=== PATIENT | male | born 1980 | race Caucasian/White ===

== ENCOUNTER 2016-12-25 09:10 | Emergency (ER) | payer MEDICARE, MEDICAID ==
[~2016-12-25] VITALS: Ht 182.9 cm; Wt 110.7 kg
[~2016-12-25 09:10] MED LIST: AGM875T PO; HYDR1TAB PO
[2016-12-25 09:32] LABS: BILIRUBIN,URINE NEGATIVE (NEGATIVE); KETONES,URINE NEGATIVE (NEGATIVE); LEUKOCYTE ESTERASE ,URINE 1+ (NEGATIVE); NITRITE,URINE NEGATIVE (NEGATIVE); PH,URINE 7 (5-9); PROTEIN,URINE NEGATIVE (NEGATIVE); UROBILINOGEN,URINE NORMAL (NORMAL)
[2016-12-25 09:37] LABS: BASOPHILS # (AUTO) 0.1 10^3/uL (0.0-0.1); BASOPHILS % (AUTO) 1 % (0-10); EOSINOPHILS # (AUTO) 0.2 10^3/uL (0.0-0.3); EOSINOPHILS % (AUTO) 4 % (0-10); LYMPHOCYTES # (AUTO) 1.6 X 10^3 (1.0-4.0); LYMPHOCYTES % (AUTO) 26 % (12-44); MEAN CORPUSCULAR HEMOGLOBIN 31 PG (25-34); MEAN CORPUSCULAR HGB CONC 34 G/DL (32-36); MEAN CORPUSCULAR VOLUME 92 FL (80-99); MEAN PLATELET VOLUME 9.2 FL (7.4-10.4); MONOCYTES # (AUTO) 0.5 X 10^3 (0.0-1.0); MONOCYTES % (AUTO) 9 % (0-12); NEUTROPHILS # (AUTO) 3.7 X 10^3 (1.8-7.8); NEUTROPHILS % (AUTO) 61 % (42-75); PLATELET COUNT 277 10^3/uL (130-400); RED BLOOD COUNT 5.09 10^6/uL (4.35-5.85); RED CELL DISTRIBUTION WIDTH 12.2 % (10.0-14.5)
[2016-12-25 09:41] LABS: WBC,URINE RARE /HPF
[2016-12-25] MEDS ORDERED: ONDANSETRON 4 MG/2 ML (SDV) Z0FRAN IVP ONE (10:45)
[2016-12-25] MEDS ORDERED: KETOROLAC 30 MG/ML VIAL IVP ONE (10:45)
--- NOTE | 2016-12-25 10:56 | ED GU-Male ---
General Chief Complaint: -Male Stated Complaint: BLOOD IN URINE RIGHT SIDE PAIN FEVER Nursing Triage Note: Pt reports fever and chills since yesterday. Pt reports r sided abdominal pain and blood in his urine. Pt states he saw Dr. Moser yesterday and was told it was viral and prescribed zofran. Source: patient History of Present Illness Time seen by provider: 10:55 Initial Comments The patient is a 36-year-old white male who presents with a complaint of right sided abdominal and flank pain. He reports that he saw his provider Dr. Moser yesterday and was told that this was a viral illness. He reports that when he awakened this morning he felt much worse and when he urinated there was red blood. He has a past history of kidney stones. He also now has some nausea and has vomited. Timing/Duration: yesterday Severity/Quality: moderate Location: right flank, other (right hemiabdomen) Activities at Onset: none Associated Symptoms: fever/chills nausea/vomiting Allergies and Home Medications Allergies Coded Allergies: Aspirin (Unverified Allergy, Mild, 08/20/07) PT STATES TROUBLE BREATHING AND SWOLLEN GLANDS Constitutional: see HPI EENTM: no symptoms reported Respiratory: no symptoms reported Cardiovascular: no symptoms reported Gastrointestinal: see HPI Genitourinary: see HPI flank pain Musculoskeletal: no symptoms reported Skin: no symptoms reported Psychiatric/Neurological: No Symptoms Reported Endocrine: No Symptoms Reported Hematologic/Lymphatic: No Symptoms Reported Past Rbsmrnp-Vtauwc-Ienill Hx Patient Social History Alcohol Use: Occasionally Uses Recreational Drug Use: No Smoking Status: Never a Smoker Recent Foreign Travel: No Contact w/Someone Who Travel: No Recent Infectious Disease Expo: No Recent Hopitalizations: No Surgeries HX Surgeries: Yes Surgeries: Vasectomy Respiratory Hx Respiratory Disorders: No Cardiovascular Hx Cardiac Disorders: No Neurological Hx Neurological Disorders: No Reproductive System Hx Reproductive Disorders: No Genitourinary Hx Genitourinary Disorders: Yes Genitourinary Disorders: Kidney Stones Gastrointestinal Hx Gastrointestinal Disorders: No Musculoskeletal Hx Musculoskeletal Disorders: Yes Endocrine Hx Endocrine Disorders: Yes (hypoglycemia) HEENT HX ENT Disorders: No Cancer Hx Cancer: No Psychosocial Hx Psychiatric Problems: No Blood Transfusions Hx Blood Disorders: No Physical Exam Vital Signs Vital Sign - Last 12Hours 12/25/16 09:21 Temp 98.7 Pulse 68 Resp 18 B/P 138/97 Pulse Ox 98 Capillary Refill : Less Than 3 Seconds General Appearance: mild distress HEENT: normal ENT inspection Neck: full range of motion Cardiovascular: normal peripheral pulses regular rate, rhythm no edema no gallop no JVD no murmur Respiratory: chest non-tender lungs clear normal breath sounds no respiratory distress no accessory muscle use Gastrointestinal: normal bowel sounds non tender soft no organomegaly no pulsatile mass Back: CVA tenderness (R) Extremities: normal range of motion non-tender normal inspection no pedal edema no calf tenderness normal capillary refill pelvis stable Neurologic/Psychiatric: slide developer II-XII nml as tested no motor/sensory deficits alert normal mood/affect oriented x 3 Skin: normal color warm/dry Lymphatic: No no adenopathy, No axilla node tender (R), No axilla node tender ( L), No inguinal node tender (R), No inguinal node tender (L), No other Progress/Results/Core Measures Results/Orders Lab Results Laboratory Tests Test 12/25/16 09:23 12/25/16 09:31 Range/Units Urine Bacteria NEGATIVE /HPF Urine Bilirubin NEGATIVE NEGATIVE Urine Casts NONE /LPF Urine Clarity CLEAR Urine Color YELLOW Urine Crystals NONE /LPF Urine Culture Indicated NO Urine Glucose (UA) NEGATIVE NEGATIVE Urine Ketones NEGATIVE NEGATIVE Urine Leukocyte Esterase 1+ H NEGATIVE Urine Mucus SMALL H /LPF Urine Nitrite NEGATIVE NEGATIVE Urine Protein NEGATIVE NEGATIVE Urine RBC NONE /HPF Urine RBC (Auto) NEGATIVE NEGATIVE Urine Specific [place] 1.010 L 1.016-1.022 Urine Squamous Epithelial Cells /HPF Urine Urobilinogen NORMAL NORMAL MG/DL Urine WBC RARE /HPF Urine pH 7 5-9 Basophils # (Auto) 0.1 0.0-0.1 10^3/uL Basophils (%) (Auto) 1 0-10 % Eosinophils # (Auto) 0.2 0.0-0.3 10^3/uL Eosinophils (%) (Auto) 4 0-10 % Hematocrit 47 40-54 % Hemoglobin 15.8 13.3-17.7 G/DL Lymphocytes # (Auto) 1.6 1.0-4.0 X 10^3 Lymphocytes (%) (Auto) 26 12-44 % Mean Corpuscular Hemoglobin 31 25-34 PG Mean Corpuscular Hemoglobin Concent 34 32-36 G/DL Mean Corpuscular Volume 92 80-99 FL Mean Platelet Volume 9.2 7.4-10.4 FL Monocytes # (Auto) 0.5 0.0-1.0 X 10^3 Monocytes (%) (Auto) 9 0-12 % Neutrophils # (Auto) 3.7 1.8-7.8 X 10^3 Neutrophils (%) (Auto) 61 42-75 % Platelet Count 277 130-400 10^3/uL Red Blood Count 5.09 4.35-5.85 10^6/uL Red Cell Distribution Width 12.2 10.0-14.5 % White Blood Count 6.0 4.3-11.0 10^3/uL My Orders Orders-KIM BEASLEY MD Cbc With Automated Diff (12/25/16 09:17) Ua Culture If Indicated (12/25/16 09:17) Ketorolac Injection (Toradol Injection) (12/25/16 10:45) Ondansetron Injection (Zofran Injectio (12/25/16 10:45) Ct Abd/Pelvis Wo(Kidney Stone) (12/25/16 10:41) Medications Given in ED Current Medications Medications Dose Ordered Sig/Alba Route Start Time Stop Time Status Last Admin Dose Admin Ketorolac Tromethamine 30 mg ONCE ONCE IVP 12/25/16 10:45 12/25/16 10:46 DC 12/25/16 10:49 30 MG Ondansetron HCl 8 mg ONCE ONCE IVP 12/25/16 10:45 12/25/16 10:46 DC 12/25/16 10:49 8 MG Vital Signs/I&O Vital Sign - Last 12Hours 12/25/16 09:21 Temp 98.7 Pulse 68 Resp 18 B/P 138/97 Pulse Ox 98 Blood Pressure Mean: 111 Departure Impression Impression: Primary Impression: Right sided abdominal pain Disposition: HOME, SELF-CARE Condition: Stable/Unchanged Decision to Admit Reason: Admit from ER (General) Decision to Admit/Date: Dec 25, 2016 Time/Decision to Admit Time: 12:20 Departure-Patient Inst. Referrals: NO,LOCAL PHYSICIAN (PCP/Family) Primary Care Physician Add. Discharge Instructions: All discharge instructions reviewed with patient and/or family. Voiced understanding. Clear liquid diet. Lortab as prescribed See your provider if problems Return to ER if change in condition Scripts Hydrocodone/Acetaminophen (Lortab 10-325 mg Tablet)1 Each Tablet1 Each PO 4 TIMES A DAY #20 TAB Prov:KIM BEASLEY MD 12/25/16 KIM BEASLEY MD Dec 25, 2016 10:56
--- NOTE | 2016-12-25 11:58 | Diagnostic Imaging Report ---
PROCEDURE: CT urinary tract, rule out kidney stone. TECHNIQUE: Multiple contiguous axial images were obtained through the abdomen and pelvis without the use of intravenous contrast. INDICATION: Right flank pain x2 days. COMPARISON: 08/07/2011 FINDINGS: Included views the lung bases show mild dependent atelectasis, but are otherwise unremarkable. CT ABDOMEN: No renal or ureteral calculi are seen on either side. Additionally, there is no hydroureteronephrosis or other evidence of obstruction. No focal renal mass-type lesions are identified on this noncontrast exam. The liver is diffusely hypodense. Otherwise, the liver, spleen, pancreas and adrenal glands have an unremarkable noncontrast CT appearance, as well. Small bowel loops are nondistended. Normal appendix is identified. There is no loculated fluid collection, free fluid or free air within the abdomen. No abnormal mesenteric or retroperitoneal adenopathy is seen. There is mild scattered calcified aortic atherosclerosis. Bony structures show no acute abnormalities. CT PELVIS: There is a hazy nodular density within the anterior pelvis just to the left lateral of midline that measures approximately 1.5 x 1.3 x 1 cm (image 125, series 2 and image 39, series 4). Prominent right inguinal lymph node measures 2.6 x 1.6 cm. This is stable compared to 2.7 x 1.8 cm on prior exam. Previously described second large inguinal lymph node is now much smaller and measures approximately 5 mm in diameter, in comparison to 2.5 cm previously. No other abnormal adenopathy is seen. Urinary bladder is unopacified. No calculi are seen within the urinary bladder. There is no loculated fluid collection, free fluid or free air. Bony structures show no acute abnormalities. IMPRESSION: 1. No acute abnormalities in the abdomen or pelvis. 2. Hepatic steatosis. 3. Nodular subtle density in the lower pelvis to the left lateral of midline adjacent to the sigmoid colon. This is nonspecific, but may be on the basis of prior omental infarct. 4. Right inguinal adenopathy, as described above. Dictated by: Dictated on workstation # [id number]
[2016-12-25] MEDS ORDERED: HYDR-3731 PO (12:24)
[2016-12-25 12:30] VITALS: BP 112/69
== END 2016-12-25 12:38 | disposition home or self-care (01) ==
LOC: EDUNIT# 09:10 → ER 09:14
DX: R10.31 Right lower quadrant pain (principal); K76.0 Fatty (change of) liver, not elsewhere classified; R59.0 Localized enlarged lymph nodes; Z87.442 Personal history of urinary calculi
CPT/HCPCS: 36415; 74176; 81000; 85025; 96374; 96375

== ENCOUNTER 2017-02-13 12:26 | Emergency (ER) | payer MEDICARE, MEDICAID ==
[~2017-02-13] VITALS: Ht 182.9 cm; Wt 109.8 kg
[~2017-02-13 12:26] MED LIST changes: +HYDR-3731 PO
[2017-02-13] MEDS ORDERED: TRAM50TA2 (12:42)
[2017-02-13] MEDS ORDERED: LEVO750T39 (12:42)
[2017-02-13] MEDS ORDERED: METR500T21 (12:42)
[2017-02-13] MEDS ORDERED: MUPI22OI2 TP (12:58)
--- NOTE | 2017-02-13 12:59 | ED Lower Extremity ---
General Chief Complaint: Lower Extremity Stated Complaint: WEAKNESS, DIZZY, SUDDEN BODYACHES. SPIDER BITE Nursing Triage Note: ARRIVED VIA AMB WITH KNOWN SPIDER BITE ON LEFT LOWER LEG. WAS SEEN AT [facility] AND REALEASED TO GO BACK TO WORK. AT WORK BECAME DIZZY, PAIN IN LEG, AND NOT FEELING WELL. Nursing Sepsis Screen: No Definite Risk Source: patient Exam Limitations: no limitations History of Present Illness Time seen by provider: 12:55 Initial Comments To ER with a suspected insect bite to the left lateral leg. This began a few days ago he was seen at [facility] and given an antibiotic which included Flagyl and Levaquin. Patient states he was released to go back to work today and while at work became dizzy and lightheaded and believes this to be secondary to the insect bite on his leg. Onset: last week Severity: moderate Pain/Injury Location: left leg Method of Injury: unknown Allergies and Home Medications Allergies Coded Allergies: No Known Drug Allergies (Unverified , 02/13/17) Home Medications Levofloxacin 750 Mg Tablet, #10 (Reported) Metronidazole 500 Mg Tablet, #21 (Reported) Mupirocin 22 Gm Oint...g., 22 GM TP BID, #1 Prescribed by: YULIET ORELLANA on 02/13/17 1258 Tramadol HCl 50 Mg Tablet, #40 (Reported) Constitutional: see HPI EENTM: see HPI Respiratory: no symptoms reported Cardiovascular: no symptoms reported Genitourinary: no symptoms reported Musculoskeletal: no symptoms reported Skin: no symptoms reported Psychiatric/Neurological: No Symptoms Reported Past Iohtazz-Uejyfz-Bbhesk Hx Patient Social History Alcohol Use: Denies Use Recreational Drug Use: No Smoking Status: Never a Smoker Recent Foreign Travel: No Contact w/Someone Who Travel: No Recent Infectious Disease Expo: No Recent Hopitalizations: No Surgeries HX Surgeries: Yes (KIDNEY STONES, ) Surgeries: Tonsillectomy, Vasectomy Respiratory Hx Respiratory Disorders: No Cardiovascular Hx Cardiac Disorders: No Neurological Hx Neurological Disorders: No Reproductive System Hx Reproductive Disorders: No Genitourinary Hx Genitourinary Disorders: Yes Genitourinary Disorders: Kidney Stones Gastrointestinal Hx Gastrointestinal Disorders: No Musculoskeletal Hx Musculoskeletal Disorders: Yes Endocrine Hx Endocrine Disorders: Yes (hypoglycemia) HEENT HX ENT Disorders: No Cancer Hx Cancer: No Psychosocial Hx Psychiatric Problems: No Blood Transfusions Hx Blood Disorders: No Physical Exam Vital Signs Vital Sign - Last 12Hours 02/13/17 12:30 Temp 97.5 Pulse 65 Resp 16 B/P (MAP) 143/94 Pulse Ox 93 Capillary Refill : Less Than 3 Seconds General Appearance: WD/WN, no apparent distress HEENT: PERRL/EOMI, normal ENT inspection Neck: non-tender, full range of motion Respiratory: no respiratory distress, no accessory muscle use Gastrointestinal: normal bowel sounds, non tender, soft Hips: bilateral hip non-tender, bilateral hip normal inspection, bilateral hip normal range of motion Legs: bilateral leg non-tender, bilateral leg normal inspection, bilateral leg normal range of motion, left leg other (there is a small area of erythema to the lateral left leg without surrounding cellulitis, lymphangitis. There is no fluctuance to this, there is however some induration.) Knees: bilateral knee non-tender, bilateral knee normal inspection, bilateral knee normal range of motion Ankles: bilateral ankle non-tender, bilateral ankle normal inspection Feet: bilateral foot non-tender, bilateral foot normal inspection, bilateral foot normal range of motion Progress/Results/Core Measures Results/Orders Lab Results Laboratory Tests Test 02/13/17 12:52 02/13/17 13:04 Range/Units White Blood Count 5.0 4.3-11.0 10^3/uL Red Blood Count 4.64 4.35-5.85 10^6/uL Hemoglobin 14.3 13.3-17.7 G/DL Hematocrit 43 40-54 % Mean Corpuscular Volume 92 80-99 FL Mean Corpuscular Hemoglobin 31 25-34 PG Mean Corpuscular Hemoglobin Concent 34 32-36 G/DL Red Cell Distribution Width 11.9 10.0-14.5 % Platelet Count 256 130-400 10^3/uL Mean Platelet Volume 8.8 7.4-10.4 FL Neutrophils (%) (Auto) 60 42-75 % Lymphocytes (%) (Auto) 27 12-44 % Monocytes (%) (Auto) 10 0-12 % Eosinophils (%) (Auto) 3 0-10 % Basophils (%) (Auto) 1 0-10 % Neutrophils # (Auto) 3.0 1.8-7.8 X 10^3 Lymphocytes # (Auto) 1.4 1.0-4.0 X 10^3 Monocytes # (Auto) 0.5 0.0-1.0 X 10^3 Eosinophils # (Auto) 0.1 0.0-0.3 10^3/uL Basophils # (Auto) 0.0 0.0-0.1 10^3/uL Sodium Level 141 135-145 MMOL/L Potassium Level 3.8 3.6-5.0 MMOL/L Chloride Level 105 98-107 MMOL/L Carbon Dioxide Level 27 21-32 MMOL/L Anion Gap 9 5-14 MMOL/L Blood Urea Nitrogen 7 7-18 MG/DL Creatinine 1.29 0.60-1.30 MG/DL Estimat Glomerular Filtration Rate > 60 BUN/Creatinine Ratio 5 Glucose Level 82 70-105 MG/DL Calcium Level 9.1 8.5-10.1 MG/DL Total Bilirubin 0.4 0.1-1.0 MG/DL Aspartate Amino Transf (AST/SGOT) 18 5-34 U/L Alanine Aminotransferase (ALT/SGPT) 27 0-55 U/L Alkaline Phosphatase 73 40-136 U/L Total Creatine Kinase 309 H 30-200 U/L Total Protein 6.7 6.4-8.2 G/DL Albumin 4.3 3.2-4.5 G/DL My Orders Orders - YULIET ORELLANA APRN Cbc With Automated Diff (02/13/17 12:44) Comprehensive Metabolic Panel (02/13/17 12:44) Ua Culture If Indicated (02/13/17 12:44) Creatine Kinase (02/13/17 12:44) Vital Signs/I&O Vital Sign - Last 12Hours 02/13/17 12:30 Temp 97.5 Pulse 65 Resp 16 B/P (MAP) 143/94 Pulse Ox 93 Blood Pressure Mean: 110 Departure Impression Impression: Primary Impression: Soft tissue infection Disposition: HOME, SELF-CARE Condition: Stable Departure-Patient Inst. Decision time for Depature: 12:57 Referrals: NO,LOCAL PHYSICIAN (PCP/Family) Primary Care Physician Patient Instructions: NO INSTRUCTIONS GIVEN Add. Discharge Instructions: 1. Stop the antibiotic pills and start the antibiotic ointment 2. Follow-up with your doctor next week 3. Drink plenty of fluids All discharge instructions reviewed with patient and/or family. Voiced understanding. Scripts Mupirocin (Mupirocin) 22 Gm Oint...g. 22 GM TP BID, #1 TUBE Prov: YULIET ORELLANA APRN 02/13/17 Work/School Note: Work Release Form Date Seen in the Emergency Department: February 13, 2017 Return to Work: February 14, 2017 YULIET ORELLANA APRN February 13, 2017 12:59
[2017-02-13 13:01] LABS: BASOPHILS % (AUTO) 1 % (0-10); EOSINOPHILS # (AUTO) 0.1 10^3/uL (0.0-0.3); EOSINOPHILS % (AUTO) 3 % (0-10); LYMPHOCYTES # (AUTO) 1.4 X 10^3 (1.0-4.0); LYMPHOCYTES % (AUTO) 27 % (12-44); MEAN CORPUSCULAR HEMOGLOBIN 31 PG (25-34); MEAN CORPUSCULAR HGB CONC 34 G/DL (32-36); MEAN CORPUSCULAR VOLUME 92 FL (80-99); MEAN PLATELET VOLUME 8.8 FL (7.4-10.4); MONOCYTES # (AUTO) 0.5 X 10^3 (0.0-1.0); MONOCYTES % (AUTO) 10 % (0-12); NEUTROPHILS % (AUTO) 60 % (42-75); PLATELET COUNT 256 10^3/uL (130-400); RED BLOOD COUNT 4.64 10^6/uL (4.35-5.85); RED CELL DISTRIBUTION WIDTH 11.9 % (10.0-14.5)
[2017-02-13 13:13] LABS: BILIRUBIN,URINE NEGATIVE (NEGATIVE); KETONES,URINE NEGATIVE (NEGATIVE); LEUKOCYTE ESTERASE ,URINE 1+ (NEGATIVE); NITRITE,URINE NEGATIVE (NEGATIVE); PH,URINE 6 (5-9); PROTEIN,URINE NEGATIVE (NEGATIVE); UROBILINOGEN,URINE NORMAL (NORMAL)
[2017-02-13 13:18] LABS: ALANINE AMINOTRANSFERASE 27 U/L (0-55); ALBUMIN 4.3 G/DL (3.2-4.5); ANION GAP 9 MMOL/L (5-14); ASPARTATE AMINO TRANSFERASE 18 U/L (5-34); BILIRUBIN,TOTAL 0.4 MG/DL (0.1-1.0); BLOOD UREA NITROGEN 7 MG/DL (7-18); BUN/CREATININE RATIO 5; CALCIUM 9.1 MG/DL (8.5-10.1); CARBON DIOXIDE 27 MMOL/L (21-32); CHLORIDE 105 MMOL/L (98-107); CREATINE KINASE 309 U/L (30-200); CREATININE SERUM 1.29 MG/DL (0.60-1.30); GFR ESTIMATED > 60; GLUCOSE 82 MG/DL (70-105); POTASSIUM 3.8 MMOL/L (3.6-5.0); SODIUM 141 MMOL/L (135-145); TOTAL PROTEIN 6.7 G/DL (6.4-8.2)
[2017-02-13 13:22] LABS: WBC,URINE RARE /HPF
[2017-02-13 13:23] LABS: SQUAMOUS EPITHELIAL CELL,UR RARE /HPF
[2017-02-13 13:33] VITALS: BP 142/81
== END 2017-02-13 13:33 | disposition home or self-care (01) ==
LOC: EDUNIT# 12:26 → ER 12:28
DX: L03.116 Cellulitis of left lower limb (principal)
CPT/HCPCS: 36415; 80053; 81000; 82550; 85025

== ENCOUNTER 2020-06-03 17:07 | Emergency (ER) | payer MEDICARE, MEDICAID ==
[~2020-06-03] VITALS: Ht 182 cm; Wt 109.0 kg
[~2020-06-03 17:07] MED LIST changes: +LEVO750T39; +METR-145; +MUPI22OI2 TP; +TRM50T
--- NOTE | 2020-06-03 17:55 | ED Lower Extremity ---
General Chief Complaint: Lower Extremity Stated Complaint: time, unlikely. All Nursing Triage Note: Pt here with bruising to his posterior left thigh. Pt states he woke up with the bruising and denies any trauma or new activity. Pt reports pain /10. Nursing Sepsis Screen: No Definite Risk Source: patient Exam Limitations: no limitations History of Present Illness Date Seen by Provider: Jun 03, 2020 Time Seen by Provider: 17:53 Initial Comments To ER with bruising to the posterior left upper leg. He awakened with this this morning. He does report chills but no fever. Concerned he might have had a blood clot. Onset: this morning Severity: moderate Pain/Injury Location: left leg Method of Injury: unknown Modifying Factors: Worse With Movement Allergies and Home Medications Allergies Coded Allergies: No Known Drug Allergies (Unverified , 02/13/17) Home Medications Mupirocin 22 Gm Oint...g., 22 GM TP BID Prescribed by: YULIET ORELLANA on 02/13/17 1258 Patient Home Medication List Home Medication List Reviewed: Yes Review of Systems Constitutional: see HPI EENTM: see HPI Respiratory: no symptoms reported Cardiovascular: no symptoms reported Genitourinary: no symptoms reported Musculoskeletal: see HPI Skin: see HPI Past Llikdwv-Mrsdlu-Dbjgdt Hx Patient Social History Recent Foreign Travel: No Contact w/Someone Who Travel: No Recent Infectious Disease Expo: No Recent Hopitalizations: No Past Medical History Tonsillectomy, Vasectomy Reproductive Disorders: No Kidney Stones Physical Exam Vital Signs Vital Signs - First Documented 06/03/20 17:30 Temp 36.7 Pulse 68 Resp 18 B/P (MAP) 149/102 (118) Pulse Ox 98 O2 Delivery Room Air Capillary Refill : Less Than 3 Seconds Height, Weight, BMI Height: 6'" Weight: 242lbs. oz. 109.788895bw; 32.00 BMI Method:Stated General Appearance: WD/WN, no apparent distress HEENT: PERRL/EOMI, normal ENT inspection Respiratory: no respiratory distress, no accessory muscle use Hips: bilateral hip non-tender, bilateral hip normal inspection, bilateral hip normal range of motion Legs: bilateral leg non-tender, bilateral leg normal inspection, bilateral leg normal range of motion; left leg other (there is some palm size dark purplish bruising just above the knee posteriorly on the left. There is no erythema or swelling of either extremity. He does report some tenderness to the left inguinal region. No wounds or sores on his leg.) Knees: bilateral knee non-tender, bilateral knee normal inspection Ankles: bilateral ankle non-tender, bilateral ankle normal inspection Feet: bilateral foot non-tender, bilateral foot normal inspection, bilateral foot normal range of motion; left foot other (equal posterior tibial and dorsalis pulses strength 2+ bilaterally) Neurologic/Psychiatric: alert, normal mood/affect, oriented x 3 Skin: normal color, warm/dry Progress/Results/Core Measures Results/Orders Lab Results Laboratory Tests Test 06/03/20 18:13 Range/Units White Blood Count 7.1 4.3-11.0 10^3/uL Red Blood Count 4.87 4.35-5.85 10^6/uL Hemoglobin 14.9 13.3-17.7 G/DL Hematocrit 45 40-54 % Mean Corpuscular Volume 92 80-99 FL Mean Corpuscular Hemoglobin 31 25-34 PG Mean Corpuscular Hemoglobin Concent 33 32-36 G/DL Red Cell Distribution Width 13.3 10.0-14.5 % Platelet Count 317 130-400 10^3/uL Mean Platelet Volume 8.7 7.4-10.4 FL Neutrophils (%) (Auto) 69 42-75 % Lymphocytes (%) (Auto) 19 12-44 % Monocytes (%) (Auto) 6 0-12 % Eosinophils (%) (Auto) 5 0-10 % Basophils (%) (Auto) 1 0-10 % Neutrophils # (Auto) 5.0 1.8-7.8 X 10^3 Lymphocytes # (Auto) 1.4 1.0-4.0 X 10^3 Monocytes # (Auto) 0.4 0.0-1.0 X 10^3 Eosinophils # (Auto) 0.4 H 0.0-0.3 10^3/uL Basophils # (Auto) 0.1 0.0-0.1 10^3/uL Prothrombin Time 13.1 12.2-14.7 SEC INR Comment 1.0 0.8-1.4 Activated Partial Thromboplast Time 29 24-35 SEC D-Dimer 0.66 H 0.00-0.49 UG/ML Sodium Level 141 135-145 MMOL/L Potassium Level 2.9 L 3.6-5.0 MMOL/L Chloride Level 104 98-107 MMOL/L Carbon Dioxide Level 27 21-32 MMOL/L Anion Gap 10 5-14 MMOL/L Blood Urea Nitrogen 7 7-18 MG/DL Creatinine 1.00 0.60-1.30 MG/DL Estimat Glomerular Filtration Rate > 60 BUN/Creatinine Ratio 7 Glucose Level 129 H 70-105 MG/DL Calcium Level 8.8 8.5-10.1 MG/DL Corrected Calcium 8.8 8.5-10.1 MG/DL Total Bilirubin 0.3 0.1-1.0 MG/DL Aspartate Amino Transf (AST/SGOT) 23 5-34 U/L Alanine Aminotransferase (ALT/SGPT) 45 0-55 U/L Alkaline Phosphatase 93 40-136 U/L Total Protein 7.0 6.4-8.2 GM/DL Albumin 4.0 3.2-4.5 GM/DL My Orders Orders - YULIET ORELLANA SANITARY AIDE Cbc With Automated Diff (06/03/20 17:51) Protime With Inr (06/03/20 17:51) Partial Thromboplastin Time (06/03/20 17:51) Fibrin Degradation Products (06/03/20 17:51) Comprehensive Metabolic Panel (06/03/20 17:51) Ed Iv/Invasive Line Start (06/03/20 17:51) Hydrocodone/Apap 5/325 Tablet (Lortab 5 (06/03/20 18:00) Potassium Chloride (Tablet) (Klor Con Ta (06/03/20 19:00) Enoxaparin Injection (Lovenox Injection) (06/03/20 19:00) Medications Given in ED Current Medications Medications Dose Ordered Sig/Alba Route Start Time Stop Time Status Last Admin Dose Admin Acetaminophen/ Hydrocodone Bitart 1 tab ONCE ONCE PO 06/03/20 18:00 06/03/20 18:01 DC 06/03/20 18:07 1 TAB Vital Signs/I&O 06/03/20 17:30 Temp 36.7 Pulse 68 Resp 18 B/P (MAP) 149/102 (118) Pulse Ox 98 O2 Delivery Room Air Blood Pressure Mean: 118 Departure Communication (Admissions) His d-dimer is only 0.66, his bruising appears more of just a simple bruise and knot a DVT. If this is truly just and ecchymosis I don't want to put him on Lovenox and I'm not convinced enough that this is a DVT to order a prophylactic dose of Lovenox while awaiting ultrasound results tomorrow. Impression Primary Impression: Hypokalemia Additional Impression: ecchymosis of leg Disposition: HOME, SELF-CARE Condition: Stable Departure-Patient Inst. Decision time for Depature: 18:53 Referrals: PAUL LAURENT MD NO,LOCAL PHYSICIAN (PCP) Primary Care Physician Patient Instructions: Hypokalemia (DC) Add. Discharge Instructions: 1. Call Dr. Laurent tomorrow to make an appointment to be seen for follow-up. Call the phone number for scheduling department to find out what time to show up for the ultrasound of your left leg. Pain medication as directed. Return to ER for any concerns. Scripts Potassium Chloride (Potassium Chloride) 20 Meq Tablet.er 40 MEQ PO BID, #6 TAB Prov: YULIET ORELLANA APRN 06/03/20 YULIET ORELLANA APRN Jun 03, 2020 17:55
[2020-06-03] MEDS ORDERED: HYDROcodone/APAP 5 MG/325 MG (LORTAB) TAB PO ONE (18:00)
[2020-06-03 18:23] LABS: BASOPHILS # (AUTO) 0.1 10^3/uL (0.0-0.1); BASOPHILS % (AUTO) 1 % (0-10); EOSINOPHILS # (AUTO) 0.4 10^3/uL (0.0-0.3); EOSINOPHILS % (AUTO) 5 % (0-10); HEMATOCRIT 45 % (40-54); HEMOGLOBIN 14.9 G/DL (13.3-17.7); LYMPHOCYTES # (AUTO) 1.4 X 10^3 (1.0-4.0); LYMPHOCYTES % (AUTO) 19 % (12-44); MEAN CORPUSCULAR HEMOGLOBIN 31 PG (25-34); MEAN CORPUSCULAR HGB CONC 33 G/DL (32-36); MEAN CORPUSCULAR VOLUME 92 FL (80-99); MEAN PLATELET VOLUME 8.7 FL (7.4-10.4); MONOCYTES # (AUTO) 0.4 X 10^3 (0.0-1.0); MONOCYTES % (AUTO) 6 % (0-12); NEUTROPHILS % (AUTO) 69 % (42-75); PLATELET COUNT 317 10^3/uL (130-400); RED CELL DISTRIBUTION WIDTH 13.3 % (10.0-14.5); WHITE BLOOD COUNT 7.1 10^3/uL (4.3-11.0)
[2020-06-03 18:41] LABS: ALANINE AMINOTRANSFERASE 45 U/L (0-55); ALKALINE PHOSPHATASE 93 U/L (40-136); BILIRUBIN,TOTAL 0.3 MG/DL (0.1-1.0); BUN/CREATININE RATIO 7; CALCIUM 8.8 MG/DL (8.5-10.1); CARBON DIOXIDE 27 MMOL/L (21-32); CHLORIDE 104 MMOL/L (98-107); FIBRIN DEGRADATION PRODUCTS 0.66 UG/ML (0.00-0.49); GFR ESTIMATED > 60; GLUCOSE 129 MG/DL (70-105); POTASSIUM 2.9 MMOL/L (3.6-5.0); PROTHROMBIN TIME PATIENT 13.1 SEC (12.2-14.7); SODIUM 141 MMOL/L (135-145)
[2020-06-03] MEDS ORDERED: HYDR-3870 PO (18:57)
[2020-06-03] MEDS ORDERED: POTA-51 PO (18:57)
[2020-06-03] MEDS ORDERED: KCL 10 MEQ TAB (MICRO K) PO ONE (19:00)
[2020-06-03] MEDS ORDERED: ENOXAPARIN 100 MG/1 ML (LOVENOX) SYR SC ONE (19:00)
[2020-06-03 19:22] VITALS: BP 126/83
== END 2020-06-03 19:24 | disposition home or self-care (01) ==
LOC: EDUNIT# 17:07 → ER 17:10
DX: S90.32XA Contusion of left foot, initial encounter (principal); E87.6 Hypokalemia; W19.XXXA Unspecified fall, initial encounter
CPT/HCPCS: 36415; 80053; 85025; 85379; 85610; 85730; 99283

== ENCOUNTER → 2020-06-04 | Outpatient (CLI) | payer MEDICARE, MEDICAID ==
[~2020-06-04] MED LIST changes: +HYDR-3870 PO; +POTA-51 PO
--- NOTE | 2020-06-04 13:02 | Diagnostic Imaging Report ---
PROCEDURE: US left lower extremity venous. TECHNIQUE: Multiple real-time grayscale images were obtained over the left lower extremity in various projections. Additional duplex Doppler and color Doppler images were also obtained. INDICATION: Left leg bruising. FINDINGS: There is no evidence of left lower extremity DVT. Left lower extremity deep venous system shows normal compressibility with normal response to augmentation and Valsalva. No fluid collection or mass is detected. IMPRESSION: No evidence of left lower extremity DVT. Dictated by: Dictated on workstation # [id number]
== END ==
LOC: RAD 09:48
PROVIDERS: ATTEND Nurse Practitioner Family
DX: S80.12XA Contusion of left lower leg, initial encounter (principal)

== ENCOUNTER 2020-06-10 14:55 | Emergency (ER) | payer MEDICARE, MEDICAID ==
[~2020-06-10] VITALS: Ht 182.9 cm; Wt 112.0 kg
--- NOTE | 2020-06-10 15:13 | ED Lower Extremity ---
General Chief Complaint: Lower Extremity Stated Complaint: L LEG/GROIN PAIN Nursing Triage Note: PT AMBULATE TO ROOM 03 WITH C/O LEFT LEG, GROIN PAIN. Nursing Sepsis Screen: No Definite Risk Source: patient Exam Limitations: no limitations History of Present Illness Date Seen by Provider: Jun 10, 2020 Time Seen by Provider: 14:00 Initial Comments Patient complaints of continues LLE pain. States pain is unchanged since last ED visit. Pain has traveled up LLE and now includes scrotal pain. Patient reports no pain relief from hydrocodone, ice, or heat Onset: last week Severity: moderate Pain/Injury Location: left leg Method of Injury: unknown Modifying Factors: Worse With Cold Therapy, Worse With Pain Medication Allergies and Home Medications Allergies Coded Allergies: No Known Drug Allergies (Unverified , 02/13/17) Home Medications Doxycycline Hyclate 100 Mg Tablet, 100 MG PO BID Prescribed by: YULIET ORELLANA on 06/10/20 1625 Hydrocodone/Acetaminophen 1 Each Tablet, 1 EACH PO Q4-6HR PRN for PAIN-MODERATE Prescribed by: YULIET ORELLANA on 06/03/20 1858 Mupirocin 22 Gm Oint...g., 22 GM TP BID Prescribed by: YULIET ORELLANA on 02/13/17 1258 Potassium Chloride 20 Meq Tablet.er, 40 MEQ PO BID Prescribed by: YULIET ORELLANA on 06/03/20 1857 Tramadol HCl 50 Mg Tablet, 50 MG PO Q6H Prescribed by: YULIET ORELLANA on 06/10/20 1626 Patient Home Medication List Home Medication List Reviewed: Yes Review of Systems Constitutional: see HPI, chills, diaphoresis EENTM: no symptoms reported; No ear discharge, No hearing loss Respiratory: see HPI Cardiovascular: no symptoms reported, see HPI Gastrointestinal: no symptoms reported, see HPI Genitourinary: see HPI, pain Psychiatric/Neurological: See HPI, Anxiety Past Gqfcnen-Gjdqpc-Azdgae Hx Patient Social History Alcohol Use: Occasionally Uses Recreational Drug Use: No Smoking Status: Current Everyday Smoker Type Used: Cigarettes 2nd Hand Smoke Exposure: Yes Recent Foreign Travel: No Contact w/Someone Who Travel: No Recent Infectious Disease Expo: No Recent Hopitalizations: No Past Medical History Surgeries: Yes (KIDNEY STONES, ) Tonsillectomy, Vasectomy Respiratory: No Cardiac: No Neurological: No Reproductive Disorders: No Kidney Stones Gastrointestinal: No Musculoskeletal: Yes Endocrine: Yes (hypoglycemia) Cancer: No Psychosocial: No Blood Disorders: No Physical Exam Vital Signs Vital Signs - First Documented 06/10/20 06/10/20 14:59 17:06 Temp 36.8 Pulse 86 Resp 21 B/P (MAP) 135/94 (108) Pulse Ox 99 O2 Delivery Room Air Capillary Refill : Less Than 3 Seconds Height, Weight, BMI Height: 6'" Weight: 242lbs. oz. 109.937678vi; 33.00 BMI Method:Stated General Appearance: WD/WN, mild distress, obese Neck: full range of motion, normal inspection Cardiovascular: normal peripheral pulses, no edema Respiratory: no accessory muscle use Gastrointestinal: non tender, soft Back: normal inspection Legs: right leg non-tender; bilateral leg normal inspection; left leg ecchymosis, left leg pain, left leg soft tissue tenderness Neurologic/Tendon: normal sensation, responds to pain Neurologic/Psychiatric: alert, oriented x 3 Skin: warm/dry; No cyanosis, No cool; ecchymosis; No pallor, No rash Progress/Results/Core Measures Results/Orders Lab Results Laboratory Tests Test 06/10/20 15:00 06/10/20 15:22 Range/Units White Blood Count 8.9 4.3-11.0 10^3/uL Red Blood Count 5.10 4.35-5.85 10^6/uL Hemoglobin 15.7 13.3-17.7 G/DL Hematocrit 47 40-54 % Mean Corpuscular Volume 91 80-99 FL Mean Corpuscular Hemoglobin 31 25-34 PG Mean Corpuscular Hemoglobin Concent 34 32-36 G/DL Red Cell Distribution Width 13.5 10.0-14.5 % Platelet Count 311 130-400 10^3/uL Mean Platelet Volume 9.2 7.4-10.4 FL Neutrophils (%) (Auto) 69 42-75 % Lymphocytes (%) (Auto) 21 12-44 % Monocytes (%) (Auto) 7 0-12 % Eosinophils (%) (Auto) 4 0-10 % Basophils (%) (Auto) 1 0-10 % Neutrophils # (Auto) 6.1 1.8-7.8 X 10^3 Lymphocytes # (Auto) 1.8 1.0-4.0 X 10^3 Monocytes # (Auto) 0.6 0.0-1.0 X 10^3 Eosinophils # (Auto) 0.3 0.0-0.3 10^3/uL Basophils # (Auto) 0.1 0.0-0.1 10^3/uL Prothrombin Time 13.4 12.2-14.7 SEC INR Comment 1.0 0.8-1.4 Activated Partial Thromboplast Time 29 24-35 SEC Sodium Level 140 135-145 MMOL/L Potassium Level 3.4 L 3.6-5.0 MMOL/L Chloride Level 106 98-107 MMOL/L Carbon Dioxide Level 24 21-32 MMOL/L Anion Gap 10 5-14 MMOL/L Blood Urea Nitrogen 6 L 7-18 MG/DL Creatinine 1.09 0.60-1.30 MG/DL Estimat Glomerular Filtration Rate > 60 BUN/Creatinine Ratio 6 Glucose Level 110 H 70-105 MG/DL Calcium Level 8.9 8.5-10.1 MG/DL Corrected Calcium 8.7 8.5-10.1 MG/DL Total Bilirubin 0.3 0.1-1.0 MG/DL Aspartate Amino Transf (AST/SGOT) 30 5-34 U/L Alanine Aminotransferase (ALT/SGPT) 46 0-55 U/L Alkaline Phosphatase 98 40-136 U/L Total Protein 7.2 6.4-8.2 GM/DL Albumin 4.2 3.2-4.5 GM/DL Urine Color YELLOW Urine Clarity CLEAR Urine pH 6.0 5-9 Urine Specific [place] >=1.030 1.016-1.022 Urine Protein TRACE H NEGATIVE Urine Glucose (UA) NEGATIVE NEGATIVE Urine Ketones NEGATIVE NEGATIVE Urine Nitrite NEGATIVE NEGATIVE Urine Bilirubin NEGATIVE NEGATIVE Urine Urobilinogen 0.2 < = 1.0 MG/DL Urine Leukocyte Esterase NEGATIVE NEGATIVE Urine RBC (Auto) NEGATIVE NEGATIVE Urine RBC 0-2 /HPF Urine WBC 0-2 /HPF Urine Crystals NONE /LPF Urine Bacteria NEGATIVE /HPF Urine Casts NONE /LPF Urine Mucus SMALL H /LPF Urine Culture Indicated NO My Orders Orders - YULIET ORELLANA APRN Ua Culture If Indicated (06/10/20 15:05) Cbc With Automated Diff (06/10/20 15:05) Comprehensive Metabolic Panel (06/10/20 15:05) Us Scrotum (Testicle) [id number] (06/10/20 15:05) Ct Abdomen/Pelvis W (06/10/20 15:05) Protime With Inr (06/10/20 15:05) Partial Thromboplastin Time (06/10/20 15:05) Ketorolac Injection (Toradol Injection) (06/10/20 15:15) Iohexol Injection (Omnipaque 350 Mg/Ml 1 (06/10/20 15:15) Di Iv Start (Assessment) .IV start (06/10/20 15:09) Received Contrast (Hold Metformin- Contr (06/10/20 15:15) Sodium Chloride Flush (Catheter Flush Sy (06/10/20 15:15) Ns (Ivpb) (Sodium Chloride 0.9% Ivpb Bag (06/10/20 15:15) Lactated Ringers (Lr 1000 Ml Iv Solution (06/10/20 15:45) Ceftriaxone For Iv Use (Rocephin For I (06/10/20 16:30) Azithromycin Tablet (Zithromax Tablet) (06/10/20 16:30) Medications Given in ED Current Medications Medications Dose Ordered Sig/Alba Route Start Time Stop Time Status Last Admin Dose Admin Azithromycin 1,000 mg ONCE ONCE PO 06/10/20 16:30 06/10/20 16:31 DC 06/10/20 16:35 1,000 MG Ceftriaxone Sodium 1000 mg/ Sterile Water 10 ml @ 200 mls/hr ONCE ONCE IV 06/10/20 16:30 06/10/20 16:32 DC 06/10/20 16:35 200 MLS/HR Iohexol 100 ml ONCE ONCE IV 06/10/20 15:15 06/10/20 15:16 DC 06/10/20 16:05 100 ML Ketorolac Tromethamine 15 mg ONCE ONCE IVP 06/10/20 15:15 06/10/20 15:16 DC 06/10/20 15:18 15 MG Sodium Chloride 100 ml ONCE ONCE IV 06/10/20 15:15 06/10/20 15:16 DC 06/10/20 16:05 80 ML Vital Signs/I&O 06/10/20 06/10/20 14:59 17:06 Temp 36.8 Pulse 86 78 Resp 21 18 B/P (MAP) 135/94 (108) 141/82 Pulse Ox 99 O2 Delivery Room Air Room Air Blood Pressure Mean: 108 Departure Impression Primary Impression: Acute epididymitis Additional Impression: Left groin pain Disposition: HOME, SELF-CARE Condition: Stable Departure-Patient Inst. Decision time for Depature: 16:22 Referrals: NO,LOCAL PHYSICIAN (PCP) Primary Care Physician Patient Instructions: Epididymitis (DC) Add. Discharge Instructions: Ice pack to scrotum with scrotal elevation as necessary. Wear tight underwear. Follow up with primary care provider as soon as possible All discharge instructions reviewed with patient and/or family. Voiced understanding. Scripts Tramadol HCl (Ultram) 50 Mg Tablet 50 MG PO Q6H, #14 TAB Prov: YULIET ORELLANA APRN 06/10/20 Doxycycline Hyclate (Doxycycline Hyclate) 100 Mg Tablet 100 MG PO BID, #20 TAB 0 Refills Prov: YULIET ORELLANA APRN 06/10/20 YULIET ORELLANA APRN Jun 10, 2020 15:13
[2020-06-10] MEDS ORDERED: HOLD METFORMIN - RECEIVED CONTRAST 20 ML VIAL IV SCH (15:15)
[2020-06-10] MEDS ORDERED: IOHEXOL 350 MG/ML 100 ML (OMNIPAQUE 350) VIAL IV ONE (15:15)
[2020-06-10] MEDS ORDERED: CATHETER FLUSH 10 ML SYR IV PRN (15:15)
[2020-06-10] MEDS ORDERED: NS 100 ML (IVPB) BAG IV ONE (15:15)
[2020-06-10] MEDS ORDERED: KETOROLAC 30 MG/ML VIAL IVP ONE (15:15)
[2020-06-10 15:16] LABS: BASOPHILS # (AUTO) 0.1 10^3/uL (0.0-0.1); BASOPHILS % (AUTO) 1 % (0-10); EOSINOPHILS # (AUTO) 0.3 10^3/uL (0.0-0.3); EOSINOPHILS % (AUTO) 4 % (0-10); HEMATOCRIT 47 % (40-54); HEMOGLOBIN 15.7 G/DL (13.3-17.7); LYMPHOCYTES # (AUTO) 1.8 X 10^3 (1.0-4.0); LYMPHOCYTES % (AUTO) 21 % (12-44); MEAN CORPUSCULAR HEMOGLOBIN 31 PG (25-34); MEAN CORPUSCULAR HGB CONC 34 G/DL (32-36); MEAN CORPUSCULAR VOLUME 91 FL (80-99); MEAN PLATELET VOLUME 9.2 FL (7.4-10.4); MONOCYTES # (AUTO) 0.6 X 10^3 (0.0-1.0); MONOCYTES % (AUTO) 7 % (0-12); NEUTROPHILS # (AUTO) 6.1 X 10^3 (1.8-7.8); NEUTROPHILS % (AUTO) 69 % (42-75); PLATELET COUNT 311 10^3/uL (130-400); RED CELL DISTRIBUTION WIDTH 13.5 % (10.0-14.5); WHITE BLOOD COUNT 8.9 10^3/uL (4.3-11.0)
[2020-06-10 15:20] LABS: ALBUMIN 4.2 GM/DL (3.2-4.5); CHLORIDE 106 MMOL/L (98-107); POTASSIUM 3.4 MMOL/L (3.6-5.0); PROTHROMBIN TIME PATIENT 13.4 SEC (12.2-14.7)
[2020-06-10 15:21] LABS: SODIUM 140 MMOL/L (135-145)
[2020-06-10 15:22] LABS: CALCIUM 8.9 MG/DL (8.5-10.1)
[2020-06-10 15:23] LABS: GLUCOSE 110 MG/DL (70-105); TOTAL PROTEIN 7.2 GM/DL (6.4-8.2)
[2020-06-10 15:24] LABS: CARBON DIOXIDE 24 MMOL/L (21-32)
[2020-06-10 15:25] LABS: BILIRUBIN,TOTAL 0.3 MG/DL (0.1-1.0)
[2020-06-10 15:26] LABS: ALKALINE PHOSPHATASE 98 U/L (40-136); CREATININE SERUM 1.09 MG/DL (0.60-1.30); GFR ESTIMATED > 60
[2020-06-10 15:27] LABS: BILIRUBIN,URINE NEGATIVE (NEGATIVE); CLARITY,URINE CLEAR; COLOR,URINE YELLOW; GLUCOSE, URINE (UA) NEGATIVE (NEGATIVE); KETONES,URINE NEGATIVE (NEGATIVE); LEUKOCYTE ESTERASE ,URINE NEGATIVE (NEGATIVE); NITRITE,URINE NEGATIVE (NEGATIVE); PROTEIN,URINE TRACE (NEGATIVE)
[2020-06-10 15:27] LABS: BUN/CREATININE RATIO 6
[2020-06-10 15:29] LABS: ALANINE AMINOTRANSFERASE 46 U/L (0-55)
[2020-06-10 15:34] LABS: BACTERIA,URINE NEGATIVE /HPF; RBC,URINE 0-2 /HPF; WBC,URINE 0-2 /HPF
[2020-06-10] MEDS ORDERED: LACTATED RINGERS 1,000 ML IV SCH (15:45)
--- NOTE | 2020-06-10 15:50 | Diagnostic Imaging Report ---
PROCEDURE: US Scrotum. TECHNIQUE: Multiple Real-time grayscale images were obtained over the scrotum in various projections bilaterally. INDICATION: Testicular pain. FINDINGS: The right testicle measures 4.7 x 1.9 x 2.5 cm and the left testicle measures 4.7 x 1.9 x 3 cm. Both testicles demonstrate homogeneous echogenicity and normal blood flow. The right epididymis is normal. The left epididymis is mildly enlarged and heterogeneous. It also appears mildly hyperemic. There are no hydroceles. There are no varicoceles. IMPRESSION: No evidence of discrete testicular mass or torsion. Findings suspect for mild epididymitis on the left. Dictated by: Dictated on workstation # [id number]
[2020-06-10] MEDS ORDERED: TRAM-42 PO (16:25)
[2020-06-10] MEDS ORDERED: DOXY100T2 PO (16:25)
[2020-06-10] MEDS ORDERED: cefTRIAXone FOR IV USE 1,000 MG in WATER (STERILE) FOR INJECTION 10 ML IV ONE (16:30)
[2020-06-10] MEDS ORDERED: AZITHROMYCIN 250 MG TAB (ZITHROMAX) PO ONE (16:30)
--- NOTE | 2020-06-10 16:34 | Diagnostic Imaging Report ---
PROCEDURE: CT abdomen and pelvis with contrast. TECHNIQUE: Multiple contiguous axial images were obtained through the abdomen and pelvis after administration of intravenous contrast. Auto Exposure Controls were utilized during the CT exam to meet ALARA standards for radiation dose reduction. INDICATION: Left testicular and groin pain. COMPARISON: Comparison is made to prior examination of 12/07/2019. FINDINGS: The heart size is normal. The lung bases are clear. Liver is normal in size without focal lesions. There is no biliary ductal dilatation. Spleen is normal. Pancreas and adrenal glands are unremarkable. There is no evidence of nephrolithiasis or obstructive uropathy. The aorta is nonaneurysmal. Bowel gas pattern is nonspecific. The appendix is normal. There is no free air. There is no ascites. There are no focal inflammatory changes. There is no pelvic mass, adenopathy, or free fluid. There are mild degenerative changes in spine. IMPRESSION: No acute abnormality in the abdomen or pelvis. Mild degenerative changes in the spine. Dictated by: Dictated on workstation # [id number]
[2020-06-10 17:06] VITALS: BP 141/82
== END 2020-06-10 17:06 | disposition home or self-care (01) ==
LOC: EDUNIT# 14:55 → ER 14:56
DX: N45.1 Epididymitis (principal); R10.32 Left lower quadrant pain; E66.9 Obesity, unspecified; F17.210 Nicotine dependence, cigarettes, uncomplicated; Z68.33 Body mass index [BMI] 33.0-33.9, adult
CPT/HCPCS: 36415; 74177; 76870; 80053; 81000; 85025; 85610; 85730

== ENCOUNTER 2020-06-12 11:51 | Emergency (ER) | payer MEDICARE, MEDICAID ==
[~2020-06-12] VITALS: Ht 182 cm; Wt 90.7 kg
[~2020-06-12 11:51] MED LIST changes: +DOXY100T2 PO; +TRAM-42 PO
[2020-06-12 11:55] VITALS: BP 123/69
[2020-06-12] MEDS ORDERED: ONDANSETRON 4 MG (ZOFRAN) ORAL DISSOLVE TAB PO STA (12:16)
--- NOTE | 2020-06-12 12:22 | ED GU-Male ---
General Chief Complaint: General Problems/Pain Stated Complaint: L TESTICLE INFECTION Nursing Triage Note: ARRIVED VIA AMB TO TRIAGE WITH MULTIPLE CONCERNS. STATES HE WAS SEEN YESTERDAY FOR LEFT TESTICLE PAIN THAT IS STILL HURTING. THINKS HE IS HAVING A REACTION TO THE DOXYCYCLINE BECAUSE IT MAKES HIM SWEAT AND SICK TO HIS STOMACH. BOSS THINKS HE NEEDS OFF MORE DAYS DUE TO THE REACTION TO THE ANTIBIOTIC. History of Present Illness Date Seen by Provider: Jun 12, 2020 Time Seen by Provider: 11:55 Initial Comments 80-year-old male seen here 2 days ago for epididymitis and started on doxycycline returns for continued symptoms and possible reaction to his antibiotic. Reports nausea and diaphoresis after taking the doxycycline, no swelling of his tongue/lips or rash and no SOA. He is also concerned about trying to return to work. He has had no fevers. He is able to urinate without complaints. Timing/Duration: changing over time Severity/Quality: mild Allergies and Home Medications Allergies Coded Allergies: levofloxacin (Verified Allergy, Unknown, 06/12/20) doxycycline (Verified Adverse Reaction, Mild, Vomiting, 06/12/20) Home Medications Amoxicillin/Potassium Clav 1 Each Tablet, 1 EACH PO BID Prescribed by: CRISTHIAN FERNÁNDEZ on 06/12/20 1244 Doxycycline Hyclate 100 Mg Tablet, 100 MG PO BID Prescribed by: YULIET ORELLANA on 06/10/20 1625 Hydrocodone/Acetaminophen 1 Each Tablet, 1 EACH PO Q4-6HR PRN for PAIN-MODERATE Prescribed by: YULIET ORELLANA on 06/03/20 1858 Levofloxacin 500 Mg Tablet, 500 MG PO DAILY Prescribed by: CRISTHIAN FERNÁNDEZ on 06/12/20 1226 Mupirocin 22 Gm Oint...g., 22 GM TP BID Prescribed by: YULIET ORELLANA on 02/13/17 1258 Potassium Chloride 20 Meq Tablet.er, 40 MEQ PO BID Prescribed by: YULIET ORELLANA on 06/03/20 1857 Tramadol HCl 50 Mg Tablet, 50 MG PO Q6H Prescribed by: YULIET ORELLANA on 06/10/20 1626 Patient Home Medication List Home Medication List Reviewed: Yes Review of Systems Review of Systems Constitutional: no symptoms reported, see HPI Genitourinary: see HPI; denies flank pain; pain (left testicle, slight improvement); denies urgency All Other Systemes Reviewed Negative Unless Noted: Yes Past Xnqxkbi-Htgemj-Eymrdc Hx Past Med/Social Hx: Reviewed Nursing Past Med/Soc Hx Patient Social History Type Used: Cigarettes 2nd Hand Smoke Exposure: Yes Recent Foreign Travel: No Contact w/Someone Who Travel: No Recent Infectious Disease Expo: No Recent Hopitalizations: No Past Medical History Surgeries: Yes (KIDNEY STONES, ) Tonsillectomy, Vasectomy Respiratory: No Cardiac: No Neurological: No Reproductive Disorders: No Kidney Stones Gastrointestinal: No Musculoskeletal: Yes Endocrine: Yes (hypoglycemia) Cancer: No Psychosocial: No Blood Disorders: No Physical Exam Vital Signs Vital Signs - First Documented 06/12/20 11:55 Temp 37.0 Pulse 120 Resp 16 B/P (MAP) 123/69 (87) Pulse Ox 96 O2 Delivery Room Air Capillary Refill : Less Than 3 Seconds Height, Weight, BMI Height: 6'" Weight: 242lbs. oz. 109.294639bv; 27.00 BMI Method:Stated General Appearance: WD/WN, no apparent distress Cardiovascular: normal peripheral pulses, regular rate, rhythm Respiratory: chest non-tender, lungs clear, normal breath sounds Gastrointestinal: normal bowel sounds, non tender, soft Genital/Rectal: normal genital exam, tenderness (sligth tenderness left testicle, no mass or nodules palpated, no swelling. ) Extremities: normal range of motion, non-tender, normal inspection Neurologic/Psychiatric: no motor/sensory deficits, alert, normal mood/affect, oriented x 3 Skin: normal color, warm/dry; No diaphoresis, No rash Progress/Results/Core Measures Suspected Sepsis Recent Fever Within 48 Hours: No Infection Criteria Present: None New/Unexplained Altered Menta: No Sepsis Screen: No Definite Risk SIRS Temperature: Pulse: 120 Respiratory Rate: 16 Blood Pressure 123 /69 Mean: 87 Results/Orders My Orders Orders - CRISTHIAN FERNÁNDEZ Hydrocodone/Apap 5/325 Tablet (Lortab 5 (06/12/20 12:30) Ondansetron Oral Dissolve Tab (Zofran (06/12/20 12:16) Medications Given in ED Current Medications Medications Dose Ordered Sig/Alba Route Start Time Stop Time Status Last Admin Dose Admin Acetaminophen/ Hydrocodone Bitart 1 tab ONCE ONCE PO 06/12/20 12:30 06/12/20 12:31 DC 06/12/20 12:25 1 TAB Vital Signs/I&O 06/12/20 11:55 Temp 37.0 Pulse 120 Resp 16 B/P (MAP) 123/69 (87) Pulse Ox 96 O2 Delivery Room Air Capillary Refill : Less Than 3 Seconds Blood Pressure Mean: 87 Departure Impression Primary Impression: Epididymitis, left Disposition: 01 HOME, SELF-CARE Condition: Improved Departure-Patient Inst. Decision time for Depature: 12:25 Referrals: [facility] [place] NO,LOCAL PHYSICIAN (PCP) Primary Care Physician Patient Instructions: Epididymitis (DC) Add. Discharge Instructions: Stop taking the doxycycline and take the new antibiotic as directed. Continue to alternate between heat and ice on your left testicle. Continue to take tramadol 1 tablet every 8 hours. Alternate between Tylenol 650 mg and ibuprofen 600 mg every 4 hours for additional pain. Take food with your medication to prevent nausea. Follow-up with your TOBY Baltazar at [facility] if symptoms are not improving or worsen. Return to the emergency department for new, urgent health care needs. All discharge instructions reviewed with patient and/or family. Voiced understanding. Scripts Amoxicillin/Potassium Clav (Augmentin 875-125 Tablet) 1 Each Tablet 1 EACH PO BID, #20 TAB 0 Refills Prov: CRISTHIAN FERNÁNDEZ 06/12/20 Levofloxacin (Levaquin) 500 Mg Tablet 500 MG PO DAILY, #10 TAB 0 Refills Prov: CRISTHIAN FERNÁNDEZ 06/12/20 Work/School Note: Work Release Form Date Seen in the Emergency Department: Jun 12, 2020 Return to Work: Jun 14, 2020 Restrictions: No Restrictions Other Restrictions Listed Below: break to ice for 15 min every 4-6 hours CRISTIHAN FERNÁNDEZ Jun 12, 2020 12:22
[2020-06-12] MEDS ORDERED: LEVO500T2 PO (12:26)
[2020-06-12] MEDS ORDERED: HYDROcodone/APAP 5 MG/325 MG (LORTAB) TAB PO ONE (12:30)
[2020-06-12] MEDS ORDERED: AMOX-358 PO (12:44)
== END 2020-06-12 12:39 | disposition home or self-care (01) ==
LOC: EDUNIT# 11:51 → ER 11:52
DX: N45.1 Epididymitis (principal); Z88.1 Allergy status to other antibiotic agents; Z77.22 Contact with and (suspected) exposure to environmental tobacco smoke (acute) (chronic)
CPT/HCPCS: 99283

== ENCOUNTER 2020-08-14 11:26 | Emergency (ER) | payer MEDICARE, MEDICAID ==
[~2020-08-14] VITALS: Ht 170 cm; Wt 102.0 kg
[~2020-08-14 11:26] MED LIST changes: +AMOX-358 PO; +LEVO500T2 PO
[2020-08-14 11:45] VITALS: BP 145/92
--- NOTE | 2020-08-14 12:07 | ED Cough/URI ---
General Chief Complaint: Cough/Cold/Flu Symptoms Stated Complaint: COUGH,CHILLS, LOSS OF TASTE Nursing Triage Note: ARRIVED VIA AMB TO ROOM 08 A PUI. COMPLAINS OF COUGH, CONGESTION, AND SORE THROAT X2 DAYS. Sepsis Screen: No Definite Risk Source: patient Exam Limitations: no limitations History of Present Illness Date Seen by Provider: Aug 14, 2020 Time Seen by Provider: 12:02 Initial Comments To ER with c/o cough loss of taste congestion and sore throat for two days. Smokes. Works at [employer]. Questionable fevers. Has been out of his zyprexa x4 months since moving here. States he formerly took it for PTSD. Since being off of it he has had worsening of mood and "anger outbreaks". Timing/Duration: getting worse Severity/Quality: productive cough Associated Symptoms: cough Allergies and Home Medications Allergies Coded Allergies: Sulfa (Sulfonamide Antibiotics) (Verified Allergy, Severe, HIVES, 08/14/20) levofloxacin (Verified Allergy, Unknown, 06/12/20) doxycycline (Verified Adverse Reaction, Mild, Vomiting, 06/12/20) Patient Home Medication List Home Medication List Reviewed: Yes Review of Systems Review of Systems Constitutional: see HPI EENTM: see HPI Respiratory: see HPI, cough Cardiovascular: no symptoms reported Genitourinary: no symptoms reported Musculoskeletal: no symptoms reported Skin: no symptoms reported Psychiatric/Neurological: No Symptoms Reported Hematologic/Lymphatic: No Symptoms Reported Immunological/Allergic: no symptoms reported Past Yktpntc-Krtzbu-Asuurs Hx Patient Social History Alcohol Use: Occasionally Uses Recreational Drug Use: No Smoking Status: Current Everyday Smoker Type Used: Cigarettes 2nd Hand Smoke Exposure: Yes Recent Foreign Travel: No Contact w/Someone Who Travel: No Recent Infectious Disease Expo: No Recent Hopitalizations: No Past Medical History Surgeries: Yes (KIDNEY STONES, ) Tonsillectomy, Vasectomy Respiratory: No Cardiac: No Neurological: No Reproductive Disorders: No Kidney Stones Gastrointestinal: No Musculoskeletal: Yes Endocrine: Yes (hypoglycemia) Cancer: No Psychosocial: No Blood Disorders: No Physical Exam Vital Signs - First Documented 08/14/20 11:45 Temp 36.2 Pulse 69 Resp 16 B/P (MAP) 145/92 (109) Pulse Ox 97 O2 Delivery Room Air Capillary Refill : Less Than 3 Seconds Height: 6'" Weight: 242lbs. oz. 109.304695dj; 35.00 BMI Method:Stated General Appearance: WD/WN, no apparent distress, other (no distress, resps nonlabored and no tachypnea. lungs without wheezing or crackles. sats 97% room air, HR 78. ) Eyes: Bilateral Eye Normal Inspection, Bilateral Eye PERRL, Bilateral Eye EOMI HEENT: PERRL/EOMI, normal ENT inspection Respiratory: normal breath sounds, no respiratory distress, no accessory muscle use Gastrointestinal: normal bowel sounds, non tender, soft Extremities: normal range of motion, non-tender Neurologic/Psychiatric: alert, normal mood/affect, oriented x 3 Skin: normal color, warm/dry Progress/Results/Core Measures Suspected Sepsis Recent Fever Within 48 Hours: No Infection Criteria Present: None New/Unexplained Altered Menta: No Sepsis Screen: No Definite Risk SIRS Temperature: Pulse: 69 Respiratory Rate: 16 Blood Pressure 145 /92 Mean: 109 Results/Orders My Orders Orders - YULIET ORELLANA APRN Coronavirus Sars-Cov-2 So 2019 (08/14/20 12:00) Influenza A And B Antigens (08/14/20 12:00) Chest 1 View, Ap/Pa Only (08/14/20 12:00) Vital Signs/I&O 08/14/20 11:45 Temp 36.2 Pulse 69 Resp 16 B/P (MAP) 145/92 (109) Pulse Ox 97 O2 Delivery Room Air Capillary Refill : Less Than 3 Seconds Blood Pressure Mean: 109 Departure Communication (Admissions) will do rx for abx and steroids given his smoking hx and poor mucociliary funciton. Will do short rx for zyprexa. Impression Primary Impression: Bronchitis Disposition: 01 HOME, SELF-CARE Condition: Stable Departure-Patient Inst. Decision time for Depature: 12:07 Referrals: NO,LOCAL PHYSICIAN (PCP/Family) Primary Care Physician Patient Instructions: Acute Bronchitis Add. Discharge Instructions: 1. Tylenol and motrin for fevers. 2. Antibiotics and steroids as directed 3. follow up with your doctor next week. All discharge instructions reviewed with patient and/or family. Voiced understanding. Scripts Prednisone (Prednisone) 20 Mg Tab 40 MG PO DAILY, #4 TAB 0 Refills Prov: YULIET ORELLANA APRN 08/14/20 Cefuroxime Axetil (Cefuroxime) 250 Mg Tablet 250 MG PO BID, #10 TAB Prov: YULIET ORELLANA APRN 08/14/20 Olanzapine (Zyprexa) 5 Mg Tablet 5 MG PO DAILY, #10 TAB Prov: YULIET ORELLANA APRN 08/14/20 Work/School Note: Work Release Form Date Seen in the Emergency Department: Aug 14, 2020 Return to Work: Aug 14, 2020 Restrictions: Need Release from Doctor YULIET ORELLANA APRN Aug 14, 2020 12:07
[2020-08-14] MEDS ORDERED: PRD20T PO (12:10)
[2020-08-14] MEDS ORDERED: OLAN5TAB3 PO (12:10)
[2020-08-14] MEDS ORDERED: CEFU250T80 PO (12:10)
--- NOTE | 2020-08-14 12:49 | Diagnostic Imaging Report ---
INDICATION: Cough, congestion and sore throat COMPARISON: 08/07/2011 FINDINGS: There is some perihilar interstitial opacity greater right with thickening of the central airways. This may reflect reactive airway disease or a viral pattern. No airspace or alveolar consolidation. No effusion or pneumothorax. IMPRESSION: Some perihilar airway thickening and bronchial cuffing may reflect viral pattern or reactive airway disease. No consolidating pneumonia, pleural pathology or failure pattern. Dictated by: Dictated on workstation # [id number]
== END 2020-08-14 12:58 | disposition home or self-care (01) ==
LOC: EDUNIT# 11:26 → ER 11:27
DX: J40 Bronchitis, not specified as acute or chronic (principal); F17.210 Nicotine dependence, cigarettes, uncomplicated; Z20.828 Contact with and (suspected) exposure to other viral communicable diseases; Z88.2 Allergy status to sulfonamides; Z88.1 Allergy status to other antibiotic agents
CPT/HCPCS: 71045; 87804; 99282; U0002; 87635

== ENCOUNTER 2020-08-19 12:43 | Emergency (ER) | payer MEDICARE, MEDICAID ==
[~2020-08-19] VITALS: Ht 182 cm; Wt 104.0 kg
[~2020-08-19 12:43] MED LIST changes: +CEFU250T80 PO; +OLAN5TAB3 PO; +PRD20T PO
--- NOTE | 2020-08-19 13:19 | ED Respiratory ---
General Stated Complaint: RESP ISSUES Source: patient, old records History of Present Illness Date Seen by Provider: Aug 19, 2020 Time Seen by Provider: 10:55 Initial Comments PT ARRIVES VIA POV FROM HOME STATES HE HAS BEEN SICK FOR ABOUT A WEEK WITH COUGH/CONGESTION, SORE THROAT, LOSS OF TASTE AND SMELL, HEADACHE, BODY ACHES, FEVER UP TO 101, CHILLS, NAUSEA/VOMITING/DIARRHEA, FATIGUE, GENERALIZED WEAKNESS BEGAN HAVING SHORTNESS OF BREATH LAST NIGHT HURTS TO COUGH OR BREATHE TOOK SOME ASPIRIN TODAY FOR HIS FEVER SEEN HERE 08/14/20 FOR SAME, BUT ALSO WAS HERE FOR REFILLS ON HIS ZYPREXA. COVID TEST NEGATIVE AT THAT TIME, GIVEN RX'S FOR CEFUROXIME AND PREDNISONE. STATES HE IS NOT BETTER AND FEELING WORSE HAS NOT ATTEMPTED TO FOLLOW UP WITH [facility] AT ANY TIME CLAIMS NO SICK CONTACTS OR KNOWN EXPOSURE TO COVID-19, BUT PT WORKS AT [email or web address] PCP: EDVIN. 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 Susy DUVALL Allergies and Home Medications Allergies Coded Allergies: Sulfa (Sulfonamide Antibiotics) (Verified Allergy, Severe, HIVES, 08/14/20) levofloxacin (Verified Allergy, Unknown, 06/12/20) doxycycline (Verified Adverse Reaction, Mild, Vomiting, 06/12/20) Home Medications Azithromycin 500 Mg Tablet, 500 MG PO DAILY Prescribed by: BENIGNO MYRICK on 08/19/20 1354 Cefuroxime Axetil 250 Mg Tablet, 250 MG PO BID Prescribed by: YULIET ORELLANA on 08/14/20 1210 Guaifenesin/Dextromethorphan 1 Each Tbmp.12hr, 1 EACH PO BID Prescribed by: BENIGNO MYRICK on 08/19/20 1354 Olanzapine 5 Mg Tablet, 5 MG PO DAILY Prescribed by: YULIET ORELLANA on 08/14/20 1210 Prednisone 20 Mg Tab, 40 MG PO DAILY Prescribed by: YULIET ORELLANA on 08/14/20 1210 Patient Home Medication List Home Medication List Reviewed: Yes Review of Systems Review of Systems Constitutional: see HPI, chills, diaphoresis, fever, malaise, weakness EENTM: see HPI, nose congestion, throat pain Respiratory: see HPI, cough; No phlegm; short of breath Cardiovascular: chest pain (HURTS TO COUGH OR BREATH) Genitourinary: no symptoms reported Musculoskeletal: see HPI Skin: no symptoms reported Psychiatric/Neurological: See HPI, Headache Hematologic/Lymphatic: No Symptoms Reported Immunological/Allergic: no symptoms reported Past Hiejnra-Kqerlu-Jfuxsf Hx Past Med/Social Hx: Reviewed and Corrections made Patient Social History Alcohol Use: Occasionally Uses Recreational Drug Use: No (DENIES) Smoking Status: Current Everyday Smoker (1 PPD) Type Used: Cigarettes 2nd Hand Smoke Exposure: Yes Recent Hopitalizations: No Past Medical History Surgeries: Yes (KIDNEY STONES--BASKET REMOVAL, ) Tonsillectomy, Vasectomy Respiratory: No Cardiac: No Neurological: No Reproductive Disorders: No Genitourinary: Yes (EPIDIDYMITIS) Kidney Stones Gastrointestinal: No Musculoskeletal: Yes Chronic Back Pain Endocrine: Yes (hypoglycemia) HEENT: Yes (TONSILLECTOMY) Tonsilitis Cancer: No Psychosocial: Yes Anxiety, PTSD Integumentary: No Blood Disorders: No Physical Exam Vital Signs - First Documented 08/19/20 13:00 Temp 37.1 Pulse 79 Resp 16 B/P (MAP) 153/100 (117) Pulse Ox 94 O2 Delivery Room Air Capillary Refill : Height: 6'" Weight: 242lbs. oz. 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 nml as tested, no motor/sensory deficits, alert, normal mood/affect, oriented x 3 Skin: normal color (FACE FLUSHED), warm/dry Focused Exam Lactate Level 08/19/20 13:10: Lactic Acid Level 1.75 Lactic Acid Level Laboratory Tests Test 08/19/20 13:10 Lactic Acid Level 1.75 MMOL/L (0.50-2.00) Progress/Results/Core Measures Suspected Sepsis SIRS Temperature: Pulse: Respiratory Rate: Laboratory Tests 08/19/20 13:10: White Blood Count 7.7 Blood Pressure / Mean: 08/19/20 13:10: Lactic Acid Level 1.75 Laboratory Tests 08/19/20 13:10: Creatinine 1.01, Platelet Count 308, Total Bilirubin 0.3 Results/Orders Lab Results Laboratory Tests Test 08/19/20 13:10 08/19/20 13:15 08/19/20 14:30 Range/Units White Blood Count 7.7 4.3-11.0 10^3/uL Red Blood Count 4.64 4.30-5.52 10^6/uL Hemoglobin 14.7 13.3-17.7 g/dL Hematocrit 44 40-54 % Mean Corpuscular Volume 95 80-99 fL Mean Corpuscular Hemoglobin 32 25-34 pg Mean Corpuscular Hemoglobin Concent 33 32-36 g/dL Red Cell Distribution Width 13.8 10.0-14.5 % Platelet Count 308 130-400 10^3/uL Mean Platelet Volume 8.7 L 9.0-12.2 fL Immature Granulocyte % (Auto) 0 % Neutrophils (%) (Auto) 61 42-75 % Lymphocytes (%) (Auto) 27 12-44 % Monocytes (%) (Auto) 7 0-12 % Eosinophils (%) (Auto) 4 0-10 % Basophils (%) (Auto) 1 0-10 % Neutrophils # (Auto) 4.7 1.8-7.8 10^3/uL Lymphocytes # (Auto) 2.1 1.0-4.0 10^3/uL Monocytes # (Auto) 0.6 0.0-1.0 10^3/uL Eosinophils # (Auto) 0.3 0.0-0.3 10^3/uL Basophils # (Auto) 0.1 0.0-0.1 10^3/uL Immature Granulocyte # (Auto) 0.0 0.0-0.1 10^3/uL Erythrocyte Sedimentation Rate 9 0-15 MM/HR D-Dimer 0.32 0.00-0.49 UG/ML Sodium Level 139 135-145 MMOL/L Potassium Level 3.1 L 3.6-5.0 MMOL/L Chloride Level 102 98-107 MMOL/L Carbon Dioxide Level 24 21-32 MMOL/L Anion Gap 13 5-14 MMOL/L Blood Urea Nitrogen 5 L 7-18 MG/DL Creatinine 1.01 0.60-1.30 MG/DL Estimat Glomerular Filtration Rate > 60 BUN/Creatinine Ratio 5 Glucose Level 98 70-105 MG/DL Lactic Acid Level 1.75 0.50-2.00 MMOL/L Calcium Level 8.6 8.5-10.1 MG/DL Corrected Calcium 8.5 8.5-10.1 MG/DL Total Bilirubin 0.3 0.1-1.0 MG/DL Aspartate Amino Transf (AST/SGOT) 28 5-34 U/L Alanine Aminotransferase (ALT/SGPT) 35 0-55 U/L Alkaline Phosphatase 88 40-136 U/L Lactate Dehydrogenase 218 125-220 U/L C-Reactive Protein High Sensitivity 0.41 0.00-0.50 MG/DL Total Protein 6.8 6.4-8.2 GM/DL Albumin 4.1 3.2-4.5 GM/DL Procalcitonin 0.04 <0.10 NG/ML Coronavirus 2019 (JIM) Negative Negative Micro Results Microbiology 08/19/20 Influenza Types A,B Antigen ([place]) - Final, Complete My Orders Orders - BENIGNO MYRICK DO Ed Iv/Invasive Line Start (08/19/20 12:50) Ekg Tracing (08/19/20 12:50) O2 (08/19/20 12:50) Monitor-Rhythm Ecg Trace Only (08/19/20 12:50) Cbc With Automated Diff (08/19/20 12:50) Comprehensive Metabolic Panel (08/19/20 12:50) Fibrin Degradation Products (08/19/20 12:50) Procalcitonin (Pct) (08/19/20 12:50) Hs C Reactive Protein (08/19/20 12:50) Erythrocyte Sedimentation Rate (08/19/20 12:50) LDH (08/19/20 12:50) Blood Culture (08/19/20 12:50) Influenza A And B Antigens (08/19/20 12:50) Chest 1 View, Ap/Pa Only (08/19/20 12:50) Covid 19 Inhouse Test (08/19/20 12:50) Lactic Acid Analyzer (08/19/20 13:38) Coronavirus Sars-Cov-2 So 2018 (08/19/20 13:51) Vital Signs/I&O 08/19/20 08/19/20 13:00 14:38 Temp 37.1 Pulse 79 74 Resp 16 16 B/P (MAP) 153/100 (117) 121/90 Pulse Ox 94 93 O2 Delivery Room Air Room Air Capillary Refill : Progress Note : Progress Note PLACED IN ISOLATION ROOM PPE WORN AT ALL TIMES COVIDJ-19 TESTING PERFORMED PT ADVISED OF NEED FOR QUARANTINE NO DYSPNEA, NO HYPOXIA OR COUGH NOTED DURING ER STAY VITALS STABLE ECG Initial ECG Impression Date: Aug 19, 2020 Initial ECG Impression Time: 13:06 Initial ECG Rate: 89 Initial ECG Rhythm: Normal Sinus Diagnostic Imaging Comments CXR--PER RADIOLOGIST REPORT AT 1350 FINDINGS: The heart and mediastinal silhouette are normal in appearance. There is no acute infiltrate, pneumothorax, or pleural fluid. IMPRESSION: No acute process the chest with no change from 08/14/2020. Reviewed: Reviewed by Me Departure Impression Primary Impression: Bronchitis Additional Impression: Person under investigation for COVID-19 Disposition: HOME, SELF-CARE Condition: Stable Departure-Patient Inst. Referrals: NO,LOCAL PHYSICIAN (PCP) Primary Care Physician [facility] Patient Instructions: Preventing the Spread of an Infectious Disease, Coronavirus Disease 2019 (COVID-19) Overview, Acute Bronchitis, Adult (DC) Add. Discharge Instructions: FINISH CEFUROXIME ANTIBIOTIC AND PREDNISONE PRESCRIBED TYLENOL 1 GRAM/ MOTRIN 800 MG 4 TIMES A DAY FOR PAIN AND FEVER OVER 101 LOTS OF CLEAR LIQUIDS QUARANTINE FOR YOURSELF AND ALL HOUSEHOLD MEMBERS AND CLOSE CONTACTS UNTIL CLEARED BY OR HEALTH DEPT. [facility]5 DAYS IF NO BETTER Scripts Guaifenesin/Dextromethorphan (Mucinex Dm ER 1,200-60 mg Tab) 1 Each Tbmp.12hr 1 EACH PO BID, #20 EA Prov: BENIGNO MYRICK DO 08/19/20 Azithromycin (Zithromax) 500 Mg Tablet 500 MG PO DAILY for 5 Days, #5 TAB Prov: BENIGNO MYRICK DO 08/19/20 Work/School Note: Work Release Form Date Seen in the Emergency Department: Aug 19, 2020 Return to Work: Sep 02, 2020 BENIGNO MYRICK DO Aug 19, 2020 13:19
[2020-08-19 13:27] LABS: BASOPHILS # (AUTO) 0.1 10^3/uL (0.0-0.1); BASOPHILS % (AUTO) 1 % (0-10); EOSINOPHILS # (AUTO) 0.3 10^3/uL (0.0-0.3); EOSINOPHILS % (AUTO) 4 % (0-10); HEMATOCRIT 44 % (40-54); HEMOGLOBIN 14.7 g/dL (13.3-17.7); LYMPHOCYTES # (AUTO) 2.1 10^3/uL (1.0-4.0); LYMPHOCYTES % (AUTO) 27 % (12-44); MEAN CORPUSCULAR HEMOGLOBIN 32 pg (25-34); MEAN CORPUSCULAR HGB CONC 33 g/dL (32-36); MEAN CORPUSCULAR VOLUME 95 fL (80-99); MEAN PLATELET VOLUME 8.7 fL (9.0-12.2); MONOCYTES # (AUTO) 0.6 10^3/uL (0.0-1.0); MONOCYTES % (AUTO) 7 % (0-12); NEUTROPHILS # (AUTO) 4.7 10^3/uL (1.8-7.8); NEUTROPHILS % (AUTO) 61 % (42-75); PLATELET COUNT 308 10^3/uL (130-400); WHITE BLOOD COUNT 7.7 10^3/uL (4.3-11.0)
[2020-08-19 13:33] LABS: ALBUMIN 4.1 GM/DL (3.2-4.5)
[2020-08-19 13:34] LABS: CHLORIDE 102 MMOL/L (98-107); POTASSIUM 3.1 MMOL/L (3.6-5.0); SODIUM 139 MMOL/L (135-145)
[2020-08-19 13:35] LABS: CALCIUM 8.6 MG/DL (8.5-10.1)
[2020-08-19 13:36] LABS: GLUCOSE 98 MG/DL (70-105); TOTAL PROTEIN 6.8 GM/DL (6.4-8.2)
[2020-08-19 13:37] LABS: CARBON DIOXIDE 24 MMOL/L (21-32)
[2020-08-19 13:38] LABS: BILIRUBIN,TOTAL 0.3 MG/DL (0.1-1.0)
[2020-08-19 13:39] LABS: ALKALINE PHOSPHATASE 88 U/L (40-136)
[2020-08-19 13:40] LABS: CREATININE SERUM 1.01 MG/DL (0.60-1.30); GFR ESTIMATED > 60
[2020-08-19 13:41] LABS: BUN/CREATININE RATIO 5
[2020-08-19 13:43] LABS: ALANINE AMINOTRANSFERASE 35 U/L (0-55)
--- NOTE | 2020-08-19 13:46 | Diagnostic Imaging Report ---
INDICATION: Shortness of breath, cough, and headache. TECHNIQUE/COMPARISON: A frontal chest was obtained at 1:44 PM and compared to 08/14/2020. FINDINGS: The heart and mediastinal silhouette are normal in appearance. There is no acute infiltrate, pneumothorax, or pleural fluid. IMPRESSION: No acute process the chest with no change from 08/14/2020. Dictated by: Dictated on workstation # [id number]
[2020-08-19 13:47] LABS: ERYTHROCYTE SEDIMENTATION RATE 9 MM/HR (0-15)
[2020-08-19] MEDS ORDERED: AZIT500T PO (13:54)
[2020-08-19] MEDS ORDERED: GUAI1TBM19 PO (13:54)
[2020-08-19 14:38] VITALS: BP 121/90
== END 2020-08-19 14:38 | disposition home or self-care (01) ==
LOC: EDUNIT# 12:43 → ER 12:45
DX: J40 Bronchitis, not specified as acute or chronic (principal); F41.9 Anxiety disorder, unspecified; F43.10 Post-traumatic stress disorder, unspecified; F17.210 Nicotine dependence, cigarettes, uncomplicated; Z20.828 Contact with and (suspected) exposure to other viral communicable diseases; Z79.52 Long term (current) use of systemic steroids; Z88.1 Allergy status to other antibiotic agents; Z88.2 Allergy status to sulfonamides
CPT/HCPCS: 71045; 80053; 83605; 83615; 84145; 85025; 85379; 85652; 86141; 87040; 87804; 93005; 93041; 99284; U0002; 36415; 87635

== ENCOUNTER 2020-09-06 05:38 | Emergency (ER) | payer MEDICARE, MEDICAID ==
[~2020-09-06] VITALS: Ht 176.8 cm; Wt 101.1 kg
[~2020-09-06 05:38] MED LIST changes: +AZIT500T PO; +GUAI1TBM19 PO
[2020-09-06] MEDS ORDERED: NITROGLYCERIN 0.4 MG SL TABS BTL 25'S SL PRN (06:00)
[2020-09-06 06:02] LABS: BASOPHILS # (AUTO) 0.1 10^3/uL (0.0-0.1); BASOPHILS % (AUTO) 1 % (0-10); EOSINOPHILS # (AUTO) 0.3 10^3/uL (0.0-0.3); EOSINOPHILS % (AUTO) 5 % (0-10); HEMATOCRIT 43 % (40-54); HEMOGLOBIN 14.1 g/dL (13.3-17.7); LYMPHOCYTES # (AUTO) 1.5 10^3/uL (1.0-4.0); LYMPHOCYTES % (AUTO) 24 % (12-44); MEAN CORPUSCULAR HEMOGLOBIN 32 pg (25-34); MEAN CORPUSCULAR HGB CONC 33 g/dL (32-36); MEAN CORPUSCULAR VOLUME 98 fL (80-99); MONOCYTES # (AUTO) 0.5 10^3/uL (0.0-1.0); MONOCYTES % (AUTO) 8 % (0-12); NEUTROPHILS # (AUTO) 3.7 10^3/uL (1.8-7.8); NEUTROPHILS % (AUTO) 61 % (42-75); PLATELET COUNT 277 10^3/uL (130-400); WHITE BLOOD COUNT 6.1 10^3/uL (4.3-11.0)
[2020-09-06 06:07] LABS: ALBUMIN 3.9 GM/DL (3.2-4.5)
[2020-09-06 06:08] LABS: CHLORIDE 106 MMOL/L (98-107); POTASSIUM 3.6 MMOL/L (3.6-5.0); SODIUM 139 MMOL/L (135-145)
[2020-09-06 06:09] LABS: AMYLASE 39 U/L (25-125); CALCIUM 8.2 MG/DL (8.5-10.1)
[2020-09-06 06:10] LABS: GLUCOSE 96 MG/DL (70-105); TOTAL PROTEIN 6.5 GM/DL (6.4-8.2)
[2020-09-06 06:11] LABS: CARBON DIOXIDE 23 MMOL/L (21-32)
[2020-09-06 06:12] LABS: BILIRUBIN,TOTAL 0.8 MG/DL (0.1-1.0)
[2020-09-06 06:13] LABS: ALKALINE PHOSPHATASE 77 U/L (40-136)
[2020-09-06 06:14] LABS: CREATININE SERUM 1.07 MG/DL (0.60-1.30); GFR ESTIMATED > 60
[2020-09-06 06:15] LABS: BUN/CREATININE RATIO 8
[2020-09-06 06:16] LABS: ALANINE AMINOTRANSFERASE 25 U/L (0-55); MAGNESIUM 2.2 MG/DL (1.6-2.4)
[2020-09-06 06:18] LABS: CREATINE KINASE 280 U/L (30-200); LIPASE 13 U/L (8-78)
[2020-09-06 06:19] LABS: PROTHROMBIN TIME PATIENT 13.1 SEC (12.2-14.7)
--- NOTE | 2020-09-06 06:21 | ED Chest Pain ---
General Chief Complaint: Cardiac/General Problems Stated Complaint: CP Nursing Triage Note: COMPLAINT OF PAIN STARTED AT MIDNIGHT STATES LEFT ARM PAIN. Nursing Sepsis Screen: No Definite Risk Source: patient Exam Limitations: no limitations History of Present Illness Date Seen by Provider: Sep 06, 2020 Time Seen by Provider: 06:00 Initial Comments Patient arrives ER by EMS from home with chief complaint that he started having some chest pain at 11:30 last night. He went to bed and tried to sleep but he said the pain was too great. He did not take anything for it. He states the year ago he was in [place] at [place], via [place] and had a small stroke. He has no lingering deficits. Did not follow up with any neurologist afterwards. 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 No history of heart disease coronary angiograms. He does not have diabetes but claims he has hypoglycemia sometimes. He denies hypertension, hyperlipidemia or primary family history of early-onset coronary disease. He does smoke 5 cigarettes a day and occasionally drinks beer. He clay es any recreational drug use. He does take Zyprexa for his PTSD. He also claims that he started having numbness all over the left side of his body left face left arm and left leg at the same time. He does not take any other medications besides the Zyprexa. He did not try anything for the chest pain. EMS gave him aspirin en route and a dose of nitroglycerin which did nothing for his symptoms. Patient is under the care of Blaise Obando at [facility]. Allergies and Home Medications Allergies Coded Allergies: Sulfa (Sulfonamide Antibiotics) (Verified Allergy, Severe, HIVES, 08/14/20) levofloxacin (Verified Allergy, Unknown, 06/12/20) doxycycline (Verified Adverse Reaction, Mild, Vomiting, 06/12/20) Home Medications Azithromycin 500 Mg Tablet, 500 MG PO DAILY Prescribed by: BENIGNO MYRICK on 08/19/20 1354 Cefuroxime Axetil 250 Mg Tablet, 250 MG PO BID Prescribed by: YULIET ORELLANA on 08/14/20 1210 Guaifenesin/Dextromethorphan 1 Each Tbmp.12hr, 1 EACH PO BID Prescribed by: BENIGNO MYRICK on 08/19/20 1354 Olanzapine 5 Mg Tablet, 5 MG PO DAILY Prescribed by: YULIET ORELLANA on 08/14/20 1210 Prednisone 20 Mg Tab, 40 MG PO DAILY Prescribed by: YULIET ORELLANA on 08/14/20 1210 Patient Home Medication List Home Medication List Reviewed: Yes Review of Systems Review of Systems Constitutional: No chills, No fever EENTM: No Blurred Vision, No Double Vision Respiratory: Cough (baseline); Denies Shortness of Air Cardiovascular: See HPI, Chest Pain; Denies Palpitations, Denies Syncope Gastrointestinal: Denies Abdominal Pain, Denies Constipated, Denies Diarrhea, Denies Nausea Genitourinary: Denies Burning, Denies Discharge Musculoskeletal: No back pain, No joint pain All Other Systems Reviewed Negative Unless Noted: Yes Past Tsgiocm-Jeizrm-Hrbxfu Hx Patient Social History Alcohol Use: Occasionally Uses Alcohol Beverage of Choice: Beer Recreational Drug Use: No Smoking Status: Current Everyday Smoker Type Used: Cigarettes 2nd Hand Smoke Exposure: Yes Recent Foreign Travel: No Contact w/Someone Who Travel: No Recent Infectious Disease Expo: No Recent Hopitalizations: No Physical Abuse: No Sexual Abuse: No Mistreated: No Fear: No Immunizations Up To Date Date of Influenza Vaccine: Jul 11, 2020 Past Medical History Surgeries: Yes (KIDNEY STONES--BASKET REMOVAL, ) Tonsillectomy, Vasectomy Respiratory: No Cardiac: No Neurological: No Reproductive Disorders: No Genitourinary: Yes (EPIDIDYMITIS) Kidney Stones Gastrointestinal: No Musculoskeletal: Yes Chronic Back Pain Endocrine: Yes (hypoglycemia) HEENT: Yes (TONSILLECTOMY) Tonsilitis Cancer: No Psychosocial: Yes Anxiety, PTSD Integumentary: No Blood Disorders: No Physical Exam Vital Signs Vital Signs - First Documented 09/06/20 05:42 Pulse 54 Resp 18 B/P (MAP) 127/93 (104) Pulse Ox 98 O2 Delivery Room Air Capillary Refill : Less Than 3 Seconds Height, Weight, BMI Height: 6'" Weight: 242lbs. oz. 109.683711ey; 32.00 BMI Method:Stated General Appearance: Anxious, Mild Distress HEENT: PERRL/EOMI, Pharynx Normal, Moist Mucous Membranes Neck: Full Range of Motion, Normal Inspection Respiratory: Chest Non Tender, Lungs Clear, Normal Breath Sounds, No Accessory Muscle Use, No Respiratory Distress Cardiovascular: Regular Rate, Rhythm, Normal Peripheral Pulses Gastrointestinal: Normal Bowel Sounds, Non Tender, Soft Extremity: Normal Capillary Refill, Normal Inspection, Non Tender, No Pedal Edema Neurologic/Psychiatric: Alert, Oriented x3, Sensory Deficit (decreased sensation left side of his face left arm. States he cannot feel anything in his left leg but when distracted he does follow commands to move his left leg with his eyes closed by tapping his left leg only) Skin: Normal Color, Warm/Dry Progress/Results/Core Measures Results/Orders Lab Results Laboratory Tests Test 09/06/20 05:45 09/06/20 07:40 09/06/20 08:18 Range/Units White Blood Count 6.1 4.3-11.0 10^3/uL Red Blood Count 4.40 4.30-5.52 10^6/uL Hemoglobin 14.1 13.3-17.7 g/dL Hematocrit 43 40-54 % Mean Corpuscular Volume 98 80-99 fL Mean Corpuscular Hemoglobin 32 25-34 pg Mean Corpuscular Hemoglobin Concent 33 32-36 g/dL Red Cell Distribution Width 13.2 10.0-14.5 % Platelet Count 277 130-400 10^3/uL Mean Platelet Volume 9.0 9.0-12.2 fL Immature Granulocyte % (Auto) 0 % Neutrophils (%) (Auto) 61 42-75 % Lymphocytes (%) (Auto) 24 12-44 % Monocytes (%) (Auto) 8 0-12 % Eosinophils (%) (Auto) 5 0-10 % Basophils (%) (Auto) 1 0-10 % Neutrophils # (Auto) 3.7 1.8-7.8 10^3/uL Lymphocytes # (Auto) 1.5 1.0-4.0 10^3/uL Monocytes # (Auto) 0.5 0.0-1.0 10^3/uL Eosinophils # (Auto) 0.3 0.0-0.3 10^3/uL Basophils # (Auto) 0.1 0.0-0.1 10^3/uL Immature Granulocyte # (Auto) 0.0 0.0-0.1 10^3/uL Prothrombin Time 13.1 12.2-14.7 SEC INR Comment 1.0 0.8-1.4 Activated Partial Thromboplast Time 31 24-35 SEC Sodium Level 139 135-145 MMOL/L Potassium Level 3.6 3.6-5.0 MMOL/L Chloride Level 106 98-107 MMOL/L Carbon Dioxide Level 23 21-32 MMOL/L Anion Gap 10 5-14 MMOL/L Blood Urea Nitrogen 9 7-18 MG/DL Creatinine 1.07 0.60-1.30 MG/DL Estimat Glomerular Filtration Rate > 60 BUN/Creatinine Ratio 8 Glucose Level 96 70-105 MG/DL Calcium Level 8.2 L 8.5-10.1 MG/DL Corrected Calcium 8.3 L 8.5-10.1 MG/DL Magnesium Level 2.2 1.6-2.4 MG/DL Total Bilirubin 0.8 0.1-1.0 MG/DL Aspartate Amino Transf (AST/SGOT) 18 5-34 U/L Alanine Aminotransferase (ALT/SGPT) 25 0-55 U/L Alkaline Phosphatase 77 40-136 U/L Total Creatine Kinase 280 H 30-200 U/L Creatine Kinase MB 1.2 <6.6 NG/ML Myoglobin 52.4 10.0-92.0 NG/ML Troponin I < 0.028 < 0.028 <0.028 NG/ML B-Type Natriuretic Peptide 45.0 <100.0 PG/ML Total Protein 6.5 6.4-8.2 GM/DL Albumin 3.9 3.2-4.5 GM/DL Amylase Level 39 25-125 U/L Lipase 13 8-78 U/L Urine Color YELLOW Urine Clarity CLEAR Urine pH 7.0 5-9 Urine Specific Harper 1.010 L 1.016-1.022 Urine Protein NEGATIVE NEGATIVE Urine Glucose (UA) NEGATIVE NEGATIVE Urine Ketones NEGATIVE NEGATIVE Urine Nitrite NEGATIVE NEGATIVE Urine Bilirubin NEGATIVE NEGATIVE Urine Urobilinogen 1.0 < = 1.0 MG/DL Urine Leukocyte Esterase NEGATIVE NEGATIVE Urine RBC (Auto) NEGATIVE NEGATIVE Urine RBC NONE /HPF Urine WBC RARE /HPF Urine Squamous Epithelial Cells NONE /HPF Urine Crystals NONE /LPF Urine Bacteria NEGATIVE /HPF Urine Casts NONE /LPF Urine Mucus NEGATIVE /LPF Urine Culture Indicated NO My Orders Orders - JIGAR RAZO Ct Head Wo (09/06/20 06:14) Morphine Injection (Morphine Injection (09/06/20 07:34) Lorazepam Injection (Ativan Injection) (09/06/20 08:15) Troponin I (09/06/20 08:12) Medications Given in ED Current Medications Medications Dose Ordered Sig/Alba Route Start Time Stop Time Status Last Admin Dose Admin Lorazepam 0.5 mg ONCE ONCE IVP 09/06/20 08:15 09/06/20 08:16 DC 09/06/20 08:16 0.5 MG Vital Signs/I&O 09/06/20 05:42 Pulse 54 Resp 18 B/P (MAP) 127/93 (104) Pulse Ox 98 O2 Delivery Room Air Blood Pressure Mean: 104 Progress Progress Note #1: Time: 06:27 Progress Note Patient has response to light tapping of his left leg when he is distracted with his eyes closed casting some doubt on the totality of the numbness. His paresthesias could be related to intracranial pathology versus anxiety/conversion. Plan to scan his head but he is well outside the window if he was having a stroke. Chest pain did not respond to nitroglycerin. Normal EKG. Progress Note #2: Time: 08:08 Progress Note Suspect the patient's symptoms may be more related to anxiety certainly give him half a milligram IV Ativan and reassess him. We will repeat a troponin now which would be 2.5 hours after his first one. He says his numbness and neurologic symptoms have resolved. Still having the chest pain and the morphine while he felt it did not help his chest pain. Progress Note #3: Time: 09:25 Progress Note The patient's second troponin is still negative. He has total resolution of symptoms with Ativan. We are going to allow him to transport home with instructions to follow-up with [facility] and discuss psychiatric referral. We have also given referral to cardiology for outpatient workup. He is in agreement with this plan. Initial ECG Impression Date: Sep 06, 2020 Initial ECG Impression Time: 05:45 Initial ECG Rate: 49 Initial ECG Rhythm: Normal Sinus Initial ECG Intervals: Normal Initial ECG Impression: Normal Comment Physiologic sinus bradycardia without clinically relevant ST changes. Diagnostic Imaging Diagonstic Imaging: Xray Plain Films/CT/US/NM/MRI: chest Comments [facility] [place] NAME: TOMMYALBERTO W MED REC#: [id number] PT STATUS: REG ER : 1980 PHYSICIAN: BENIGNO MYRICK DO ADMIT DATE: 09/06/20/ER Draft Date of Exam:09/06/20 CHEST 1 VIEW, AP/PA ONLY EXAM: CHEST 1 VIEW, AP/PA ONLY INDICATION: Chest pain. COMPARISON: Chest radiograph 08/19/2020. FINDINGS: Normal heart size and pulmonary vascularity. No dense consolidation, pleural effusion or pneumothorax. No acute osseous findings. No significant change. IMPRESSION: No acute cardiopulmonary findings. Dictated on workstation # [id number] Dict: 09/06/20 0734 Trans: 09/06/2038 [facility] [id number] Interpreted by: ERIC OCONNELL MD Electronically signed by: Reviewed: Reviewed by Me Diagonstic Imaging: CT Plain Films/CT/US/NM/MRI: c-spine, head Comments [facility] [place] NAME: ALBERTO SANDERS MED REC#: [id number] PT STATUS: REG ER : 1980 PHYSICIAN: JIGAR RAZO MD ADMIT DATE: 09/06/20/ER Draft Date of Exam:09/06/20 CT HEAD WO PROCEDURE: CT head without contrast. TECHNIQUE: Multiple contiguous axial images were obtained through the brain without the use of intravenous contrast. Auto Exposure Controls were utilized during the CT exam to meet ALARA standards for radiation dose reduction. INDICATION: Left-sided numbness. COMPARISON: None. FINDINGS: No intracranial hemorrhage, mass effect, hydrocephalus or extra-axial fluid collections. No CT evidence of a territorial infarction. Small air-fluid level in the left maxillary sinus is partially visualized. The mastoids are clear. Osseous structures are intact. IMPRESSION: 1. No acute intracranial CT findings. 2. Small air-fluid level in the left maxillary sinus is partially visualized. Dictated on workstation # [id number] Dict: 09/06/20 0729 Trans: 09/06/2037 [facility] [id number] Interpreted by: ERIC OCONNELL MD Electronically signed by: Reviewed: Reviewed by Me Consults : Consulting Physician: MARGARET RASCON MD Consults Notes Heart score 2 points. Low risk; 0.9-1.7% 30-day MACE. We discussed the persistent chest pain and bradycardia is probably physiologic. He says he agrees there could be something going on but it does not sound like it is cardiac related today. He would recommend seeing the patient in the clinic next week early. Departure Impression Primary Impression: Chest pain Qualified Codes: R07.9 - Chest pain, unspecified Additional Impressions: Complaint of paresthesia History of anxiety disorder Disposition: 01 HOME, SELF-CARE Condition: Stable Departure-Patient Inst. Decision time for Depature: 09:26 Referrals: [facility]1[place] [place] MARGARET RASCON MD Patient Instructions: Chest Pain (DC), Paresthesia (DC) Add. Discharge Instructions: We could not find anything dangerous about your chest pain today however there may be something going on with your heart that can be discovered by the harness fitter. I would like to call Dr. Rascon's clinic Wednesday morning and request early follow- up. Return to the ER if you have recurring, persistent chest pain, shortness of air or other worrisome symptoms. Talk to your primary care doctor about a referral to psychiatry to discuss medication management. All discharge instructions reviewed with patient and/or family. Voiced understanding. Work/School Note: Work Release Form Date Seen in the Emergency Department: Sep 06, 2020 Return to Work: Sep 07, 2020 Restrictions: No Restrictions Copy Copies To 1: AISSATOU FALLON DO; MARGARET RASCON MD, TITUS J Sep 06, 2020 06:21
[2020-09-06 06:27] LABS: CREATINE KINASE MB 1.2 NG/ML (<6.6)
--- NOTE | 2020-09-06 07:03 | NUR ---
REPORT FROM MERE MANN
[2020-09-06] MEDS ORDERED: morphine INJ 10 MG/ML 1ML (SYR OR VIAL) IVP STA (07:34)
--- NOTE | 2020-09-06 07:37 | Diagnostic Imaging Report ---
PROCEDURE: CT head without contrast. TECHNIQUE: Multiple contiguous axial images were obtained through the brain without the use of intravenous contrast. Auto Exposure Controls were utilized during the CT exam to meet ALARA standards for radiation dose reduction. INDICATION: Left-sided numbness. COMPARISON: None. FINDINGS: No intracranial hemorrhage, mass effect, hydrocephalus or extra-axial fluid collections. No CT evidence of a territorial infarction. Small air-fluid level in the left maxillary sinus is partially visualized. The mastoids are clear. Osseous structures are intact. IMPRESSION: 1. No acute intracranial CT findings. 2. Small air-fluid level in the left maxillary sinus is partially visualized. Dictated by: Dictated on workstation # [id number]
--- NOTE | 2020-09-06 07:39 | Diagnostic Imaging Report ---
EXAM: CHEST 1 VIEW, AP/PA ONLY INDICATION: Chest pain. COMPARISON: Chest radiograph 08/19/2020. FINDINGS: Normal heart size and pulmonary vascularity. No dense consolidation, pleural effusion or pneumothorax. No acute osseous findings. No significant change. IMPRESSION: No acute cardiopulmonary findings. Dictated by: Dictated on workstation # [id number]
[2020-09-06 07:48] LABS: BILIRUBIN,URINE NEGATIVE (NEGATIVE); CLARITY,URINE CLEAR; COLOR,URINE YELLOW; GLUCOSE, URINE (UA) NEGATIVE (NEGATIVE); KETONES,URINE NEGATIVE (NEGATIVE); LEUKOCYTE ESTERASE ,URINE NEGATIVE (NEGATIVE); NITRITE,URINE NEGATIVE (NEGATIVE); PROTEIN,URINE NEGATIVE (NEGATIVE)
[2020-09-06 07:56] LABS: BACTERIA,URINE NEGATIVE /HPF; WBC,URINE RARE /HPF
[2020-09-06] MEDS ORDERED: LORazepam INJ 2 MG/ML (ATIVAN) VIAL IVP ONE (08:15)
[2020-09-06 09:58] VITALS: BP 125/87
[2020-09-07] MEDS ORDERED: CEPH500T PO (20:36)
== END 2020-09-06 09:58 | disposition home or self-care (01) ==
LOC: EDUNIT# 05:38 → ER 05:39
DX: R07.9 Chest pain, unspecified (principal); R20.2 Paresthesia of skin; F41.9 Anxiety disorder, unspecified; F17.210 Nicotine dependence, cigarettes, uncomplicated; Z88.2 Allergy status to sulfonamides; Z88.1 Allergy status to other antibiotic agents; Z79.52 Long term (current) use of systemic steroids
CPT/HCPCS: 36415; 70450; 71045; 80053; 81000; 82150; 82550; 82553; 83690; 83735; 83874; 83880; 84484; 85025; 85610; 85730; 93041

== ENCOUNTER 2020-09-07 19:59 | Emergency (ER) | payer MEDICARE, MEDICAID ==
[~2020-09-07] VITALS: Ht 182.9 cm; Wt 101.2 kg
[2020-09-07 20:09] VITALS: BP 139/92
[2020-09-07] MEDS ORDERED: CEPHALEXIN 250 MG (KEFLEX) CAP PO ONE ×2 (20:30→20:45)
[2020-09-07] MEDS ORDERED: KETOROLAC 30 MG/ML VIAL IM ONE (20:30)
--- NOTE | 2020-09-07 20:33 | ED General ---
General Chief Complaint: Bite-Animal/Human/Insect Stated Complaint: BUG BITE - NECK Nursing Triage Note: PT AMBULATE TO TRIAGE WITH C/O POSSIBLE BUG BITE TO RIGHT SIDE NECK. PT REPORTS PAIN TO RIGHT SIDE HEAD AND NECK. Nursing Sepsis Screen: No Definite Risk History of Present Illness Date Seen by Provider: Sep 07, 2020 Time Seen by Provider: 20:20 Initial Comments This is a healthy-appearing 40-year-old male who presents to the ER with complaints of right-sided neck pain from what he believes to be an insect bite. States he has been having increasing pain and tenderness on the right side of his neck for 2 days, however, it is worse today. Rates 10/10, sharp, constant and localized to the raised area on his neck. Intermittent episodes of nausea without emesis. States he has been taking Tylenol and ibuprofen without relief. Denies fevers, chills, cough, shortness of breath, vomiting, abdominal pain. Allergies and Home Medications Allergies Coded Allergies: Sulfa (Sulfonamide Antibiotics) (Verified Allergy, Severe, HIVES, 08/14/20) levofloxacin (Verified Allergy, Unknown, 06/12/20) doxycycline (Verified Adverse Reaction, Mild, Vomiting, 06/12/20) Home Medications Azithromycin 500 Mg Tablet, 500 MG PO DAILY Prescribed by: BENIGNO MYRICK on 08/19/20 1354 Cefuroxime Axetil 250 Mg Tablet, 250 MG PO BID Prescribed by: YULIET ORELLANA on 08/14/201209 Cephalexin 500 Mg Tablet, 500 MG PO TID Prescribed by: DIONI YING on 09/07/202035 Guaifenesin/Dextromethorphan 1 Each Tbmp.12hr, 1 EACH PO BID Prescribed by: BENIGNO MYRICK on 08/19/20 1354 Olanzapine 5 Mg Tablet, 5 MG PO DAILY Prescribed by: YULIET ORELLANA on 08/14/20 121 Prednisone 20 Mg Tab, 40 MG PO DAILY Prescribed by: YULIET ORELLANA on 08/14/20 121 Patient Home Medication List Home Medication List Reviewed: Yes Review of Systems Review of Systems Constitutional: no symptoms reported EENTM: see HPI Respiratory: no symptoms reported Cardiovascular: no symptoms reported Gastrointestinal: no symptoms reported Genitourinary: no symptoms reported Musculoskeletal: no symptoms reported Skin: see HPI Psychiatric/Neurological: No Symptoms Reported Hematologic/Lymphatic: No Symptoms Reported Immunological/Allergic: no symptoms reported Past Uvabnlp-Jqaglb-Xranuv Hx Patient Social History Alcohol Use: Occasionally Uses Number of Drinks Today: AA Alcohol Beverage of Choice: Beer Recreational Drug Use: No Smoking Status: Current Everyday Smoker Type Used: Cigarettes 2nd Hand Smoke Exposure: Yes Recent Foreign Travel: No Contact w/Someone Who Travel: No Recent Infectious Disease Expo: No Recent Hopitalizations: No Physical Abuse: No Sexual Abuse: No Mistreated: No Fear: No Immunizations Up To Date Date of Influenza Vaccine: Jul 11, 2020 Past Medical History Surgeries: Yes (KIDNEY STONES--BASKET REMOVAL, ) Tonsillectomy, Vasectomy Respiratory: No Cardiac: No Neurological: No Reproductive Disorders: No Genitourinary: Yes (EPIDIDYMITIS) Kidney Stones Gastrointestinal: No Musculoskeletal: Yes Chronic Back Pain Endocrine: Yes (hypoglycemia) HEENT: Yes (TONSILLECTOMY) Tonsilitis Cancer: No Psychosocial: Yes Anxiety, PTSD Integumentary: No Blood Disorders: No Physical Exam Vital Signs Vital Signs - First Documented 09/07/20 20:09 Temp 36.7 Pulse 67 Resp 17 B/P (MAP) 139/92 (108) O2 Delivery Room Air Capillary Refill : Less Than 3 Seconds Height, Weight, BMI Height: 6'" Weight: 242lbs. oz. 109.886405cw; 30.00 BMI Method:Stated General Appearance: No Apparent Distress, WD/WN Eyes: Bilateral Eye Normal Inspection, Bilateral Eye PERRL, Bilateral Eye EOMI HEENT: PERRL/EOMI, TMs Normal, Pharynx Normal Neck: Full Range of Motion, Supple, Other (small 1.5 x 1 cm abscess on right side of neck, fluctuant) Respiratory: Lungs Clear, Normal Breath Sounds Cardiovascular: Regular Rate, Rhythm, No Murmur Gastrointestinal: Normal Bowel Sounds, Non Tender, Soft Neurologic/Psychiatric: Alert, Oriented x3, No Motor/Sensory Deficits, Normal Mood/Affect Skin: Normal Color, Warm/Dry Lymphatic: No Adenopathy Progress/Results/Core Measures Suspected Sepsis Recent Fever Within 48 Hours: No Infection Criteria Present: None New/Unexplained Altered Menta: No Sepsis Screen: No Definite Risk SIRS Temperature: Pulse: 67 Respiratory Rate: 17 Blood Pressure 139 /92 Mean: 108 Results/Orders My Orders Orders - DIONI YING APRN Wound Culture (09/07/20 20:28) Cephalexin Capsule (Keflex Capsule) (09/07/20 20:30) Ketorolac Injection (Toradol Injection) (09/07/20 20:30) Cephalexin Capsule (Keflex Capsule) (09/07/20 20:45) Rx-Ondansetron Po (Rx-Zofran Po) (09/07/20 20:34) Medications Given in ED Current Medications Medications Dose Ordered Sig/Alba Route Start Time Stop Time Status Last Admin Dose Admin Cephalexin HCl 500 mg ONCE ONCE PO 09/07/20 20:45 09/07/20 20:46 DC 09/07/20 20:40 500 MG Ketorolac Tromethamine 30 mg ONCE ONCE IM 09/07/20 20:30 09/07/20 20:31 DC 09/07/20 20:39 30 MG Ondansetron HCl 4 mg STK-MED ONCE .ROUTE 09/07/20 20:34 09/07/20 20:37 DC 09/07/20 20:42 4 MG Vital Signs/I&O 09/07/20 20:09 Temp 36.7 Pulse 67 Resp 17 B/P (MAP) 139/92 (108) O2 Delivery Room Air Capillary Refill : Less Than 3 Seconds Blood Pressure Mean: 108 Progress Note : Progress Note Small 1.5 cm x 1 cm abscess noted on the right side of his neck. Upon arrival was rating pain 10/10. However, he was relaxed, resting in bed during examination. Area was fluctuant, with white head. Was able to open with pressure and express moderate amount of white/de la garza purulent discharge, culture obtained. Site cleansed with alcohol, covered with ADDI. Tolerated procedure well. Reviewed discharge plan of care with him and he is agreeable with plan. First dose of Keflex in ED, Rx provided for Keflex instead of Bactrim due to sulfa allergy. Departure Impression Primary Impression: Abscess Disposition: 01 HOME, SELF-CARE Condition: Improved Departure-Patient Inst. Decision time for Depature: 20:31 Referrals: NO,LOCAL PHYSICIAN (PCP/Family) Primary Care Physician Patient Instructions: Abscess Drainage, Percutaneous (DC) Add. Discharge Instructions: Plan: 1. May use ice 20 minutes at a time as needed for discomfort. 2. Tylenol or Ibuprofen as needed per package for pain. 3. Keflex 500mg by mouth three times a day as directed. Complete full course. 4. May take Zofran 4mg by mouth every 4 hours as needed for nausea. 5. Return for any new, concerning, or worsening symptoms. All discharge instructions reviewed with patient and/or family. Voiced understanding. Scripts Cephalexin (Cephalexin) 500 Mg Tablet 500 MG PO TID for 7 Days, #20 TAB 0 Refills Prov: DIONI YING APRN 09/07/20 DIONI YING APRN Sep 07, 2020 20:33
[2020-09-07] MEDS ORDERED: RX-ONDANSETRON 4 MG ODT (ZOFRAN) PPK #4 ONE (20:34)
[2020-09-07] MEDS ORDERED: CEPH500T PO (20:36)
== END 2020-09-07 20:48 | disposition home or self-care (01) ==
LOC: EDUNIT# 19:59 → ER 20:01
DX: L02.11 Cutaneous abscess of neck (principal); F41.9 Anxiety disorder, unspecified; F17.210 Nicotine dependence, cigarettes, uncomplicated; Z88.2 Allergy status to sulfonamides; Z88.1 Allergy status to other antibiotic agents; Z79.52 Long term (current) use of systemic steroids
CPT/HCPCS: 87070; 87205; 99284

== ENCOUNTER 2020-09-16 08:22 | Emergency (ER) | payer MEDICARE, MEDICAID ==
[~2020-09-16] VITALS: Ht 182 cm; Wt 101.0 kg
[~2020-09-16 08:22] MED LIST changes: +CEPH500T PO
[2020-09-16] MEDS ORDERED: KETOROLAC 30 MG/ML VIAL IVP STA (08:28)
--- NOTE | 2020-09-16 08:37 | ED Chest Pain ---
General Stated Complaint: CP Source: patient, EMS Exam Limitations: no limitations History of Present Illness Date Seen by Provider: Sep 16, 2020 Time Seen by Provider: 08:28 Initial Comments 40-year-old male presents with chest pain. Patient reports it started around 7. Patient works at the [employer], he was moving boxes when the pain started. Reports that he's got pain in his left chest wall that has been constant for about the last hour or hour and a half. He has some numbness to his left side of his face numbness to left arm. Reports maybe some mild shortness of breath, cough, feels chilled. He reports that those symptoms just started in route. Patient was seen with similar symptoms about a week ago and it was recommended a follow-up with Dr. Birch for an outpatient stress test. Patient reports he's called but has not heard back to schedule the stress test.. Patient reports he had a stroke around a year ago and was in the hospital for 14 days. Allergies and Home Medications Allergies Coded Allergies: Sulfa (Sulfonamide Antibiotics) (Verified Allergy, Severe, HIVES, 08/14/20) levofloxacin (Verified Allergy, Unknown, 06/12/20) doxycycline (Verified Adverse Reaction, Mild, Vomiting, 06/12/20) Patient Home Medication List Home Medication List Reviewed: Yes Review of Systems Review of Systems Constitutional: chills; No dizziness, No fever; malaise Respiratory: Cough; Denies Shortness of Air Cardiovascular: Chest Pain; Denies Irregular Heart Rate Gastrointestinal: Denies Abdominal Pain, Denies Diarrhea, Denies Nausea, Denies Vomiting Genitourinary: No Symptoms Reported Musculoskeletal: see HPI Skin: no symptoms reported Psychiatric/Neurological: No Symptoms Reported Endocrine: No Symptoms Reported Past Fbtyljp-Tlhjzt-Ntpnfv Hx Past Med/Social Hx: Reviewed Nursing Past Med/Soc Hx Patient Social History Alcohol Beverage of Choice: Beer Type Used: Cigarettes 2nd Hand Smoke Exposure: Yes Recent Hopitalizations: No Immunizations Up To Date Date of Influenza Vaccine: Jul 11, 2020 Past Medical History Surgeries: Yes (KIDNEY STONES--BASKET REMOVAL, ) Tonsillectomy, Vasectomy Respiratory: No Cardiac: No Neurological: No Reproductive Disorders: No Genitourinary: Yes (EPIDIDYMITIS) Kidney Stones Gastrointestinal: No Musculoskeletal: Yes Chronic Back Pain Endocrine: Yes (hypoglycemia) HEENT: Yes (TONSILLECTOMY) Tonsilitis Cancer: No Psychosocial: Yes Anxiety, PTSD Integumentary: No Blood Disorders: No Physical Exam Vital Signs Vital Signs - First Documented 09/16/20 08:26 Temp 36.0 Pulse 56 Resp 14 B/P (MAP) 138/88 (105) Pulse Ox 98 O2 Delivery Room Air Capillary Refill : Height, Weight, BMI Height: 6'" Weight: 242lbs. oz. 109.179472we; 30.00 BMI Method:Stated General Appearance: No Apparent Distress, WD/WN Neck: Supple, Tender Lateral (left lateral neck, posterior trapezious, TTP ) Respiratory: Lungs Clear, Normal Breath Sounds, No Accessory Muscle Use, No Respiratory Distress, Other (anterior left chest wall, TTP ) Cardiovascular: Regular Rate, Rhythm, No Edema Gastrointestinal: Non Tender, Soft Extremity: Normal Capillary Refill, Normal Range of Motion Neurologic/Psychiatric: Alert, Oriented x3, Normal Mood/Affect, sheet catcher II-XII Norm as Tested Skin: Normal Color, Warm/Dry; No Diaphoresis Progress/Results/Core Measures Results/Orders Lab Results Laboratory Tests Test 09/16/20 08:36 09/16/20 08:40 09/16/20 10:18 Range/Units White Blood Count 6.1 4.3-11.0 10^3/uL Red Blood Count 4.28 L 4.30-5.52 10^6/uL Hemoglobin 13.9 13.3-17.7 g/dL Hematocrit 42 40-54 % Mean Corpuscular Volume 98 80-99 fL Mean Corpuscular Hemoglobin 33 25-34 pg Mean Corpuscular Hemoglobin Concent 33 32-36 g/dL Red Cell Distribution Width 12.9 10.0-14.5 % Platelet Count 288 130-400 10^3/uL Mean Platelet Volume 9.3 9.0-12.2 fL Immature Granulocyte % (Auto) 0 % Neutrophils (%) (Auto) 71 42-75 % Lymphocytes (%) (Auto) 18 12-44 % Monocytes (%) (Auto) 7 0-12 % Eosinophils (%) (Auto) 3 0-10 % Basophils (%) (Auto) 1 0-10 % Neutrophils # (Auto) 4.3 1.8-7.8 10^3/uL Lymphocytes # (Auto) 1.1 1.0-4.0 10^3/uL Monocytes # (Auto) 0.4 0.0-1.0 10^3/uL Eosinophils # (Auto) 0.2 0.0-0.3 10^3/uL Basophils # (Auto) 0.1 0.0-0.1 10^3/uL Immature Granulocyte # (Auto) 0.0 0.0-0.1 10^3/uL Prothrombin Time 14.0 12.2-14.7 SEC INR Comment 1.0 0.8-1.4 Activated Partial Thromboplast Time 30 24-35 SEC Sodium Level 140 135-145 MMOL/L Potassium Level 3.7 3.6-5.0 MMOL/L Chloride Level 106 98-107 MMOL/L Carbon Dioxide Level 23 21-32 MMOL/L Anion Gap 11 5-14 MMOL/L Blood Urea Nitrogen 5 L 7-18 MG/DL Creatinine 1.02 0.60-1.30 MG/DL Estimat Glomerular Filtration Rate > 60 BUN/Creatinine Ratio 5 Glucose Level 100 70-105 MG/DL Calcium Level 8.3 L 8.5-10.1 MG/DL Corrected Calcium 8.4 L 8.5-10.1 MG/DL Magnesium Level 2.1 1.6-2.4 MG/DL Total Bilirubin 0.5 0.1-1.0 MG/DL Aspartate Amino Transf (AST/SGOT) 20 5-34 U/L Alanine Aminotransferase (ALT/SGPT) 22 0-55 U/L Alkaline Phosphatase 75 40-136 U/L Myoglobin 79.0 10.0-92.0 NG/ML Troponin I < 0.028 < 0.028 <0.028 NG/ML C-Reactive Protein High Sensitivity 0.27 0.00-0.50 MG/DL Total Protein 6.5 6.4-8.2 GM/DL Albumin 3.9 3.2-4.5 GM/DL Coronavirus 2019 (JIM) Negative Negative Micro Results Microbiology 09/16/20 Influenza Types A,B Antigen ([place]) - Final, Complete My Orders Orders - MAGDALENO ANN DO Cbc With Automated Diff (09/16/20 08:28) Magnesium (09/16/20 08:28) Chest 1 View, Ap/Pa Only (09/16/20 08:28) Ekg Tracing (09/16/20 08:28) Comprehensive Metabolic Panel (09/16/20 08:28) Myoglobin Serum (09/16/20 08:28) Protime With Inr (09/16/20 08:28) Partial Thromboplastin Time (09/16/20 08:28) Ed Iv/Invasive Line Start (09/16/20 08:28) Troponin I (09/16/20 08:28) Hs C Reactive Protein (09/16/20 08:28) Influenza A And B Antigens (09/16/20 08:28) Covid 19 Inhouse Test (09/16/20 08:28) Ketorolac Injection (Toradol Injection) (09/16/20 08:28) Coronavirus Sars-Cov-2 So 2018 (09/16/20 08:40) Orphenadrine Inj (Ed Only) (Norflex Inje (09/16/20 09:33) Troponin I (09/16/20 10:15) Medications Given in ED Current Medications Medications Dose Ordered Sig/Alba Route Start Time Stop Time Status Last Admin Dose Admin Orphenadrine Citrate 60 mg STK-MED ONCE .ROUTE 09/16/20 09:33 09/16/20 09:36 DC 09/16/20 09:41 60 MG Vital Signs/I&O 09/16/20 09/16/20 08:26 08:26 Temp 36.0 Pulse 56 Resp 14 B/P (MAP) 138/88 (105) Pulse Ox 98 O2 Delivery Room Air Room Air Progress Progress Note : Time: 10:57 Progress Note Patient with negative EKG, negative troponin 2. Patient symptoms are much more consistent with a overuse/strain versus cardiac pain. Pain is reproducible and the chest wall. I recommend however he continues to follow-up with sales merchandiser and obtain an outpatient stress test. I will prescribe him meloxicam and Flexeril. Patient stable only discharged home Initial ECG Impression Date: Sep 16, 2020 Initial ECG Impression Time: 08:32 Initial ECG Rate: 56 Initial ECG Rhythm: Normal Sinus Initial ECG Intervals: Normal Initial ECG Impression: Normal Initial ECG Comparisson: Unchanged Comment HR 56, NSR, no acute findings Departure Impression Primary Impression: Chest wall pain Additional Impression: Chest pain Qualified Codes: R07.9 - Chest pain, unspecified Disposition: HOME, SELF-CARE Condition: Stable Departure-Patient Inst. Referrals: NO,LOCAL PHYSICIAN (PCP/Family) Primary Care Physician Patient Instructions: Chest Pain That Is Not Caused by the Heart (DC), Chest Pain Add. Discharge Instructions: Please follow up with sales merchandiser and schedule a stress test as recommended and her previous visit Scripts Meloxicam (Meloxicam) 7.5 Mg Tablet 7.5 MG PO DAILY, #10 TAB Prov: MAGDALENO ANN DO 09/16/20 Cyclobenzaprine HCl (Cyclobenzaprine HCl) 10 Mg Tablet 10 MG PO Q8H PRN for SPASMS, #15 TAB 0 Refills Prov: MAGDALENO ANN DO 09/16/20 MAGDALENO ANN DO Sep 16, 2020 08:37
[2020-09-16 09:00] LABS: BASOPHILS # (AUTO) 0.1 10^3/uL (0.0-0.1); BASOPHILS % (AUTO) 1 % (0-10); EOSINOPHILS # (AUTO) 0.2 10^3/uL (0.0-0.3); EOSINOPHILS % (AUTO) 3 % (0-10); HEMATOCRIT 42 % (40-54); HEMOGLOBIN 13.9 g/dL (13.3-17.7); LYMPHOCYTES # (AUTO) 1.1 10^3/uL (1.0-4.0); LYMPHOCYTES % (AUTO) 18 % (12-44); MEAN CORPUSCULAR HEMOGLOBIN 33 pg (25-34); MEAN CORPUSCULAR HGB CONC 33 g/dL (32-36); MEAN CORPUSCULAR VOLUME 98 fL (80-99); MEAN PLATELET VOLUME 9.3 fL (9.0-12.2); MONOCYTES # (AUTO) 0.4 10^3/uL (0.0-1.0); MONOCYTES % (AUTO) 7 % (0-12); NEUTROPHILS # (AUTO) 4.3 10^3/uL (1.8-7.8); NEUTROPHILS % (AUTO) 71 % (42-75); PLATELET COUNT 288 10^3/uL (130-400); WHITE BLOOD COUNT 6.1 10^3/uL (4.3-11.0)
[2020-09-16 09:07] LABS: ALBUMIN 3.9 GM/DL (3.2-4.5); CHLORIDE 106 MMOL/L (98-107); POTASSIUM 3.7 MMOL/L (3.6-5.0); SODIUM 140 MMOL/L (135-145)
[2020-09-16 09:09] LABS: CALCIUM 8.3 MG/DL (8.5-10.1)
[2020-09-16 09:10] LABS: GLUCOSE 100 MG/DL (70-105); TOTAL PROTEIN 6.5 GM/DL (6.4-8.2)
[2020-09-16 09:11] LABS: BILIRUBIN,TOTAL 0.5 MG/DL (0.1-1.0); CARBON DIOXIDE 23 MMOL/L (21-32)
[2020-09-16 09:13] LABS: ALKALINE PHOSPHATASE 75 U/L (40-136); CREATININE SERUM 1.02 MG/DL (0.60-1.30); GFR ESTIMATED > 60
[2020-09-16 09:14] LABS: BUN/CREATININE RATIO 5
[2020-09-16 09:16] LABS: ALANINE AMINOTRANSFERASE 22 U/L (0-55); MAGNESIUM 2.1 MG/DL (1.6-2.4)
[2020-09-16] MEDS ORDERED: ORPHENADRINE 60 MG/2 ML (NORFLEX) AMP (ED ONLY) ONE (09:33)
--- NOTE | 2020-09-16 10:20 | NUR ---
REPEAT TROPONIN DRAWN AND SENT TO LAB
[2020-09-16] MEDS ORDERED: MELO7.5T46 PO (11:01)
[2020-09-16] MEDS ORDERED: CYCL10TA9 PO (11:01)
[2020-09-16 11:04] VITALS: BP 117/72
== END 2020-09-16 11:08 | disposition home or self-care (01) ==
LOC: EDUNIT# 08:22 → ER 08:23
DX: R07.89 Other chest pain (principal); R07.9 Chest pain, unspecified; Z20.828 Contact with and (suspected) exposure to other viral communicable diseases; Z77.22 Contact with and (suspected) exposure to environmental tobacco smoke (acute) (chronic); Z88.2 Allergy status to sulfonamides; Z88.1 Allergy status to other antibiotic agents
CPT/HCPCS: 71045; 80053; 83735; 83874; 84484; 85025; 85610; 85730; 86141; 87804; 93005; U0002; 36415; 87635

== ENCOUNTER 2020-09-17 16:25 | Emergency (ER) | payer MEDICARE, MEDICAID ==
[~2020-09-17] VITALS: Ht 182.8 cm; Wt 101.3 kg
[~2020-09-17 16:25] MED LIST changes: +CYCL10TA9 PO; +MELO7.5T46 PO
--- NOTE | 2020-09-17 16:31 | NUR ---
REPORTED PT SYMPTOM OF CHEST PAIN AND SOA TO [facility]
--- NOTE | 2020-09-17 16:43 | ED Chest Pain ---
General Stated Complaint: SOA/CHEST PAIN/DIZZINESS/NECK & L SIDE PAIN Source: patient Exam Limitations: no limitations History of Present Illness Date Seen by Provider: Sep 17, 2020 Time Seen by Provider: 16:40 Initial Comments To ER with persistent left-sided neck pain and left-sided chest pain. This is been intermittent since yesterday. Worsened by deep breathing and movement. Timing/Duration: intermittent Severity/Quality: moderate Activities at Onset: none ASA po REGISTERED NURSES: No NTG SL REGISTERED NURSES: No Allergies and Home Medications Allergies Coded Allergies: Sulfa (Sulfonamide Antibiotics) (Verified Allergy, Severe, HIVES, 08/14/20) levofloxacin (Verified Allergy, Unknown, 06/12/20) doxycycline (Verified Adverse Reaction, Mild, Vomiting, 06/12/20) Home Medications Cyclobenzaprine HCl 10 Mg Tablet, 10 MG PO Q8H PRN for SPASMS Prescribed by: MAGDALENO ANN on 09/16/20 1101 Meloxicam 7.5 Mg Tablet, 7.5 MG PO DAILY Prescribed by: MAGDALENO ANN on 09/16/20 1101 Patient Home Medication List Home Medication List Reviewed: Yes Review of Systems Review of Systems Constitutional: see HPI EENTM: No Symptoms Reported Respiratory: No Symptoms Reported Cardiovascular: See HPI, Chest Pain Gastrointestinal: No Symptoms Reported Genitourinary: No Symptoms Reported Musculoskeletal: no symptoms reported Skin: no symptoms reported Psychiatric/Neurological: No Symptoms Reported Endocrine: No Symptoms Reported Hematologic/Lymphatic: No Symptoms Reported Past Agkwfba-Bhlovb-Zaejja Hx Patient Social History Alcohol Beverage of Choice: Beer Type Used: Cigarettes 2nd Hand Smoke Exposure: Yes Recent Foreign Travel: No Contact w/Someone Who Travel: No Recent Hopitalizations: No Immunizations Up To Date Date of Influenza Vaccine: Jul 11, 2020 Past Medical History Surgeries: Yes (KIDNEY STONES--BASKET REMOVAL, ) Tonsillectomy, Vasectomy Respiratory: No Cardiac: No Neurological: No Reproductive Disorders: No Genitourinary: Yes (EPIDIDYMITIS) Kidney Stones Gastrointestinal: No Musculoskeletal: Yes Chronic Back Pain Endocrine: Yes (hypoglycemia) HEENT: Yes (TONSILLECTOMY) Tonsilitis Cancer: No Psychosocial: Yes Anxiety, PTSD Integumentary: No Blood Disorders: No Physical Exam Vital Signs Vital Signs - First Documented 09/17/20 16:34 Temp 36.5 Pulse 76 Resp 18 B/P (MAP) 146/99 (115) Pulse Ox 95 O2 Delivery Room Air Capillary Refill : Height, Weight, BMI Height: 6'" Weight: 242lbs. oz. 109.327133zg; 30.00 BMI Method:Stated General Appearance: No Apparent Distress, WD/WN HEENT: PERRL/EOMI, TMs Normal Neck: Full Range of Motion, Normal Inspection Respiratory: Normal Breath Sounds, No Accessory Muscle Use, No Respiratory Distress Cardiovascular: Regular Rate, Rhythm, Normal Peripheral Pulses Gastrointestinal: Non Tender, Soft Extremity: Normal Capillary Refill, Normal Inspection Neurologic/Psychiatric: Alert, Oriented x3, No Motor/Sensory Deficits Skin: Normal Color, Warm/Dry Progress/Results/Core Measures Results/Orders Lab Results Laboratory Tests Test 09/17/20 16:47 09/17/20 17:10 Range/Units Glucometer 118 H 70-110 MG/DL White Blood Count 6.2 4.3-11.0 10^3/uL Red Blood Count 4.39 4.30-5.52 10^6/uL Hemoglobin 14.2 13.3-17.7 g/dL Hematocrit 43 40-54 % Mean Corpuscular Volume 98 80-99 fL Mean Corpuscular Hemoglobin 32 25-34 pg Mean Corpuscular Hemoglobin Concent 33 32-36 g/dL Red Cell Distribution Width 12.6 10.0-14.5 % Platelet Count 281 130-400 10^3/uL Mean Platelet Volume 8.7 L 9.0-12.2 fL Immature Granulocyte % (Auto) 0 % Neutrophils (%) (Auto) 63 42-75 % Lymphocytes (%) (Auto) 23 12-44 % Monocytes (%) (Auto) 7 0-12 % Eosinophils (%) (Auto) 6 0-10 % Basophils (%) (Auto) 1 0-10 % Neutrophils # (Auto) 3.9 1.8-7.8 10^3/uL Lymphocytes # (Auto) 1.5 1.0-4.0 10^3/uL Monocytes # (Auto) 0.4 0.0-1.0 10^3/uL Eosinophils # (Auto) 0.3 0.0-0.3 10^3/uL Basophils # (Auto) 0.1 0.0-0.1 10^3/uL Immature Granulocyte # (Auto) 0.0 0.0-0.1 10^3/uL Prothrombin Time 13.3 12.2-14.7 SEC INR Comment 1.0 0.8-1.4 Activated Partial Thromboplast Time 29 24-35 SEC Sodium Level 140 135-145 MMOL/L Potassium Level 3.5 L 3.6-5.0 MMOL/L Chloride Level 106 98-107 MMOL/L Carbon Dioxide Level 22 21-32 MMOL/L Anion Gap 12 5-14 MMOL/L Blood Urea Nitrogen 6 L 7-18 MG/DL Creatinine 0.95 0.60-1.30 MG/DL Estimat Glomerular Filtration Rate > 60 BUN/Creatinine Ratio 6 Glucose Level 97 70-105 MG/DL Calcium Level 8.3 L 8.5-10.1 MG/DL Corrected Calcium 8.3 L 8.5-10.1 MG/DL Magnesium Level 2.2 1.6-2.4 MG/DL Total Bilirubin 0.2 0.1-1.0 MG/DL Aspartate Amino Transf (AST/SGOT) 19 5-34 U/L Alanine Aminotransferase (ALT/SGPT) 25 0-55 U/L Alkaline Phosphatase 85 40-136 U/L Myoglobin 49.7 10.0-92.0 NG/ML Troponin I < 0.028 <0.028 NG/ML B-Type Natriuretic Peptide 36.5 <100.0 PG/ML Total Protein 6.7 6.4-8.2 GM/DL Albumin 4.0 3.2-4.5 GM/DL My Orders Orders - YULIET ORELLANA DIRECTOR OF LEARNING Cbc With Automated Diff (09/17/20 16:34) Magnesium (09/17/20 16:34) Chest 1 View, Ap/Pa Only (09/17/20 16:34) Ekg Tracing (09/17/20 16:34) Comprehensive Metabolic Panel (09/17/20 16:34) Myoglobin Serum (09/17/20 16:34) Protime With Inr (09/17/20 16:34) Partial Thromboplastin Time (09/17/20 16:34) O2 (09/17/20 16:34) Monitor-Rhythm Ecg Trace Only (09/17/20 16:34) Lipid Panel (09/18/20 06:00) Ed Iv/Invasive Line Start (09/17/20 16:34) BNP (09/17/20 16:34) Troponin I (09/17/20 16:34) Aspirin Chewable Tablet (Baby Aspirin Ch (09/17/20 16:45) Ketorolac Injection (Toradol Injection) (09/17/20 16:45) Hydrocodone/Apap 5/325 Tablet (Lortab 5 (09/17/20 18:00) Medications Given in ED Current Medications Medications Dose Ordered Sig/Alba Route Start Time Stop Time Status Last Admin Dose Admin Aspirin 324 mg ONCE ONCE PO 09/17/20 16:45 09/17/20 16:46 DC 09/17/20 17:04 324 MG Ketorolac Tromethamine 15 mg ONCE ONCE IVP 09/17/20 16:45 09/17/20 16:46 DC 09/17/20 17:04 15 MG Vital Signs/I&O 09/17/20 16:34 Temp 36.5 Pulse 76 Resp 18 B/P (MAP) 146/99 (115) Pulse Ox 95 O2 Delivery Room Air Departure Impression Primary Impression: Chest pain Disposition: 01 HOME, SELF-CARE Condition: Stable Departure-Patient Inst. Decision time for Depature: 17:43 Referrals: [facility] [place] [place] (PCP) Primary Care Physician LILLIAN DUVALL (Family) Primary Care Physician JOEY MCKEON MD FACP FACC CCDS MARGARET LEWIS MD Patient Instructions: Chest Pain Add. Discharge Instructions: 1. Call one of the tongue presser to make an appointment to be seen. If that appointment is [address] or [address] is fine, go ahead and make it. Work/School Note: Work Release Form Date Seen in the Emergency Department: Sep 17, 2020 Return to Work: Sep 18, 2020 Other Restrictions Listed Below: no lifting over 5 lbs x7 days. YULIET ORELLANA DIRECTOR OF LEARNING Sep 17, 2020 16:42
[2020-09-17] MEDS ORDERED: ASPIRIN 81 MG CHEW (CHILDREN'S ASA) PO ONE (16:45)
[2020-09-17] MEDS ORDERED: KETOROLAC 30 MG/ML VIAL IVP ONE (16:45)
[2020-09-17 17:12] LABS: BASOPHILS # (AUTO) 0.1 10^3/uL (0.0-0.1); BASOPHILS % (AUTO) 1 % (0-10); EOSINOPHILS # (AUTO) 0.3 10^3/uL (0.0-0.3); EOSINOPHILS % (AUTO) 6 % (0-10); HEMATOCRIT 43 % (40-54); HEMOGLOBIN 14.2 g/dL (13.3-17.7); LYMPHOCYTES # (AUTO) 1.5 10^3/uL (1.0-4.0); LYMPHOCYTES % (AUTO) 23 % (12-44); MEAN CORPUSCULAR HEMOGLOBIN 32 pg (25-34); MEAN CORPUSCULAR HGB CONC 33 g/dL (32-36); MEAN CORPUSCULAR VOLUME 98 fL (80-99); MEAN PLATELET VOLUME 8.7 fL (9.0-12.2); MONOCYTES # (AUTO) 0.4 10^3/uL (0.0-1.0); MONOCYTES % (AUTO) 7 % (0-12); NEUTROPHILS # (AUTO) 3.9 10^3/uL (1.8-7.8); NEUTROPHILS % (AUTO) 63 % (42-75); PLATELET COUNT 281 10^3/uL (130-400); WHITE BLOOD COUNT 6.2 10^3/uL (4.3-11.0)
[2020-09-17 17:23] LABS: CHLORIDE 106 MMOL/L (98-107); POTASSIUM 3.5 MMOL/L (3.6-5.0); SODIUM 140 MMOL/L (135-145)
[2020-09-17 17:24] LABS: CALCIUM 8.3 MG/DL (8.5-10.1)
[2020-09-17 17:25] LABS: GLUCOSE 97 MG/DL (70-105); PROTHROMBIN TIME PATIENT 13.3 SEC (12.2-14.7); TOTAL PROTEIN 6.7 GM/DL (6.4-8.2)
[2020-09-17 17:26] LABS: CARBON DIOXIDE 22 MMOL/L (21-32)
[2020-09-17 17:27] LABS: BILIRUBIN,TOTAL 0.2 MG/DL (0.1-1.0)
[2020-09-17 17:28] LABS: ALKALINE PHOSPHATASE 85 U/L (40-136)
[2020-09-17 17:29] LABS: CREATININE SERUM 0.95 MG/DL (0.60-1.30); GFR ESTIMATED > 60
[2020-09-17 17:30] LABS: BUN/CREATININE RATIO 6
--- NOTE | 2020-09-17 17:30 | NUR ---
REPORTS PAIN BETTER
--- NOTE | 2020-09-17 17:30 | Diagnostic Imaging Report ---
INDICATION: Chest wall pain. TIME OF EXAM: 05:22 p.m. COMPARISON: Correlation is made with prior chest from one day earlier. The heart size is normal. The pulmonary vascularity is unremarkable. The lungs are clear. No infiltrate, effusion or pneumothorax is detected. IMPRESSION: No acute cardiopulmonary process is detected. Dictated by: Dictated on workstation # [id number]
[2020-09-17 17:31] LABS: ALANINE AMINOTRANSFERASE 25 U/L (0-55); MAGNESIUM 2.2 MG/DL (1.6-2.4)
[2020-09-17] MEDS ORDERED: HYDROcodone/APAP 5 MG/325 MG (LORTAB) TAB PO ONE (18:00)
--- NOTE | 2020-09-17 18:00 | NUR ---
REPORTS PAIN COMING BACK MONITOR SR.
[2020-09-17 18:23] VITALS: BP 125/75
== END 2020-09-17 18:21 | disposition home or self-care (01) ==
LOC: EDUNIT# 16:25 → ER 16:28
DX: R07.9 Chest pain, unspecified (principal); Z77.22 Contact with and (suspected) exposure to environmental tobacco smoke (acute) (chronic); Z88.1 Allergy status to other antibiotic agents; Z88.2 Allergy status to sulfonamides
CPT/HCPCS: 36415; 71045; 80053; 82962; 83735; 83874; 83880; 84484; 85025; 85610; 85730; 93005; 93041

== ENCOUNTER 2020-09-23 23:03 | Observation (INO) | payer MEDICARE, MEDICAID ==
[~2020-09-23] VITALS: Ht 182.9 cm; Wt 104.1 kg
[2020-09-23 23:21] LABS: BASOPHILS # (AUTO) 0.1 10^3/uL (0.0-0.1); BASOPHILS % (AUTO) 1 % (0-10); EOSINOPHILS # (AUTO) 0.4 10^3/uL (0.0-0.3); EOSINOPHILS % (AUTO) 5 % (0-10); HEMATOCRIT 46 % (40-54); HEMOGLOBIN 15.2 g/dL (13.3-17.7); LYMPHOCYTES # (AUTO) 2.1 10^3/uL (1.0-4.0); LYMPHOCYTES % (AUTO) 29 % (12-44); MEAN CORPUSCULAR HEMOGLOBIN 32 pg (25-34); MEAN CORPUSCULAR HGB CONC 33 g/dL (32-36); MEAN CORPUSCULAR VOLUME 98 fL (80-99); MEAN PLATELET VOLUME 9.3 fL (9.0-12.2); MONOCYTES # (AUTO) 0.6 10^3/uL (0.0-1.0); MONOCYTES % (AUTO) 8 % (0-12); NEUTROPHILS # (AUTO) 4.2 10^3/uL (1.8-7.8); NEUTROPHILS % (AUTO) 57 % (42-75); PLATELET COUNT 289 10^3/uL (130-400); WHITE BLOOD COUNT 7.3 10^3/uL (4.3-11.0)
[2020-09-23 23:40] LABS: ALBUMIN 4.2 GM/DL (3.2-4.5); CHLORIDE 103 MMOL/L (98-107); POTASSIUM 3.4 MMOL/L (3.6-5.0); SODIUM 138 MMOL/L (135-145)
[2020-09-23 23:41] LABS: AMYLASE 52 U/L (25-125); CALCIUM 8.7 MG/DL (8.5-10.1)
[2020-09-23 23:42] LABS: BILIRUBIN,URINE NEGATIVE (NEGATIVE); CLARITY,URINE CLOUDY; COLOR,URINE YELLOW; GLUCOSE, URINE (UA) NEGATIVE (NEGATIVE); KETONES,URINE NEGATIVE (NEGATIVE); LEUKOCYTE ESTERASE ,URINE NEGATIVE (NEGATIVE); NITRITE,URINE NEGATIVE (NEGATIVE); PROTEIN,URINE NEGATIVE (NEGATIVE)
[2020-09-23 23:42] LABS: GLUCOSE 106 MG/DL (70-105)
[2020-09-23 23:43] LABS: ERYTHROCYTE SEDIMENTATION RATE 8 MM/HR (0-15); TOTAL PROTEIN 7.4 GM/DL (6.4-8.2)
[2020-09-23 23:44] LABS: CARBON DIOXIDE 24 MMOL/L (21-32)
[2020-09-23 23:45] LABS: BILIRUBIN,TOTAL 0.3 MG/DL (0.1-1.0)
[2020-09-23 23:46] LABS: ALKALINE PHOSPHATASE 100 U/L (40-136); CREATININE SERUM 1.03 MG/DL (0.60-1.30); GFR ESTIMATED > 60
[2020-09-23 23:47] LABS: BUN/CREATININE RATIO 7
[2020-09-23 23:48] LABS: AMORPHOUS SEDIMENT,UR LARGE AMOR URATES /LPF; BACTERIA,URINE NEGATIVE /HPF
[2020-09-23 23:49] LABS: ALANINE AMINOTRANSFERASE 34 U/L (0-55); FIBRIN DEGRADATION PRODUCTS < 0.27 UG/ML (0.00-0.49); PARTIAL THROMBOPLASTIN TIME 30 SEC (24-35); PROTHROMBIN TIME PATIENT 13.3 SEC (12.2-14.7)
[2020-09-23 23:50] LABS: CREATINE KINASE 169 U/L (30-200); LIPASE 31 U/L (8-78)
[2020-09-23 23:56] LABS: AMPHETAMINE SCREEN, URINE NEGATIVE (NEGATIVE); BARBITURATE SCREEN URINE NEGATIVE (NEGATIVE); BENZODIAZEPINES SCREEN URINE NEGATIVE (NEGATIVE); CANNABINOID SCREEN, URINE POSITIVE (NEGATIVE); COCAINE SCREEN URINE NEGATIVE (NEGATIVE); METHADONE STAT NEGATIVE (NEGATIVE); METHAMPHETAMINE SCREEN URINE S NEGATIVE (NEGATIVE); OPIATE SCREEN URINE NEGATIVE (NEGATIVE); OXYCODONE STAT NEGATIVE (NEGATIVE); PROPOXYPHENE STAT NEGATIVE (NEGATIVE); TRICYCLIC ANTIDEPRESSANTS SCRE NEGATIVE (NEGATIVE)
[2020-09-23 23:58] LABS: CREATINE KINASE MB 1.1 NG/ML (<6.6)
[2020-09-24] VITALS (14 sets, daily range): BP systolic 91–127; BP diastolic 68–85
[2020-09-24] MEDS ORDERED: ASPIRIN 81 MG CHEW (CHILDREN'S ASA) PO ONE (00:15)
[2020-09-24] MEDS: NITROGLYCERIN 0.4 MG SL TABS BTL 25'S SL PRN ×3 (00:22→00:46)
[2020-09-24] MEDS ORDERED: ACETAMINOPHEN 500 MG TAB (TYLENOL) PO ONE (00:30)
--- NOTE | 2020-09-24 02:50 | NUR ---
REPEAT TROPONIN SENT TO LAB AT 0250
[2020-09-24] MEDS ORDERED: KETOROLAC 30 MG/ML VIAL IVP ONE (03:00)
--- NOTE | 2020-09-24 04:08 | ED General ---
General Chief Complaint: Chest Pain Stated Complaint: CP L SIDE WEAKNESS Nursing Triage Note: PT ARRIVED BY [facility] WITH CHIEF COMPLAINT OF CHEST PAIN AND LEFT SIDE WEAKNESS. PT WAS ALERT, ORIENTED X 4 AT ARRIVAL. PT MOVED FROM THE STRETCHER TO THE BED. PT'S VITAL SIGNS WERE TAKEN, EKG WAS DONE AND BLOOD WAS DRAWN FROM IV SITE STARTED BY EMS (20 GAUGE IV IN LEFT AC). PT STATED THAT CHEST PAIN STARTED 40 MINUTES PRIOR TO ARRIVAL WHEN HE WAS SITTING ON THE COUCH. PT STATED THAT IT WAS TRAVELING UP TO NECK INTO LEFT SIDE OF FACE CAUSING WEAKNESS. PT STATED WEAKNESS STARTED AROUND [id number] TOODAY WHEN PLAYING WITH HIS DOG. PT STATED HE WAS SUPPOSED TO HAVE HEART CATH DONE TOMORROW WITH [facility], BUT DUE TO INSURANCE THEY WANTED TO DO A STRESS TEST FIRST. HE STATED DR. MCKEON THINKS HIS HEART WONT BE ABLE TO HANDLE A STRESS TEST. PT STATED HE HAD COVID SWAB DONE FOR HEART CATH LAST WEEK HERE. PT STATED HE WAS HAVING SLURRED SPEECH, BUT THIS RN DOES NOT HEAR ANY SLURRED SPEECH AT ARRIVAL. PT HAD RASH ON CHEST AND THIS RN ASKED WHAT THE RASH WAS FROM AND HE STATED IT WAS A HEAT RASH. Nursing Sepsis Screen: No Definite Risk Source of Information: Patient, Old Records History of Present Illness Date Seen by Provider: Sep 23, 2020 Time Seen by Provider: 23:04 Initial Comments PT ARRIVES VIA EMS FROM HOME C/O CHEST PAIN THAT BEGAN 45 MINUTES AGO WHILE SITTING AND WATCHING TV PAIN IS IN LEFT UPPER CHEST TELLS ME THAT THERE IS NO RADIATION OF PAIN. REPORTS TO RN THAT PAIN GOES UP LEFT SIDE OF NECK TO LEFT SIDE OF FACE AND IT IS MAKING HIS FACE NUMB. NOTHING WORSENS OR IMPROVES PAIN HAS NOT TAKEN ANYTHING FOR PAIN + COUGH NO FEVER NO SHORTNESS OF BREATH + NAUSEA, NO VOMITING. STATES HE HAS NOT HAD ANYTHING TO DRINK TODAY--STATES "IT MAKES ME SICK". HOWEVER, PT HAS BEEN ABLE TO EAT, AND ATE "PIZZA OR CHIPS" 4 HOURS AGO WITHOUT ANY PROBLEMS. NO ABDOMINAL PAIN NO DIARRHEA NO LOSS OF TASTE OR SMELL NO SORE THROAT ADDITIONALLY, PT ALSO C/O NUMBNESS AND WEAKNESS TO ENTIRE LEFT SIDE OF BODY--LEFT SIDE OF FACE, LEFT ARM AND LEFT LEG STATES THIS STARTED AROUND 1300 TODAY WHILE PLAYING INSIDE WITH HIS DOG. NO DIFFICULTY SWALLOWING THINKS HIS SPEECH IS SLURRED, HOWEVER, SPEECH APPEARS CLEAR AND NOT SLURRED AT THIS TIME. STATES HE FEELS LIKE IT IS A LITTLE BIT DIFFICULTY TO WALK. THESE SYMPTOMS ARE NO DIFFERENT NOW PT HAD STROKE ABOUT A YEAR AGO, WITH THESE EXACT SAME SYMPTOMS STATES HE SPENT 13 DAYS IN THE HOSPITAL AT [facility] PT WITH A MULTITUDE OF VISITS HERE--10 VISITS HERE SINCE MAY--VARIOUS COMPLAINTS PT WAS SEEN HERE 09/16 AND 09/17 FOR CHEST PAIN PT STATES HE WAS SUPPOSED TO HAVE A CARDIAC CATH DONE IN THE MORNING BY DR. MCKEON, BUT INSURANCE WANTED HIM TO HAVE A STRESS TEST FIRST--THIS HAS NOT BEEN SCHEDULED AT THIS TIME, AND DOES NOT HAVE A FOLLOW UP APPOINTMENT WITH HIM AT THIS TIME. Allergies and Home Medications Allergies Coded Allergies: Sulfa (Sulfonamide Antibiotics) (Verified Allergy, Severe, HIVES, 08/14/20) levofloxacin (Verified Allergy, Unknown, 06/12/20) doxycycline (Verified Adverse Reaction, Mild, Vomiting, 06/12/20) Home Medications Cyclobenzaprine HCl 10 Mg Tablet, 10 MG PO Q8H PRN for SPASMS Prescribed by: MAGDALENO ANN on 09/16/20 1101 Meloxicam 7.5 Mg Tablet, 7.5 MG PO DAILY Prescribed by: MAGDALENO ANN on 09/16/20 1101 Past Wnhexpk-Aekueq-Tzkzss Hx Patient Social History Alcohol Use: Denies Use Number of Drinks Today: AA Alcohol Beverage of Choice: Beer Recreational Drug Use: No Type Used: Cigarettes 2nd Hand Smoke Exposure: Yes Recent Foreign Travel: No Contact w/Someone Who Travel: No Recent Infectious Disease Expo: No Recent Hopitalizations: No Physical Abuse: No Sexual Abuse: No Mistreated: No Fear: No Immunizations Up To Date Date of Influenza Vaccine: Jul 11, 2020 Past Medical History Surgeries: Yes (KIDNEY STONES--BASKET REMOVAL, ) Tonsillectomy, Vasectomy Respiratory: No Cardiac: No Neurological: No Reproductive Disorders: No Genitourinary: Yes (EPIDIDYMITIS) Kidney Stones Gastrointestinal: No Musculoskeletal: Yes Chronic Back Pain Endocrine: Yes (hypoglycemia) HEENT: Yes (TONSILLECTOMY) Tonsilitis Cancer: No Psychosocial: Yes Anxiety, PTSD Integumentary: No Blood Disorders: No Physical Exam Vital Signs Vital Signs - First Documented 09/23/20 09/24/20 23:05 05:45 Temp 35.7 Pulse 68 Resp 20 B/P (MAP) 145/98 (114) Pulse Ox 98 O2 Delivery Room Air Capillary Refill : Less Than 3 Seconds Height, Weight, BMI Height: 6'" Weight: 242lbs. oz. 109.941161tn; 30.00 BMI Method:Stated General Appearance: No Apparent Distress, WD/WN, Other (FLAT AFFECT. ) HEENT: PERRL/EOMI Neck: Full Range of Motion, Normal Inspection, Non Tender, Supple; No Carotid Bruit, No JVD Respiratory: Normal Breath Sounds, No Accessory Muscle Use, No Respiratory Distress, Other (TENDERNESS TO LEFT UPPER CHEST AND LOWER STERNUM--PALPATION REPRODUCES PAIN) Cardiovascular: Regular Rate, Rhythm, No Edema, No Gallop, No JVD, No Murmur, Normal Peripheral Pulses Gastrointestinal: Normal Bowel Sounds, No Organomegaly, No Pulsatile Mass, Non Tender, Soft Back: Normal Inspection Extremity: Normal Capillary Refill, Normal Inspection, Normal Range of Motion, Non Tender, No Calf Tenderness, No Pedal Edema Neurologic/Psychiatric: Alert, Oriented x3, Normal Mood/Affect, assistant attorney general II-XII Norm as Tested; No Abnormal Cerebellar Tests; Sensory Deficit (HAS SOME DECREASED SENSATION TO LEFT FACE, LEFT ARM AND LEFT LEG. ) Skin: Normal Color, Warm/Dry; No Rash Progress/Results/Core Measures Suspected Sepsis Recent Fever Within 48 Hours: No Infection Criteria Present: None New/Unexplained Altered Menta: No Sepsis Screen: No Definite Risk SIRS Temperature: Pulse: 68 Respiratory Rate: 20 Laboratory Tests 09/23/20 23:05: White Blood Count 7.3 Blood Pressure 145 /98 Mean: 114 Laboratory Tests 09/23/20 23:05: Creatinine 1.03, INR Comment 1.0, Platelet Count 289, Total Bilirubin 0.3 Results/Orders Lab Results Laboratory Tests Test 09/23/20 23:05 09/23/20 23:33 09/23/20 23:37 09/24/20 02:50 Range/Units White Blood Count 7.3 4.3-11.0 10^3/uL Red Blood Count 4.75 4.30-5.52 10^6/uL Hemoglobin 15.2 13.3-17.7 g/dL Hematocrit 46 40-54 % Mean Corpuscular Volume 98 80-99 fL Mean Corpuscular Hemoglobin 32 25-34 pg Mean Corpuscular Hemoglobin Concent 33 32-36 g/dL Red Cell Distribution Width 12.4 10.0-14.5 % Platelet Count 289 130-400 10^3/uL Mean Platelet Volume 9.3 9.0-12.2 fL Immature Granulocyte % (Auto) 0 % Neutrophils (%) (Auto) 57 42-75 % Lymphocytes (%) (Auto) 29 12-44 % Monocytes (%) (Auto) 8 0-12 % Eosinophils (%) (Auto) 5 0-10 % Basophils (%) (Auto) 1 0-10 % Neutrophils # (Auto) 4.2 1.8-7.8 10^3/uL Lymphocytes # (Auto) 2.1 1.0-4.0 10^3/uL Monocytes # (Auto) 0.6 0.0-1.0 10^3/uL Eosinophils # (Auto) 0.4 H 0.0-0.3 10^3/uL Basophils # (Auto) 0.1 0.0-0.1 10^3/uL Immature Granulocyte # (Auto) 0.0 0.0-0.1 10^3/uL Erythrocyte Sedimentation Rate 8 0-15 MM/HR Prothrombin Time 13.3 12.2-14.7 SEC INR Comment 1.0 0.8-1.4 Activated Partial Thromboplast Time 30 24-35 SEC D-Dimer < 0.27 0.00-0.49 UG/ML Sodium Level 138 135-145 MMOL/L Potassium Level 3.4 L 3.6-5.0 MMOL/L Chloride Level 103 98-107 MMOL/L Carbon Dioxide Level 24 21-32 MMOL/L Anion Gap 11 5-14 MMOL/L Blood Urea Nitrogen 7 7-18 MG/DL Creatinine 1.03 0.60-1.30 MG/DL Estimat Glomerular Filtration Rate > 60 BUN/Creatinine Ratio 7 Glucose Level 106 H 70-105 MG/DL Calcium Level 8.7 8.5-10.1 MG/DL Corrected Calcium 8.5 8.5-10.1 MG/DL Magnesium Level 2.0 1.6-2.4 MG/DL Total Bilirubin 0.3 0.1-1.0 MG/DL Aspartate Amino Transf (AST/SGOT) 20 5-34 U/L Alanine Aminotransferase (ALT/SGPT) 34 0-55 U/L Alkaline Phosphatase 100 40-136 U/L Lactate Dehydrogenase 224 H 125-220 U/L Total Creatine Kinase 169 30-200 U/L Creatine Kinase MB 1.1 <6.6 NG/ML Myoglobin 40.2 10.0-92.0 NG/ML Troponin I < 0.028 < 0.028 <0.028 NG/ML C-Reactive Protein High Sensitivity 0.26 0.00-0.50 MG/DL B-Type Natriuretic Peptide 15.0 <100.0 PG/ML Total Protein 7.4 6.4-8.2 GM/DL Albumin 4.2 3.2-4.5 GM/DL Amylase Level 52 25-125 U/L Lipase 31 8-78 U/L Procalcitonin 0.03 <0.10 NG/ML Serum Alcohol < 10 <10 MG/DL Coronavirus 2019 (JIM) Negative Negative Urine Color YELLOW Urine Clarity CLOUDY Urine pH 7.0 5-9 Urine Specific [place] 1.020 1.016-1.022 Urine Protein NEGATIVE NEGATIVE Urine Glucose (UA) NEGATIVE NEGATIVE Urine Ketones NEGATIVE NEGATIVE Urine Nitrite NEGATIVE NEGATIVE Urine Bilirubin NEGATIVE NEGATIVE Urine Urobilinogen 0.2 < = 1.0 MG/DL Urine Leukocyte Esterase NEGATIVE NEGATIVE Urine RBC (Auto) NEGATIVE NEGATIVE Urine RBC NONE /HPF Urine WBC NONE /HPF Urine Squamous Epithelial Cells 2-5 /HPF Urine Crystals PRESENT H /LPF Urine Amorphous Sediment LARGE GAMAL URATES H /LPF Urine Bacteria NEGATIVE /HPF Urine Casts NONE /LPF Urine Mucus NEGATIVE /LPF Urine Culture Indicated NO Urine Opiates Screen NEGATIVE NEGATIVE Urine Oxycodone Screen NEGATIVE NEGATIVE Urine Methadone Screen NEGATIVE NEGATIVE Urine Propoxyphene Screen NEGATIVE NEGATIVE Urine Barbiturates Screen NEGATIVE NEGATIVE Ur Tricyclic Antidepressants Screen NEGATIVE NEGATIVE Urine Phencyclidine Screen NEGATIVE NEGATIVE Urine Amphetamines Screen NEGATIVE NEGATIVE Urine Methamphetamines Screen NEGATIVE NEGATIVE Urine Benzodiazepines Screen NEGATIVE NEGATIVE Urine Cocaine Screen NEGATIVE NEGATIVE Urine Cannabinoids Screen POSITIVE H NEGATIVE Test 09/24/20 06:40 Range/Units Troponin I < 0.028 <0.028 NG/ML Micro Results Microbiology 09/24/20 Influenza Types A,B Antigen ([place]) - Final, Complete My Orders Orders - BENIGNO MYRICK DO Cbc With Automated Diff (09/23/20 23:06) Magnesium (09/23/20 23:06) Chest 1 View, Ap/Pa Only (09/23/20 23:06) Ekg Tracing (09/23/20 23:06) Comprehensive Metabolic Panel (09/23/20 23:06) Myoglobin Serum (09/23/20 23:06) Protime With Inr (09/23/20 23:06) Partial Thromboplastin Time (09/23/20 23:06) O2 (09/23/20 23:06) Monitor-Rhythm Ecg Trace Only (09/23/20 23:06) Ed Iv/Invasive Line Start (09/23/20 23:06) Creatine Kinase (09/23/20 23:06) Creatine Kinase Mb (09/23/20 23:06) Lipase (09/23/20 23:06) Amylase (09/23/20 23:06) BNP (09/23/20 23:06) Troponin I (09/23/20 23:06) Alcohol (09/23/20 23:06) Drug Screen Stat (Urine) (09/23/20 23:06) Ua Culture If Indicated (09/23/20 23:06) Ct Head Wo-R/O Stroke (09/23/20 23:06) Procalcitonin (Pct) (09/23/20 23:16) Hs C Reactive Protein (09/23/20 23:16) LDH (09/23/20 23:16) Coronavirus Sars-Cov-2 So 2018 (09/23/20 23:16) Covid 19 Inhouse Test (09/23/20 23:16) Erythrocyte Sedimentation Rate (09/23/20 23:05) Fibrin Degradation Products (09/23/20 23:05) Influenza A And B Antigens (09/23/20 23:39) Aspirin Chewable Tablet (Baby Aspirin Ch (09/24/20 00:15) Nitroglycerin 0.4 Mg Btl 25's (Nitrostat (09/24/20 00:15) Acetaminophen Tablet (Tylenol Tablet) (09/24/20 00:30) Ct Angio Head/Neck (09/24/20 00:42) Ekg Tracing (09/24/20 02:14) Troponin I (09/24/20 02:14) Ketorolac Injection (Toradol Injection) (09/24/20 03:00) Morphine Injection (Morphine Injection (09/24/20 05:03) Medications Given in ED Current Medications Medications Dose Ordered Sig/Alba Route Start Time Stop Time Status Last Admin Dose Admin Acetaminophen 1,000 mg ONCE ONCE PO 09/24/20 00:30 09/24/20 00:31 DC 09/24/20 00:26 1,000 MG Aspirin 324 mg ONCE ONCE PO 09/24/20 00:15 09/24/20 00:16 DC 09/24/20 00:22 324 MG Ketorolac Tromethamine 30 mg ONCE ONCE IVP 09/24/20 03:00 09/24/20 03:01 DC 09/24/20 03:06 30 MG Nitroglycerin 1 TAB Q 5 MIN X 3 NEEDED PRN SL 09/24/20 00:15 09/24/20 06:29 DC 09/24/20 00:46 0.4 MG Vital Signs/I&O 09/23/20 09/24/20 09/24/20 09/24/20 23:05 05:45 05:53 06:00 Temp 35.7 36.0 36.4 36.4 Pulse 68 49 55 55 Resp 20 18 18 18 B/P (MAP) 145/98 (114) 113/76 (114) 127/75 127/75 (92) Pulse Ox 98 95 95 O2 Delivery Room Air Room Air Room Air Room Air 09/24/20 09/24/20 09/24/20 09/24/20 06:00 06:15 06:30 06:45 Pulse 55 47 64 B/P (MAP) 119/71 (87) 117/75 (89) 122/79 (93) Pulse Ox 94 93 94 O2 Delivery Room Air Room Air Room Air Room Air Capillary Refill : Less Than 3 Seconds Blood Pressure Mean: 114 Progress Note : Progress Note PLACED IN ISOLATION ROOM PPE WORN AT ALL TIMES COVID-19 TESTING PERFORMED PT GIVEN ASPIRIN AND NTG--NO RELIEF GIVEN TORADOL--NO RELIEF OBSERVED IN ER FOR SEVERAL HOURS, REPEAT EKG AND TROPONIN DONE AND ARE NEGATIVE. PT SLEPT THROUGH MOST OF ER STAY HAD TO WAKE PT UP TO ASK ABOUT PAIN, CONTINUED TO C/O HEADCHE AND CHEST PAIN--"9/10"--THEN WOULD GO BACK TO SLEEP Departure Communication (Admissions) 6568--SPOKE WITH DR. CARR, HOSPITALIST FOR [facility]. ACCEPTS PT FOR ADMIT. WILL CONSULT CARDIOLOGY THIS AM Impression Primary Impression: Chest pain Additional Impression: LEFT SIDED PARESTHESIAS Disposition: ADMITTED INPATIENT Condition: Stable Admissions Decision to Admit Reason: Admit from ER (General) Decision to Admit/Date: Sep 24, 2020 Time/Decision to Admit Time: 04:45 Departure-Patient Inst. Referrals: [facility] (PCP) Primary Care Physician LILLIAN DUVALL (Family) Primary Care Physician Images Torso/Trunk 1 - Tenderness 2 - Tenderness BENIGNO MYRICK DO Sep 24, 2020 04:08
[2020-09-24] MEDS ORDERED: morphine INJ 10 MG/ML 1ML (SYR OR VIAL) IVP STA (05:03)
--- NOTE | 2020-09-24 05:50 | NUR ---
ALBERTO SANDERS SR admitted to room 420-1, with an admitting diagnosis of CHEST PAIN, on 09/24/20 from ER via ED, accompanied by STAFF. ALBERTO SANDERS SR introduced to surroundings, call light, bed controls, phone, TV, temperature control, lights, meal times, smoking policy, visitor policy, side rail policy, bathrooms and showers. Patient Rights given to patient in the handbook. ALBERTO SANDERS SR verbalizes understanding that [facility] is not responsible for the loss or damage to any personal effects or valuables that are kept in the patients posession during their hospitalization. ALBERTO SANDERS SR verbalizes understanding of Interdisciplinary Patient Education. Patient and/or family were informed about the Rapid Response Team and its purpose.
--- NOTE | 2020-09-24 06:13 | History & Physical-Hospitalist ---
History of Present Illness HPI/Chief Complaint CC: Chest pain with left-sided weakness HPI: This is a 40yoWM who presents to the ER and had an extensive work up in the ER including a stroke protocol and acute coronary syndrome protocol, both of which were negative who continues to have chest pain. Cardiology will talk to him about undergoing cardiac catheterization and I will initiate some PT to see if the weakness is something that needs to be pursued but he does not appear to be having any significant distress and his left-sided weakness is not noted to be profound. Source: patient Exam Limitations: no limitations Date Seen 09/24/20 Time Seen by a Provider: 09:30 Attending Physician Mita Almaraz DO [facility] Referring Physician Date of Admission Sep 24, 2020 at 04:44 Home Medications & Allergies Home Medications Reviewed patient Home Medication Reconciliation performed by pharmacy medication reconciliations medical service technician and/or nursing. Patients Allergies have been reviewed. Allergies Allergies Coded Allergies Sulfa (Sulfonamide Antibiotics) (Verified Allergy, Severe, HIVES, 08/14/20) levofloxacin (Verified Allergy, Unknown, 06/12/20) doxycycline (Verified Adverse Reaction, Mild, Vomiting, 06/12/20) Past Vlecogq-Hykacx-Yomhqx Hx Past Med/Social Hx: Reviewed Nursing Past Med/Soc Hx, Reviewed and Corrections made Patient Social History Marrital Status: Employed/Student: unemployed Alcohol Use: Regular Use Alcohol Beverage of Choice: Beer Recreational Drug Use: No Smoking Status: Current Everyday Smoker Type Used: Cigarettes 2nd Hand Smoke Exposure: Yes Recent Foreign Travel: No Contact w/other who traveled: No Recent Hopitalizations: No Recent Infectious Disease Expo: No Immunizations Up To Date Date of Influenza Vaccine: Jul 11, 2020 Past Medical History Surgeries: Tonsillectomy, Vasectomy Reproductive: No Genitourinary: Kidney Stones Musculoskeletal: Chronic Back Pain HEENT: Tonsilitis Psychosocial: Anxiety, PTSD History of Blood Disorders: No Review of Systems Constitutional: see HPI Cardiovascular: chest pain Physical Exam Physical Exam Vital Signs Vital Signs - First Documented 09/23/20 09/24/20 23:05 05:45 Temp 35.7 Pulse 68 Resp 20 B/P (MAP) 145/98 (114) Pulse Ox 98 O2 Delivery Room Air Capillary Refill : Less Than 3 Seconds Height, Weight, BMI Height: 6'" Weight: 242lbs. oz. 109.360722yy; 31.11 BMI Method:Stated General Appearance: No Apparent Distress, Chronically ill Eyes: Right Eye Normal Inspection, Right Eye PERRL HEENT: PERRL/EOMI, Normal ENT Inspection, Pharynx Normal, Moist Mucous Membranes Neck: Full Range of Motion, Normal Inspection, Non Tender Respiratory: Chest Non Tender, Lungs Clear, Normal Breath Sounds, No Accessory Muscle Use, No Respiratory Distress Cardiovascular: Regular Rate, Rhythm, No Edema, No Gallop, No JVD, No Murmur, Normal Peripheral Pulses Gastrointestinal: Normal Bowel Sounds, No Organomegaly, No Pulsatile Mass, Non Tender, Soft Back: Normal Inspection, No CVA Tenderness, No Vertebral Tenderness Extremity: Normal Capillary Refill, Normal Inspection, Normal Range of Motion, Non Tender, No Calf Tenderness, No Pedal Edema Neurologic/Psychiatric: Alert, Oriented x3, No Motor/Sensory Deficits, Normal Mood/Affect Skin: Normal Color, Warm/Dry Lymphatic: No Adenopathy Results Results/Procedures Labs Laboratory Tests 09/23/20 23:05 Patient resulted labs reviewed. Assessment/Plan Admission Diagnosis Assessment: CP Left sided weakness? Plan: Cardiology appreciated PT Admission Status: Observation Clinical Quality Measures DVT/VTE Risk/Contraindication: Risk Factor Score Per Nursin RFS Level Per Nursing on Admit: 2=Moderate DUNCAN CARR DO Sep 24, 2020 06:13
[2020-09-24] MEDS ORDERED: NITROGLYCERIN 0.4 MG SL TABS BTL 25'S SL PRN (06:30)
[2020-09-24] MEDS ORDERED: 1/2 NS IV SOLUTION 1,000 ML IV SCH (06:30)
[2020-09-24] MEDS ORDERED: ONDANSETRON 4 MG/2 ML (SDV) Z0FRAN IV PRN (06:30)
[2020-09-24] MEDS ORDERED: ACETAMINOPHEN 500 MG TAB (TYLENOL) PO PRN (06:30)
--- NOTE | 2020-09-24 06:58 | NUR ---
PT C/O CP STILL THE SAME. EKG DONE SINUS TRUMAN. DR LEWIS NOTIFIED AND ALSO INFORMED ABOUT PT'S HR DROPPING IN THE HIGH 40s. EKG DONE SINUS TRUMAN.
--- NOTE | 2020-09-24 07:48 | Diagnostic Imaging Report ---
PATIENT HISTORY: Chest pain. TECHNIQUE: Single frontal view of the chest. COMPARISON: 09/17/2020 FINDINGS: The lung volumes are normal. No focal consolidation is seen. No large pleural effusion or pneumothorax is seen. The cardiomediastinal silhouette is normal in size and contour. No acute osseous abnormality is seen. IMPRESSION: No acute pulmonary abnormality seen. Dictated by: Dictated on workstation # [id number]
--- NOTE | 2020-09-24 07:50 | Diagnostic Imaging Report ---
PROCEDURE: CT head wo r/o stroke. TECHNIQUE: Multiple contiguous axial images were obtained through the brain without the use of intravenous contrast. Auto Exposure Controls were utilized during the CT exam to meet ALARA standards for radiation dose reduction. INDICATION: Left-sided weakness and chest pain. COMPARISON: 09/06/2020 FINDINGS: The ventricles and cortical sulci are age-appropriate. There is no midline shift or mass effect. No acute intracranial hemorrhage is seen. There is no CT evidence of acute territorial ischemia. The calvarium appears intact. Visualized paranasal sinuses demonstrate a small mucous retention cyst of the left maxillary sinus. IMPRESSION: 1. No acute intracranial hemorrhage or CT evidence of acute territorial ischemia. Findings reported to Dr. Herrera by the preliminary radiology service at 2337 hours on 09/23/2020. Dictated by: Dictated on workstation # [id number]
[2020-09-24] MEDS: morphine INJ 4 MG/ML 1 ML (VIAL/SYRINGE) IV PRN ×2 (08:03→10:16)
[2020-09-24] MEDS: ASPIRIN E.C. 81 MG (ECOTRIN) TAB PO SCH ×2 (08:03→08:04)
[2020-09-24] MEDS ORDERED: LIDOCAINE 1% INJ 20 ML 20 ML VIAL ONE (08:06)
[2020-09-24] MEDS ORDERED: HEParin (CATH LAB) 2,000 ML IV ONE (08:06)
--- NOTE | 2020-09-24 08:21 | Diagnostic Imaging Report ---
PROCEDURE: CT angiography of the head and CT angiography of the neck with and without contrast. TECHNIQUE: Contiguous noncontrast images were obtained from the skull base through the vertex. After intravenous contrast administration, helical CT angiography of the neck was performed. Source data was reformatted into 3D MIP projections. Delayed post contrast acquisition was also obtained. Auto Exposure Controls were utilized during the CT exam to meet ALARA standards for radiation dose reduction. INDICATION: Left-sided weakness COMPARISON: Noncontrast CT head performed earlier same day FINDINGS: CTA NECK: Aorta: Aortic arch is normal, with 2 vessel branching pattern. Anterior Circulation: The origin of the bilateral common carotid arteries are patent. No stenosis of the common carotid arteries in the neck. No significant stenosis of the internal carotid arteries per NASCET criteria. The cervical segments of the bilateral ICAs are patent. The proximal external carotid arteries are patent and without significant stenosis. Posterior Circulation: Origins of the bilateral vertebral arteries are normal. Vertebral arteries are co-dominant. The proximal extraousseous, intrasosseous, and distal extraosseous segments of the vertebral arteries are patent without dissection or stenosis. Non-vascular: No cervical lymphadenopathy. The airway is patent. No evidence of mucosal-based mass lesion in the pharynx. Thyroid is normal. Salivary glands are normal. No concerning lesion in the cervical spine. CTA HEAD: Anterior Circulation: The distal internal carotid arteries are patent. The bilateral M1 and M2 segments of the middle cerebral arteries are patent and without stenosis. The bilateral M3 and M4 segments are symmetric in size and number. The anterior cerebral arteries are patent and without stenosis. Anterior communicating artery is patent. No saccular aneurysm in the anterior circulation. Posterior Circulation: The bilateral intracranial segments of the vertebral arteries are patent. The basilar artery is patent and without stenosis. The posterior cerebral arteries are patent. Bilateral posterior communicating arteries are patent and without aneurysm. No saccular aneurysm in the posterior circulation. Post Contrast Head: No pathologic enhancement on delayed post-contrast enhancement. IMPRESSION: 1. No intracranial large vessel occlusion or saccular aneurysm. 2. No arterial occlusion or stenosis in the major neck arteries. 3. Findings are in agreement with the preliminary report. Dictated by: Dictated on workstation # [id number]
--- NOTE | 2020-09-24 09:06 | Consultation-Cardiology ---
HPI-Cardiology Cardiology Consultation: Date of Consultation 09/24/20 Time Seen by a Provider: 08:45 Date of Admission 09-23-2020 Attending Physician Mita Almaraz DO Admitting Physician [place] Consulting Physician Faith Rock MD HPI: Chief Complaint: Chest pain Mr. Sanders is a 40 yr old male admitted to [facility] from the ED with c/o CP. He reports last night he was sitting on the couch at home when he developed left sided, stabbing chest pain which would come and go. He reports the left sided pain radiated up into his left jaw and ear. 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 He denies any SOB. He reports he was having some nausea, but has not had any further. He reports nothing has resolved his chest pain and he is still having it right now. He is also reporting a headache. He reports no change in the discomfort with movement or rest. He does report worsening LACW discomfort with palpation. He denies any palpitations. No c/o syncope or near syncope. No c/o LE swelling. Review of Systems-Cardiology Review of Systems Constitutional: No chills, No fever Eyes: No vision change Respiratory: As described under HPI Cardiovascular: As described under HPI Gastrointestinal: As described under HPI Genitourinary: No dysuria, No hematuria Musculoskeletal: muscle pain Skin: No rash on exposed areas, No ulcerations on exposed areas Psychiatric/Neurological: As described under HPI; No focal weakness, No syncope Hematologic: No bleeding abnormalities UPP-Vflsuo-Lykmaj Hx Patient Social History Alcohol Use: Denies Use Recreational Drug Use: No Type Used: Cigarettes 2nd Hand Smoke Exposure: Yes Recent Foreign Travel: No Recent Infectious Disease Expo: No Hospitalization with Isolation: Denies Immunizations Up To Date Date of Influenza Vaccine: Jul 11, 2020 Past Medical History PMH As described under Assessment. Family Medical History Family Medical History: He reports his father had CAD in his 50's Allergies and Home Medications Allergies Coded Allergies: Sulfa (Sulfonamide Antibiotics) (Verified Allergy, Severe, HIVES, 08/14/20) levofloxacin (Verified Allergy, Unknown, 06/12/20) doxycycline (Verified Adverse Reaction, Mild, Vomiting, 06/12/20) Home Medications Acetaminophen 500 Mg Tablet, 1,000 MG PO Q8H PRN for PAIN-MILD (1-4), (Reported) Patient Home Medication List Home Medication List Reviewed: Yes Physical Exam-Cardiology Physical Exam Vital Signs/I&O 09/23/20 09/24/20 09/24/20 09/24/20 23:05 05:45 05:53 06:00 Temp 35.7 36.0 36.4 36.4 Pulse 68 49 55 55 Resp 20 18 18 18 B/P (MAP) 145/98 (114) 113/76 (114) 127/75 127/75 (92) Pulse Ox 98 95 95 O2 Delivery Room Air Room Air Room Air Room Air 09/24/20 09/24/20 09/24/20 09/24/20 06:00 06:15 06:30 06:45 Pulse 55 47 64 B/P (MAP) 119/71 (87) 117/75 (89) 122/79 (93) Pulse Ox 94 93 94 O2 Delivery Room Air Room Air Room Air Room Air 09/24/20 08:00 Temp 36.4 Pulse 57 Resp 20 B/P (MAP) 116/80 (92) Pulse Ox 95 O2 Delivery Room Air Capillary Refill : Less Than 3 Seconds Constitutional: AAO x 3, well-developed, well-nourished HEENT: PERRL, hearing is well preserved Neck: No carotid bruit; carotid pulses are 2 + bilaterally Respiratory: No accessory muscle use, No respiratory distress; chest expansion is symmetric, chest is bilaterally symmetric, lungs clear to auscultation Cardiovascular: regular rate-rhythm; No JVD; S1 and S2 Gastrointestinal: No tender; soft, round, audible bowel sounds Extremities: no lower extremity edema bilateral Neurologic/Psychiatric: other (LUE and LLE 4/5; RUE and RLE 5/5) Skin: No rash on exposed areas, No ulcerations on exposed areas Data Review Labs Laboratory Tests 09/23/20 23:05: White Blood Count 7.3, Red Blood Count 4.75, Hemoglobin 15.2, Hematocrit 46, Mean Corpuscular Volume 98, Mean Corpuscular Hemoglobin 32, Mean Corpuscular Hemoglobin Concent 33, Red Cell Distribution Width 12.4, Platelet Count 289, Mean Platelet Volume 9.3, Immature Granulocyte % (Auto) 0, Neutrophils (%) (Auto) 57, Lymphocytes (%) (Auto) 29, Monocytes (%) (Auto) 8, Eosinophils (%) (Auto) 5, Basophils (%) (Auto) 1, Neutrophils # (Auto) 4.2, Lymphocytes # (Auto) 2.1, Monocytes # (Auto) 0.6, Eosinophils # (Auto) 0.4H, Basophils # (Auto) 0.1, Immature Granulocyte # (Auto) 0.0, Erythrocyte Sedimentation Rate 8, Prothrombin Time 13.3, INR Comment 1.0, Activated Partial Thromboplast Time 30, D-Dimer < 0.27, Sodium Level 138, Potassium Level 3.4L, Chloride Level 103, Carbon Dioxide Level 24, Anion Gap 11, Blood Urea Nitrogen 7, Creatinine 1.03, Estimat Glomerular Filtration Rate > 60, BUN/Creatinine Ratio 7, Glucose Level 106H, Calcium Level 8.7, Corrected Calcium 8.5, Magnesium Level 2.0, Total Bilirubin 0.3, Aspartate Amino Transf (AST/SGOT) 20, Alanine Aminotransferase (ALT/SGPT) 34, Alkaline Phosphatase 100, Lactate Dehydrogenase 224H, Total Creatine Kinase 169, Creatine Kinase MB 1.1, Myoglobin 40.2, Troponin I < 0.028, C-Reactive Protein High Sensitivity 0.26, B-Type Natriuretic Peptide 15.0, Total Protein 7.4, Albumin 4.2, Amylase Level 52, Lipase 31, Procalcitonin 0.03, Serum Alcohol < 10 09/23/20 23:33: Coronavirus 2019 (JIM) Negative 09/23/20 23:37: Urine Color YELLOW, Urine Clarity CLOUDY, Urine pH 7.0, Urine Specific [place] 1.020, Urine Protein NEGATIVE, Urine Glucose (UA) NEGATIVE, Urine Ketones NEGATIVE, Urine Nitrite NEGATIVE, Urine Bilirubin NEGATIVE, Urine Urobilinogen 0.2, Urine Leukocyte Esterase NEGATIVE, Urine RBC (Auto) NEGATIVE, Urine RBC NONE, Urine WBC NONE, Urine Squamous Epithelial Cells 2-5, Urine Crystals PRESENTH, Urine Amorphous Sediment LARGE GAMAL URATESH, Urine Bacteria NEGATIVE, Urine Casts NONE, Urine Mucus NEGATIVE, Urine Culture Indicated NO, Urine Opiates Screen NEGATIVE, Urine Oxycodone Screen NEGATIVE, Urine Methadone Screen NEGATIVE, Urine Propoxyphene Screen NEGATIVE, Urine Barbiturates Screen NEGATIVE, Ur Tricyclic Antidepressants Screen NEGATIVE, Urine Phencyclidine Screen NEGATIVE, Urine Amphetamines Screen NEGATIVE, Urine Methamphetamines Screen NEGATIVE, Urine Benzodiazepines Screen NEGATIVE, Urine Cocaine Screen NEGATIVE, Urine Cannabinoids Screen POSITIVEH 09/24/20 02:50: Troponin I < 0.028 09/24/20 06:40: Troponin I < 0.028 Microbiology 09/24/20 Influenza Types A,B Antigen ([place]) - Final, Complete Radiology NAME: ALBERTO SANDERS [facility] REC#: [id number] PT STATUS: ADM Gretchen : 1980 PHYSICIAN: BENIGNO HERRERA DO ADMIT DATE: 09/24/20 Draft Date of Exam:09/23/20 CHEST 1 VIEW, AP/PA ONLY PATIENT HISTORY: Chest pain. TECHNIQUE: Single frontal view of the chest. COMPARISON: 09/17/2020 FINDINGS: The lung volumes are normal. No focal consolidation is seen. No large pleural effusion or pneumothorax is seen. The cardiomediastinal silhouette is normal in size and contour. No acute osseous abnormality is seen. IMPRESSION: No acute pulmonary abnormality seen. Dictated on workstation # [id number] Dict: 09/24/20 0745 Trans: 09/24/20 0748 [id number] Interpreted by: LAILA MATTHEWS MD Electronically signed by: NAME: ALBERTO SANDERS [facility] REC#: [id number] PT STATUS: ADM Gretchen : 1980 PHYSICIAN: BENIGNO HERRERA DO ADMIT DATE: 09/24/20 Draft Date of Exam:09/23/20 CT HEAD WO-R/O STROKE PROCEDURE: CT head wo r/o stroke. TECHNIQUE: Multiple contiguous axial images were obtained through the brain without the use of intravenous contrast. Auto Exposure Controls were utilized during the CT exam to meet ALARA standards for radiation dose reduction. INDICATION: Left-sided weakness and chest pain. COMPARISON: 09/06/2020 FINDINGS: The ventricles and cortical sulci are age-appropriate. There is no midline shift or mass effect. No acute intracranial hemorrhage is seen. There is no CT evidence of acute territorial ischemia. The calvarium appears intact. Visualized paranasal sinuses demonstrate a small mucous retention cyst of the left maxillary sinus. IMPRESSION: 1. No acute intracranial hemorrhage or CT evidence of acute territorial ischemia. Findings reported to Dr. Herrera by the preliminary radiology service at 2337 hours on 09/23/2020. Dictated on workstation # [id number] Dict: 09/24/2046 Trans: 09/24/20 0749 [id number] Interpreted by: LAILA MATTHEWS MD Electronically signed by: NAME: ALBERTO SANDERS [facility] REC#: [id number] PT STATUS: ADM Gretchen : 1980 PHYSICIAN: BENIGNO HERRERA DO ADMIT DATE: 09/24/20 Signed Date of Exam:09/24/20 CT ANGIO HEAD/NECK PROCEDURE: CT angiography of the head and CT angiography of the neck with and without contrast. TECHNIQUE: Contiguous noncontrast images were obtained from the skull base through the vertex. After intravenous contrast administration, helical CT angiography of the neck was performed. Source data was reformatted into 3D MIP projections. Delayed post contrast acquisition was also obtained. Auto Exposure Controls were utilized during the CT exam to meet ALARA standards for radiation dose reduction. INDICATION: Left-sided weakness COMPARISON: Noncontrast CT head performed earlier same day FINDINGS: CTA NECK: Aorta: Aortic arch is normal, with 2 vessel branching pattern. Anterior Circulation: The origin of the bilateral common carotid arteries are patent. No stenosis of the common carotid arteries in the neck. No significant stenosis of the internal carotid arteries per NASCET criteria. The cervical segments of the bilateral ICAs are patent. The proximal external carotid arteries are patent and without significant stenosis. Posterior Circulation: Origins of the bilateral vertebral arteries are normal. Vertebral arteries are co-dominant. The proximal extraousseous, intrasosseous, and distal extraosseous segments of the vertebral arteries are patent without dissection or stenosis. Non-vascular: No cervical lymphadenopathy. The airway is patent. No evidence of mucosal-based mass lesion in the pharynx. Thyroid is normal. Salivary glands are normal. No concerning lesion in the cervical spine. CTA HEAD: Anterior Circulation: The distal internal carotid arteries are patent. The bilateral M1 and M2 segments of the middle cerebral arteries are patent and without stenosis. The bilateral M3 and M4 segments are symmetric in size and number. The anterior cerebral arteries are patent and without stenosis. Anterior communicating artery is patent. No saccular aneurysm in the anterior circulation. Posterior Circulation: The bilateral intracranial segments of the vertebral arteries are patent. The basilar artery is patent and without stenosis. The posterior cerebral arteries are patent. Bilateral posterior communicating arteries are patent and without aneurysm. No saccular aneurysm in the posterior circulation. Post Contrast Head: No pathologic enhancement on delayed post-contrast enhancement. IMPRESSION: 1. No intracranial large vessel occlusion or saccular aneurysm. 2. No arterial occlusion or stenosis in the major neck arteries. 3. Findings are in agreement with the preliminary report. Dictated by: Dictated on workstation # [id number] Dict: 09/24/20806 Trans: 09/24/20819 [facility] [id number] Interpreted by: LYNN GARCIA MD Electronically signed by: LYNN GARCIA MD 09/24/20819 ECG Impression ECG Initial ECG Rhythm: Normal Sinus A/P-Cardiology Assessment/Admission Diagnosis Chest pain of undetermined etiology Chronic tobacco use - smokes cigs Marijuana usage - tested positive in the ED on 09-24-2020 HTN Abnormal ECG. ECG of 09-17-20 done during presentation to ED with chest pain did not show acute changes but old IMI could not be excluded. No significant change on ECG of 09-20-2020 (occ PVC) Reports h/o CVA, states had some L sided weakness in 2019, doesn't provide details. Continues to report some L sided weakness. No acute intracranial hemorrhage or CT evidence of acute territorial ischemia seen on CT of the head of 09-24-2020. CTA of the head and neck of 09-24-2020 No intracranial large vessel occlusion or saccular aneurysm. No arterial occlusion or stenosis in the major neck arteries. Findings are in agreement with the preliminary report. Family h/o early CAD (father in his 50's) Anxiety PTSD Discussion and Recomendations Chest pain of undetermined etiology for which he himself is worried it is cardiac related We have discussed in great detail the procedure, risks, benefits and potential complications of cardiac cath with possible ad hoc coronary intervention He verbalizes understanding and provides informed consent We will proceed later today Further recs will be based on his hospital course We would like to thank medical services for this consult Clinical Quality Measures DVT/VTE Risk/Contraindication: Risk Factor Score Per Nursin RFS Level Per Nursing on Admit: 2=Moderate MIR HI Sep 24, 2020 09:06
--- NOTE | 2020-09-24 09:26 | NUR ---
SPOKE WITH PT TO COMPLETE THE MED REC PT DENIES TAKING ANY PRESCRIPTION MEDICATION BUT DID LET ME KNOW THAT EARLIER THIS WEEK DR. 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 ON 09-20-2020 [facility] FILLED METOPROLOL SUCC 25MG AND NITRO 0.4MG OTC MEDS: TYLENOL
[2020-09-24] MEDS ORDERED: ACET-2267 PO (09:28)
[2020-09-24] MEDS ORDERED: fentaNYL INJECTION 100 MCG/2 ML AMP ONE (10:09)
[2020-09-24] MEDS ORDERED: MIDAZOLAM 5 MG/5 ML (VERSED) VIAL ONE (10:09)
[2020-09-24] MEDS ORDERED: NS IV 1000 ML 1,000 ML ONE (10:23)
--- NOTE | 2020-09-24 11:03 | Consultation-Cardiology ---
HPI-Cardiology Cardiology Consultation: Date of Consultation 09/24/20 Time Seen by a Provider: 10:30 Date of Admission Attending Physician Mita Almaraz DO Admitting Physician [place] Consulting Physician JOEY MCKEON MD, MA, FACP, FACC, [facility], CCDS HPI: Chief Complaint: CC: Chest pain Mr. Lakhani is a 40 yr old male admitted to [facility] from the ED with c/o CP. He reports last night he was sitting on the couch at home when he developed left sided, stabbing chest pain which would come and go. He reports the left sided pain radiated up into his left jaw and ear. 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 He denies any SOB. He reports he was having some nausea, but has not had any further. He reports nothing has resolved his chest pain and he is still having it right now. He is also reporting a headache. He reports no change in the discomfort with movement or rest. He does report worsening LACW discomfort with palpation. He denies any palpitations. No c/o syncope or near syncope. No c/o LE swelling. Review of Systems-Cardiology Review of Systems Constitutional: No chills, No fever Eyes: No vision change Respiratory: As described under HPI Cardiovascular: As described under HPI Gastrointestinal: As described under HPI Genitourinary: No dysuria, No hematuria Musculoskeletal: muscle pain Skin: No rash on exposed areas, No ulcerations on exposed areas Psychiatric/Neurological: As described under HPI; No focal weakness, No syncope Hematologic: No bleeding abnormalities [id number]-Wntbjj Hx Patient Social History Alcohol Use: Denies Use Recreational Drug Use: No Type Used: Cigarettes 2nd Hand Smoke Exposure: Yes Recent Foreign Travel: No Recent Infectious Disease Expo: No Hospitalization with Isolation: Denies Immunizations Up To Date Date of Influenza Vaccine: Jul 11, 2020 Past Medical History PMH As described under Assessment. Family Medical History Family Medical History: He reports his father had CAD in his 50's Allergies and Home Medications Allergies Coded Allergies: Sulfa (Sulfonamide Antibiotics) (Verified Allergy, Severe, HIVES, 08/14/20) levofloxacin (Verified Allergy, Unknown, 06/12/20) doxycycline (Verified Adverse Reaction, Mild, Vomiting, 06/12/20) Home Medications Acetaminophen 500 Mg Tablet, 1,000 MG PO Q8H PRN for PAIN-MILD (1-4), (Reported) Patient Home Medication List Home Medication List Reviewed: Yes Physical Exam-Cardiology Physical Exam Vital Signs/I&O 09/23/20 09/24/20 09/24/20 09/24/20 23:05 05:45 05:53 06:00 Temp 35.7 36.0 36.4 36.4 Pulse 68 49 55 55 Resp 20 18 18 18 B/P (MAP) 145/98 (114) 113/76 (114) 127/75 127/75 (92) Pulse Ox 98 95 95 O2 Delivery Room Air Room Air Room Air Room Air 09/24/20 09/24/20 09/24/20 09/24/20 06:00 06:15 06:30 06:45 Pulse 55 47 64 B/P (MAP) 119/71 (87) 117/75 (89) 122/79 (93) Pulse Ox 94 93 94 O2 Delivery Room Air Room Air Room Air Room Air 09/24/20 08:00 Temp 36.4 Pulse 57 Resp 20 B/P (MAP) 116/80 (92) Pulse Ox 95 O2 Delivery Room Air Capillary Refill : Less Than 3 Seconds Constitutional: AAO x 3, well-developed, well-nourished HEENT: PERRL, hearing is well preserved Neck: No carotid bruit; carotid pulses are 2 + bilaterally Respiratory: No accessory muscle use, No respiratory distress; chest expansion is symmetric, chest is bilaterally symmetric, lungs clear to auscultation Cardiovascular: regular rate-rhythm; No JVD; S1 and S2 Gastrointestinal: No tender; soft, round, audible bowel sounds Extremities: no lower extremity edema bilateral Neurologic/Psychiatric: oriented x 3, other (LUE and LLE 4/5; RUE and RLE 5/5) Skin: No rash on exposed areas, No ulcerations on exposed areas Data Review Labs Laboratory Tests 09/23/20 23:05: White Blood Count 7.3, Red Blood Count 4.75, Hemoglobin 15.2, Hematocrit 46, Mean Corpuscular Volume 98, Mean Corpuscular Hemoglobin 32, Mean Corpuscular Hemoglobin Concent 33, Red Cell Distribution Width 12.4, Platelet Count 289, Mean Platelet Volume 9.3, Immature Granulocyte % (Auto) 0, Neutrophils (%) (Auto) 57, Lymphocytes (%) (Auto) 29, Monocytes (%) (Auto) 8, Eosinophils (%) (Auto) 5, Basophils (%) (Auto) 1, Neutrophils # (Auto) 4.2, Lymphocytes # (Auto) 2.1, Monocytes # (Auto) 0.6, Eosinophils # (Auto) 0.4H, Basophils # (Auto) 0.1, Immature Granulocyte # (Auto) 0.0, Erythrocyte Sedimentation Rate 8, Prothrombin Time 13.3, INR Comment 1.0, Activated Partial Thromboplast Time 30, D-Dimer < 0.27, Sodium Level 138, Potassium Level 3.4L, Chloride Level 103, Carbon Dioxide Level 24, Anion Gap 11, Blood Urea Nitrogen 7, Creatinine 1.03, Estimat Glomerular Filtration Rate > 60, BUN/Creatinine Ratio 7, Glucose Level 106H, Calcium Level 8.7, Corrected Calcium 8.5, Magnesium Level 2.0, Total Bilirubin 0.3, Aspartate Amino Transf (AST/SGOT) 20, Alanine Aminotransferase (ALT/SGPT) 34, Alkaline Phosphatase 100, Lactate Dehydrogenase 224H, Total Creatine Kinase 169, Creatine Kinase MB 1.1, Myoglobin 40.2, Troponin I < 0.028, C-Reactive Protein High Sensitivity 0.26, B-Type Natriuretic Peptide 15.0, Total Protein 7.4, Albumin 4.2, Amylase Level 52, Lipase 31, Procalcitonin 0.03, Serum Alcohol < 10 09/23/20 23:33: Coronavirus 2019 (JIM) Negative 09/23/20 23:37: Urine Color YELLOW, Urine Clarity CLOUDY, Urine pH 7.0, Urine Specific [place] 1.020, Urine Protein NEGATIVE, Urine Glucose (UA) NEGATIVE, Urine Ketones NEGATIVE, Urine Nitrite NEGATIVE, Urine Bilirubin NEGATIVE, Urine Urobilinogen 0.2, Urine Leukocyte Esterase NEGATIVE, Urine RBC (Auto) NEGATIVE, Urine RBC NONE, Urine WBC NONE, Urine Squamous Epithelial Cells 2-5, Urine Crystals PRESENTH, Urine Amorphous Sediment LARGE GAMAL URATESH, Urine Bacteria NEGATIVE, Urine Casts NONE, Urine Mucus NEGATIVE, Urine Culture Indicated NO, Urine Opiate s Screen NEGATIVE, Urine Oxycodone Screen NEGATIVE, Urine Methadone Screen NEGATIVE, Urine Propoxyphene Screen NEGATIVE, Urine Barbiturates Screen NEGATIVE, Ur Tricyclic Antidepressants Screen NEGATIVE, Urine Phencyclidine Screen NEGATIVE, Urine Amphetamines Screen NEGATIVE, Urine Methamphetamines Screen NEGATIVE, Urine Benzodiazepines Screen NEGATIVE, Urine Cocaine Screen NEGATIVE, Urine Cannabinoids Screen POSITIVEH 09/24/20 02:50: Troponin I < 0.028 09/24/20 06:40: Troponin I < 0.028 [facility] 09/24/20 Influenza Types A,B Antigen ([place]) - Final, Complete A/P-Cardiology Assessment/Admission Diagnosis Chest pain, noncardiac, etiology undetermined Card cath of 09/24/20 showed no significant CAD, LVEDP 10 mmHg, LVEF 55-60% Chronic tobacco use - smokes cigs Marijuana usage - tested positive in the ED on 09-24-2020 HTN Abnormal ECG. ECG of 09-17-20 done during presentation to ED with chest pain did not show acute changes but old IMI could not be excluded. No significant change on ECG of 09-20-2020 (occ PVC) Reports h/o CVA, states had some L sided weakness in 2019, doesn't provide details. Continues to report some L sided weakness. No acute intracranial hemorrhage or CT evidence of acute territorial ischemia seen on CT of the head of 09-24-2020. CTA of the head and neck of 09-24-2020 No intracranial large vessel occlusion or saccular aneurysm. No arterial occlusion or stenosis in the major neck arteries Family h/o early CAD (father in his 50's) Anxiety PTSD Discussion and Recomendations Chest pain of undetermined etiology for which he himself is worried it is cardiac related. Also has multiple cardiac risk factors. Card cath appeared appropriate. We discussed in great detail the procedure, risks, benefits and potential complications of cardiac cath with possible ad hoc coronary intervention. He provided informed consent. Cath did not any cause of cardiac pain. We recommend continuing risk factor mod and outpt f/u W/u for and treatment of noncardiac pain is with the Med Svce Ok to d/c from cardiac standpoint Clinical Quality Measures DVT/VTE Risk/Contraindication: Risk Factor Score Per Nursin RFS Level Per Nursing on Admit: 2=Moderate JOEY MCKEON MD FACP FAC CCDS Sep 24, 2020 11:03
[2020-09-24] MEDS ORDERED: PATIENT MAY USE OWN MEDS, ALL PO SCH (11:15)
[2020-09-24] MEDS ORDERED: NS IV 1000 ML 1,000 ML IV SCH (11:15)
--- NOTE | 2020-09-24 11:32 | NUR ---
PATIENT'S CALLED AND UPDATED ON PROCEDURE AND POST PROCEDURE PLANS. HAS NO QUESTIONS AT THIS TIME.
--- NOTE | 2020-09-24 11:49 | Physical Therapy Progress Note ---
Therapy Progress Note Patient having heart cath on this date. PT to begin in [facility] PT Sep 24, 2020 11:49
--- NOTE | 2020-09-24 14:10 | NUR ---
PATIENT RETURNED TO 420. REPORT GIVEN TO NURSE.
--- NOTE | 2020-09-24 14:16 | NUR ---
Notified by elastic yarn twister helper that the patient is ok to be discharged per Dr. Rock with Dr. patel approval. Notified Dr. Burgos at this time.
--- NOTE | 2020-09-24 14:26 | Discharge Summary ---
Discharge Summary Hospital Course Was the Problem List Reviewed?: Yes Problems/Dx: (1) Chest pain Status: Acute Hospital Course Date of Admission: Sep 24, 2020 at 04:44 Admission Diagnosis : Family Physician/Provider: Blaise Fragoso Date of Discharge: 09/24/20 Discharge Diagnosis: chest pain r/o ACS, etohism Hospital Course: see H&P Labs and Pending Lab Test: Laboratory Tests 09/23/20 23:05: White Blood Count 7.3, Red Blood Count 4.75, Hemoglobin 15.2, Hematocrit 46, Mean Corpuscular Volume 98, Mean Corpuscular Hemoglobin 32, Mean Corpuscular Hemoglobin Concent 33, Red Cell Distribution Width 12.4, Platelet Count 289, Mean Platelet Volume 9.3, Immature Granulocyte % (Auto) 0, Neutrophils (%) (Auto) 57, Lymphocytes (%) (Auto) 29, Monocytes (%) (Auto) 8, Eosinophils (%) (Auto) 5, Basophils (%) (Auto) 1, Neutrophils # (Auto) 4.2, Lymphocytes # (Auto) 2.1, Monocytes # (Auto) 0.6, Eosinophils # (Auto) 0.4H, Basophils # (Auto) 0.1, Immature Granulocyte # (Auto) 0.0, Erythrocyte Sedimentation Rate 8, Prothrombin Time 13.3, INR Comment 1.0, Activated Partial Thromboplast Time 30, D-Dimer < 0.27, Sodium Level 138, Potassium Level 3.4L, Chloride Level 103, Carbon Dioxide Level 24, Anion Gap 11, Blood Urea Nitrogen 7, Creatinine 1.03, Estimat Glomerular Filtration Rate > 60, BUN/Creatinine Ratio 7, Glucose Level 106H, Calcium Level 8.7, Corrected Calcium 8.5, Magnesium Level 2.0, Total Bilirubin 0.3, Aspartate Amino Transf (AST/SGOT) 20, Alanine Aminotransferase (ALT/SGPT) 34, Alkaline Phosphatase 100, Lactate Dehydrogenase 224H, Total Creatine Kinase 169, Creatine Kinase MB 1.1, Myoglobin 40.2, Troponin I < 0.028, C-Reactive Protein High Sensitivity 0.26, B-Type Natriuretic Peptide 15.0, Total Protein 7.4, Albumin 4.2, Amylase Level 52, Lipase 31, Procalcitonin 0.03, Serum Alcohol < 10 09/23/20 23:33: Coronavirus (COVID-19)(PCR) [Pending], Coronavirus 2019 (JIM) Negative 09/23/20 23:37: Urine Color YELLOW, Urine Clarity CLOUDY, Urine pH 7.0, Urine Specific [place] 1.020, Urine Protein NEGATIVE, Urine Glucose (UA) NEGATIVE, Urine Ketones NEGATIVE, Urine Nitrite NEGATIVE, Urine Bilirubin NEGATIVE, Urine Urobilinogen 0.2, Urine Leukocyte Esterase NEGATIVE, Urine RBC (Auto) NEGATIVE, Urine RBC NONE, Urine WBC NONE, Urine Squamous Epithelial Cells 2-5, Urine Crystals PRESENTH, Urine Amorphous Sediment LARGE GAMAL URATESH, Urine Bacteria NEGATIVE, Urine Casts NONE, Urine Mucus NEGATIVE, Urine Culture Indicated NO, Urine Opiates Screen NEGATIVE, Urine Oxycodone Screen NEGATIVE, Urine Methadone Screen NEGATIVE, Urine Propoxyphene Screen NEGATIVE, Urine Barbiturates Screen NEGATIVE, Ur Tricyclic Antidepressants Screen NEGATIVE, Urine Phencyclidine Screen NEGATIVE, Urine Amphetamines Screen NEGATIVE, Urine Methamphetamines Screen NEGATIVE, Urine Benzodiazepines Screen NEGATIVE, Urine Cocaine Screen NEGATIVE, Urine Cannabinoids Screen POSITIVEH 09/24/20 02:50: Troponin I < 0.028 09/24/20 06:40: Troponin I < 0.028 Microbiology 09/24/20 Influenza Types A,B Antigen ([place]) - Final, Complete Home Meds Active Reported Tylenol Extra Strength (Acetaminophen) 500 Mg Tablet 1,000 Mg PO Q8H PRN Assessment/Pt Instructions PCP 1 week Discharge Planning: <30 minutes discharge planning Discharge Instructions Discharge Diet: No Restrictions Discharge Physical Examination Vital Signs Vital Signs Date Time Temp Pulse Resp B/P (MAP) Pulse Ox O2 Delivery O2 Flow Rate FiO2 09/24/20 13:51 57 18 91/77 (82) 95 Room Air 09/24/20 08:00 36.4 General Appearance: No Apparent Distress, WD/WN, Chronically ill Allergies: Coded Allergies: Sulfa (Sulfonamide Antibiotics) (Verified Allergy, Severe, HIVES, 08/14/20) levofloxacin (Verified Allergy, Unknown, 06/12/20) doxycycline (Verified Adverse Reaction, Mild, Vomiting, 06/12/20) Discharge Summary Date of Admission Sep 24, 2020 at 04:44 Date of Discharge Discharge Date: Sep 24, 2020 Clinical Quality Measures DVT/VTE Risk/Contraindication: Risk Factor Score Per Nursin RFS Level Per Nursing on Admit: 2=Moderate DUNCAN CARR DO Sep 24, 2020 14:25
--- NOTE | 2020-09-24 14:28 | CARDIAC CATHETERIZATION ---
DATE OF SERVICE: 09/20/2020 CARDIAC CATHETERIZATION REPORT The patient is a 40-year-old man with coronary artery disease risk factors, who presented with chest pain. He has been very concerned that the chest pain is of cardiac origin. He has chronic left sided weakness, which has not change significantly in the recent past. Cardiac catheterization was carried out today after having obtained informed consent. DESCRIPTION OF PROCEDURE: He was brought to the cardiac catheterization laboratory after informed consent had been obtained. Right groin was prepared and draped in the usual sterile fashion. Lidocaine 1% was used for local anesthesia. Modified Seldinger technique was used to advance a 5-Colombian sheath in right femoral artery. A 5-Colombian JR4 catheter was used for left coronary angiography, 5-Colombian JR4 catheter for left coronary angiography, 5-Colombian pigtail catheter was used for left heart catheterization and left ventricular angiography. The pigtail catheter was removed. Angiography of the right femoral artery was carried out through the sheath. Mynx was used to achieve hemostasis. HEMODYNAMICS: Left ventricular end-diastolic pressure following coronary angiography was 10 mmHg. There is no significant pressure gradient on pullback across the aortic valve. Ascending aortic pressure was 120/75 with a mean of 92 mmHg. CORONARY ANGIOGRAPHY: Left main coronary artery, left anterior descending artery, the left circumflex artery, right coronary artery do not exhibit any angiographically significant disease. Right coronary artery is dominant. LEFT VENTRICULAR ANGIOGRAPHY: Left ventricular angiography was carried out in the LEWIS projection. Global left ventricular systolic function normal. No regional wall motion abnormalities seen in this view. Left ventricular ejection fraction of 55-60%. CONCLUSIONS: 1. No angiographically significant coronary artery disease. 2. Normal left ventricular end-diastolic pressure. 3. Normal left ventricular systolic function with ejection fraction of 55% to 60%. DISCUSSION AND RECOMMENDATIONS: Based on results of the study, chest discomfort does not appear to be of coronary origin. Risk factor modification is advised. Have advised to refrain from tobacco use. Other risk factor modification has also been discussed. Outpatient followup is advised. Job ID: [id number] DocumentID: [id number] Dictated Date: 09/24/2020 11:08:37 Insurance Account Representative Date: 09/24/2020 14:26:43 Dictated By: JOEY MCKEON MD, MA, FACP, FACC,
--- NOTE | 2020-09-24 14:44 | Physical Therapy Evaluation ---
PT Evaluation-General Medical Diagnosis Admission Date Sep 24, 2020 at 04:44 Medical Diagnosis: chest pain/left sided weakness Onset Date: Sep 24, 2020 Therapy Diagnosis Therapy Diagnosis: debility Height/Weight Height (Feet): 6 Weight (Pounds): 242 Precautions Precautions/Isolations: Standard Precautions Referral Physician: Loretta Reason for Referral: Evaluation/Treatment Medical History Pertinent Medical History: Alcoholism, CVA, Smoking Additional Medical History marijuana use Current History EMS secondary to CP and left sided weakness Reviewed History: Yes Social History Home: Single Level Current Living Status: Spouse Entry Into Home: Stairs With Railing PT Steps Into Home: 6 Prior Prior Level of Function SCALE: Activities may be completed with or without assistive devices. 9-Iyfzhpbgrf-kovseui completes the activity by him/herself with no assistance from a helper. 5-Set-up or Clean-up Assistance-helper sets up or cleans up; patient completes activity. [place] assists only prior to or following the activity. 4-Supervision or Touching Assistance-helper provides verbal cues and/or touching/steadying and/or contact guard assistance as patient completes activity. Assistance may be provided throughout the activity or intermittently. 3-Partial/Moderate Assistance-helper does LESS THAN HALF the effort. [place] lifts, holds or supports trunk or limbs, but provides less than half the effort. 2-Substantial/Maximal Assistance-helper does MORE THAN HALF the effort. [place] lifts or holds trunk or limbs and provides more than half the effort. 9-Hfziejqpo-pgtmbd does ALL the effort. Patient does none of the effort to complete the activity. Or, the assistance of 2 or more helpers is required for the patient to complete the activity. If activity was not attempted, code reason: 7-Patient Refused. 9-Not Applicable-not attempted and the patient did not perform the activity before the current illness, exacerbation or injury. 10-Not Attempted due to Environmental Limitations-(lack of equipment, weather restraints, etc.). 88-Not Attempted due to Medical Conditions or Safety Concerns. Bed Mobility: 6 Transfers (B,C,W/C): 6 Gait: 6 Stairs: 6 Indoor Mobility (Ambulation): Independent Stairs: Independent PT Evaluation-Current Subjective Patient agrees to PT. Objective Patient Orientation: Normal For Age Attachments: IV ROM/Strength ROM Lower Extremities bilateral LE WFL Strength Lower Extremities 4+/5 grossly bilateral LE Integumentary/Posture Integumentary refer to nursing notes Bowel Incontinence: No Bladder Incontinence: No Posture WFL Neuromuscular (Tone, Coordination, Reflexes) grossly intact Sensory Vision: Functional Hearing: Functional Transfers Roll Left to Right (QC): 6 Sit to Lying (QC): 6 Lying to Sitting/Side of Bed(Q: 6 Sit to Stand (QC): 6 Gait Does the Patient Walk?: Yes Mode of Locomotion: Walk Anticipated Mode of Locomotion: Walk Walk 10 feet (QC): 6 Walk 50 ft with 2 Turns(QC): 6 Walk 150 ft (QC): 6 Distance: 200' Gait Assistive Device: FWW Comments/Gait Description safe and functional with FWW at patient's request, however, is up independently in room without AD Balance Sitting Static: Normal Sitting Dynamic: Normal Standing Static: Normal Standing Dynamic: Normal Assessment/Needs 40 y.o. male, is currently at independent PLOF without difficulty. No PT indicated. Rehab Potential: Fair PT Plan Treatment/Plan Treatment Plan: Discontinue PT Treatment Duration: Sep 24, 2020 Frequency: 1 time per week Estimated Hrs Per Day: .25 hour per day Time/GCodes Time In: 1415 Time Out: 1425 Total Billed Treatment Time: 10 Total Billed Treatment 1 visit EVLowC 10 min DARLIN CRUZ PT Sep 24, 2020 14:44
--- NOTE | 2020-09-24 16:24 | NUR ---
ALBERTO SANDERS SR demonstrates understanding of discharge instructions and accurately returns instructions upon questioning. Copy of Post-Discharge Instructions and Medication Discharge Instructions given to . ALBERTO SANDERS SR is to manage continuing needs after discharge. Patients belongings returned to patient. Skin dry and intact; no breakdown noted. Patient discharged from [facility] [place] on 09/24/20 at 1620. ALBERTO SANDERS SR left floor via wheelchair, accompanied by staff.
== END 2020-09-24 16:25 | disposition home or self-care (01) ==
LOC: EDUNIT# 23:03 → ER 23:05 → 4TH 09-24 04:44
PROVIDERS: ADMIT Internal Medicine; ATTEND Family Medicine
DX: R07.9 Chest pain, unspecified (principal); F17.210 Nicotine dependence, cigarettes, uncomplicated; G89.29 Other chronic pain; M54.5 Low back pain; F41.9 Anxiety disorder, unspecified; F43.10 Post-traumatic stress disorder, unspecified; Z79.899 Other long term (current) drug therapy; Z88.2 Allergy status to sulfonamides; Z88.8 Allergy status to other drugs, medicaments and biological substances; Z88.1 Allergy status to other antibiotic agents; Z86.73 Personal history of transient ischemic attack (TIA), and cerebral infarction without residual deficits
CPT/HCPCS: 70450; 70496; 70498; 71045; 80053; 80306; 81000; 82150; 82550; 82553; 83615; 83690; 83735; 83874; 83880; 84145; 84484 ×2; 85025; 85379; 85610; 85652; 85730; 86141; 87081; 87804; 93005 ×2; 93041; 93458; 97161; 99284; C1760; C1894; G0480; U0002; 36415; 80320; 87635

== ENCOUNTER 2020-10-07 09:48 | Emergency (ER) | payer MEDICARE, MEDICAID ==
[~2020-10-07] VITALS: Ht 170 cm; Wt 99.7 kg
[~2020-10-07 09:48] MED LIST changes: +ACET-2267 PO
[2020-10-07 10:18] LABS: BASOPHILS % (AUTO) 1 % (0-10); EOSINOPHILS # (AUTO) 0.2 10^3/uL (0.0-0.3); EOSINOPHILS % (AUTO) 3 % (0-10); HEMATOCRIT 43 % (40-54); HEMOGLOBIN 14.4 g/dL (13.3-17.7); LYMPHOCYTES # (AUTO) 1.4 10^3/uL (1.0-4.0); LYMPHOCYTES % (AUTO) 17 % (12-44); MEAN CORPUSCULAR HEMOGLOBIN 32 pg (25-34); MEAN CORPUSCULAR HGB CONC 34 g/dL (32-36); MEAN CORPUSCULAR VOLUME 97 fL (80-99); MEAN PLATELET VOLUME 8.9 fL (9.0-12.2); MONOCYTES # (AUTO) 0.5 10^3/uL (0.0-1.0); MONOCYTES % (AUTO) 6 % (0-12); NEUTROPHILS % (AUTO) 73 % (42-75); PLATELET COUNT 268 10^3/uL (130-400); WHITE BLOOD COUNT 8.1 10^3/uL (4.3-11.0)
[2020-10-07 10:30] LABS: PROTHROMBIN TIME PATIENT 13.4 SEC (12.2-14.7)
[2020-10-07 10:35] LABS: BILIRUBIN,URINE NEGATIVE (NEGATIVE); CLARITY,URINE CLEAR; COLOR,URINE ORANGE; GLUCOSE, URINE (UA) NEGATIVE (NEGATIVE); KETONES,URINE NEGATIVE (NEGATIVE); LEUKOCYTE ESTERASE ,URINE NEGATIVE (NEGATIVE); NITRITE,URINE NEGATIVE (NEGATIVE); PROTEIN,URINE NEGATIVE (NEGATIVE)
[2020-10-07 10:36] LABS: ALANINE AMINOTRANSFERASE 31 U/L (0-55); ALBUMIN 4.1 GM/DL (3.2-4.5); ALKALINE PHOSPHATASE 85 U/L (40-136); BILIRUBIN,TOTAL 0.6 MG/DL (0.1-1.0); BUN/CREATININE RATIO 8; CALCIUM 8.6 MG/DL (8.5-10.1); CARBON DIOXIDE 25 MMOL/L (21-32); CHLORIDE 108 MMOL/L (98-107); CREATININE SERUM 0.98 MG/DL (0.60-1.30); GFR ESTIMATED > 60; GLUCOSE 94 MG/DL (70-105); MAGNESIUM 2.2 MG/DL (1.6-2.4); POTASSIUM 3.6 MMOL/L (3.6-5.0); SODIUM 140 MMOL/L (135-145); TOTAL PROTEIN 6.9 GM/DL (6.4-8.2)
[2020-10-07 10:37] LABS: LIPASE 12 U/L (8-78)
--- NOTE | 2020-10-07 10:46 | Diagnostic Imaging Report ---
INDICATION: Chest pain. TECHNIQUE: Frontal chest obtained at 10:10 a.m. and compared to 09/23/2020. FINDINGS: Heart and mediastinal silhouette are normal in appearance. The lungs are clear. There is no pneumothorax or pleural fluid. IMPRESSION: Negative chest. Dictated by: Dictated on workstation # [id number]
[2020-10-07 10:54] LABS: BACTERIA,URINE TRACE /HPF; WBC,URINE 0-2 /HPF
--- NOTE | 2020-10-07 10:59 | NUR ---
LAB CONTACTED FOR BLOOD DRAW.
[2020-10-07] MEDS ORDERED: NS 100 ML (IVPB) BAG IV ONE (11:00)
[2020-10-07] MEDS ORDERED: HOLD METFORMIN - RECEIVED CONTRAST 20 ML VIAL IV SCH (11:00)
[2020-10-07] MEDS ORDERED: IOHEXOL 350 MG/ML 100 ML (OMNIPAQUE 350) VIAL IV ONE (11:00)
--- NOTE | 2020-10-07 11:22 | Diagnostic Imaging Report ---
PROCEDURE: CT head and CT cervical spine without contrast. TECHNIQUE: Multiple contiguous axial images were obtained through the brain and cervical spine without the use of intravenous contrast. Sagittal and coronal reformations through the cervical spine were then performed. Auto Exposure Controls were utilized during the CT exam to meet ALARA standards for radiation dose reduction. INDICATION: Trauma, fall. Comparison is made to prior CT head from 09/13/2020. CT HEAD: The ventricles and sulci are within normal limits. No sulcal effacement or midline shift is identified. No acute intra-axial or extra-axial hemorrhage is detected. Cisterns are patent. Visualized paranasal sinuses demonstrate a mucous retention cyst or polyp in the left maxillary sinus. IMPRESSION: No acute intracranial process is detected CT CERVICAL SPINE: Alignment is normal. There is multilevel degenerative disc disease with variable disc space narrowing and marginal spurring. No fractures are identified. Prevertebral tissues are within normal limits. Odontoid is intact. IMPRESSION: Cervical spondylosis. No acute bony abnormality is detected. Dictated by: Dictated on workstation # [id number]
--- NOTE | 2020-10-07 11:31 | Diagnostic Imaging Report ---
EXAMINATION: CT Chest, Abdomen and Pelvis with intravenous contrast. TECHNIQUE: Multiple contiguous axial images were obtained through the chest, abdomen and pelvis after the uneventful administration of intravenous contrast. All CT scans use one or more of the following dose optimizing techniques: automated exposure control, MA and/or KvP adjustment based on a patient size and exam type, or iterative reconstruction. HISTORY: Fall, Abdominal pain COMPARISON: CT abdomen/pelvis of 06/10/2020. FINDINGS: Thyroid: The visualized thyroid gland is normal. Mediastinum: Heart size is normal without significant pericardial effusion. The aorta is normal in caliber. No suspicious lymphadenopathy. Lungs and airways: The lungs are clear without consolidation, pleural effusion, or pneumothorax. Bibasilar dependent atelectasis. The airways are normal. Solid organs: The liver is normal without focal lesion. The gallbladder is normal. There is no biliary ductal dilation. Pancreas is normal. Spleen is normal. Adrenal glands are normal. The kidneys are normal without hydronephrosis. Bowel: The stomach and small bowel are normal without obstruction. The colon and appendix are normal. Peritoneum: There is no intraperitoneal free fluid or free air. No suspicious lymphadenopathy. Vasculature: Calcification of the aorta without aneurysm. Musculoskeletal: No suspicious osseous lesion or compression fracture. Pelvis: The prostate gland is normal. Mild diffuse bladder wall thickening. IMPRESSION: 1. No acute abnormality in the chest, abdomen, or pelvis. Dictated by: Dictated on workstation # [id number]
--- NOTE | 2020-10-07 12:08 | NUR ---
pt complains of pain. dr notified.
[2020-10-07] MEDS ORDERED: ONDANSETRON 4 MG/2 ML (SDV) Z0FRAN IVP ONE (12:45)
[2020-10-07] MEDS ORDERED: KETOROLAC 30 MG/ML VIAL IVP ONE (12:45)
[2020-10-07] MEDS ORDERED: ANTACID SUSP 30 ML UDC (MYLANTA) PO ONE (12:45)
[2020-10-07] MEDS ORDERED: LIDOCAINE 2% VISCOUS 15 ML UDC PO ONE (12:45)
--- NOTE | 2020-10-07 14:19 | NUR ---
IN ROOM AT THIS TIME.
--- NOTE | 2020-10-07 14:25 | ED Chest Pain ---
General Chief Complaint: Chest Pain Stated Complaint: CHEST PAIN Nursing Triage Note: ARRIVED VIA EMS FROM HOME. STATES HE WALKED HOME APPX 2 MILES FROM [place] STARTED HAVING CHEST PAIN WHILE WALKING HOME. PT TOOK TWO NITRO PRIOR TO CALLING EMS. EMS GAVE X1 NITRO, 324 ASA, AND MORPHINE 5 MG. STATES HE ALSO FELL AND HIT HIS HEAD. Nursing Sepsis Screen: No Definite Risk Source: patient Exam Limitations: no limitations History of Present Illness Date Seen by Provider: Oct 07, 2020 Time Seen by Provider: 09:50 Initial Comments This 40-year-old man presents to the emergency room via EMS with complaints of chest pain this morning that started while he was walking home from work. He went to work but was turned away because he lacked appropriate paperwork after having a hospital stay. He did not have a ride home so started to walk home. On the way home he developed sharp chest pain. He took 2 nitroglycerin and then became lightheaded. He then fell and struck his head. He also complains of left-sided weakness. He has chronic left-sided weakness from a prior stroke but this became more pronounced when he became lightheaded. EMS administered a third nitroglycerin and noted a 30 mmHg drop in his blood pressure. Morphine was given to further treat his pain. Patient has received aspirin. Patient had a heart cath [address] Rock which revealed no significant pathology. Chest pain at that time was felt to likely be noncoronary in nature. Patient also complains of abdominal pain. He complains of head and neck pain. C-collar was applied. Allergies and Home Medications Allergies Coded Allergies: Sulfa (Sulfonamide Antibiotics) (Verified Allergy, Severe, HIVES, 08/14/20) levofloxacin (Verified Allergy, Unknown, 06/12/20) doxycycline (Verified Adverse Reaction, Mild, Vomiting, 06/12/20) Home Medications Acetaminophen 500 Mg Tablet, 1,000 MG PO Q8H PRN for PAIN-MILD (1-4), (Reported) Omeprazole 20 Mg Capsule., 20 MG PO BID Prescribed by: SYLWIA TORRES on 10/07/20 9351 Patient Home Medication List Home Medication List Reviewed: Yes Review of Systems Review of Systems Constitutional: no symptoms reported EENTM: No Symptoms Reported Respiratory: No Symptoms Reported Cardiovascular: See HPI Gastrointestinal: See HPI Genitourinary: No Symptoms Reported Musculoskeletal: see HPI Skin: no symptoms reported Psychiatric/Neurological: No Symptoms Reported Endocrine: No Symptoms Reported Hematologic/Lymphatic: No Symptoms Reported Past Gkksjne-Urejci-Wdfeir Hx Past Med/Social Hx: Reviewed Nursing Past Med/Soc Hx Patient Social History Alcohol Beverage of Choice: Beer Type Used: Cigarettes 2nd Hand Smoke Exposure: Yes Recent Foreign Travel: No Contact w/Someone Who Travel: No Recent Infectious Disease Expo: No Recent Hopitalizations: No Immunizations Up To Date Date of Influenza Vaccine: Jul 11, 2020 Past Medical History Surgeries: Yes (KIDNEY STONES--BASKET REMOVAL, ) Cardiac (Cardiac cath September 2020, no pathology), Renal, Tonsillectomy, Vasectomy Respiratory: No Cardiac: No Neurological: Yes (STROKE 2018-LEFT SIDE WEAKNESS, MOSTLY RESOLVED) Stroke Reproductive Disorders: No Genitourinary: Yes (EPIDIDYMITIS) Kidney Stones Gastrointestinal: No Musculoskeletal: Yes Chronic Back Pain Endocrine: Yes (hypoglycemia) HEENT: Yes (TONSILLECTOMY) Tonsilitis Cancer: No Psychosocial: Yes Anxiety, PTSD Integumentary: No Blood Disorders: No Family Medical History SOCIAL HISTORY: -ETOH--OCCASIONAL USE -DRUGS--DENIES USE -SMOKES 1 PPD Physical Exam Vital Signs Vital Signs - First Documented 10/07/20 09:50 Temp 37.0 Pulse 87 Resp 16 B/P (MAP) 144/96 (112) Pulse Ox 98 O2 Delivery Room Air Capillary Refill : Less Than 3 Seconds Height, Weight, BMI Height: 6'" Weight: 242lbs. oz. 109.022844ds; 34.00 BMI Method:Stated General Appearance: No Apparent Distress, WD/WN HEENT: PERRL/EOMI, Normal ENT Inspection Neck: Normal Inspection, Tender Midline Respiratory: Lungs Clear, Normal Breath Sounds, No Accessory Muscle Use, No Respiratory Distress Cardiovascular: Regular Rate, Rhythm, No Edema, No Murmur Gastrointestinal: Normal Bowel Sounds, Soft, Tenderness (Most sensitive in the epigastric region) Extremity: Normal Inspection, No Pedal Edema Neurologic/Psychiatric: Alert, Oriented x3, No Motor/Sensory Deficits, Normal Mood/Affect, sharepoint architect II-XII Norm as Tested, Motor Weakness (4/5 strength in the left extremities) Skin: Normal Color, Warm/Dry Progress/Results/Core Measures Results/Orders Lab Results Laboratory Tests Test 10/07/20 10:05 10/07/20 10:25 10/07/20 12:41 Range/Units White Blood Count 8.1 4.3-11.0 10^3/uL Red Blood Count 4.44 4.30-5.52 10^6/uL Hemoglobin 14.4 13.3-17.7 g/dL Hematocrit 43 40-54 % Mean Corpuscular Volume 97 80-99 fL Mean Corpuscular Hemoglobin 32 25-34 pg Mean Corpuscular Hemoglobin Concent 34 32-36 g/dL Red Cell Distribution Width 12.7 10.0-14.5 % Platelet Count 268 130-400 10^3/uL Mean Platelet Volume 8.9 L 9.0-12.2 fL Immature Granulocyte % (Auto) 0 % Neutrophils (%) (Auto) 73 42-75 % Lymphocytes (%) (Auto) 17 12-44 % Monocytes (%) (Auto) 6 0-12 % Eosinophils (%) (Auto) 3 0-10 % Basophils (%) (Auto) 1 0-10 % Neutrophils # (Auto) 6.0 1.8-7.8 10^3/uL Lymphocytes # (Auto) 1.4 1.0-4.0 10^3/uL Monocytes # (Auto) 0.5 0.0-1.0 10^3/uL Eosinophils # (Auto) 0.2 0.0-0.3 10^3/uL Basophils # (Auto) 0.0 0.0-0.1 10^3/uL Immature Granulocyte # (Auto) 0.0 0.0-0.1 10^3/uL Prothrombin Time 13.4 12.2-14.7 SEC INR Comment 1.0 0.8-1.4 Activated Partial Thromboplast Time 29 24-35 SEC Sodium Level 140 135-145 MMOL/L Potassium Level 3.6 3.6-5.0 MMOL/L Chloride Level 108 H 98-107 MMOL/L Carbon Dioxide Level 25 21-32 MMOL/L Anion Gap 7 5-14 MMOL/L Blood Urea Nitrogen 8 7-18 MG/DL Creatinine 0.98 0.60-1.30 MG/DL Estimat Glomerular Filtration Rate > 60 BUN/Creatinine Ratio 8 Glucose Level 94 70-105 MG/DL Calcium Level 8.6 8.5-10.1 MG/DL Corrected Calcium 8.5 8.5-10.1 MG/DL Magnesium Level 2.2 1.6-2.4 MG/DL Total Bilirubin 0.6 0.1-1.0 MG/DL Aspartate Amino Transf (AST/SGOT) 22 5-34 U/L Alanine Aminotransferase (ALT/SGPT) 31 0-55 U/L Alkaline Phosphatase 85 40-136 U/L Myoglobin 43.1 10.0-92.0 NG/ML Troponin I < 0.028 <0.028 NG/ML C-Reactive Protein High Sensitivity 0.24 0.00-0.50 MG/DL Total Protein 6.9 6.4-8.2 GM/DL Albumin 4.1 3.2-4.5 GM/DL Lipase 12 8-78 U/L Urine Color ORANGE Urine Clarity CLEAR Urine pH 7.0 5-9 Urine Specific [place] 1.020 1.016-1.022 Urine Protein NEGATIVE NEGATIVE Urine Glucose (UA) NEGATIVE NEGATIVE Urine Ketones NEGATIVE NEGATIVE Urine Nitrite NEGATIVE NEGATIVE Urine Bilirubin NEGATIVE NEGATIVE Urine Urobilinogen 1.0 < = 1.0 MG/DL Urine Leukocyte Esterase NEGATIVE NEGATIVE Urine RBC (Auto) NEGATIVE NEGATIVE Urine RBC NONE /HPF Urine WBC 0-2 /HPF Urine Crystals NONE /LPF Urine Bacteria TRACE /HPF Urine Casts NONE /LPF Urine Mucus MODERATE H /LPF Urine Culture Indicated NO Glucometer 84 70-110 MG/DL My Orders Orders - SYLWIA HODGE MD Cbc With Automated Diff (10/07/20 10:00) Magnesium (10/07/20 10:00) Chest 1 View, Ap/Pa Only (10/07/20 10:00) Ekg Tracing (10/07/20 10:00) Comprehensive Metabolic Panel (10/07/20 10:00) Myoglobin Serum (10/07/20 10:00) Protime With Inr (10/07/20 10:00) Partial Thromboplastin Time (10/07/20 10:00) O2 (10/07/20 10:00) Monitor-Rhythm Ecg Trace Only (10/07/20 10:00) Ed Iv/Invasive Line Start (10/07/20 10:00) Troponin I (10/07/20 10:00) Hs C Reactive Protein (10/07/20 10:00) Lipase (10/07/20 10:00) Ua Culture If Indicated (10/07/20 10:00) Ct Head/Cervical Spine Wo (10/07/20 10:00) Ct Chest/Abdomen/Pelvis W (10/07/20 10:03) Iohexol Injection (Omnipaque 350 Mg/Ml 1 (10/07/20 11:00) Received Contrast (Hold Metformin- Contr (10/07/20 11:00) Ns (Ivpb) (Sodium Chloride 0.9% Ivpb Bag (10/07/20 11:00) Ondansetron Injection (Zofran Injectio (10/07/20 12:45) Lidocaine 2% Viscous 15 Ml (Xylocaine Vi (10/07/20 12:45) Antacid Suspension (Mylanta Suspension (10/07/20 12:45) Ketorolac Injection (Toradol Injection) (10/07/20 12:45) Hydrocodone/Apap 5/325 Tablet (Lortab 5 (10/07/20 14:30) Medications Given in ED Vital Signs/I&O 10/07/20 10/07/20 09:50 14:31 Temp 37.0 Pulse 87 46 Resp 16 16 B/P (MAP) 144/96 (112) 116/86 Pulse Ox 98 97 O2 Delivery Room Air Room Air Blood Pressure Mean: 112 FSBG Bedside Testing Finger Stick Blood Glucose: 84 Progress Progress Note : Progress Note Work-up was unremarkable. CT of the head and cervical spine was reviewed and c- collar was removed after CT reports were reviewed. CT of the chest, abdomen and pelvis was also obtained due to patient's fall trauma and complaints of pain. No significant pathology was identified. Patient was treated with Toradol which did not improve his pain much. GI cocktail was given for the epigastric pain which did help briefly. A hydrocodone was given prior to discharge. No a dmissible diagnoses were identified. Initial ECG Impression Date: Oct 07, 2020 Initial ECG Impression Time: 09:48 Initial ECG Rate: 60 Initial ECG Rhythm: Normal Sinus Initial ECG Intervals: Normal Initial ECG Impression: Normal Comment Normal sinus rhythm with no ST elevation or depression. No abnormal intervals or axis deviation. Diagnostic Imaging Diagonstic Imaging: Xray Plain Films/CT/US/NM/MRI: chest Comments NAME: TOMMYALBERTO W MED REC#: [id number] PT STATUS: REG ER : 1980 PHYSICIAN: SYLWIA HODGE MD ADMIT DATE: 10/07/20/ER Signed Date of Exam:10/07/20 CHEST 1 VIEW, AP/PA ONLY INDICATION: Chest pain. TECHNIQUE: Frontal chest obtained at 10:10 a.m. and compared to 09/23/2020. FINDINGS: Heart and mediastinal silhouette are normal in appearance. The lungs are clear. There is no pneumothorax or pleural fluid. IMPRESSION: Negative chest. Dictated by: Dictated on workstation # [id number] Dict: 10/07/20 1042 Trans: 10/07/20 1232 AS6 [id number] Interpreted by: NEGIN SOUZA MD Electronically signed by: NEGIN SOUZA MD 10/07/20 1232 Reviewed: Reviewed by Me Diagonstic Imaging: CT Plain Films/CT/US/NM/MRI: c-spine, head Comments NAME: ALBERTO SANDERS MED REC#: [id number] PT STATUS: DEP ER : 1980 PHYSICIAN: SYLWIA HODGE MD ADMIT DATE: 10/07/20/ER Signed Date of Exam:10/07/20 CT HEAD/CERVICAL SPINE WO PROCEDURE: CT head and CT cervical spine without contrast. TECHNIQUE: Multiple contiguous axial images were obtained through the brain and cervical spine without the use of intravenous contrast. Sagittal and coronal reformations through the cervical spine were then performed. Auto Exposure Controls were utilized during the CT exam to meet ALARA standards for radiation dose reduction. INDICATION: Trauma, fall. Comparison is made to prior CT head from 09/13/2020. CT HEAD: The ventricles and sulci are within normal limits. No sulcal effacement or midline shift is identified. No acute intra-axial or extra-axial hemorrhage is detected. Cisterns are patent. Visualized paranasal sinuses demonstrate a mucous retention cyst or polyp in the left maxillary sinus. IMPRESSION: No acute intracranial process is detected CT CERVICAL SPINE: Alignment is normal. There is multilevel degenerative disc disease with variable disc space narrowing and marginal spurring. No fractures are identified. Prevertebral tissues are within normal limits. Odontoid is intact. IMPRESSION: Cervical spondylosis. No acute bony abnormality is detected. Dictated by: Dictated on workstation # [id number] Dict: 10/07/20 1117 Trans: 10/07/20 1531 CV [id number] Interpreted by: SATINDER LIVINGSTON MD Electronically signed by: SATINDER LIVINGSTON MD 10/07/201530 Reviewed: Reviewed by Me Diagonstic Imaging: CT Plain Films/CT/US/NM/MRI: chest, abdomen, pelvis Comments NAME: ALBERTO SANDERS MED REC#: [id number] PT STATUS: REG ER : 1980 PHYSICIAN: SYLWIA HODGE MD ADMIT DATE: 10/07/20/ER Signed Date of Exam:10/07/20 CT CHEST/ABDOMEN/PELVIS W EXAMINATION: CT Chest, Abdomen and Pelvis with intravenous contrast. TECHNIQUE: Multiple contiguous axial images were obtained through the chest, abdomen and pelvis after the uneventful administration of intravenous contrast. All CT scans use one or more of the following dose optimizing techniques: automated exposure control, MA and/or KvP adjustment based on a patient size and exam type, or iterative reconstruction. HISTORY: Fall, Abdominal pain COMPARISON: CT abdomen/pelvis of 06/10/2020. FINDINGS: Thyroid: The visualized thyroid gland is normal. Mediastinum: Heart size is normal without significant pericardial effusion. The aorta is normal in caliber. No suspicious lymphadenopathy. Lungs and airways: The lungs are clear without consolidation, pleural effusion, or pneumothorax. Bibasilar dependent atelectasis. The airways are normal. Solid organs: The liver is normal without focal lesion. The gallbladder is normal. There is no biliary ductal dilation. Pancreas is normal. Spleen is normal. Adrenal glands are normal. The kidneys are normal without hydronephrosis. Bowel: The stomach and small bowel are normal without obstruction. The colon and appendix are normal. Peritoneum: There is no intraperitoneal free fluid or free air. No suspicious lymphadenopathy. Vasculature: Calcification of the aorta without aneurysm. Musculoskeletal: No suspicious osseous lesion or compression fracture. Pelvis: The prostate gland is normal. Mild diffuse bladder wall thickening. IMPRESSION: 1. No acute abnormality in the chest, abdomen, or pelvis. Dictated by: Dictated on workstation # [id number] Dict: 10/07/20 1116 Trans: 10/07/20 1135 AS6 [id number] Interpreted by: CRESENCIO BROWN DO Electronically signed by: CRESENCIO BROWN DO 10/07/20 1135 Reviewed: Reviewed by Me Departure Impression Primary Impression: Atypical chest pain Additional Impressions: Epigastric pain Fall on same level Qualified Codes: W18.30XA - Fall on same level, unspecified, initial encounter Left-sided weakness Disposition: 01 HOME, SELF-CARE Condition: Improved Departure-Patient Inst. Decision time for Depature: 14:23 Referrals: [facility] (PCP) Primary Care Physician LILLIAN DUVALL (Family) Primary Care Physician Patient Instructions: Abdominal Pain, Adult ED, Chest Pain That Is Not Caused by the Heart (DC) Add. Discharge Instructions: Take omeprazole as prescribed for antacid therapy. You may take Tylenol (acetaminophen) up to 1000 mg every 6 hours as needed for pain. Avoid use of ibuprofen or naproxen as that may make your stomach pain worse. Icing affected areas in 20 min intervals may help reduce your pain as well. Follow-up with your primary care provider as soon as possible. Return to the emergency room with worsening symptoms. Call with questions or concerns. All discharge instructions reviewed with patient and/or family. Voiced understanding. Scripts Omeprazole (Omeprazole) 20 Mg Capsule. 20 MG PO BID, #60 CAP Prov: SYLWIA HODGE MD 10/07/20 Copy Copies To 1: AISSATOU FALLON DO Copies To 2: JOEY ROCK MD [facility] SYLWIA HODGE MD Oct 07, 2020 14:25
[2020-10-07] MEDS ORDERED: OMEP20CA18 PO (14:27)
[2020-10-07] MEDS ORDERED: HYDROcodone/APAP 5 MG/325 MG (LORTAB) TAB PO ONE (14:30)
[2020-10-07 14:31] VITALS: BP 116/86
== END 2020-10-07 14:31 | disposition home or self-care (01) ==
LOC: EDUNIT# 09:48 → ER 09:49
DX: R07.89 Other chest pain (principal); R10.13 Epigastric pain; R53.1 Weakness; Z95.9 Presence of cardiac and vascular implant and graft, unspecified; Z77.22 Contact with and (suspected) exposure to environmental tobacco smoke (acute) (chronic); Z88.1 Allergy status to other antibiotic agents; Z88.2 Allergy status to sulfonamides
CPT/HCPCS: 70450; 71045; 71260; 72125; 74177; 80053; 81000; 82962; 83690; 83735; 83874; 84484; 85025; 85610; 85730; 86141; 93041; L0150; 36415; 93005

== ENCOUNTER 2020-11-03 20:51 | Emergency (ER) | payer MEDICARE, MEDICAID ==
[~2020-11-03] VITALS: Ht 182.2 cm; Wt 91.6 kg
[~2020-11-03 20:51] MED LIST changes: +OMEP20CA18 PO
--- NOTE | 2020-11-03 21:12 | NUR ---
ATTEMPTED TO CALL PHONE NUMBER ON CHART AND EMERGENCY CONTACT. DID NOT LEAVE A NUMBER WITH THE REGISTRATION. REGISTRATION IS TO NOTIFY ME WHEN PATIENT OR EMERGENCY CONTACT RETURNS TO THE BUILDING.
[2020-11-03] MEDS ORDERED: ONDANSETRON 4 MG/2 ML (SDV) Z0FRAN ONE (21:20)
[2020-11-03] MEDS ORDERED: LACTATED RINGERS 1,000 ML IV ONE (21:30)
[2020-11-03] MEDS ORDERED: LOPERAMIDE 2 MG (IMODIUM) TABLET ONE (21:34)
[2020-11-03] MEDS ORDERED: fentaNYL INJECTION 100 MCG/2 ML AMP ONE (21:34)
[2020-11-03 21:37] LABS: BASOPHILS # (AUTO) 0.1 10^3/uL (0.0-0.1); BASOPHILS % (AUTO) 1 % (0-10); EOSINOPHILS # (AUTO) 0.4 10^3/uL (0.0-0.3); EOSINOPHILS % (AUTO) 5 % (0-10); HEMATOCRIT 44 % (40-54); HEMOGLOBIN 15.2 g/dL (13.3-17.7); LYMPHOCYTES # (AUTO) 2.2 10^3/uL (1.0-4.0); LYMPHOCYTES % (AUTO) 31 % (12-44); MEAN CORPUSCULAR HEMOGLOBIN 33 pg (25-34); MEAN CORPUSCULAR HGB CONC 34 g/dL (32-36); MEAN CORPUSCULAR VOLUME 96 fL (80-99); MEAN PLATELET VOLUME 8.8 fL (9.0-12.2); MONOCYTES # (AUTO) 0.6 10^3/uL (0.0-1.0); MONOCYTES % (AUTO) 9 % (0-12); NEUTROPHILS # (AUTO) 3.9 10^3/uL (1.8-7.8); NEUTROPHILS % (AUTO) 54 % (42-75); PLATELET COUNT 269 10^3/uL (130-400); WHITE BLOOD COUNT 7.2 10^3/uL (4.3-11.0)
[2020-11-03 21:38] VITALS: BP 125/83
[2020-11-03] MEDS ORDERED: LOPERAMIDE 2 MG (IMODIUM) TABLET PO STA (21:41)
[2020-11-03] MEDS ORDERED: ASPIRIN 81 MG CHEW (CHILDREN'S ASA) PO ONE (21:45)
[2020-11-03] MEDS ORDERED: fentaNYL INJECTION 100 MCG/2 ML AMP IVP ONE (21:45)
[2020-11-03 21:46] LABS: ALBUMIN 4.3 GM/DL (3.2-4.5); CHLORIDE 105 MMOL/L (98-107); POTASSIUM 3.3 MMOL/L (3.6-5.0); SODIUM 140 MMOL/L (135-145)
[2020-11-03 21:47] LABS: CALCIUM 8.8 MG/DL (8.5-10.1)
[2020-11-03 21:49] LABS: GLUCOSE 81 MG/DL (70-105); TOTAL PROTEIN 7.1 GM/DL (6.4-8.2)
[2020-11-03 21:50] LABS: BILIRUBIN,TOTAL 0.3 MG/DL (0.1-1.0); CARBON DIOXIDE 24 MMOL/L (21-32)
[2020-11-03 22:02] LABS: ERYTHROCYTE SEDIMENTATION RATE 7 MM/HR (0-15)
--- NOTE | 2020-11-03 22:02 | ED Abdominal Pain ---
General Chief Complaint: Abdominal/GI Problems Stated Complaint: N/D/V, CHILLS Nursing Triage Note: N/V X1 DAY. HASN'T ATE SINCE YESTERDAY. Sepsis Screen: No Definite Risk History of Present Illness Date Seen by Provider: Nov 03, 2020 Time Seen by Provider: 21:35 Initial Comments 40-year-old male evaluated for 24 hours of persistent nausea, vomiting, and diarrhea. He reports his last episode of vomiting and diarrhea was just prior to arrival. He has a history of diverticulitis but has not had an episode for several years. He denies any known exposure to Covid he has had negative test approximately 1 month ago. He has not taken any medication for the vomiting or diarrhea. He also reports mild left chest pain with some radiation into his left arm. He had a normal heart catheterization Sep 2020 but denies any other cardiac history he is not currently on any medication for cardiac disease, he takes 1 medication for PTSD. He does take aspirin 81 mg daily. He did not take any aspirin prior to arrival. No history of diabetes and he has no diarrhea diaphoresis. No previous abdominal surgery. Timing/Duration: 24 Hours Severity/Quality: Mild Location: Generalized Abdomen, Other (Left chest pain with radiation to left arm) Associated Symptoms: No Back Pain; Chest Pain; No Diaphoresis, No Fever/Chills, No Fatigue, No Headache, No Heartburn; Nausea/Vomiting; No Shortness of Air; Other (No cough) Allergies and Home Medications Allergies Coded Allergies: Sulfa (Sulfonamide Antibiotics) (Verified Allergy, Severe, HIVES, 08/14/20) levofloxacin (Verified Allergy, Unknown, 06/12/20) doxycycline (Verified Adverse Reaction, Mild, Vomiting, 06/12/20) Home Medications Acetaminophen 500 Mg Tablet, 1,000 MG PO Q8H PRN for PAIN-MILD (1-4), (Reported) Omeprazole 20 Mg Capsule., 20 MG PO BID Prescribed by: SYLWIA TORRES on 10/07/20 3829 Patient Home Medication List Home Medication List Reviewed: Yes Review of Systems Review of Systems Constitutional: no symptoms reported, see HPI EENTM: No Symptoms Reported, See HPI Respiratory: No Symptoms Reported, See HPI; Denies Cough, Denies Shortness of Air Cardiovascular: See HPI, Chest Pain Gastrointestinal: See HPI; Denies Constipated; Diarrhea, Nausea, Poor Appetite; Denies Rectal Bleeding; Vomiting Genitourinary: No Symptoms Reported, See HPI Musculoskeletal: no symptoms reported, see HPI Skin: no symptoms reported, see HPI Psychiatric/Neurological: See HPI, Other (PTSD) All Other Systems Reviewed Negative Unless Noted: Yes Past Gnyumah-Vaalzg-Wovnwn Hx Past Med/Social Hx: Reviewed Nursing Past Med/Soc Hx Patient Social History Alcohol Beverage of Choice: Beer Type Used: Cigarettes 2nd Hand Smoke Exposure: Yes Recent Infectious Disease Expo: No Recent Hopitalizations: No Immunizations Up To Date Date of Influenza Vaccine: Jul 11, 2020 Past Medical History Surgeries: Yes (KIDNEY STONES--BASKET REMOVAL, ) Cardiac, Renal, Tonsillectomy, Vasectomy Respiratory: No Cardiac: No Neurological: Yes (STROKE 2018-LEFT SIDE WEAKNESS, MOSTLY RESOLVED) Stroke Reproductive Disorders: No Genitourinary: Yes (EPIDIDYMITIS) Kidney Stones Gastrointestinal: No Musculoskeletal: Yes Chronic Back Pain Endocrine: Yes (hypoglycemia) HEENT: Yes (TONSILLECTOMY) Tonsilitis Cancer: No Psychosocial: Yes Anxiety, PTSD Integumentary: No Blood Disorders: No Family Medical History SOCIAL HISTORY: -ETOH--OCCASIONAL USE -DRUGS--DENIES USE -SMOKES 1 PPD Physical Exam Vital Signs Vital Signs - First Documented 11/03/20 21:38 Temp 36.0 Pulse 77 Resp 18 B/P (MAP) 125/83 (97) O2 Delivery Room Air Capillary Refill : Less Than 3 Seconds Height/Weight/BMI Height: 6'" Weight: 242lbs. oz. 109.981972wp; 27.00 BMI Method:Stated General Appearance: WD/WN, no apparent distress HEENT: PERRL/EOMI, normal ENT inspection, TMs normal, pharynx normal Neck: non-tender, full range of motion, supple, normal inspection Respiratory: chest non-tender, lungs clear, normal breath sounds, no respiratory distress Cardiovascular: normal peripheral pulses, regular rate, rhythm, no edema, no murmur Gastrointestinal: normal bowel sounds, soft; No distended, No guarding, No rebound; tenderness (Generalized, increased LLQ) Extremities: normal range of motion, non-tender, normal inspection, normal capillary refill Neurologic/Psychiatric: no motor/sensory deficits, alert, normal mood/affect, oriented x 3 Skin: normal color, warm/dry Progress/Results/Core Measures Results/Orders Lab Results Laboratory Tests Test 11/03/20 21:19 11/03/20 21:25 11/03/20 22:18 Range/Units Coronavirus 2019 (JIM) Negative Negative White Blood Count 7.2 4.3-11.0 10^3/uL Red Blood Count 4.61 4.30-5.52 10^6/uL Hemoglobin 15.2 13.3-17.7 g/dL Hematocrit 44 40-54 % Mean Corpuscular Volume 96 80-99 fL Mean Corpuscular Hemoglobin 33 25-34 pg Mean Corpuscular Hemoglobin Concent 34 32-36 g/dL Red Cell Distribution Width 12.5 10.0-14.5 % Platelet Count 269 130-400 10^3/uL Mean Platelet Volume 8.8 L 9.0-12.2 fL Immature Granulocyte % (Auto) 0 % Neutrophils (%) (Auto) 54 42-75 % Lymphocytes (%) (Auto) 31 12-44 % Monocytes (%) (Auto) 9 0-12 % Eosinophils (%) (Auto) 5 0-10 % Basophils (%) (Auto) 1 0-10 % Neutrophils # (Auto) 3.9 1.8-7.8 10^3/uL Lymphocytes # (Auto) 2.2 1.0-4.0 10^3/uL Monocytes # (Auto) 0.6 0.0-1.0 10^3/uL Eosinophils # (Auto) 0.4 H 0.0-0.3 10^3/uL Basophils # (Auto) 0.1 0.0-0.1 10^3/uL Immature Granulocyte # (Auto) 0.0 0.0-0.1 10^3/uL Erythrocyte Sedimentation Rate 7 0-15 MM/HR D-Dimer 0.33 0.00-0.49 UG/ML Sodium Level 140 135-145 MMOL/L Potassium Level 3.3 L 3.6-5.0 MMOL/L Chloride Level 105 98-107 MMOL/L Carbon Dioxide Level 24 21-32 MMOL/L Anion Gap 11 5-14 MMOL/L Blood Urea Nitrogen 7 7-18 MG/DL Creatinine 1.01 0.60-1.30 MG/DL Estimat Glomerular Filtration Rate > 60 BUN/Creatinine Ratio 7 Glucose Level 81 70-105 MG/DL Calcium Level 8.8 8.5-10.1 MG/DL Corrected Calcium 8.6 8.5-10.1 MG/DL Total Bilirubin 0.3 0.1-1.0 MG/DL Aspartate Amino Transf (AST/SGOT) 17 5-34 U/L Alanine Aminotransferase (ALT/SGPT) 23 0-55 U/L Alkaline Phosphatase 103 40-136 U/L Lactate Dehydrogenase 165 125-220 U/L Troponin I < 0.028 <0.028 NG/ML C-Reactive Protein High Sensitivity 0.28 0.00-0.50 MG/DL Total Protein 7.1 6.4-8.2 GM/DL Albumin 4.3 3.2-4.5 GM/DL Procalcitonin 0.02 <0.10 NG/ML Urine Color YELLOW Urine Clarity CLEAR Urine pH 7.0 5-9 Urine Specific [place] 1.015 L 1.016-1.022 Urine Protein NEGATIVE NEGATIVE Urine Glucose (UA) NEGATIVE NEGATIVE Urine Ketones NEGATIVE NEGATIVE Urine Nitrite NEGATIVE NEGATIVE Urine Bilirubin NEGATIVE NEGATIVE Urine Urobilinogen 1.0 < = 1.0 MG/DL Urine Leukocyte Esterase NEGATIVE NEGATIVE Urine RBC (Auto) NEGATIVE NEGATIVE Urine RBC NONE /HPF Urine WBC NONE /HPF Urine Crystals PRESENT H /LPF Urine Amorphous Sediment LARGE GAMAL URATES H /LPF Urine Bacteria NEGATIVE /HPF Urine Casts NONE /LPF Urine Mucus NEGATIVE /LPF Urine Culture Indicated NO Urine Opiates Screen NEGATIVE NEGATIVE Urine Oxycodone Screen NEGATIVE NEGATIVE Urine Methadone Screen NEGATIVE NEGATIVE Urine Propoxyphene Screen NEGATIVE NEGATIVE Urine Barbiturates Screen NEGATIVE NEGATIVE Ur Tricyclic Antidepressants Screen NEGATIVE NEGATIVE Urine Phencyclidine Screen NEGATIVE NEGATIVE Urine Amphetamines Screen NEGATIVE NEGATIVE Urine Methamphetamines Screen NEGATIVE NEGATIVE Urine Benzodiazepines Screen NEGATIVE NEGATIVE Urine Cocaine Screen NEGATIVE NEGATIVE Urine Cannabinoids Screen NEGATIVE NEGATIVE Micro Results Microbiology 11/03/20 Influenza Types A,B Antigen ([place]) - Final, Complete My Orders Orders - CRISTHIAN FERNÁNDEZ Ua Culture If Indicated (11/03/20 20:54) Coronavirus Sars-Cov-2 So 2018 (11/03/20 20:58) Covid 19 Inhouse Test (11/03/20 20:58) Ed Iv/Invasive Line Start (11/03/20 21:22) Lactated Ringers (Lr 1000 Ml Iv Solution (11/03/20 21:30) Cbc With Automated Diff (11/03/20 21:24) Comprehensive Metabolic Panel (11/03/20 21:24) Fibrin Degradation Products (11/03/20 21:24) Procalcitonin (Pct) (11/03/20 21:24) Hs C Reactive Protein (11/03/20 21:24) Erythrocyte Sedimentation Rate (11/03/20 21:24) LDH (11/03/20 21:24) Influenza A And B Antigens (11/03/20 21:24) Ondansetron Injection (Zofran Injectio (11/03/20 21:20) Chest 1 View, Ap/Pa Only (11/03/20 21:38) Troponin I (11/03/20 21:39) Aspirin Chewable Tablet (Baby Aspirin Ch (11/03/20 21:45) Fentanyl Injection (Sublimaze Injection (11/03/20 21:34) Loperamide Tablet (Imodium Tablet) (11/03/20 21:34) Fentanyl Injection (Sublimaze Injection (11/03/20 21:45) Loperamide Tablet (Imodium Tablet) (11/03/20 21:41) Ct Abdomen/Pelvis Wo (11/03/20 21:54) Lidocaine 2% Viscous 15 Ml (Xylocaine Vi (11/03/20 22:30) Antacid Suspension (Mylanta Suspension (11/03/20 22:30) Drug Screen Stat (Urine) (11/03/20 22:29) Lidocaine 2% Viscous 15 Ml (Xylocaine Vi (11/03/20 22:22) Antacid Suspension (Mylanta Suspension (11/03/20 22:22) Ekg Tracing (11/03/20 22:36) Pantoprazole Injection (Protonix Injecti (11/03/20 23:00) Medications Given in ED Current Medications Medications Dose Ordered Sig/Alba Route Start Time Stop Time Status Last Admin Dose Admin Al Hydrox/Mg Hydrox/Simethicone 30 ml ONCE ONCE PO 11/03/20 22:30 11/03/20 22:33 DC 11/03/20 22:28 30 ML Aspirin 324 mg ONCE ONCE PO 11/03/20 21:45 11/03/20 21:46 DC 11/03/20 21:45 324 MG Fentanyl Citrate 50 mcg ONCE ONCE IVP 11/03/20 21:45 11/03/20 21:46 DC 11/03/20 21:43 50 MCG Lactated Ringer's 1,000 ml @ 0 mls/hr Q0M ONCE IV 11/03/20 21:30 11/03/20 21:31 DC 11/03/20 21:31 1,000 MLS/HR Lidocaine HCl 15 ml ONCE ONCE PO 11/03/20 22:30 11/03/20 22:33 DC 11/03/20 22:28 15 ML Ondansetron HCl 4 mg STK-MED ONCE .ROUTE 11/03/20 21:20 11/03/20 21:25 DC 11/03/20 21:31 8 MG Pantoprazole 40 mg ONCE ONCE IV 11/03/20 23:00 11/03/20 23:01 DC 11/03/20 22:57 40 MG Vital Signs/I&O 11/03/20 21:38 Temp 36.0 Pulse 77 Resp 18 B/P (MAP) 125/83 (97) O2 Delivery Room Air Blood Pressure Mean: 97 Progress Progress Note : Time: 21:35 Progress Note Patient seen and evaluated, will give Imodium AD, LR 1 L, aspirin 324 mg orally, Zofran 8 mg IV, and fentanyl 50 mcg IV. Will obtain chest x-ray, labs, CT abdomen and pelvis. 2209 CT and chest x-ray completed, patient reports continued abdominal and chest pain, will give GI Cocktail. 2299 patient experienced no vomiting or diarrhea since admitted ED. Discharge instructions and return precautions reviewed with the patient. Initial ECG Impression Date: Nov 03, 2020 Initial ECG Impression Time: 21:30 Initial ECG Rate: 78 Initial ECG Rhythm: Normal Sinus Initial ECG Intervals: Normal Initial ECG Intervals NM 160, QRSD 98, QT 420, QTc 479. Vaughn P 52, QRS -23, T 35. Initial ECG Impression: Normal Initial ECG Comparisson: Unchanged Diagnostic Imaging Diagonstic Imaging: Xray Plain Films/CT/US/NM/MRI: chest Comments Clear Chest, no acute findings, will be over-read by radiology tomorrow. Reviewed: Reviewed by Me Diagonstic Imaging: CT Plain Films/CT/US/NM/MRI: abdomen, pelvis Comments Per [facility] CT abdomen and pelvis shows no free air or free fluid or bowel obstruction. Nonobstructing calculus within the left kidney, normal appendix. No other acute findings. Reviewed: Reviewed by Me Departure Impression Primary Impression: Diarrhea Qualified Codes: R19.7 - Diarrhea, unspecified Additional Impressions: Nausea and vomiting Qualified Codes: R11.2 - Nausea with vomiting, unspecified Abdominal pain Qualified Codes: R10.84 - Generalized abdominal pain Chest pain Qualified Codes: R07.9 - Chest pain, unspecified Disposition: 01 HOME, SELF-CARE Condition: Stable Departure-Patient Inst. Decision time for Depature: 23:00 Referrals: [facility] (PCP) Primary Care Physician LILLIAN DUVALL (Family) Primary Care Physician Patient Instructions: Severe Abdominal Pain, Adult (DC), Nausea and Vomiting, Adult (DC) Add. Discharge Instructions: Clear liquid diet for 6-8 hours, then bland diet, progress as tolerated. Alternate between Tylenol 650 mg and ibuprofen 600 mg every 4 hours as needed for pain. Follow-up with your primary care provider tomorrow if symptoms are not improving or worsen. Take the Protonix that was prescribed to you at your last ER visit. Continue to use your home medications as prescribed. Return to the emergency department for new, urgent healthcare needs. All discharge instructions reviewed with patient and/or family. Voiced understanding. Work/School Note: Work Release Form Date Seen in the Emergency Department: Nov 03, 2020 Return to Work: Nov 05, 2020 Restrictions: No Restrictions CRISTHIAN FERNÁNDEZ Nov 03, 2020 22:02
[2020-11-03] MEDS ORDERED: METO50TA7 PO (22:06)
[2020-11-03] MEDS ORDERED: NITR0.4T42 SL (22:06)
[2020-11-03] MEDS ORDERED: OLAN5TAB25 PO (22:06)
[2020-11-03 22:19] LABS: ALANINE AMINOTRANSFERASE 23 U/L (0-55); ALKALINE PHOSPHATASE 103 U/L (40-136); BUN/CREATININE RATIO 7; CREATININE SERUM 1.01 MG/DL (0.60-1.30); GFR ESTIMATED > 60
[2020-11-03] MEDS ORDERED: LIDOCAINE 2% VISCOUS 15 ML UDC ONE (22:22)
[2020-11-03] MEDS ORDERED: ANTACID SUSP 30 ML UDC (MYLANTA) ONE (22:22)
[2020-11-03 22:26] LABS: BILIRUBIN,URINE NEGATIVE (NEGATIVE); CLARITY,URINE CLEAR; COLOR,URINE YELLOW; GLUCOSE, URINE (UA) NEGATIVE (NEGATIVE); KETONES,URINE NEGATIVE (NEGATIVE); LEUKOCYTE ESTERASE ,URINE NEGATIVE (NEGATIVE); NITRITE,URINE NEGATIVE (NEGATIVE); PROTEIN,URINE NEGATIVE (NEGATIVE)
[2020-11-03] MEDS ORDERED: LIDOCAINE 2% VISCOUS 15 ML UDC PO ONE (22:30)
[2020-11-03] MEDS ORDERED: ANTACID SUSP 30 ML UDC (MYLANTA) PO ONE (22:30)
[2020-11-03 22:32] LABS: AMORPHOUS SEDIMENT,UR LARGE AMOR URATES /LPF; BACTERIA,URINE NEGATIVE /HPF
[2020-11-03 22:53] LABS: AMPHETAMINE SCREEN, URINE NEGATIVE (NEGATIVE); BARBITURATE SCREEN URINE NEGATIVE (NEGATIVE); BENZODIAZEPINES SCREEN URINE NEGATIVE (NEGATIVE); CANNABINOID SCREEN, URINE NEGATIVE (NEGATIVE); COCAINE SCREEN URINE NEGATIVE (NEGATIVE); METHADONE STAT NEGATIVE (NEGATIVE); METHAMPHETAMINE SCREEN URINE S NEGATIVE (NEGATIVE); OPIATE SCREEN URINE NEGATIVE (NEGATIVE); OXYCODONE STAT NEGATIVE (NEGATIVE); PROPOXYPHENE STAT NEGATIVE (NEGATIVE); TRICYCLIC ANTIDEPRESSANTS SCRE NEGATIVE (NEGATIVE)
[2020-11-03] MEDS ORDERED: PANTOPRAZOLE 40 MG (PROTONIX) VIAL IV ONE (23:00)
--- NOTE | 2020-11-04 06:20 | Diagnostic Imaging Report ---
EXAMINATION: CT Abdomen Pelvis without contrast. TECHNIQUE: Multiple contiguous axial images were obtained through the abdomen and pelvis without the use of intravenous contrast. All CT scans use one or more of the following dose optimizing techniques: automated exposure control, MA and/or KvP adjustment based on a patient size and exam type, or iterative reconstruction. HISTORY: abd pain, hx diverticulitis, N/V/D 24 hours COMPARISON: 10/07/2020 FINDINGS: Lung bases: Bibasilar dependent atelectasis. Solid organs: The liver is normal. The gallbladder is normal. There is no biliary ductal dilation. Pancreas is normal. Spleen is normal. Adrenal glands are normal. A 1 mm nonobstructing left renal calculus. No hydronephrosis. Bowel: The stomach and small bowel are normal without obstruction. The colon and appendix are normal. Peritoneum: There is no intraperitoneal free fluid or free air. No suspicious lymphadenopathy. Vasculature: Normal without aneurysm. Musculoskeletal: Degenerative changes of the spine without suspicious osseous lesion or compression fracture. Pelvis: The prostate gland is normal. The urinary bladder is normal. IMPRESSION: 1. No acute abnormality in the abdomen or pelvis. 2. A 1 mm nonobstructing left renal calculus without hydronephrosis. 3. Agree with preliminary interpretation. Dictated by: Dictated on workstation # [id number]
--- NOTE | 2020-11-04 06:20 | Diagnostic Imaging Report ---
INDICATION: Chest pain COMPARISON: 10/07/2020 FINDINGS: Single view of the chest demonstrates clear lungs bilaterally. The heart is normal. There is no pneumothorax. The osseous structures are normal. IMPRESSION: Negative chest Dictated by: Dictated on workstation # [id number]
== END 2020-11-03 23:05 | disposition home or self-care (01) ==
LOC: EDUNIT# 20:51 → ER 20:53
DX: R19.7 Diarrhea, unspecified (principal); R11.2 Nausea with vomiting, unspecified; R10.84 Generalized abdominal pain; R07.9 Chest pain, unspecified; Z86.73 Personal history of transient ischemic attack (TIA), and cerebral infarction without residual deficits; Z77.22 Contact with and (suspected) exposure to environmental tobacco smoke (acute) (chronic); Z88.1 Allergy status to other antibiotic agents; Z88.2 Allergy status to sulfonamides; Z20.822 Contact with and (suspected) exposure to COVID-19
CPT/HCPCS: 71045; 74176; 80053; 80306; 81000; 83615; 84145; 84484; 85025; 85379; 85652; 86141; 87804; 93005; 99284; U0002; 36415; 87635

== ENCOUNTER 2021-03-04 10:00 | Emergency (ER) | payer MEDICARE, MEDICAID ==
[~2021-03-04] VITALS: Ht 185.4 cm; Wt 100.9 kg
[~2021-03-04 10:00] MED LIST changes: +METO50TA7 PO; +NITR0.4T42 SL; +OLAN5TAB25 PO
--- NOTE | 2021-03-04 10:45 | ED Abdominal Pain ---
General Chief Complaint: Abdominal/GI Problems Stated Complaint: VOMITTING Nursing Triage Note: TO ED PER EMS FROM HOME HAS BEEN VOMITING FOR 5 DAYS WAS SEEN AT [facility] 03/02 DID NOT CALL ANY MEDS FOR NAUSEA IN. CON'T T VOMIT. Sepsis Screen: No Definite Risk Source of Information: Patient Exam Limitations: No Limitations History of Present Illness Date Seen by Provider: March 04, 2021 Time Seen by Provider: 10:45 Initial Comments Patient is a 41-year-old male who presents to the emergency department today with a chief complaint of left lower quadrant abdominal pain, shortness of breath and cough, nausea and vomiting. Patient states his symptoms have been ongoing for about a week. He was seen in the emergency room at [facility] on the with similar complaints. He was given a prescription but has not been able to pick it up until today. Patient states that he continues to feel weak and dizzy and have cough productive of clearish sputum. Patient states he had a little bit of blood in his sputum yesterday. He is a smoker but has not really smoked since he has been sick. He denies fevers and chills but states that he feels "hot today". He denies any problems with bowel or bladder although he states he has had a little bit of blood and some diarrhea in the last few days. He states that he is up-to-date on his vaccinations for Covid. He received his second Covid vaccination at the end of January. All other review of systems reviewed and negative except as stated. Timing/Duration: 1 Week Severity/Quality: Moderate, Cramping Location: Q Radiation: No Radiation Activities at Onset: None Associated Symptoms: Nausea/Vomiting, Weakness Allergies and Home Medications Allergies Coded Allergies: Sulfa (Sulfonamide Antibiotics) (Verified Allergy, Severe, HIVES, 08/14/20) levofloxacin (Verified Allergy, Unknown, 06/12/20) doxycycline (Verified Adverse Reaction, Mild, Vomiting, 06/12/20) Home Medications Acetaminophen 500 Mg Tablet, 1,000 MG PO Q8H PRN for PAIN-MILD (1-4), (Reported) Omeprazole 20 Mg Capsule.dr 20 MG PO BID Prescribed by: SYLWIA TORRES on 10/07/20 2531 Patient Home Medication List Home Medication List Reviewed: Yes Review of Systems Review of Systems Constitutional: see HPI EENTM: No Symptoms Reported Respiratory: Cough Cardiovascular: No Symptoms Reported Gastrointestinal: Abdominal Pain, Blood Streaked Stools, Nausea, Poor Appetite, Vomiting Genitourinary: No Symptoms Reported Musculoskeletal: no symptoms reported Skin: no symptoms reported All Other Systems Reviewed Negative Unless Noted: Yes Past Jwcceos-Ctkrlf-Gaawsa Hx Patient Social History Alcohol Use: Occasionally Uses Number of Drinks Today: AA Alcohol Beverage of Choice: Beer Smoking Status: Current Everyday Smoker Type Used: Cigarettes 2nd Hand Smoke Exposure: Yes Recent Infectious Disease Expo: No Recent Hopitalizations: No Immunizations Up To Date Date of Influenza Vaccine: Jul 11, 2020 Past Medical History Surgeries: Yes (KIDNEY STONES--BASKET REMOVAL, ) Cardiac, Renal, Tonsillectomy, Vasectomy Respiratory: No Cardiac: No Neurological: Yes (STROKE 2018-LEFT SIDE WEAKNESS, MOSTLY RESOLVED) Stroke Reproductive Disorders: No Genitourinary: Yes (EPIDIDYMITIS) Kidney Stones Gastrointestinal: No Musculoskeletal: Yes Chronic Back Pain Endocrine: Yes (hypoglycemia) HEENT: Yes (TONSILLECTOMY) Tonsilitis Cancer: No Psychosocial: Yes Anxiety, PTSD Integumentary: No Blood Disorders: No Family Medical History SOCIAL HISTORY: -ETOH--OCCASIONAL USE -DRUGS--DENIES USE -SMOKES 1 PPD Physical Exam Vital Signs Vital Signs - First Documented 03/04/21 10:21 Temp 35.9 Pulse 73 Resp 18 B/P (MAP) 140/93 (109) Pulse Ox 97 O2 Delivery Room Air Capillary Refill : Less Than 3 Seconds Height/Weight/BMI Height: 6'" Weight: 242lbs. oz. 109.425395yu; 29.00 BMI Method:Stated General Appearance: WD/WN, mild distress HEENT: normal ENT inspection Neck: normal inspection Respiratory: lungs clear, normal breath sounds, no respiratory distress, no accessory muscle use Cardiovascular: regular rate, rhythm Gastrointestinal: soft, tenderness (Left lower quadrant) Back: normal inspection Neurologic/Psychiatric: alert, normal mood/affect, oriented x 3 Skin: normal color, warm/dry Progress/Results/Core Measures Results/Orders Lab Results Laboratory Tests Test 03/04/21 10:15 Range/Units White Blood Count 6.3 4.3-11.0 10^3/uL Red Blood Count 5.33 4.30-5.52 10^6/uL Hemoglobin 16.9 13.3-17.7 g/dL Hematocrit 51 40-54 % Mean Corpuscular Volume 96 80-99 fL Mean Corpuscular Hemoglobin 32 25-34 pg Mean Corpuscular Hemoglobin Concent 33 32-36 g/dL Red Cell Distribution Width 13.1 10.0-14.5 % Platelet Count 281 130-400 10^3/uL Mean Platelet Volume 9.3 9.0-12.2 fL Immature Granulocyte % (Auto) 0 % Neutrophils (%) (Auto) 63 42-75 % Lymphocytes (%) (Auto) 20 12-44 % Monocytes (%) (Auto) 13 H 0-12 % Eosinophils (%) (Auto) 3 0-10 % Basophils (%) (Auto) 1 0-10 % Neutrophils # (Auto) 4.0 1.8-7.8 10^3/uL Lymphocytes # (Auto) 1.3 1.0-4.0 10^3/uL Monocytes # (Auto) 0.8 0.0-1.0 10^3/uL Eosinophils # (Auto) 0.2 0.0-0.3 10^3/uL Basophils # (Auto) 0.1 0.0-0.1 10^3/uL Immature Granulocyte # (Auto) 0.0 0.0-0.1 10^3/uL Sodium Level 143 135-145 MMOL/L Potassium Level 3.5 L 3.6-5.0 MMOL/L Chloride Level 110 H 98-107 MMOL/L Carbon Dioxide Level 23 21-32 MMOL/L Anion Gap 10 5-14 MMOL/L Blood Urea Nitrogen 6 L 7-18 MG/DL Creatinine 1.02 0.60-1.30 MG/DL Estimat Glomerular Filtration Rate > 60 BUN/Creatinine Ratio 6 Glucose Level 81 70-105 MG/DL Calcium Level 8.1 L 8.5-10.1 MG/DL Corrected Calcium 8.2 L 8.5-10.1 MG/DL Total Bilirubin 0.6 0.1-1.0 MG/DL Aspartate Amino Transf (AST/SGOT) 23 5-34 U/L Alanine Aminotransferase (ALT/SGPT) 32 0-55 U/L Alkaline Phosphatase 87 40-136 U/L Total Protein 6.6 6.4-8.2 GM/DL Albumin 3.9 3.2-4.5 GM/DL My Orders Orders - VICKY RENNER MD Ed Iv/Invasive Line Start (03/04/21 11:17) Cbc With Automated Diff (03/04/21 11:17) Comprehensive Metabolic Panel (03/04/21 11:17) Ct Abdomen/Pelvis Wo (03/04/21 11:17) Ns Iv 1000 Ml (Sodium Chloride 0.9%) (03/04/21 11:30) Prochlorperazine Injection (Compazine In (03/04/21 11:30) Diphenhydramine Injection (Benadryl Inje (03/04/21 11:30) Ketorolac Injection (Toradol Injection) (03/04/21 11:30) Medications Given in ED Current Medications Medications Dose Ordered Sig/Alba Route Start Time Stop Time Status Last Admin Dose Admin Diphenhydramine HCl 25 mg ONCE ONCE IV 03/04/21 11:30 03/04/21 11:31 DC 03/04/21 11:31 25 MG Ketorolac Tromethamine 30 mg ONCE ONCE IVP 03/04/21 11:30 03/04/21 11:31 DC 03/04/21 11:31 30 MG Prochlorperazine Edisylate 10 mg ONCE ONCE IV 03/04/21 11:30 03/04/21 11:31 DC 03/04/21 11:27 10 MG Vital Signs/I&O 03/04/21 10:21 Temp 35.9 Pulse 73 Resp 18 B/P (MAP) 140/93 (109) Pulse Ox 97 O2 Delivery Room Air Blood Pressure Mean: 109 Progress Progress Note : Time: 12:13 Progress Note Patient feels a little better. Is able to lay on his left side comfortably. He still has a slight bit of nausea. But overall improved. I recommended that the patient obtain some [id number] Robitussin for his cough. He verbalizes understanding. He can take muxq-vni-twbmjup ibuprofen and Tylenol as needed for headache, body aches and other pains. I am going to send him home with a prescription for Zofran for his nausea. He verbalizes understanding. All questions are sought and answered. Patient is stable for discharge. Departure Impression Primary Impression: Abdominal pain Qualified Codes: R10.32 - Left lower quadrant pain Additional Impression: Bronchitis Disposition: 01 HOME, SELF-CARE Condition: Stable Departure-Patient Inst. Decision time for Depature: 12:14 Referrals: [facility]/MIRIAM (PCP) Primary Care Physician LILLIAN DUVALL (Family) Primary Care Physician Patient Instructions: Acute Bronchitis, Nausea and Vomiting, Adult ED Add. Discharge Instructions: Take sqmp-edg-pofkimm Robitussin as needed/directed for coughing fits. Take the Zofran every 8 hours as needed for nausea. You can take Tylenol and/or ibuprofen for any further abdominal pain. Always take ibuprofen with food. Return to the emergency room for any new, concerning or emergent complaints, worsening abdominal pain fever or other concerns. Please call and follow-up with Dr. Duvall. Scripts Ondansetron (Ondansetron Odt) 4 Mg Tab.rapdis 4 MG PO Q8H PRN for nausea, #15 TAB Prov: VICKY RENNER MD 03/04/21 VICKY RENNER MD March 04, 2021 10:45
[2021-03-04 11:24] LABS: BASOPHILS # (AUTO) 0.1 10^3/uL (0.0-0.1); BASOPHILS % (AUTO) 1 % (0-10); EOSINOPHILS # (AUTO) 0.2 10^3/uL (0.0-0.3); EOSINOPHILS % (AUTO) 3 % (0-10); HEMATOCRIT 51 % (40-54); HEMOGLOBIN 16.9 g/dL (13.3-17.7); LYMPHOCYTES # (AUTO) 1.3 10^3/uL (1.0-4.0); LYMPHOCYTES % (AUTO) 20 % (12-44); MEAN CORPUSCULAR HEMOGLOBIN 32 pg (25-34); MEAN CORPUSCULAR HGB CONC 33 g/dL (32-36); MEAN CORPUSCULAR VOLUME 96 fL (80-99); MEAN PLATELET VOLUME 9.3 fL (9.0-12.2); MONOCYTES # (AUTO) 0.8 10^3/uL (0.0-1.0); MONOCYTES % (AUTO) 13 % (0-12); NEUTROPHILS % (AUTO) 63 % (42-75); PLATELET COUNT 281 10^3/uL (130-400); WHITE BLOOD COUNT 6.3 10^3/uL (4.3-11.0)
[2021-03-04 11:30] LABS: ALBUMIN 3.9 GM/DL (3.2-4.5)
[2021-03-04] MEDS ORDERED: KETOROLAC 30 MG/ML VIAL IVP ONE (11:30)
[2021-03-04] MEDS ORDERED: diphenhydrAMINE 50 MG/ML INJ (BENADRYL) IV ONE (11:30)
[2021-03-04] MEDS ORDERED: PROCHLORPERAZINE 10 MG/2ML INJ (COMPAZINE) IV ONE (11:30)
[2021-03-04] MEDS ORDERED: NS IV 1000 ML 1,000 ML IV SCH (11:30)
[2021-03-04 11:31] LABS: CHLORIDE 110 MMOL/L (98-107); POTASSIUM 3.5 MMOL/L (3.6-5.0); SODIUM 143 MMOL/L (135-145)
[2021-03-04 11:32] LABS: CALCIUM 8.1 MG/DL (8.5-10.1)
[2021-03-04 11:33] LABS: GLUCOSE 81 MG/DL (70-105); TOTAL PROTEIN 6.6 GM/DL (6.4-8.2)
[2021-03-04 11:34] LABS: CARBON DIOXIDE 23 MMOL/L (21-32)
[2021-03-04 11:35] LABS: BILIRUBIN,TOTAL 0.6 MG/DL (0.1-1.0)
[2021-03-04 11:36] LABS: ALKALINE PHOSPHATASE 87 U/L (40-136)
[2021-03-04 11:37] LABS: CREATININE SERUM 1.02 MG/DL (0.60-1.30); GFR ESTIMATED > 60
[2021-03-04 11:38] LABS: BUN/CREATININE RATIO 6
[2021-03-04 11:40] LABS: ALANINE AMINOTRANSFERASE 32 U/L (0-55)
--- NOTE | 2021-03-04 11:58 | Diagnostic Imaging Report ---
EXAMINATION: CT abdomen and pelvis without contrast. TECHNIQUE: Multiple contiguous axial images were obtained through the abdomen and pelvis without the use of intravenous contrast. All CT scans use one or more of the following dose optimizing techniques: automated exposure control, MA and/or KvP adjustment based on patient size and exam type or iterative reconstruction. HISTORY: Abdominal pain and bloody diarrhea. COMPARISON: 11/03/2020 FINDINGS: Limited views of the lower thorax are unremarkable. The liver is normal without focal lesion. There is no biliary ductal dilation. Gallbladder is normal. Pancreas is normal. Spleen is normal. Adrenal glands are normal. The kidneys are normal. There is no hydronephrosis. Urinary bladder is normal. Visualized bowel is normal in caliber without obstruction or inflammation. The appendix is normal. There is a small fat-containing umbilical hernia. No free fluid or air. No abdominal or pelvic lymphadenopathy. Aorta is normal in caliber without aneurysm. There are no suspicious osseous lesions. IMPRESSION: 1. No acute abnormality in the abdomen or pelvis. Dictated by: Dictated on workstation # [id number]
[2021-03-04] MEDS ORDERED: ONDA4TAB11 PO (12:15)
[2021-03-04 12:25] VITALS: BP 117/71
== END 2021-03-04 12:31 | disposition home or self-care (01) ==
LOC: EDUNIT# 10:00 → ER 10:05
DX: R10.32 Left lower quadrant pain (principal); J40 Bronchitis, not specified as acute or chronic; R11.0 Nausea; G89.29 Other chronic pain; M54.9 Dorsalgia, unspecified; F17.210 Nicotine dependence, cigarettes, uncomplicated; Z87.442 Personal history of urinary calculi
CPT/HCPCS: 36415; 74176; 80053; 85025

== ENCOUNTER 2021-03-07 21:54 | Emergency (ER) | payer OTHER, MEDICARE, MEDICAID ==
[~2021-03-07] VITALS: Ht 185.5 cm; Wt 105.2 kg
[~2021-03-07 21:54] MED LIST changes: +ONDA4TAB11 PO
[2021-03-07] MEDS ORDERED: LACTATED RINGERS 1,000 ML IV ONE (22:15)
[2021-03-07 22:25] LABS: BASOPHILS # (AUTO) 0.1 10^3/uL (0.0-0.1); BASOPHILS % (AUTO) 1 % (0-10); EOSINOPHILS # (AUTO) 0.3 10^3/uL (0.0-0.3); EOSINOPHILS % (AUTO) 5 % (0-10); HEMATOCRIT 50 % (40-54); LYMPHOCYTES % (AUTO) 28 % (12-44); MEAN CORPUSCULAR HEMOGLOBIN 32 pg (25-34); MEAN CORPUSCULAR HGB CONC 34 g/dL (32-36); MEAN CORPUSCULAR VOLUME 94 fL (80-99); MEAN PLATELET VOLUME 8.7 fL (9.0-12.2); MONOCYTES # (AUTO) 0.5 10^3/uL (0.0-1.0); MONOCYTES % (AUTO) 7 % (0-12); NEUTROPHILS # (AUTO) 4.4 10^3/uL (1.8-7.8); NEUTROPHILS % (AUTO) 60 % (42-75); PLATELET COUNT 283 10^3/uL (130-400); WHITE BLOOD COUNT 7.3 10^3/uL (4.3-11.0)
[2021-03-07 22:36] LABS: CHLORIDE 103 MMOL/L (98-107); POTASSIUM 3.4 MMOL/L (3.6-5.0); SODIUM 140 MMOL/L (135-145)
[2021-03-07 22:37] LABS: ALBUMIN 4.6 GM/DL (3.2-4.5)
[2021-03-07 22:38] LABS: AMYLASE 48 U/L (25-125); CALCIUM 9.2 MG/DL (8.5-10.1)
[2021-03-07 22:39] LABS: GLUCOSE 99 MG/DL (70-105); TOTAL PROTEIN 7.7 GM/DL (6.4-8.2)
[2021-03-07 22:40] LABS: CARBON DIOXIDE 19 MMOL/L (21-32)
[2021-03-07 22:41] LABS: BILIRUBIN,TOTAL 0.5 MG/DL (0.1-1.0)
[2021-03-07 22:43] LABS: ALKALINE PHOSPHATASE 98 U/L (40-136); CREATININE SERUM 1.05 MG/DL (0.60-1.30); GFR ESTIMATED > 60
[2021-03-07 22:44] LABS: BUN/CREATININE RATIO 6
[2021-03-07 22:46] LABS: ALANINE AMINOTRANSFERASE 40 U/L (0-55); MAGNESIUM 2.3 MG/DL (1.6-2.4)
[2021-03-07 22:47] LABS: CREATINE KINASE 609 U/L (30-200); LIPASE 22 U/L (8-78)
[2021-03-07 22:51] LABS: ACETAMINOPHEN < 10 UG/ML (10-30)
[2021-03-07 22:54] LABS: CREATINE KINASE MB 1.8 NG/ML (<6.6)
[2021-03-07 22:56] LABS: BILIRUBIN,URINE NEGATIVE (NEGATIVE); CLARITY,URINE CLEAR; COLOR,URINE YELLOW; GLUCOSE, URINE (UA) NEGATIVE (NEGATIVE); KETONES,URINE NEGATIVE (NEGATIVE); LEUKOCYTE ESTERASE ,URINE NEGATIVE (NEGATIVE); NITRITE,URINE NEGATIVE (NEGATIVE); PH,URINE 5.5 (5-9); PROTEIN,URINE NEGATIVE (NEGATIVE)
[2021-03-07] MEDS ORDERED: ONDANSETRON 4 MG/2 ML (SDV) Z0FRAN IVP ONE (23:00)
[2021-03-07] MEDS ORDERED: PANTOPRAZOLE 40 MG (PROTONIX) VIAL IV ONE (23:00)
[2021-03-07 23:06] LABS: BACTERIA,URINE NEGATIVE /HPF; SQUAMOUS EPITHELIAL CELL,UR 0-2 /HPF
[2021-03-07 23:08] LABS: AMPHETAMINE SCREEN, URINE NEGATIVE (NEGATIVE); BARBITURATE SCREEN URINE NEGATIVE (NEGATIVE); BENZODIAZEPINES SCREEN URINE NEGATIVE (NEGATIVE); CANNABINOID SCREEN, URINE POSITIVE (NEGATIVE); COCAINE SCREEN URINE NEGATIVE (NEGATIVE); METHADONE STAT NEGATIVE (NEGATIVE); METHAMPHETAMINE SCREEN URINE S NEGATIVE (NEGATIVE); OPIATE SCREEN URINE NEGATIVE (NEGATIVE); OXYCODONE STAT NEGATIVE (NEGATIVE); PROPOXYPHENE STAT NEGATIVE (NEGATIVE); TRICYCLIC ANTIDEPRESSANTS SCRE NEGATIVE (NEGATIVE)
--- NOTE | 2021-03-07 23:47 | ED General ---
General Chief Complaint: Dizziness/Syncope Stated Complaint: CONFUSION,PASSED OUT Nursing Triage Note: PT TO ROOM FS2 WITH C/O COUGHING AT WORK AND "BLACKED OUT" AND HIT HIS HEAD AND BACK. PT REPORTS VOMITING X3. Nursing Sepsis Screen: No Definite Risk Source of Information: Patient History of Present Illness Date Seen by Provider: March 07, 2021 Time Seen by Provider: 22:07 Initial Comments PT ARRIVES VIA POV FROM WORK STATES HE HAS HAD NAUSEA AND VOMITING FOR THE LAST 3 WEEKS STATES HE CAN'T EAT OR DRINK ANYTHING, BECAUSE HE VOMITS STATES HE HAS "BEEN PUKING ALL DAY" PT COUGHS, GAGS, THROWS UP TONIGHT AT WORK, HE WENT TO THE BATHROOM, AND COUGHED AND "BLACKED OUT" AND HIT HIS HEAD AND BACK ON UNKNOWN SURFACES STATES THIS OCCURRED AT APPROXIMATELY 2100, AND HE "CAME TO" IN THE BATHROOM AROUND 2129 NO FEVER/SWEATS/CHILLS NO CHEST PAIN NO PALPITATIONS NO SHORTNESS OF BREATH NO ABDOMINAL PAIN NO DIARRHEA NO URINARY SYMPTOMS AND VOIDING A NORMAL AMOUNT C/O HEADACHE FROM HITTING HIS HEAD NO NECK PAIN STATES HE HAD "1 BEER EARLY THIS MORNING" STATES HE "VAPED HIS FRIEND'S VAPE" PT HAS HAD BOTH COVID-19 VACCINATIONS, LAST ONE 02/06/21 PCP; [facility], [facility] Allergies and Home Medications Allergies Coded Allergies: Sulfa (Sulfonamide Antibiotics) (Verified Allergy, Severe, HIVES, 08/14/20) levofloxacin (Verified Allergy, Unknown, 06/12/20) doxycycline (Verified Adverse Reaction, Mild, Vomiting, 06/12/20) Home Medications Acetaminophen 500 Mg Tablet, 1,000 MG PO Q8H PRN for PAIN-MILD (1-4), (Reported) Benzonatate 100 Mg Capsule, 200 MG PO TID Prescribed by: BENIGNO MYRICK on 03/07/21 2350 Guaifenesin/Dextromethorphan 1 Each Tbmp.12hr, 1 EACH PO BID Prescribed by: BENIGNO MYRICK on 03/07/21 2350 Omeprazole 20 Mg Capsule.dr, 20 MG PO BID Prescribed by: SYLWIA TORRES on 10/07/20 1427 Ondansetron 4 Mg Tab.rapdis, 4 MG PO Q8H PRN for nausea Prescribed by: VICKY RENNER on 03/04/21 1215 Ondansetron 8 Mg Tab.rapdis, 8 MG PO Q4H PRN for NAUSEA/VOMITING Prescribed by: BENIGNO MYRICK on 03/07/21 235 Pantoprazole Sodium 40 Mg Tablet.dr, 40 MG PO DAILY Prescribed by: BENIGNO MYRICK on 03/07/21 235 Patient Home Medication List Home Medication List Reviewed: Yes Review of Systems Review of Systems Constitutional: see HPI; No chills, No diaphoresis; dizziness; No fever; malaise, weakness EENTM: no symptoms reported Respiratory: see HPI, cough; No phlegm, No short of breath Cardiovascular: see HPI; No chest pain, No edema, No palpitations; syncope Gastrointestinal: see HPI; No abdominal pain, No diarrhea; loss of appetite, nausea, vomiting Genitourinary: no symptoms reported; No decreased output Musculoskeletal: see HPI, back pain; No neck pain Skin: no symptoms reported Psychiatric/Neurological: See HPI, Headache Hematologic/Lymphatic: No Symptoms Reported Immunological/Allergic: no symptoms reported Past Qtiofjn-Brnlok-Nyhnnb Hx Patient Social History Alcohol Use: Occasionally Uses Number of Drinks Today: AA Alcohol Beverage of Choice: Beer Drug of Choice: DENIES, BUT UDS + FOR THC 03/07/21 Smoking Status: Current Everyday Smoker (1 PPD) Type Used: Cigarettes 2nd Hand Smoke Exposure: Yes Recent Infectious Disease Expo: No Recent Hopitalizations: No Immunizations Up To Date Date of Influenza Vaccine: Jul 11, 2020 Past Medical History Surgeries: Yes (KIDNEY STONES--BASKET REMOVAL, ) Adenoidectomy, Cardiac, Renal, Tonsillectomy, Vasectomy Respiratory: No Cardiac: No Neurological: Yes (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, MOSTLY RESOLVED) Stroke Reproductive Disorders: No Genitourinary: Yes (EPIDIDYMITIS) Kidney Stones Gastrointestinal: No Musculoskeletal: Yes Chronic Back Pain Endocrine: Yes (hypoglycemia) HEENT: Yes (TONSILLECTOMY) Tonsilitis Cancer: No Psychosocial: Yes Anxiety, PTSD Integumentary: No Blood Disorders: No Family Medical History SOCIAL HISTORY: -ETOH--OCCASIONAL USE -DRUGS--DENIES USE -SMOKES 1 PPD Physical Exam Vital Signs Vital Signs - First Documented 03/07/21 03/08/21 22:10 00:24 Temp 36.2 Pulse 88 Resp 18 B/P (MAP) 146/110 (122) Pulse Ox 96 O2 Delivery Room Air Capillary Refill : Less Than 3 Seconds Height, Weight, BMI Height: 6'" Weight: 242lbs. oz. 109.255871si; 30.00 BMI Method:Stated General Appearance: No Apparent Distress, WD/WN HEENT: PERRL/EOMI, TMs Normal, Normal ENT Inspection, Pharynx Normal, Moist Mucous Membranes, Other (TENDERNESS TO BACK OF HEAD, BUT NO EXTERNAL EVIDENCE OF TRAUMA) Neck: Full Range of Motion, Normal Inspection, Non Tender, Supple Respiratory: Chest Non Tender, Normal Breath Sounds, No Accessory Muscle Use, No Respiratory Distress Cardiovascular: Regular Rate, Rhythm, No Edema, No JVD, No Murmur, Normal Peripheral Pulses Gastrointestinal: Normal Bowel Sounds, No Organomegaly, No Pulsatile Mass, Non Tender, Soft Back: Normal Inspection, No CVA Tenderness, No Vertebral Tenderness Extremity: Normal Capillary Refill, Normal Inspection, Normal Range of Motion, Non Tender, No Calf Tenderness, No Pedal Edema Neurologic/Psychiatric: Alert, Oriented x3, No Motor/Sensory Deficits, Normal 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, 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 Norm as Tested; No Abnormal Cerebellar Tests Skin: Normal Color, Warm/Dry; No Rash Progress/Results/Core Measures Suspected Sepsis Recent Fever Within 48 Hours: No Infection Criteria Present: None New/Unexplained Altered Menta: No Sepsis Screen: No Definite Risk SIRS Temperature: Pulse: 88 Respiratory Rate: 18 Laboratory Tests 03/07/21 22:19: White Blood Count 7.3 Blood Pressure 146 /110 Mean: 122 Laboratory Tests 03/07/21 22:19: Creatinine 1.05, Platelet Count 283, Total Bilirubin 0.5 Results/Orders Lab Results Laboratory Tests Test 03/07/21 22:19 03/07/21 22:31 03/07/21 22:49 Range/Units White Blood Count 7.3 4.3-11.0 10^3/uL Red Blood Count 5.32 4.30-5.52 10^6/uL Hemoglobin 17.0 13.3-17.7 g/dL Hematocrit 50 40-54 % Mean Corpuscular Volume 94 80-99 fL Mean Corpuscular Hemoglobin 32 25-34 pg Mean Corpuscular Hemoglobin Concent 34 32-36 g/dL Red Cell Distribution Width 12.6 10.0-14.5 % Platelet Count 283 130-400 10^3/uL Mean Platelet Volume 8.7 L 9.0-12.2 fL Immature Granulocyte % (Auto) 0 % Neutrophils (%) (Auto) 60 42-75 % Lymphocytes (%) (Auto) 28 12-44 % Monocytes (%) (Auto) 7 0-12 % Eosinophils (%) (Auto) 5 0-10 % Basophils (%) (Auto) 1 0-10 % Neutrophils # (Auto) 4.4 1.8-7.8 10^3/uL Lymphocytes # (Auto) 2.0 1.0-4.0 10^3/uL Monocytes # (Auto) 0.5 0.0-1.0 10^3/uL Eosinophils # (Auto) 0.3 0.0-0.3 10^3/uL Basophils # (Auto) 0.1 0.0-0.1 10^3/uL Immature Granulocyte # (Auto) 0.0 0.0-0.1 10^3/uL Sodium Level 140 135-145 MMOL/L Potassium Level 3.4 L 3.6-5.0 MMOL/L Chloride Level 103 98-107 MMOL/L Carbon Dioxide Level 19 L 21-32 MMOL/L Anion Gap 18 H 5-14 MMOL/L Blood Urea Nitrogen 6 L 7-18 MG/DL Creatinine 1.05 0.60-1.30 MG/DL Estimat Glomerular Filtration Rate > 60 BUN/Creatinine Ratio 6 Glucose Level 99 70-105 MG/DL Calcium Level 9.2 8.5-10.1 MG/DL Corrected Calcium 8.5-10.1 MG/DL Magnesium Level 2.3 1.6-2.4 MG/DL Total Bilirubin 0.5 0.1-1.0 MG/DL Aspartate Amino Transf (AST/SGOT) 33 5-34 U/L Alanine Aminotransferase (ALT/SGPT) 40 0-55 U/L Alkaline Phosphatase 98 40-136 U/L Total Creatine Kinase 609 H 30-200 U/L Creatine Kinase MB 1.8 <6.6 NG/ML Myoglobin 133.4 H 10.0-92.0 NG/ML Troponin I < 0.028 <0.028 NG/ML Total Protein 7.7 6.4-8.2 GM/DL Albumin 4.6 H 3.2-4.5 GM/DL Amylase Level 48 25-125 U/L Lipase 22 8-78 U/L Acetaminophen Level < 10 L 10-30 UG/ML Serum Alcohol 40 H <10 MG/DL Glucometer 106 70-110 MG/DL Urine Color YELLOW Urine Clarity CLEAR Urine pH 5.5 5-9 Urine Specific [place] 1.025 H 1.016-1.022 Urine Protein NEGATIVE NEGATIVE Urine Glucose (UA) NEGATIVE NEGATIVE Urine Ketones NEGATIVE NEGATIVE Urine Nitrite NEGATIVE NEGATIVE Urine Bilirubin NEGATIVE NEGATIVE Urine Urobilinogen 1.0 < = 1.0 MG/DL Urine Leukocyte Esterase NEGATIVE NEGATIVE Urine RBC (Auto) NEGATIVE NEGATIVE Urine RBC NONE /HPF Urine WBC NONE /HPF Urine Squamous Epithelial Cells 0-2 /HPF Urine Crystals NONE /LPF Urine Bacteria NEGATIVE /HPF Urine Casts PRESENT /LPF Urine Hyaline Casts 2-5 H /LPF Urine Mucus LARGE H /LPF Urine Culture Indicated NO Urine Opiates Screen NEGATIVE NEGATIVE Urine Oxycodone Screen NEGATIVE NEGATIVE Urine Methadone Screen NEGATIVE NEGATIVE Urine Propoxyphene Screen NEGATIVE NEGATIVE Urine Barbiturates Screen NEGATIVE NEGATIVE Ur Tricyclic Antidepressants Screen NEGATIVE NEGATIVE Urine Phencyclidine Screen NEGATIVE NEGATIVE Urine Amphetamines Screen NEGATIVE NEGATIVE Urine Methamphetamines Screen NEGATIVE NEGATIVE Urine Benzodiazepines Screen NEGATIVE NEGATIVE Urine Cocaine Screen NEGATIVE NEGATIVE Urine Cannabinoids Screen POSITIVE H NEGATIVE My Orders Orders - RAMEZ,BENIGNO K DO Accucheck Stat ONCE (03/07/21 22:10) Ed Iv/Invasive Line Start (03/07/21 22:10) Ekg Tracing (03/07/21 22:10) Monitor-Rhythm Ecg Trace Only (03/07/21 22:10) Ct Head/Cervical Spine Wo (03/07/21 22:10) Cervical Collar (03/07/21 22:10) Chest 1 View, Ap/Pa Only (03/07/21 22:10) Acetaminophen (03/07/21 22:10) Alcohol (03/07/21 22:10) Amylase (03/07/21 22:10) Cbc With Automated Diff (03/07/21 22:10) Comprehensive Metabolic Panel (03/07/21 22:10) Creatine Kinase (03/07/21 22:10) Creatine Kinase Mb (03/07/21 22:10) Drug Screen Stat (Urine) (03/07/21 22:10) Lipase (03/07/21 22:10) Magnesium (03/07/21 22:10) Ua Culture If Indicated (5/28/21 22:10) Myoglobin Serum (03/07/21 22:10) Troponin I (03/07/21 22:10) Ed Iv/Invasive Line Start (03/07/21 22:10) Lactated Ringers (Lr 1000 Ml Iv Solution (03/07/21 22:15) Ondansetron Injection (Zofran Injectio (03/07/21 23:00) Pantoprazole Injection (Protonix Injecti (03/07/21 23:00) Ketorolac Injection (Toradol Injection) (03/08/21 00:00) Medications Given in ED Vital Signs/I&O 03/07/21 03/08/21 22:10 00:24 Temp 36.2 36.2 Pulse 88 88 Resp 18 18 B/P (MAP) 146/110 (122) 140/98 (122) Pulse Ox 96 O2 Delivery Room Air Room Air Capillary Refill : Less Than 3 Seconds Blood Pressure Mean: 122 Point of Care Testing Finger Stick Blood Glucose: 106 Blood Glucose Action Taken: PROVIDER NOTIFIED Progress Note : Progress Note PLACED IN CERVICAL COLLAR AND LAID FLAT FREQUENT LOOSE COUGH, WHICH LATER RESOLVED UNEVENTFUL ER STAY ECG Initial ECG Impression Date: March 07, 2021 Initial ECG Impression Time: 22:40 Initial ECG Rate: 83 Initial ECG Rhythm: Normal Sinus Diagnostic Imaging Comments CXR--NO ACUTE PROCESS, PENDING RADIOLOGIST REVIEW CT HEAD/CERVICAL SPINE--NO ACUTE PROCESS, PER [facility] VIA FAX AT 0733 Reviewed: Reviewed by Me Departure Impression Primary Impression: Vasovagal syncope Additional Impressions: Head injury with loss of consciousness Nausea and vomiting Cough Alcohol use Marijuana use Disposition: 01 HOME, SELF-CARE Condition: Stable Departure-Patient Inst. Decision time for Depature: 23:45 Referrals: [facility] (PCP) Primary Care Physician LILLIAN DUVALL (Family) Primary Care Physician Patient Instructions: Syncope (Fainting) (DC), Vasovagal Response, Concussion, Adult ED, Nausea and Vomiting, Adult (DC), Cough, Adult ED Add. Discharge Instructions: CLEAR LIQUIDS--WATER, BROTH, JELLO, GATORADE BRATS DIET--BANANAS, RICE, APPLESAUCE, TOAST, SALTINES NO DRIVING UNTIL CLEARED BY DR. GONZALEZ DRUGS NO ALCOHOL FOLLOW UP WITH [facility] ON [place] FOR FURTHER CARE FOLLOW UP WITH [facility] IN 2-3 DAYS FOR FURTHER CARE All discharge instructions reviewed with patient and/or family. Voiced understanding. Scripts Benzonatate (TESSALON PERLES) 100 Mg Capsule 200 MG PO TID, #30 CAP Prov: BENIGNO MYRICK DO 03/07/21 Guaifenesin/Dextromethorphan (Mucinex Dm ER 1,200-60 mg Tab) 1 Each Tbmp.12hr 1 EACH PO BID, #20 EA Prov: BENIGNO MYRICK DO 03/07/21 Pantoprazole Sodium (Protonix) 40 Mg Tablet.dr 40 MG PO DAILY, #15 TAB Prov: BENIGNO MYRICK DO 03/07/21 Ondansetron (Ondansetron Odt) 8 Mg Tab.rapdis 8 MG PO Q4H PRN for NAUSEA/VOMITING, #10 TAB Prov: BENIGNO MYRICK DO 03/07/21 BENIGNO MYRICK DO March 07, 2021 23:47
[2021-03-07] MEDS ORDERED: ONDA8TAB13 PO (23:50)
[2021-03-07] MEDS ORDERED: GUAI1TBM19 PO (23:50)
[2021-03-07] MEDS ORDERED: PANT40TA2 PO (23:50)
[2021-03-07] MEDS ORDERED: BENZ100C18 PO (23:50)
[2021-03-08] MEDS ORDERED: KETOROLAC 30 MG/ML VIAL IVP ONE
[2021-03-08 00:24] VITALS: BP 140/98
--- NOTE | 2021-03-08 07:38 | Diagnostic Imaging Report ---
INDICATION: SYNCOPE. TECHNIQUE: Single view chest 11:07 PM. CORRELATION STUDY: 11/03/2020 FINDINGS: The heart size, mediastinal configuration and pulmonary vascularity are within normal limits. The lungs are clear with no consolidating infiltrate. There is no significant effusion or pneumothorax. IMPRESSION: 1. Stable, negative appearing portable chest. Dictated by: Dictated on workstation # [id number]
--- NOTE | 2021-03-08 07:41 | Diagnostic Imaging Report ---
PROCEDURE: CT head and CT cervical spine without contrast. TECHNIQUE: Multiple contiguous axial images were obtained through the brain and cervical spine without the use of intravenous contrast. Sagittal and coronal reformations through the cervical spine were then performed. Auto Exposure Controls were utilized during the CT exam to meet ALARA standards for radiation dose reduction. INDICATION: Coughing at work, blacked out, hit head and back. Vomiting. 09/29/2020 CORRELATION: None CT HEAD FINDINGS: The ventricles and sulci are within normal limits. There is no midline shift or mass effect. No evidence for acute intracranial hemorrhage or extra-axial fluid collections. The bony calvarium is intact. There is rather extensive mucosal thickening throughout the paranasal sinuses. CT CERVICAL SPINE FINDINGS: There is normal alignment and curvature of the cervical spine. There is no evidence for acute bony abnormality. The odontoid is intact. The prevertebral soft tissues are normal. IMPRESSION: 1. No acute intracranial abnormality. 2. No evidence for acute cervical spine fracture or subluxation. Initial report was provided by [facility]. Dictated by: Dictated on workstation # [id number]
== END 2021-03-08 00:30 | disposition home or self-care (01) ==
LOC: EDUNIT# 21:54 → ER 21:56
DX: S06.9X9A Unspecified intracranial injury with loss of consciousness of unspecified duration, initial encounter (principal); R55 Syncope and collapse; R11.2 Nausea with vomiting, unspecified; R05 Cough; F12.90 Cannabis use, unspecified, uncomplicated; G89.29 Other chronic pain; M54.9 Dorsalgia, unspecified; F17.210 Nicotine dependence, cigarettes, uncomplicated; Z86.69 Personal history of other diseases of the nervous system and sense organs; Z72.89 Other problems related to lifestyle; Z79.899 Other long term (current) drug therapy; Y92.59 Other trade areas as the place of occurrence of the external cause; Y99.0 Civilian activity done for income or pay
CPT/HCPCS: 70450; 71045; 72125; 80053; 80306; 81000; 82150; 82550; 82553; 82947; 83690; 83735; 83874; 84484; 85025; 93005; 93041; 99284; G0480 ×2; 36415; 80320; 80329

== ENCOUNTER 2021-07-16 16:20 | Emergency (ER) | payer MEDICARE, MEDICAID ==
[~2021-07-16] VITALS: Ht 72 cm; Wt 109.3 kg
[~2021-07-16 16:20] MED LIST changes: +BENZ100C18 PO; -OLAN5TAB25 PO; +OLN5T PO; +ONDA8TAB13 PO; +PANT40TA2 PO
[2021-07-16] MEDS ORDERED: KETOROLAC 30 MG/ML VIAL IVP ONE (16:45)
[2021-07-16] MEDS ORDERED: ONDANSETRON 4 MG/2 ML (SDV) Z0FRAN IVP ONE ×2 (16:45→18:30)
[2021-07-16] MEDS ORDERED: NS IV 1000 ML 1,000 ML IV SCH (16:45)
--- NOTE | 2021-07-16 16:50 | ED Abdominal Pain ---
General Chief Complaint: Abdominal/GI Problems Stated Complaint: ABD PAIN Nursing Triage Note: Pt arrives via POV from home with c/o abdominal pain around his naval, tender to palpation; onset last night. Pt reports last night he had N/V x2, took tylenol without relief. Pt states today he took ibuprofen without relief, had a two hour period of multiple loose stools. Pt unable to eat/drink d/t nausea. Pt reports negative covid test two days ago for work. Source of Information: Patient Exam Limitations: No Limitations (VICKY RENNER MD) History of Present Illness Date Seen by Provider: Jul 16, 2021 Time Seen by Provider: 16:35 Initial Comments Patient is a 41-year-old male who presents to the emergency room with a chief complaint of diffuse abdominal pain, most prominent around the periumbilical region onset about 10:00 last night. Patient complains of nausea with a couple of episodes of vomiting also diarrhea. Patient states he never looks at his bowel movement so he does not know if he has had black or bloody stools. "Dribbling" urine today. Has not had any oral intake whatsoever today. Patient states his last oral intake was a bowl of soup at 11:00 yesterday a.m. Patient tells me that he has never had symptoms this severe before. Review of the medical record shows the patient had a couple of ER visits for similar complaints in February of this year. Sick contact, son at home with similar symptoms but also with respiratory symptoms. Both were tested in the last 48 hours and were negative. Patient does not drink alcohol on a daily basis, denies illicit drug use and smoking. No prior abdominal surgeries. He states that he has an umbilical hernia. He is concerned that this is the source of his symptoms. He has not taken anything for his pain or nausea. All other review of systems reviewed and negative except as stated Timing/Duration: 24 Hours Severity/Quality: Moderate Location: RLQ, Periumbilical Radiation: Groin (right) Activities at Onset: None Associated Symptoms: Nausea/Vomiting (VICKY RENNER MD) Allergies and Home Medications Allergies Coded Allergies: Sulfa (Sulfonamide Antibiotics) (Verified Allergy, Severe, HIVES, 08/14/20) levofloxacin (Verified Allergy, Unknown, 06/12/20) doxycycline (Verified Adverse Reaction, Mild, Vomiting, 06/12/20) Patient Home Medication List Home Medication List Reviewed: Yes (VICKY RENNER MD) Acetaminophen (Tylenol Extra Strength) 500 Mg Tablet, 1,000 MG PO Q8H PRN for PAIN-MILD (1-4), (Reported) Entered as Reported by: PETE JUÁREZ on 09/24/20 0928 Benzonatate (Tessalon Perles) 100 Mg Capsule, 200 MG PO TID Prescribed by: BENIGNO MYRICK on 03/07/212349 Guaifenesin/Dextromethorphan (Mucinex Dm ER 1,200-60 mg Tab) 1 Each Tbmp.12hr, 1 EACH PO BID Prescribed by: BENIGNO MYRICK on 03/07/212349 Hydrocodone/Acetaminophen (Hydrocodone-Acetamin 5-325 mg) 1 Each Tablet, 1 TAB PO Q4H PRN for PAIN-MODERATE (5-7) Prescribed by: SYLWIA TORRES on 07/16/212034 Metoprolol Succinate (Metoprolol Succinate) 50 Mg Tab.er.24h, 50 MG PO, (Reported) Entered as Reported by: JASPREET GÓMEZ on 11/03/202205 Nitroglycerin (Nitroglycerin) 0.4 Mg Tab.subl, 0.4 MG SL, (Reported) Entered as Reported by: JASPREET GÓMEZ on 11/03/202205 Olanzapine (Olanzapine) 5 Mg Tablet, 5 MG PO, (Reported) Entered as Reported by: JASPREET GÓMEZ on 11/03/202205 Omeprazole (Omeprazole) 20 Mg Capsule.dr, 20 MG PO BID Prescribed by: SYLWIA TORRES on 10/07/20 1427 Ondansetron (Ondansetron Odt) 4 Mg Tab.rapdis, 4 MG PO Q8H PRN for nausea Prescribed by: VICKY RENNER on 03/04/21 1215 Ondansetron (Ondansetron Odt) 8 Mg Tab.rapdis, 8 MG PO Q4H PRN for NAUSEA/VOMITING Prescribed by: BENIGNO MYRICK on 03/07/212349 Ondansetron (Ondansetron Odt) 4 Mg Tab.rapdis, 4 MG PO Q4H PRN for COMPA SEA/VOMITING Prescribed by: SYLWIA TORRES on 07/16/212034 Pantoprazole Sodium (Protonix) 40 Mg Tablet.dr, 40 MG PO DAILY Prescribed by: BENIGNO MYRICK on 03/07/21 2350 Review of Systems Review of Systems Constitutional: see HPI EENTM: No Symptoms Reported Respiratory: No Symptoms Reported Cardiovascular: No Symptoms Reported Gastrointestinal: Abdominal Pain, Diarrhea, Nausea, Vomiting Genitourinary: Other ("dribbling") Musculoskeletal: no symptoms reported Skin: no symptoms reported Psychiatric/Neurological: Anxiety (VICKY RENNER MD) All Other Systems Reviewed Negative Unless Noted: Yes (VICKY RENNER MD) Past Rpouvne-Ohzyfw-Imaqse Hx Patient Social History Use of E-Cig and/or Vaping dev: No Substance use?: No Alcohol Use?: No Pt feels they are or have been: No (VICKY RENNER MD) Immunizations Up To Date First/Initial COVID19 Vaccinat: 04/2021 Second COVID19 Vaccination [place]: 03/2021 COVID19 Vaccine Insulation Manager: [place] (VICKY RENNER MD) Past Medical History Surgeries: Yes (KIDNEY STONES--BASKET REMOVAL, ) Adenoidectomy, Cardiac, Renal, Tonsillectomy, Vasectomy Respiratory: No Cardiac: No Neurological: Yes (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, MOSTLY RESOLVED) Stroke Reproductive Disorders: No Genitourinary: Yes (EPIDIDYMITIS) Kidney Stones Gastrointestinal: No Musculoskeletal: Yes Chronic Back Pain Endocrine: Yes (hypoglycemia) HEENT: Yes (TONSILLECTOMY) Tonsilitis Cancer: No Psychosocial: Yes Anxiety, PTSD Integumentary: No Blood Disorders: No (VICKY RENNER MD) Family Medical History SOCIAL HISTORY: -ETOH--OCCASIONAL USE -DRUGS--DENIES USE -SMOKES 1 PPD (VICKY RENNER MD) Physical Exam Vital Signs Vital Signs - First Documented 07/16/21 16:30 Temp 37.1 Pulse 79 Resp 18 B/P (MAP) 134/97 (109) Pulse Ox 98 O2 Delivery Room Air (SYLWIA HODGE MD) Vital Signs Capillary Refill : Less Than 3 Seconds (VICKY RENNER MD) Height/Weight/BMI Height: 6'" Weight: 242lbs. oz. 109.187654ag; 210.00 BMI Method:Stated General Appearance: WD/WN, mild distress HEENT: PERRL/EOMI Respiratory: lungs clear, normal breath sounds, no respiratory distress, no accessory muscle use Cardiovascular: regular rate, rhythm Gastrointestinal: normal bowel sounds, soft, guarding, rebound, tenderness, other (palpable umbilical hernia that I cannot reduce. it is soft and nt discolored. patient has voluntary guarding with palpation of the entire abdomen, most pronounced in the RLQ) Extremities: normal range of motion, non-tender, normal inspection, no pedal edema Neurologic/Psychiatric: no motor/sensory deficits, alert, normal mood/affect, oriented x 3 Skin: normal color, warm/dry (VICKY RENNER MD) Progress/Results/Core Measures Results/Orders Lab Results Laboratory Tests Test 07/16/21 17:03 07/16/21 17:10 07/16/21 18:30 07/16/21 19:37 Range/Units Urine Color YELLOW Urine Clarity CLEAR Urine pH 8.0 5-9 Urine Specific [place] 1.015 L 1.016-1.022 Urine Protein NEGATIVE NEGATIVE Urine Glucose (UA) NEGATIVE NEGATIVE Urine Ketones NEGATIVE NEGATIVE Urine Nitrite NEGATIVE NEGATIVE Urine Bilirubin NEGATIVE NEGATIVE Urine Urobilinogen 0.2 < = 1.0 MG/DL Urine Leukocyte Esterase NEGATIVE NEGATIVE Urine RBC (Auto) 1+ H NEGATIVE Urine RBC 2-5 H /HPF Urine WBC NONE /HPF Urine Squamous Epithelial Cells NONE /HPF Urine Crystals NONE /LPF Urine Bacteria TRACE /HPF Urine Casts NONE /LPF Urine Mucus NEGATIVE /LPF Urine Culture Indicated NO Urine Opiates Screen NEGATIVE NEGATIVE Urine Oxycodone Screen NEGATIVE NEGATIVE Urine Methadone Screen NEGATIVE NEGATIVE Urine Propoxyphene Screen NEGATIVE NEGATIVE Urine Barbiturates Screen NEGATIVE NEGATIVE Ur Tricyclic Antidepressants Screen NEGATIVE NEGATIVE Urine Phencyclidine Screen NEGATIVE NEGATIVE Urine Amphetamines Screen NEGATIVE NEGATIVE Urine Methamphetamines Screen NEGATIVE NEGATIVE Urine Benzodiazepines Screen NEGATIVE NEGATIVE Urine Cocaine Screen NEGATIVE NEGATIVE Urine Cannabinoids Screen NEGATIVE NEGATIVE White Blood Count 7.4 4.3-11.0 10^3/uL Red Blood Count 4.87 4.30-5.52 10^6/uL Hemoglobin 15.9 13.3-17.7 g/dL Hematocrit 47 40-54 % Mean Corpuscular Volume 96 80-99 fL Mean Corpuscular Hemoglobin 33 25-34 pg Mean Corpuscular Hemoglobin Concent 34 32-36 g/dL Red Cell Distribution Width 13.0 10.0-14.5 % Platelet Count 261 130-400 10^3/uL Mean Platelet Volume 8.3 L 9.0-12.2 fL Immature Granulocyte % (Auto) 0 % Neutrophils (%) (Auto) 70 42-75 % Lymphocytes (%) (Auto) 20 12-44 % Monocytes (%) (Auto) 5 0-12 % Eosinophils (%) (Auto) 4 0-10 % Basophils (%) (Auto) 1 0-10 % Neutrophils # (Auto) 5.1 1.8-7.8 10^3/uL Lymphocytes # (Auto) 1.5 1.0-4.0 10^3/uL Monocytes # (Auto) 0.4 0.0-1.0 10^3/uL Eosinophils # (Auto) 0.3 0.0-0.3 10^3/uL Basophils # (Auto) 0.1 0.0-0.1 10^3/uL Immature Granulocyte # (Auto) 0.0 0.0-0.1 10^3/uL Sodium Level 141 135-145 MMOL/L Potassium Level 3.4 L 3.6-5.0 MMOL/L Chloride Level 106 98-107 MMOL/L Carbon Dioxide Level 26 21-32 MMOL/L Anion Gap 9 5-14 MMOL/L Blood Urea Nitrogen 4 L 7-18 MG/DL Creatinine 0.95 0.60-1.30 MG/DL Estimat Glomerular Filtration Rate 87 BUN/Creatinine Ratio 4 Glucose Level 103 70-105 MG/DL Calcium Level 9.0 8.5-10.1 MG/DL Corrected Calcium 9.1 8.5-10.1 MG/DL Total Bilirubin 0.5 0.1-1.0 MG/DL Aspartate Amino Transf (AST/SGOT) 18 5-34 U/L Alanine Aminotransferase (ALT/SGPT) 25 0-55 U/L Alkaline Phosphatase 73 40-136 U/L Total Protein 6.6 6.4-8.2 GM/DL Albumin 3.9 3.2-4.5 GM/DL Lipase 16 8-78 U/L Serum Alcohol < 10 <10 MG/DL Erythrocyte Sedimentation Rate 3 0-15 MM/HR C-Reactive Protein High Sensitivity 0.59 H 0.00-0.50 MG/DL (SYLWIA HODGE MD) My Orders Orders - SYLWIA HODGE MD Ondansetron Injection (Zofran Injectio (07/16/21 18:30) Morphine Injection (Morphine Injection (07/16/21 18:19) Abdomen, Flat & Upright/Decub (07/16/21 18:19) Alcohol (07/16/21 18:20) Drug Screen Stat (Urine) (07/16/21 18:20) Hs C Reactive Protein (07/16/21 19:34) Erythrocyte Sedimentation Rate (07/16/21 19:34) Morphine Pf Inj (Duramorph Pf Inj) (07/16/21 19:45) Hyoscyamine Sl Tablet (Levsin Sl Tablet) (07/16/21 19:45) Ct Abdomen/Pelvis W (07/16/21 19:34) Iohexol Injection (Omnipaque 350 Mg/Ml 1 (07/16/21 19:45) Received Contrast (Hold Metformin- Contr (07/16/21 19:45) Ns (Ivpb) (Sodium Chloride 0.9% Ivpb Bag (07/16/21 19:45) Morphine Injection (Morphine Injection (07/16/21 19:56) Rx-Hydrocodone/Apap 5-325 Mg (Rx-Vicodin (07/16/21 20:30) Rx-Ondansetron Po (Rx-Zofran Po) (07/16/21 20:30) (SYLWIA HODGE MD) Medications Given in ED Current Medications Medications Dose Ordered Sig/Alba Route Start Time Stop Time Status Last Admin Dose Admin Hyoscyamine Sulfate 0.25 mg ONCE ONCE SL 07/16/21 19:45 07/16/21 19:46 DC 07/16/21 19:40 0.25 MG Iohexol 100 ml ONCE ONCE IV 07/16/21 19:45 07/16/21 19:46 DC 07/16/21 19:48 100 ML Ketorolac Tromethamine 15 mg ONCE ONCE IVP 07/16/21 16:45 07/16/21 16:46 DC 07/16/21 17:13 15 MG Morphine Sulfate 6 mg ONCE ONCE IV 07/16/21 19:45 07/16/21 19:46 DC 07/16/21 20:01 6 MG Ondansetron HCl 4 mg ONCE ONCE IVP 07/16/21 16:45 07/16/21 16:46 DC 07/16/21 17:13 4 MG Ondansetron HCl 4 mg ONCE ONCE IVP 07/16/21 18:30 07/16/21 18:31 DC 07/16/21 18:32 4 MG Sodium Chloride 100 ml ONCE ONCE IV 07/16/21 19:45 07/16/21 19:46 DC 07/16/21 19:48 80 ML (SYLWIA HODGE MD) Vital Signs/I&O 07/16/21 16:30 Temp 37.1 Pulse 79 Resp 18 B/P (MAP) 134/97 (109) Pulse Ox 98 O2 Delivery Room Air (SYLWIA HODGE MD) Blood Pressure Mean: 109 Progress Progress Note : Time: 17:40 Progress Note Care passed to Dr. Moss at shift change with studies pending. (VICKY RENNER MD) Progress Note : Time: 20:41 Progress Note Assumed care of this patient from Dr. Renner at shift change. Patient was reassessed and found to have significant tenderness to palpation and percussion throughout the abdomen, most notably in the periumbilical and left lower quadrant regions. Labs were reviewed and unremarkable. Patient had persistent and escalating pain despite treatment. He was redosed with morphine x2 and given Levsin. Pain did not resolve. I discussed risks and benefits of imaging with him. I have reviewed his chart and noted multiple CT scans within the past year, none showing any significant pathology. I have discussed the option of repeat imaging with him. Patient was pushing for another CT scan as he is very concerned about what might be causing his intense pain. A KUB and upright x-ray was obtained initially as an alternative and was unremarkable. Symptoms were persistent despite treatment. I discussed the risks and benefits twice with him and he still was pushing for CT evaluation. We did pursue CT imaging with his understanding of risks and benefits. I explained risks to include radiation exposure that increases risk for cancer, risk of allergy and renal impairment with contrast administration, and cost. CT did not show any acute surgical pathology or any pathology requiring urgent therapy. He was discharged with take-home medications for Zofran and hydrocodone. He was strongly encouraged to pursue endoscopy and surgical consultation on an outpatient basis. (SYLWIA HODGE MD) Diagnostic Imaging Diagonstic Imaging: Xray Plain Films/CT/US/NM/MRI: abdomen, pelvis Comments NAME: ALBERTO SANDERS MED REC#: [id number] PT STATUS: REG ER : 1980 PHYSICIAN: SYLWIA HODGE MD ADMIT DATE: 07/16/21/ER Signed Date of Exam:07/16/21 ABDOMEN, FLAT & UPRIGHT/DECUB EXAMINATION: Abdomen 2 view. HISTORY: Abd pain. COMPARISON: None available. FINDINGS: Bowel gas pattern is normal. No dilated bowel or free air. IMPRESSION: No dilated bowel. Dictated by: Dictated on workstation # [id number] Dict: 07/16/211899 Trans: 07/16/211938 [facility] [id number] Interpreted by: IZABEL LEON MD Electronically signed by: IZABEL LEON MD 07/16/211938 Diagonstic Imaging: CT Plain Films/CT/US/NM/MRI: abdomen, pelvis Comments NAME: ALBERTO SANDERS [facility] REC#: [id number] PT STATUS: REG ER : 1980 PHYSICIAN: SYLWIA HODGE MD ADMIT DATE: 07/16/21/ER Signed Date of Exam:07/16/21 CT ABDOMEN/PELVIS W PROCEDURE: CT abdomen and pelvis with contrast. TECHNIQUE: Multiple contiguous axial images were obtained through the abdomen and pelvis after administration of intravenous contrast. Auto Exposure Controls were utilized during the CT exam to meet ALARA standards for radiation dose reduction. All CT scans use one or more of the following dose optimizing techniques: automated exposure control, MA and/or KvP adjustment based on patient size and exam type or iterative reconstruction. INDICATION: Periumbilical pain, symptoms 3 days duration. COMPARISON: CT abdomen and pelvis 03/04/2021. FINDINGS: The appendix arises off the posterior aspect of the caudal pole of the cecum and is distally directed medially. Its nondilated air-containing and no periappendiceal edema or periappendiceal inflammation. There is no appendicitis. There is no diverticulitis. There is no small or large bowel obstruction. No pneumatosis or free gas. There is no hydroureteronephrosis. The aortoiliac and mesenteric vessels patent and nonaneurysmal. There is a chronic periumbilical fatty hernia, stable from prior. No herniation of viscus or inflammatory changes within the stable small hernia sac. Liver, gallbladder, bile ducts, spleen, adrenals and pancreas are all nonacute. Urinary bladder unremarkable. The prostate and seminal vesicles unremarkable. Lung bases and bony structures nonacute. IMPRESSION: Unobstructed urinary tracts, stable. Normal appendix. Stable fatty periumbilical hernia with no acute abdominal wall pathology, inflammatory change or obstructive feature. Dictated by: Dictated on workstation # [id number] Dict: 07/16/211947 Trans: 07/16/212038 [facility] [id number] Interpreted by: BROCK VIVAR Electronically signed by: BROCK VIVAR 07/16/212038 (SYLWIA HODGE MD) Departure Impression Primary Impression: Generalized abdominal pain Additional Impression: Nausea vomiting and diarrhea Disposition: 01 HOME, SELF-CARE Condition: Improved Departure-Patient Inst. Decision time for Depature: 20:32 (SYLWIA HODGE MD) Referrals: [facility] [place] [facility] [place] Primary Care Physician LILLIAN DUVALL (Family) Primary Care Physician Patient Instructions: Severe Abdominal Pain, Adult (DC) Add. Discharge Instructions: Adhere to only a noncarbonated clear liquid diet tonight. If you are feeling well in the morning you may gradually advance your diet with small quantities of bland food as tolerated. Avoid fatty or greasy foods or dairy products for at least 48 hours. Call your doctors office in the morning and schedule a follow-up appointment as soon as possible. You have had numerous visits to the emergency room with numerous CT scans. I am strongly recommending that you have a referral to a surgeon and pursue colonoscopy and EGD to help investigate the cause of your abdominal pain. For mild pain you may take Tylenol (acetaminophen) up to 1000 mg every 6 hours as needed. For more severe pain take hydrocodone as prescribed. Take Zofran (ondansetron) as prescribed for nausea and vomiting. Call with questions or concerns. Return to the ER if you have worsening symptoms. All discharge instructions reviewed with patient and/or family. Voiced understanding. Scripts Hydrocodone/Acetaminophen (Hydrocodone-Acetamin 5-325 mg) 1 Each Tablet 1 TAB PO Q4H PRN for PAIN-MODERATE (5-7), #8 TAB Prov: SYLWIA HODGE MD 07/16/21 Ondansetron (Ondansetron Odt) 4 Mg Tab.rapdis 4 MG PO Q4H PRN for NAUSEA/VOMITING, #10 TAB Prov: SYLWIA HODGE MD 07/16/21 Copy Copies To 1: AISSATOU FALLON KATHRYN M MD Jul 16, 2021 16:50 SYLWIA HODGE MD Jul 16, 2021 20:36
[2021-07-16 17:08] LABS: BILIRUBIN,URINE NEGATIVE (NEGATIVE); CLARITY,URINE CLEAR; COLOR,URINE YELLOW; GLUCOSE, URINE (UA) NEGATIVE (NEGATIVE); KETONES,URINE NEGATIVE (NEGATIVE); LEUKOCYTE ESTERASE ,URINE NEGATIVE (NEGATIVE); NITRITE,URINE NEGATIVE (NEGATIVE); PROTEIN,URINE NEGATIVE (NEGATIVE)
[2021-07-16 17:19] LABS: BASOPHILS # (AUTO) 0.1 10^3/uL (0.0-0.1); BASOPHILS % (AUTO) 1 % (0-10); EOSINOPHILS # (AUTO) 0.3 10^3/uL (0.0-0.3); EOSINOPHILS % (AUTO) 4 % (0-10); HEMATOCRIT 47 % (40-54); HEMOGLOBIN 15.9 g/dL (13.3-17.7); LYMPHOCYTES # (AUTO) 1.5 10^3/uL (1.0-4.0); LYMPHOCYTES % (AUTO) 20 % (12-44); MEAN CORPUSCULAR HEMOGLOBIN 33 pg (25-34); MEAN CORPUSCULAR HGB CONC 34 g/dL (32-36); MEAN CORPUSCULAR VOLUME 96 fL (80-99); MEAN PLATELET VOLUME 8.3 fL (9.0-12.2); MONOCYTES # (AUTO) 0.4 10^3/uL (0.0-1.0); MONOCYTES % (AUTO) 5 % (0-12); NEUTROPHILS # (AUTO) 5.1 10^3/uL (1.8-7.8); NEUTROPHILS % (AUTO) 70 % (42-75); PLATELET COUNT 261 10^3/uL (130-400); WHITE BLOOD COUNT 7.4 10^3/uL (4.3-11.0)
[2021-07-16 17:20] LABS: BACTERIA,URINE TRACE /HPF
[2021-07-16 17:29] LABS: ALBUMIN 3.9 GM/DL (3.2-4.5); POTASSIUM 3.4 MMOL/L (3.6-5.0)
[2021-07-16 17:32] LABS: TOTAL PROTEIN 6.6 GM/DL (6.4-8.2)
[2021-07-16 17:33] LABS: BILIRUBIN,TOTAL 0.5 MG/DL (0.1-1.0)
[2021-07-16 17:35] LABS: CREATININE SERUM 0.95 MG/DL (0.60-1.30)
[2021-07-16] MEDS ORDERED: morphine INJ 10 MG/ML 1ML (SYR OR VIAL) IVP STA ×2 (18:19→19:56)
[2021-07-16 18:49] LABS: AMPHETAMINE SCREEN, URINE NEGATIVE (NEGATIVE); BARBITURATE SCREEN URINE NEGATIVE (NEGATIVE); BENZODIAZEPINES SCREEN URINE NEGATIVE (NEGATIVE); CANNABINOID SCREEN, URINE NEGATIVE (NEGATIVE); COCAINE SCREEN URINE NEGATIVE (NEGATIVE); METHADONE STAT NEGATIVE (NEGATIVE); METHAMPHETAMINE SCREEN URINE S NEGATIVE (NEGATIVE); OPIATE SCREEN URINE NEGATIVE (NEGATIVE); OXYCODONE STAT NEGATIVE (NEGATIVE); PROPOXYPHENE STAT NEGATIVE (NEGATIVE); TRICYCLIC ANTIDEPRESSANTS SCRE NEGATIVE (NEGATIVE)
--- NOTE | 2021-07-16 19:05 | Diagnostic Imaging Report ---
EXAMINATION: Abdomen 2 view. HISTORY: Abd pain. COMPARISON: None available. FINDINGS: Bowel gas pattern is normal. No dilated bowel or free air. IMPRESSION: No dilated bowel. Dictated by: Dictated on workstation # [id number]
[2021-07-16] MEDS ORDERED: morphine PF (DURAMORPH) 10 MG/10 ML AMP IV ONE (19:45)
[2021-07-16] MEDS ORDERED: HOLD METFORMIN - RECEIVED CONTRAST 20 ML VIAL IV SCH (19:45)
[2021-07-16] MEDS ORDERED: NS 100 ML (IVPB) BAG IV ONE (19:45)
[2021-07-16] MEDS ORDERED: HYOSCYAMINE 0.125 MG (LEVSIN) TAB SL ONE (19:45)
[2021-07-16] MEDS ORDERED: IOHEXOL 350 MG/ML 100 ML (OMNIPAQUE 350) VIAL IV ONE (19:45)
--- NOTE | 2021-07-16 20:00 | Diagnostic Imaging Report ---
PROCEDURE: CT abdomen and pelvis with contrast. TECHNIQUE: Multiple contiguous axial images were obtained through the abdomen and pelvis after administration of intravenous contrast. Auto Exposure Controls were utilized during the CT exam to meet ALARA standards for radiation dose reduction. All CT scans use one or more of the following dose optimizing techniques: automated exposure control, MA and/or KvP adjustment based on patient size and exam type or iterative reconstruction. INDICATION: Periumbilical pain, symptoms 3 days duration. COMPARISON: CT abdomen and pelvis 03/04/2021. FINDINGS: The appendix arises off the posterior aspect of the caudal pole of the cecum and is distally directed medially. Its nondilated air-containing and no periappendiceal edema or periappendiceal inflammation. There is no appendicitis. There is no diverticulitis. There is no small or large bowel obstruction. No pneumatosis or free gas. There is no hydroureteronephrosis. The aortoiliac and mesenteric vessels patent and nonaneurysmal. There is a chronic periumbilical fatty hernia, stable from prior. No herniation of viscus or inflammatory changes within the stable small hernia sac. Liver, gallbladder, bile ducts, spleen, adrenals and pancreas are all nonacute. Urinary bladder unremarkable. The prostate and seminal vesicles unremarkable. Lung bases and bony structures nonacute. IMPRESSION: Unobstructed urinary tracts, stable. Normal appendix. Stable fatty periumbilical hernia with no acute abdominal wall pathology, inflammatory change or obstructive feature. Dictated by: Dictated on workstation # [id number]
[2021-07-16] MEDS ORDERED: RX-ONDANSETRON 4 MG ODT (ZOFRAN) PPK #4 SL STA (20:30)
[2021-07-16] MEDS ORDERED: ONDA4TAB11 PO (20:35)
[2021-07-16] MEDS ORDERED: ACHD5005 PO (20:35)
[2021-07-16 20:53] VITALS: BP 129/84
== END 2021-07-16 20:50 | disposition home or self-care (01) ==
LOC: EDUNIT# 16:20 → ER 16:22
DX: R10.84 Generalized abdominal pain (principal); R11.2 Nausea with vomiting, unspecified; R19.7 Diarrhea, unspecified; Z86.73 Personal history of transient ischemic attack (TIA), and cerebral infarction without residual deficits
CPT/HCPCS: 74019; 74177; 80053; 80306; 81000; 83690; 85025; 85652; 86141; 99284; G0480; 36415; 80320

== ENCOUNTER 2021-07-22 17:49 | Emergency (ER) | payer MEDICAID ==
[~2021-07-22] VITALS: Ht 182 cm; Wt 105.0 kg
[~2021-07-22 17:49] MED LIST changes: +ACHD5005 PO
[2021-07-22] MEDS ORDERED: PANTOPRAZOLE 40 MG (PROTONIX) VIAL IV ONE (18:00)
[2021-07-22] MEDS ORDERED: LACTATED RINGERS 1,000 ML IV ONE (18:00)
--- NOTE | 2021-07-22 18:06 | ED GI ---
General Stated Complaint: ABD PAIN Source of Information: Patient, EMS, Old Records History of Present Illness Date Seen by Provider: Jul 22, 2021 Time Seen by Provider: 17:50 Initial Comments PT ARRIVES VIA EMS FROM HOME C/O NAUSEA/VOMITING/DIARRHEA/ABDOMINAL PAIN THIS IS CHRONIC/FREQUENT COMPLAINT FOR PT, PT WAS HERE 7 DAYS AGO FOR SAME, WORK UP, INCLUDING LAB AND CT OF ABDOMEN/PELVIS ALL NORMAL AT THAT TIME PT HAS HAD MULTIPLE CT SCANS OF HEAD/CHEST/ABDOMEN/PELVIS IN THE LAST YEAR AND ALL HAVE BEEN NORMAL ( OTHER THAN KNOWN NON-OBSTRUCTING INTRARENAL STONES) SEEN AT [facility] TODAY FOR FOLLOW UP, PT STATES THEY ARE GOING TO SET HIM UP TO HAVE AN EGD AND COLONOSCOPY, BUT THIS HAS NOT BEEN DONE YET. PT ALSO STATES HE WAS PRESCRIBED AN UNKNOWN MEDICATION TODAY, BUT DID NOT PICK IT UP--WAS SENT TO [facility] IN [place] AT PT REQUEST PT C/O DIFFUSE LOWER ABDOMINAL PAIN CLAIMS PAIN IS A "10" PT IS NOT NAUSEATED NOW, AND HAS NOT TAKEN ANYTHING FOR NAUSEA TODAY HAS VOMITED X 5 TODAY--NORMAL YELLOW/GREEN BILE. NO FOOD STATES HE HAS NOT EATEN IN OVER 2 DAYS, AND HAD A SIP OF WATER YESTERDAY MORNING, OTHERWISE NO FLUID INTAKE EITHER HAS HAD DIARRHEA TODAY X 6-7 --STATES STOOLS ARE BLACK AND TARRY C/O DECREASED URINE OUTPUT, LAST VOID WAS A COUPLE OF HOURS AGO, AND NEEDS TO URINATE ON ARRIVAL NO KNOWN FEVER, BUT HAS HAD "COLD CHILLS" ALSO C/O HEADACHE HAS NOT TAKEN ANYTHING FOR SYMPTOMS AT ANY TIME STATES HE DOES NOT HAVE ANY GI MEDICATIONS AT HOME PT HAS HAD [facility] COVID-19 VACCINE X 2--LAST ONE 02/06/21 NO KNOWN SICK CONTACTS PT WITH MULTITUDE OF VISITS, MANY FOR GI COMPLAINTS AND/OR CHEST PAIN COMPLAINTS--ALL WORK UP'S HAVE BEEN NON-DIAGNOSTIC PCP: [facility], [employer] JADIEL Allergies and Home Medications Allergies Coded Allergies: Sulfa (Sulfonamide Antibiotics) (Verified Allergy, Severe, HIVES, 08/14/20) levofloxacin (Verified Allergy, Unknown, 06/12/20) doxycycline (Verified Adverse Reaction, Mild, Vomiting, 06/12/20) Patient Home Medication List Home Medication List Reviewed: Yes Acetaminophen (Tylenol Extra Strength) 500 Mg Tablet, 1,000 MG PO Q8H PRN for PAIN-MILD (1-4), (Reported) Entered as Reported by: PETE JUÁREZ on 09/24/20 0928 Benzonatate (Tessalon Perles) 100 Mg Capsule, 200 MG PO TID Prescribed by: BENIGNO MYRICK on 03/07/212349 Guaifenesin/Dextromethorphan (Mucinex Dm ER 1,200-60 mg Tab) 1 Each Tbmp.12hr, 1 EACH PO BID Prescribed by: BENIGNO MYRICK on 03/07/212349 Hydrocodone/Acetaminophen (Hydrocodone-Acetamin 5-325 mg) 1 Each Tablet, 1 TAB PO Q4H PRN for PAIN-MODERATE (5-7) Prescribed by: SYLWIA TORRES on 07/16/212034 Hyoscyamine Sulfate (Levsin-Sl) 0.125 Mg Tab.subl, 0.25 MG SL Q4H Prescribed by: BENIGNO MYRICK on 07/22/21 184 L. Acidophilus/Pectin, Tensas (Acidophilus Capsule) 1 Each Capsule, 2 EACH PO QID Prescribed by: BENIGNO MYRICK on 07/22/21 185 Metoprolol Succinate (Metoprolol Succinate) 50 Mg Tab.er.24h, 50 MG PO, (Reported) Entered as Reported by: JASPREET GÓMEZ on 11/03/202205 Nitroglycerin (Nitroglycerin) 0.4 Mg Tab.subl, 0.4 MG SL, (Reported) Entered as Reported by: JASPREET GÓMEZ on 11/03/202205 Olanzapine (Olanzapine) 5 Mg Tablet, 5 MG PO, (Reported) Entered as Reported by: JASPREET GÓMEZ on 11/03/202205 Omeprazole (Omeprazole) 20 Mg Capsule.dr, 20 MG PO BID Prescribed by: SYLWIA TORRES on 10/07/20 1427 Ondansetron (Ondansetron Odt) 4 Mg Tab.rapdis, 4 MG PO Q8H PRN for nausea Prescribed by: VICKY RENNER on 03/04/21 1215 Ondansetron (Ondansetron Odt) 8 Mg Tab.rapdis, 8 MG PO Q4H PRN for NAUSEA/VOMITING Prescribed by: BENIGNO MYRICK on 03/07/212349 Ondansetron (Ondansetron Odt) 4 Mg Tab.rapdis, 4 MG PO Q4H PRN for NAUSEA/VOMITING Prescribed by: SYLWIA TORRES on 07/16/212034 Ondansetron (Ondansetron Odt) 4 Mg Tab.rapdis, 8 MG PO Q4H Prescribed by: BENIGNO MYRICK on 07/22/211848 Pantoprazole Sodium (Protonix) 40 Mg Tablet.dr, 40 MG PO DAILY Prescribed by: BENIGNO MYRICK on 03/07/212349 Pantoprazole Sodium (Protonix) 40 Mg Tablet.dr, 40 MG PO DAILY Prescribed by: BENIGNO MYRICK on 07/22/211848 Sucralfate (Carafate) 1 Gm Tablet, 1 GM PO QID Prescribed by: BENIGNO MYRICK on 07/22/211848 Review of Systems Review of Systems Constitutional: see HPI, chills Respiratory: No Symptoms Reported Cardiovascular: No Symptoms Reported Gastrointestinal: See HPI, Abdominal Pain, Diarrhea, Nausea, Poor Appetite, Po or Fluid Intake, Vomiting Genitourinary: See HPI Musculoskeletal: no symptoms reported Skin: no symptoms reported Psychiatric/Neurological: See HPI, Headache Endocrine: No Symptoms Reported Hematologic/Lymphatic: No Symptoms Reported Past Mtfbtil-Msipze-Bxaypx Hx Patient Social History Tobacco Use?: Yes Tobacco type used: Cigarettes Smoking Status: Current Everyday Smoker Substance use?: No Alcohol Use?: Yes Alcohol Frequency: Several times a month Immunizations Up To Date First/Initial COVID19 Vaccinat: 04/2021 Second COVID19 Vaccination Cole: 03/2021 Past Medical History Surgeries: Yes (KIDNEY STONES--BASKET REMOVAL, ) Adenoidectomy, Cardiac, Renal, Tonsillectomy, Vasectomy Respiratory: No Cardiac: No Neurological: Yes (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, MOSTLY RESOLVED) Stroke Reproductive Disorders: No Genitourinary: Yes (EPIDIDYMITIS) Kidney Stones Gastrointestinal: Yes (CHRONIC GI COMPLAINTS) Musculoskeletal: Yes Chronic Back Pain Endocrine: Yes (hypoglycemia) HEENT: Yes (TONSILLECTOMY) Tonsilitis Cancer: No Psychosocial: Yes Anxiety, PTSD Integumentary: No Blood Disorders: No Family Medical History SOCIAL HISTORY: -ETOH--OCCASIONAL USE -DRUGS--DENIES USE, BUT UDS HAS BEEN + FOR THC -SMOKES 1 PPD PAST SURGICAL HISTORY: -KIDNEY STONES-BASKET REMOVAL -TONSILLECTOMY/ADENOIDECTOMY -VASECTOMY -CARDIAC CATH 09/24/20 BY : CONCLUSIONS: 1. No angiographically significant coronary artery disease. 2. Normal left ventricular end-diastolic pressure. 3. Normal left ventricular systolic function with ejection fraction of 55% to 60%. DISCUSSION AND RECOMMENDATIONS: Based on results of the study, chest discomfort does not appear to be of coronary origin. Risk factor modification is advised. Have advised to refrain from tobacco use. Other risk factor modification has also been discussed. Outpatient followup is advised. Physical Exam Vital Signs Vital Signs - First Documented 07/22/21 17:52 Temp 37.1 Pulse 67 Resp 19 B/P (MAP) 151/99 (116) Pulse Ox 96 Capillary Refill : Height/Weight/BMI Height: 6'" Weight: 242lbs. oz. 109.263631wh; 210.00 BMI Method:Stated General Appearance: WD/WN, no apparent distress, other (DOES NOT APPEAR ILL OR TO BE IN ANY DISCOMFORT OR DISTRESS WHATSOEVER. RESTING QUIETLY, COMPLETELY OUTSTRETCHED, MOVES WITHOUT DIFFICULTY) HEENT: PERRL/EOMI, other (ORAL MUCOSA MOIST) Respiratory: normal breath sounds, no respiratory distress, no accessory muscle use Cardiovascular: regular rate, rhythm, no murmur Gastrointestinal: normal bowel sounds, soft, no organomegaly, no pulsatile mass, tenderness (MILD DIFFUSE LOWER ABDOMINAL TENDERNESS) Rectal: normal exam, normal rectal tone, heme negative stool; No hemorrhoids, No mass, No tenderness; other (NO STOOL IN RECTUM--HEMOCCULT NEGATIVE) Extremities: normal inspection Neurologic/Psychiatric: transaction manager II-XII nml as tested, no motor/sensory deficits, alert, normal mood/affect, oriented x 3 Skin: normal color, warm/dry, tattoos/piercings (TATTOOS) Progress/Results/Core Measures Results/Orders Lab Results Laboratory Tests Test 07/22/21 18:00 07/22/21 18:27 Range/Units White Blood Count 6.4 4.3-11.0 10^3/uL Red Blood Count 4.81 4.30-5.52 10^6/uL Hemoglobin 15.9 13.3-17.7 g/dL Hematocrit 47 40-54 % Mean Corpuscular Volume 97 80-99 fL Mean Corpuscular Hemoglobin 33 25-34 pg Mean Corpuscular Hemoglobin Concent 34 32-36 g/dL Red Cell Distribution Width 13.2 10.0-14.5 % Platelet Count 228 130-400 10^3/uL Mean Platelet Volume 9.2 9.0-12.2 fL Immature Granulocyte % (Auto) 0 % Neutrophils (%) (Auto) 61 42-75 % Lymphocytes (%) (Auto) 24 12-44 % Monocytes (%) (Auto) 8 0-12 % Eosinophils (%) (Auto) 5 0-10 % Basophils (%) (Auto) 1 0-10 % Neutrophils # (Auto) 3.9 1.8-7.8 10^3/uL Lymphocytes # (Auto) 1.6 1.0-4.0 10^3/uL Monocytes # (Auto) 0.5 0.0-1.0 10^3/uL Eosinophils # (Auto) 0.3 0.0-0.3 10^3/uL Basophils # (Auto) 0.1 0.0-0.1 10^3/uL Immature Granulocyte # (Auto) 0.0 0.0-0.1 10^3/uL Percent Immature Platelet Fraction 2.4 0.0-7.6 % Sodium Level 138 135-145 MMOL/L Potassium Level 4.2 3.6-5.0 MMOL/L Chloride Level 106 98-107 MMOL/L Carbon Dioxide Level 20 L 21-32 MMOL/L Anion Gap 12 5-14 MMOL/L Blood Urea Nitrogen 6 L 7-18 MG/DL Creatinine 0.91 0.60-1.30 MG/DL Estimat Glomerular Filtration Rate 91 BUN/Creatinine Ratio 7 Glucose Level 95 70-105 MG/DL Calcium Level 9.0 8.5-10.1 MG/DL Corrected Calcium 9.1 8.5-10.1 MG/DL Magnesium Level 2.2 1.6-2.4 MG/DL Total Bilirubin 0.6 0.1-1.0 MG/DL Aspartate Amino Transf (AST/SGOT) 26 5-34 U/L Alanine Aminotransferase (ALT/SGPT) 24 0-55 U/L Alkaline Phosphatase 76 40-136 U/L Total Protein 6.8 6.4-8.2 GM/DL Albumin 3.9 3.2-4.5 GM/DL Amylase Level 40 25-125 U/L Lipase 16 8-78 U/L Serum Alcohol < 10 <10 MG/DL Urine Color YELLOW Urine Clarity CLEAR Urine pH 7.0 5-9 Urine Specific [place] 1.010 L 1.016-1.022 Urine Protein NEGATIVE NEGATIVE Urine Glucose (UA) NEGATIVE NEGATIVE Urine Ketones NEGATIVE NEGATIVE Urine Nitrite NEGATIVE NEGATIVE Urine Bilirubin NEGATIVE NEGATIVE Urine Urobilinogen 1.0 < = 1.0 MG/DL Urine Leukocyte Esterase NEGATIVE NEGATIVE Urine RBC (Auto) NEGATIVE NEGATIVE Urine RBC NONE /HPF Urine WBC NONE /HPF Urine Squamous Epithelial Cells 0-2 /HPF Urine Crystals PRESENT H /LPF Urine Amorphous Sediment FEW GAMAL PHOSPHATE H /LPF Urine Bacteria FEW H /HPF Urine Casts NONE /LPF Urine Mucus NEGATIVE /LPF Urine Culture Indicated YES My Orders Orders - BENIGNO MYRICK DO Ed Iv/Invasive Line Start (07/22/21 17:55) Monitor-Rhythm Ecg Trace Only (07/22/21 17:55) Alcohol (07/22/21 17:55) Amylase (07/22/21 17:55) Cbc With Automated Diff (07/22/21 17:55) Comprehensive Metabolic Panel (07/22/21 17:55) Drug Screen Stat (Urine) (07/22/21 17:55) Lipase (07/22/21 17:55) Magnesium (07/22/21 17:55) Ua Culture If Indicated (07/22/21 17:55) Ed Iv/Invasive Line Start (07/22/21 17:55) Lactated Ringers (Lr 1000 Ml Iv Solution (07/22/21 18:00) Pantoprazole Injection (Protonix Injecti (07/22/21 18:00) Ketorolac Injection (Toradol Injection) (07/22/21 18:45) Urine Culture (07/22/21 18:27) Fecal Occult Bedside (07/22/21 18:56) Medications Given in ED Current Medications Medications Dose Ordered Sig/Alba Route Start Time Stop Time Status Last Admin Dose Admin Ketorolac Tromethamine 30 mg ONCE ONCE IVP 07/22/21 18:45 07/22/21 18:46 DC 07/22/21 18:50 30 MG Lactated Ringer's 1,000 ml @ 0 mls/hr Q0M ONCE IV 07/22/21 18:00 07/22/21 18:01 DC 07/22/21 18:38 1,000 MLS/HR Pantoprazole 40 mg ONCE ONCE IV 07/22/21 18:00 07/22/21 18:01 DC 07/22/21 18:38 40 MG Vital Signs/I&O 07/22/21 17:52 Temp 37.1 Pulse 67 Resp 19 B/P (MAP) 151/99 (116) Pulse Ox 96 Progress Progress Note : Progress Note GIVEN IV FLUIDS, PROTONIX, TORADOL NO NAUSEA/VOMITING OR DIARRHEA DURING ER STAY WALKS UPRIGHT AND MOVES WITHOUT DIFFICULTY UNEVENTFUL ER STAY Departure Impression Primary Impression: Nausea vomiting and diarrhea Additional Impression: Lower abdominal pain Disposition: HOME, SELF-CARE Condition: Stable Departure-Patient Inst. Decision time for Depature: 18:45 Referrals: [facility]/MIRIAM (PCP) Primary Care Physician LILLIAN DUVALL (Family) Primary Care Physician RICHARD HUTCHINSON DO Patient Instructions: Abdominal Pain, Adult ED, Nausea and Vomiting, Adult ED Add. Discharge Instructions: LOTS OF CLEAR LIQUIDS--WATER, BROTH, JELLO, GATORADE BRATS DIET--BANANAS, RICE, APPLESAUCE, TOAST, SALTINES FOLLOW UP WITH DR. HUTCHINSON, GENERAL SURGEON, FOR FURTHER CARE--CALL IN AM TO [facility] APPOINTMENT Scripts L. Acidophilus/Pectin, Tensas (Acidophilus Capsule) 1 Each Capsule 2 EACH PO QID, #40 CAP Prov: LUDIVINA MYRICKA K DO 07/22/21 Hyoscyamine Sulfate (Levsin-Sl) 0.125 Mg Tab.subl 0.25 MG SL Q4H, #15 TAB Prov: LUDIVINA MYRICKA K DO 07/22/21 Ondansetron (Ondansetron Odt) 4 Mg Tab.rapdis 8 MG PO Q4H for Nausea/Vomiting, #10 TAB Prov: RAMEZLUDIVINAA K DO 07/22/21 Sucralfate (Carafate) 1 Gm Tablet 1 GM PO QID, #60 TAB Prov: RAMEZ,BENIGNO K DO 07/22/21 Pantoprazole Sodium (Protonix) 40 Mg Tablet.dr 40 MG PO DAILY, #15 TAB Prov: LUDIVINA MYRICKA K DO 07/22/21 RAMEZBENIGNO K DO Jul 22, 2021 18:06
[2021-07-22 18:12] LABS: EOSINOPHILS # (AUTO) 0.3 10^3/uL (0.0-0.3); EOSINOPHILS % (AUTO) 5 % (0-10)
[2021-07-22 18:14] LABS: BASOPHILS # (AUTO) 0.1 10^3/uL (0.0-0.1); BASOPHILS % (AUTO) 1 % (0-10); HEMATOCRIT 47 % (40-54); HEMOGLOBIN 15.9 g/dL (13.3-17.7); LYMPHOCYTES # (AUTO) 1.6 10^3/uL (1.0-4.0); LYMPHOCYTES % (AUTO) 24 % (12-44); MEAN CORPUSCULAR HEMOGLOBIN 33 pg (25-34); MEAN CORPUSCULAR HGB CONC 34 g/dL (32-36); MEAN CORPUSCULAR VOLUME 97 fL (80-99); MEAN PLATELET VOLUME 9.2 fL (9.0-12.2); MONOCYTES # (AUTO) 0.5 10^3/uL (0.0-1.0); MONOCYTES % (AUTO) 8 % (0-12); NEUTROPHILS # (AUTO) 3.9 10^3/uL (1.8-7.8); NEUTROPHILS % (AUTO) 61 % (42-75); PLATELET COUNT 228 10^3/uL (130-400); WHITE BLOOD COUNT 6.4 10^3/uL (4.3-11.0)
[2021-07-22 18:30] LABS: ALBUMIN 3.9 GM/DL (3.2-4.5)
[2021-07-22 18:31] LABS: CHLORIDE 106 MMOL/L (98-107); POTASSIUM 4.2 MMOL/L (3.6-5.0); SODIUM 138 MMOL/L (135-145)
[2021-07-22 18:32] LABS: AMYLASE 40 U/L (25-125)
[2021-07-22 18:33] LABS: GLUCOSE 95 MG/DL (70-105); TOTAL PROTEIN 6.8 GM/DL (6.4-8.2)
[2021-07-22 18:33] LABS: BILIRUBIN,URINE NEGATIVE (NEGATIVE); CLARITY,URINE CLEAR; COLOR,URINE YELLOW; GLUCOSE, URINE (UA) NEGATIVE (NEGATIVE); KETONES,URINE NEGATIVE (NEGATIVE); LEUKOCYTE ESTERASE ,URINE NEGATIVE (NEGATIVE); NITRITE,URINE NEGATIVE (NEGATIVE); PROTEIN,URINE NEGATIVE (NEGATIVE)
[2021-07-22 18:34] LABS: CARBON DIOXIDE 20 MMOL/L (21-32)
[2021-07-22 18:35] LABS: BILIRUBIN,TOTAL 0.6 MG/DL (0.1-1.0)
[2021-07-22 18:37] LABS: ALKALINE PHOSPHATASE 76 U/L (40-136); CREATININE SERUM 0.91 MG/DL (0.60-1.30); GFR ESTIMATED 91
[2021-07-22 18:38] LABS: BUN/CREATININE RATIO 7
[2021-07-22 18:40] LABS: ALANINE AMINOTRANSFERASE 24 U/L (0-55); MAGNESIUM 2.2 MG/DL (1.6-2.4)
[2021-07-22 18:41] LABS: LIPASE 16 U/L (8-78)
[2021-07-22 18:41] LABS: AMORPHOUS SEDIMENT,UR FEW AMOR PHOSPHATE /LPF; BACTERIA,URINE FEW /HPF; SQUAMOUS EPITHELIAL CELL,UR 0-2 /HPF
[2021-07-22] MEDS ORDERED: KETOROLAC 30 MG/ML VIAL IVP ONE (18:45)
[2021-07-22] MEDS ORDERED: ONDA4TAB11 PO (18:49)
[2021-07-22] MEDS ORDERED: SUCR1TAB36 PO (18:49)
[2021-07-22] MEDS ORDERED: PANT40TA2 PO (18:49)
[2021-07-22] MEDS ORDERED: HYOS0.1283 SL (18:49)
[2021-07-22] MEDS ORDERED: L. A1CAP11 PO (18:50)
[2021-07-22 19:15] VITALS: BP 125/84
== END 2021-07-22 19:15 | disposition home or self-care (01) ==
LOC: EDUNIT# 17:49 → ER 17:50
DX: R11.2 Nausea with vomiting, unspecified (principal); R19.7 Diarrhea, unspecified; F41.9 Anxiety disorder, unspecified; F43.10 Post-traumatic stress disorder, unspecified; Z86.73 Personal history of transient ischemic attack (TIA), and cerebral infarction without residual deficits; Z79.899 Other long term (current) drug therapy
CPT/HCPCS: 80053; 81000; 82150; 82274; 83690; 83735; 85025; 87088; 93041; 99284; G0480; 36415; 80320

== ENCOUNTER 2021-07-30 20:31 | Emergency (ER) | payer MEDICAID ==
[~2021-07-30] VITALS: Ht 182 cm; Wt 104.8 kg
[~2021-07-30 20:31] MED LIST changes: +HYOS0.1283 SL; +L. A1CAP11 PO; +SUCR1TAB36 PO
[2021-07-30] MEDS ORDERED: PROMETHAZINE INJ 25 MG/ML (PHENERGAN) AMP IVP ONE (20:45)
[2021-07-30] MEDS ORDERED: NS IV 1000 ML 1,000 ML IV SCH (20:45)
[2021-07-30] MEDS ORDERED: KETOROLAC 30 MG/ML VIAL IVP ONE (20:45)
[2021-07-30 20:46] VITALS: BP_SYST 144; BP_SYST 149; BP_SYST 159; BP_DIAS 100; BP_DIAS 101; BP_DIAS 105
[2021-07-30 20:47] VITALS: BP 159/101
--- NOTE | 2021-07-30 20:51 | ED General ---
General Chief Complaint: General Problems/Pain Stated Complaint: FALL, SEIZURES Nursing Triage Note: MAYO, N/V/D, HIT HEAD, DIZZINESS. Source of Information: Patient Exam Limitations: No Limitations History of Present Illness Date Seen by Provider: Jul 30, 2021 Time Seen by Provider: 20:49 Initial Comments To ER by EMS from home with reports of ongoing nausea vomiting and abdominal pain. This nausea and vomiting has caused him to become lightheaded which caused him to fall striking the back of his head. He was dazed but did not lose consciousness. He had some twitching activity at home of the upper body. He did have a 6 pack of beer this morning. Timing/Duration: 1-2 Days Severity: Moderate Associated Systoms: Nausea/Vomiting Allergies and Home Medications Allergies Coded Allergies: Sulfa (Sulfonamide Antibiotics) (Verified Allergy, Severe, HIVES, 08/14/20) levofloxacin (Verified Allergy, Unknown, 06/12/20) doxycycline (Verified Adverse Reaction, Mild, Vomiting, 06/12/20) Patient Home Medication List Home Medication List Reviewed: Yes Acetaminophen (Tylenol Extra Strength) 500 Mg Tablet, 1,000 MG PO Q8H PRN for PAIN-MILD (1-4), (Reported) Entered as Reported by: PETE JUÁREZ on 09/24/20 0928 Benzonatate (Tessalon Perles) 100 Mg Capsule, 200 MG PO TID Prescribed by: BENIGNO MYRICK on 03/07/21 235 Guaifenesin/Dextromethorphan (Mucinex Dm ER 1,200-60 mg Tab) 1 Each Tbmp.12hr, 1 EACH PO BID Prescribed by: BENIGNO MYRICK on 03/07/21 235 Hydrocodone/Acetaminophen (Hydrocodone-Acetamin 5-325 mg) 1 Each Tablet, 1 TAB PO Q4H PRN for PAIN-MODERATE (5-7) Prescribed by: SYLWIA TORRES on 07/16/212034 Hyoscyamine Sulfate (Levsin-Sl) 0.125 Mg Tab.subl, 0.25 MG SL Q4H Prescribed by: BENIGNO MYRICK on 07/22/21 184 L. Acidophilus/Pectin, [place] (Acidophilus Capsule) 1 Each Capsule, 2 EACH PO QID Prescribed by: BENIGNO MYRICK on 07/22/21 1850 Metoprolol Succinate (Metoprolol Succinate) 50 Mg Tab.er.24h, 50 MG PO, (Reported) Entered as Reported by: JASPREET GÓMEZ on 11/03/202205 Nitroglycerin (Nitroglycerin) 0.4 Mg Tab.subl, 0.4 MG SL, (Reported) Entered as Reported by: JASPREET GÓMEZ on 11/03/202205 Olanzapine (Olanzapine) 5 Mg Tablet, 5 MG PO, (Reported) Entered as Reported by: JASPREET GÓMEZ on 11/03/202205 Omeprazole (Omeprazole) 20 Mg Capsule.dr, 20 MG PO BID Prescribed by: SYLWIA TORRES on 10/07/20 1427 Ondansetron (Ondansetron Odt) 4 Mg Tab.rapdis, 4 MG PO Q8H PRN for nausea Prescribed by: VICKY RENNER on 03/04/21 1215 Ondansetron (Ondansetron Odt) 8 Mg Tab.rapdis, 8 MG PO Q4H PRN for NAUSEA/VOMITING Prescribed by: BENIGNO MYRICK on 03/07/212349 Ondansetron (Ondansetron Odt) 4 Mg Tab.rapdis, 4 MG PO Q4H PRN for NAUSEA/VOMITING Prescribed by: SYLWIA TORRES on 07/16/212034 Ondansetron (Ondansetron Odt) 4 Mg Tab.rapdis, 8 MG PO Q4H Prescribed by: BENIGNO MYRICK on 07/22/211848 Pantoprazole Sodium (Protonix) 40 Mg Tablet.dr, 40 MG PO DAILY Prescribed by: BENIGNO MYRICK on 03/07/212349 Pantoprazole Sodium (Protonix) 40 Mg Tablet.dr, 40 MG PO DAILY Prescribed by: BENIGNO MYRICK on 07/22/211848 Sucralfate (Carafate) 1 Gm Tablet, 1 GM PO QID Prescribed by: BENIGNO MYRICK on 07/22/211848 Review of Systems Review of Systems Constitutional: see HPI EENTM: see HPI Respiratory: no symptoms reported Cardiovascular: no symptoms reported Gastrointestinal: abdominal pain, nausea, vomiting Genitourinary: no symptoms reported Musculoskeletal: no symptoms reported Skin: no symptoms reported Psychiatric/Neurological: No Symptoms Reported Hematologic/Lymphatic: No Symptoms Reported Past Mpnjfpo-Ctcgja-Vzysxq Hx Patient Social History Tobacco Use?: Yes Tobacco type used: Cigarettes Substance use?: No Alcohol Use?: Yes Alcohol Frequency: Once in a while Pt feels they are or have been: No Immunizations Up To Date First/Initial COVID19 Vaccinat: 12/29 Second COVID19 Vaccination Cole: 01/29 COVID19 Vaccine [employer]: [employer] Past Medical History Surgery/Hospitalization HX: RENAL STONES, APPY,VASECTOMY, T/A, CVA 2019, ANXIETY, PTSD Surgeries: Yes (KIDNEY STONES--BASKET REMOVAL, ) Adenoidectomy, Cardiac, Renal, Tonsillectomy, Vasectomy Respiratory: No Cardiac: No Neurological: Yes (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, MOSTLY RESOLVED) Stroke Reproductive Disorders: No Genitourinary: Yes (EPIDIDYMITIS) Kidney Stones Gastrointestinal: Yes (CHRONIC GI COMPLAINTS) Musculoskeletal: Yes Chronic Back Pain Endocrine: Yes (hypoglycemia) HEENT: Yes (TONSILLECTOMY) Tonsilitis Cancer: No Psychosocial: Yes Anxiety, PTSD Integumentary: No Blood Disorders: No Family Medical History SOCIAL HISTORY: -ETOH--OCCASIONAL USE -DRUGS--DENIES USE, BUT UDS HAS BEEN + FOR THC -SMOKES 1 PPD PAST SURGICAL HISTORY: -KIDNEY STONES-BASKET REMOVAL -TONSILLECTOMY/ADENOIDECTOMY -VASECTOMY -CARDIAC CATH 09/24/20 BY : CONCLUSIONS: 1. No angiographically significant coronary artery disease. 2. Normal left ventricular end-diastolic pressure. 3. Normal left ventricular systolic function with ejection fraction of 55% to 60%. DISCUSSION AND RECOMMENDATIONS: Based on results of the study, chest discomfort does not appear to be of coronary origin. Risk factor modification is advised. Have advised to refrain from tobacco use. Other risk factor modification has also been discussed. Outpatient followup is advised. Physical Exam Vital Signs Vital Signs - First Documented 07/30/21 20:33 Temp 36.8 Pulse 80 Resp 16 B/P (MAP) 154/103 (120) Pulse Ox 96 O2 Delivery Room Air Capillary Refill : Less Than 3 Seconds Height, Weight, BMI Height: 6'" Weight: 242lbs. oz. 109.338102ab; 31.00 BMI Method:Stated General Appearance: No Apparent Distress, WD/WN Eyes: Bilateral Eye Normal Inspection, Bilateral Eye PERRL, Bilateral Eye EOMI HEENT: PERRL/EOMI, TMs Normal Neck: Full Range of Motion, Normal Inspection Respiratory: No Accessory Muscle Use, No Respiratory Distress Cardiovascular: Regular Rate, Rhythm, Normal Peripheral Pulses Gastrointestinal: Normal Bowel Sounds, Soft Extremity: Normal Capillary Refill, Normal Inspection Neurologic/Psychiatric: Alert, Oriented x3 Skin: Normal Color, Warm/Dry Progress/Results/Core Measures Suspected Sepsis SIRS Temperature: Pulse: 80 Respiratory Rate: 16 Laboratory Tests 07/30/21 20:53: White Blood Count 6.3 Blood Pressure 154 /103 Mean: 120 Laboratory Tests 07/30/21 20:53: Creatinine 1.05, Platelet Count 256, Total Bilirubin 0.7 Results/Orders Lab Results Laboratory Tests Test 07/30/21 20:53 07/30/21 22:04 Range/Units White Blood Count 6.3 4.3-11.0 10^3/uL Red Blood Count 5.03 4.30-5.52 10^6/uL Hemoglobin 16.3 13.3-17.7 g/dL Hematocrit 49 40-54 % Mean Corpuscular Volume 96 80-99 fL Mean Corpuscular Hemoglobin 32 25-34 pg Mean Corpuscular Hemoglobin Concent 34 32-36 g/dL Red Cell Distribution Width 13.5 10.0-14.5 % Platelet Count 256 130-400 10^3/uL Mean Platelet Volume 8.8 L 9.0-12.2 fL Immature Granulocyte % (Auto) 0 % Neutrophils (%) (Auto) 69 42-75 % Lymphocytes (%) (Auto) 17 12-44 % Monocytes (%) (Auto) 9 0-12 % Eosinophils (%) (Auto) 5 0-10 % Basophils (%) (Auto) 1 0-10 % Neutrophils # (Auto) 4.4 1.8-7.8 10^3/uL Lymphocytes # (Auto) 1.1 1.0-4.0 10^3/uL Monocytes # (Auto) 0.5 0.0-1.0 10^3/uL Eosinophils # (Auto) 0.3 0.0-0.3 10^3/uL Basophils # (Auto) 0.1 0.0-0.1 10^3/uL Immature Granulocyte # (Auto) 0.0 0.0-0.1 10^3/uL Sodium Level 140 135-145 MMOL/L Potassium Level 3.2 L 3.6-5.0 MMOL/L Chloride Level 105 98-107 MMOL/L Carbon Dioxide Level 22 21-32 MMOL/L Anion Gap 13 5-14 MMOL/L Blood Urea Nitrogen 4 L 7-18 MG/DL Creatinine 1.05 0.60-1.30 MG/DL Estimat Glomerular Filtration Rate 77 BUN/Creatinine Ratio 4 Glucose Level 126 H 70-105 MG/DL Calcium Level 9.0 8.5-10.1 MG/DL Corrected Calcium 9.0 8.5-10.1 MG/DL Total Bilirubin 0.7 0.1-1.0 MG/DL Aspartate Amino Transf (AST/SGOT) 16 5-34 U/L Alanine Aminotransferase (ALT/SGPT) 23 0-55 U/L Alkaline Phosphatase 91 40-136 U/L Total Protein 6.8 6.4-8.2 GM/DL Albumin 4.0 3.2-4.5 GM/DL Lipase 26 8-78 U/L Serum Alcohol < 10 <10 MG/DL Urine Opiates Screen NEGATIVE NEGATIVE Urine Oxycodone Screen NEGATIVE NEGATIVE Urine Methadone Screen NEGATIVE NEGATIVE Urine Propoxyphene Screen NEGATIVE NEGATIVE Urine Barbiturates Screen NEGATIVE NEGATIVE Ur Tricyclic Antidepressants Screen NEGATIVE NEGATIVE Urine Phencyclidine Screen NEGATIVE NEGATIVE Urine Amphetamines Screen NEGATIVE NEGATIVE Urine Methamphetamines Screen NEGATIVE NEGATIVE Urine Benzodiazepines Screen NEGATIVE NEGATIVE Urine Cocaine Screen NEGATIVE NEGATIVE Urine Cannabinoids Screen NEGATIVE NEGATIVE My Orders Orders - YULIET ORELLANA APRN Cbc With Automated Diff (07/30/21 20:36) Comprehensive Metabolic Panel (07/30/21 20:36) Ekg Tracing (07/30/21 20:36) Lipase (07/30/21 20:36) Orthostatic Vital Signs (Adult (07/30/21 20:36) Ed Iv/Invasive Line Start (07/30/21 20:36) Ct Head/Cervical Spine Wo (07/30/21 20:36) Ns Iv 1000 Ml (Sodium Chloride 0.9%) (07/30/21 20:45) Promethazine Injection (Phenergan Injec (07/30/21 20:45) Ketorolac Injection (Toradol Injection) (07/30/21 20:45) Alcohol (07/30/21 21:37) Drug Screen Stat (Urine) (07/30/21 21:37) Antacid Suspension (Mylanta Suspension (07/30/21 21:45) Lidocaine 2% Viscous 15 Ml (Xylocaine Vi (07/30/21 21:45) Medications Given in ED Vital Signs/I&O 07/30/21 07/30/21 07/30/21 20:33 20:46 22:36 Temp 36.8 36.6 Pulse 80 84 76 89 95 Resp 16 18 B/P (MAP) 154/103 (120) 159/101 (120) 130/86 149/100 (116) 144/105 (118) Pulse Ox 96 97 O2 Delivery Room Air Room Air Capillary Refill : Less Than 3 Seconds Blood Pressure Mean: 120 Departure Communication (Admissions) he is scheduled for gallbladder US this wednesday he informs me Impression Primary Impression: Abdominal pain Additional Impression: Nausea and vomiting Disposition: 01 HOME, SELF-CARE Condition: Stable Departure-Patient Inst. Decision time for Depature: 21:36 Referrals: [facility]/MIR[facility] (PCP) Primary Care Physician LILLIAN DUVALL (Family) Primary Care Physician Patient Instructions: NO INSTRUCTIONS GIVEN YULIET ORELLANA APRN Jul 30, 2021 20:51
[2021-07-30 21:12] LABS: BASOPHILS # (AUTO) 0.1 10^3/uL (0.0-0.1); BASOPHILS % (AUTO) 1 % (0-10); EOSINOPHILS # (AUTO) 0.3 10^3/uL (0.0-0.3); EOSINOPHILS % (AUTO) 5 % (0-10); HEMATOCRIT 49 % (40-54); HEMOGLOBIN 16.3 g/dL (13.3-17.7); LYMPHOCYTES # (AUTO) 1.1 10^3/uL (1.0-4.0); LYMPHOCYTES % (AUTO) 17 % (12-44); MEAN CORPUSCULAR HEMOGLOBIN 32 pg (25-34); MEAN CORPUSCULAR HGB CONC 34 g/dL (32-36); MEAN CORPUSCULAR VOLUME 96 fL (80-99); MEAN PLATELET VOLUME 8.8 fL (9.0-12.2); MONOCYTES # (AUTO) 0.5 10^3/uL (0.0-1.0); MONOCYTES % (AUTO) 9 % (0-12); NEUTROPHILS # (AUTO) 4.4 10^3/uL (1.8-7.8); NEUTROPHILS % (AUTO) 69 % (42-75); PLATELET COUNT 256 10^3/uL (130-400); WHITE BLOOD COUNT 6.3 10^3/uL (4.3-11.0)
[2021-07-30 21:19] LABS: POTASSIUM 3.2 MMOL/L (3.6-5.0)
[2021-07-30 21:22] LABS: TOTAL PROTEIN 6.8 GM/DL (6.4-8.2)
[2021-07-30 21:24] LABS: BILIRUBIN,TOTAL 0.7 MG/DL (0.1-1.0)
[2021-07-30 21:25] LABS: CREATININE SERUM 1.05 MG/DL (0.60-1.30)
--- NOTE | 2021-07-30 21:41 | Diagnostic Imaging Report ---
PROCEDURE: CT head and CT cervical spine without contrast. TECHNIQUE: Multiple contiguous axial images were obtained through the brain and cervical spine without the use of intravenous contrast. Sagittal and coronal reformations through the cervical spine were then performed. Auto Exposure Controls were utilized during the CT exam to meet ALARA standards for radiation dose reduction. INDICATION: Fall. Seizure. COMPARISON: 03/07/2021. FINDINGS: CT head: Screws and cortical sulci are normal in size and contour. There is no midline shift or mass-effect. No acute intra-axial hemorrhage is seen. There is no abnormal area of increased or decreased density to suggest acute hemorrhage or edema. No extra-axial mass or collection is present. The bony calvarium is intact. The visualized paranasal sinuses are unremarkable. The mastoid air cells are clear. CT cervical spine: Evaluation of static alignment shows slight grade 1 anterolisthesis at the C6 level. There is no evidence of jumped facets. Vertebral body heights are maintained. There is no acute fracture. No bony fragments are seen within the spinal canal. Moderate multilevel degenerative changes are noted consistent with intervertebral disc height loss with anterior and posterior disc osteophyte complex formations, as well as multilevel facet arthropathy. These changes are also greatest at C6-C7 level. Prevertebral and paravertebral soft tissue structures are unremarkable. Included portions of lung apices are clear. IMPRESSION: 1. No acute intracranial abnormality. No CT evidence of mass, acute infarct or intracranial hemorrhage. 2. No acute fracture or dislocation of the cervical spine. Dictated by: Dictated on workstation # [id number]
[2021-07-30] MEDS ORDERED: ANTACID SUSP 30 ML UDC (MYLANTA) PO ONE (21:45)
[2021-07-30] MEDS ORDERED: LIDOCAINE 2% VISCOUS 15 ML UDC PO ONE (21:45)
[2021-07-30 22:22] LABS: AMPHETAMINE SCREEN, URINE NEGATIVE (NEGATIVE); BARBITURATE SCREEN URINE NEGATIVE (NEGATIVE); BENZODIAZEPINES SCREEN URINE NEGATIVE (NEGATIVE); CANNABINOID SCREEN, URINE NEGATIVE (NEGATIVE); COCAINE SCREEN URINE NEGATIVE (NEGATIVE); METHADONE STAT NEGATIVE (NEGATIVE); METHAMPHETAMINE SCREEN URINE S NEGATIVE (NEGATIVE); OPIATE SCREEN URINE NEGATIVE (NEGATIVE); OXYCODONE STAT NEGATIVE (NEGATIVE); PROPOXYPHENE STAT NEGATIVE (NEGATIVE); TRICYCLIC ANTIDEPRESSANTS SCRE NEGATIVE (NEGATIVE)
[2021-07-30 22:36] VITALS: BP 130/86
== END 2021-07-30 22:39 | disposition home or self-care (01) ==
LOC: EDUNIT# 20:31 → ER 20:32
DX: R10.9 Unspecified abdominal pain (principal); R11.2 Nausea with vomiting, unspecified; G89.29 Other chronic pain; M54.9 Dorsalgia, unspecified; Z86.73 Personal history of transient ischemic attack (TIA), and cerebral infarction without residual deficits; Z72.0 Tobacco use; Z79.891 Long term (current) use of opiate analgesic
CPT/HCPCS: 70450; 72125; 80053; 80306; 83690; 85025; 93005; 99283; G0480; 36415; 80320

== ENCOUNTER → 2021-08-01 | Outpatient (CLI) | payer MEDICAID ==
--- NOTE | 2021-08-01 11:03 | Diagnostic Imaging Report ---
PROCEDURE: US Gallbladder. TECHNIQUE: Multiple real-time grayscale images were obtained over the right upper quadrant in various projections. INDICATION: Epigastric pain COMPARISON: CT from 07/16/2021 FINDINGS: The pancreas is not seen due to overlying bowel gas. The imaged portions of the aorta and IVC are unremarkable. The liver is mildly large measuring 19 cm in length. Echogenicity appears increased. No focal lesions are seen. No biliary dilatation is seen. The gallbladder wall is not thickened. No stones are seen. Sonographic Hernandez sign is negative. The main portal vein is hepatopetal. The common bile duct is not visible. The right kidney measures 12.4 cm in length. There is no hydronephrosis. No free fluid is seen. IMPRESSION: 1. No sonographic evidence of cholelithiasis or cholecystitis. 2. Hepatic steatosis. Dictated by: Dictated on workstation # [id number]
== END ==
LOC: RAD 09:45
PROVIDERS: ATTEND Surgery
DX: K76.0 Fatty (change of) liver, not elsewhere classified (principal)
CPT/HCPCS: 76705

== ENCOUNTER 2021-08-05 06:20 | Outpatient (RCR) | payer MEDICAID ==
[2021-08-12] MEDS ORDERED: PANT40TA2 PO (15:32)
== END 2021-08-11 11:29 | disposition home or self-care (01) ==
LOC: PREOP 06:20
PROVIDERS: ATTEND Surgery
DX: Z01.818 Encounter for other preprocedural examination (principal)

== ENCOUNTER 2021-08-12 13:05 | Day surgery (SDC) | payer MEDICARE, MEDICAID ==
[~2021-08-12] VITALS: Ht 182.8 cm; Wt 104.8 kg
[2021-08-12] MEDS ORDERED: LACTATED RINGERS 1,000 ML IV ONE (13:11)
[2021-08-12] MEDS ORDERED: LACTATED RINGERS 1,000 ML IV STA (13:13)
[2021-08-12] MEDS ORDERED: HURRICAINE EXT TUBE (BENZOCAINE) XX PRN (13:15)
[2021-08-12 13:35] VITALS: BP 148/94
[2021-08-12] MEDS ORDERED: MIDAZOLAM 2 MG/2 ML (VERSED) VIAL ONE (14:02)
[2021-08-12] MEDS ORDERED: PROPOFOL INJECTION 50 ML IV ONE (14:02)
--- NOTE | 2021-08-12 14:37 | Progress Note-Pre Operative ---
Pre-Operative Progress Note H&P Reviewed The H&P was reviewed, patient examined and no changes noted. Date Seen by Provider: Aug 12, 2021 Time Seen by Provider: 14:37 Date H&P Reviewed: Aug 12, 2021 Time H&P Reviewed: 14:37 Pre-Operative Diagnosis: wt loss, gerd, epigastric abd pain RICHARD HUTCHINSON DO Aug 12, 2021 14:37
[2021-08-12] MEDS ORDERED: proPOfol 200 MG/20 ML (DIPRIVAN) VIAL IV ONE (15:03)
[2021-08-12 15:25] VITALS: BP 119/68
--- NOTE | 2021-08-12 15:29 | Progress Note-Post Operative ---
Post-Operative Progess Note Surgeon (s)/Electric Motor Fitter (s) Surgeon RICHARD HUTCHINSON DO Electric Motor Fitter: na Pre-Operative Diagnosis wt loss, gerd, epigastric abd pain Post-Operative Diagnosis duodenitis, slight hiatal hernia, cecal polyp Procedure & Operative Findings Date of Procedure 08/12/21 Procedure Performed/Findings egd c biopsies, colonoscopy c hot bx polypectomy Anesthesia Type per fuel verification technician Estimated Blood Loss Estimated blood loss (mL): none Specimens/Packing Specimens Removed duodenum, antrum and ge, cecal polyp RICHARD HUTCHINSON DO Aug 12, 2021 15:29
[2021-08-12 15:30] VITALS: BP 121/71
--- NOTE | 2021-08-12 15:31 | Discharge Inst-Simple/Standard ---
Discharge Inst-Standard Patient Instructions/Follow Up Plan of Care/Instructions/FU: 2 weeks Margarito Activity as Tolerated: Yes Discharge Diet: Regular Diet RICHARD HUTCHINSON DO Aug 12, 2021 15:31
[2021-08-12] MEDS ORDERED: PANT40TA2 PO (15:32)
[2021-08-12 15:35] VITALS: BP 123/76
[2021-08-12 16:00] VITALS: BP 120/75
--- NOTE | 2021-08-12 16:59 | Anesthesia-General Post-Op ---
MAC Patient Condition Mental Status/LOC: Same as Preop Cardiovascular: Satisfactory Nausea/Vomiting: Absent Respiratory: Satisfactory Pain: Controlled Complications: Absent Post Op Complications Complications None Follow Up Care/Instructions Patient Instructions None needed. Anesthesiology Discharge Order Discharge Order Patient is doing well, no complaints, stable vital signs, no apparent adverse anesthesia problems. No complications reported per nursing. JOSE ANGEL PATEL CRNA Aug 12, 2021 16:59
--- NOTE | 2021-08-12 20:32 | OPERATIVE REPORT ---
DATE OF SERVICE: 08/12/2021 PREOPERATIVE DIAGNOSES: Weight loss and epigastric abdominal pain. POSTOPERATIVE DIAGNOSES: Duodenitis, hiatal hernia, and cecal polyp. PROCEDURES PERFORMED: EGD with biopsies, colonoscopy with hot biopsy polypectomy. SURGEON: Richard Pimentel DO ANESTHESIA: Per CURRICULUM ASSISTANT PRINCIPAL. ESTIMATED BLOOD LOSS: None. COMPLICATIONS: None. SPECIMENS: Duodenum, antrum, GE junction and cecal polyp. INDICATIONS FOR PROCEDURE: The patient is a 41-year-old male with weight loss, GERD, and epigastric abdominal pain. He understands the risks and benefits of the procedure and wished to proceed with procedure. Consent was signed in the chart. DESCRIPTION OF PROCEDURE: The patient was taken to the endoscopy suite and placed in a left lateral recumbent position. Timeout was performed. Scope was inserted in the mouth, down the esophagus, stomach and into the duodenum without difficulty. No polyps, masses or ulcerations, but does have erythematous changes throughout the duodenum consistent with duodenitis. Biopsy of the duodenum was obtained. Scope was slowly retracted back into the stomach, where it was further insufflated. No polyps, masses or ulcerations. Biopsy of the antrum was obtained. Scope was retroflexed noting no other pathology except for a small sliding hiatal hernia. Scope was returned to its normal position, slowly withdrawn to the distal esophagus. Biopsy of the GE junction was obtained. Scope was slowly retracted back until completely removed noting no other pathology. Digital rectal exam was performed. No palpable polyps, masses or ulcerations. Scope was inserted in the rectum and advanced all the way to cecum with minimal difficulty. In the cecum, our prep was adequate with lots of irrigation and suction. Cecal polyp was present, which hot biopsy polypectomy was performed. Scope was then slowly retracted back. No polyps, masses or ulcerations in the remainder of the cecum, ascending, transverse, descending and sigmoid colon. Once in the rectum, the scope was retroflexed noting no other pathology. Scope was returned to its normal position, slowly withdrawn until completely removed. The patient tolerated procedure well without any complications and taken to the recovery room in stable condition. RECOMMENDATIONS: The patient will follow up on pathology. We will stop his omeprazole and start him on Protonix 40 mg daily. If no improvement, we will consider a CT scan of the chest, abdomen and pelvis for further evaluation of weight loss. Job ID: [id number] DocumentID: [id number] Dictated Date: 08/12/2021 15:38:28 Thread Winder Date: 08/12/2021 20:31:19 Dictated By: RICHARD PIMENTEL DO
== END 2021-08-12 14:20 | disposition home or self-care (01) ==
LOC: ENDO 13:05
PROVIDERS: ATTEND Surgery
DX: K29.80 Duodenitis without bleeding (principal); K44.9 Diaphragmatic hernia without obstruction or gangrene; K62.1 Rectal polyp; K42.9 Umbilical hernia without obstruction or gangrene; K21.00 Gastro-esophageal reflux disease with esophagitis, without bleeding; K29.50 Unspecified chronic gastritis without bleeding; R19.7 Diarrhea, unspecified; F17.210 Nicotine dependence, cigarettes, uncomplicated; Z79.82 Long term (current) use of aspirin; Z79.899 Other long term (current) drug therapy

== ENCOUNTER → 2021-09-12 | Outpatient (CLI) | payer MEDICARE, MEDICAID ==
[~2021-09-12] MED LIST changes: +CATHETER FLUSH 10 ML SYR IV PRN; +CYCL10TA25 PO; -CYCL10TA9 PO
--- NOTE | 2021-09-15 07:59 | Diagnostic Imaging Report ---
Indication: Abdominal pain After intravenous administration of 5.4 mCi technetium 99m Choletec, scintigraphic images of the upper abdomen are obtained. Initial images reveal normal distribution of activity throughout the liver. There is prompt appearance of activity in the biliary tree and gallbladder. Activity passes freely into the small bowel. Patient ingested 8 ounces of ensure with gallbladder ejection fraction calculated to be 22%. Normal values are 50% or greater. Impression: No scintigraphic evidence of acute cholecystitis or biliary tract obstruction. There is depression of gallbladder ejection which could be due to chronic cholecystitis or biliary dyskinesia. Dictated by: Dictated on workstation # [id number]
== END ==
LOC: CARD 08-08 10:00
PROVIDERS: ATTEND Surgery
DX: K82.8 Other specified diseases of gallbladder (principal)
CPT/HCPCS: 78227; A9537; 78226

== ENCOUNTER 2021-10-01 05:34 | Outpatient (CLI) | payer MEDICARE, MEDICAID ==
[~2021-10-01] VITALS: Ht 182.9 cm; Wt 104.5 kg
[~2021-10-01 05:34] MED LIST changes: -CATHETER FLUSH 10 ML SYR IV PRN
== END 2021-10-06 09:01 | disposition home or self-care (01) ==
LOC: PREOP 05:34
PROVIDERS: ATTEND Surgery
DX: Z01.818 Encounter for other preprocedural examination (principal)

== ENCOUNTER 2021-10-09 08:07 | Day surgery (SDC) | payer MEDICARE, MEDICAID ==
[~2021-10-09] VITALS: Ht 182 cm; Wt 104.5 kg
[2021-10-09] VITALS (10 sets, daily range): BP systolic 97–142; BP diastolic 58–81
[2021-10-09] MEDS ORDERED: ceFAZolin 2 GM IV Premixed 50 ML IV ONE (08:15)
[2021-10-09] MEDS: LACTATED RINGERS 1,000 ML IV PRN ×2 (08:55→10:35)
--- NOTE | 2021-10-09 08:59 | Progress Note-Pre Operative ---
Pre-Operative Progress Note H&P Reviewed The H&P was reviewed, patient examined and no changes noted. Date Seen by Provider: Oct 09, 2021 Time Seen by Provider: 08:58 Date H&P Reviewed: Oct 09, 2021 Time H&P Reviewed: 08:58 Pre-Operative Diagnosis: umbilical hernia, biliary dyskinesia RICHARD HUTCHINSON DO Oct 09, 2021 08:59
[2021-10-09] MEDS ORDERED: LIDOCAINE/EPI 1%-1:200,000 (XYLOCAINE) 30 ML VIAL ONE (09:19)
[2021-10-09] MEDS ORDERED: fentaNYL INJ 100 MCG/2 ML AMP ONE (09:20)
[2021-10-09] MEDS ORDERED: MIDAZOLAM 2 MG/2 ML (VERSED) VIAL ONE (09:20)
[2021-10-09] MEDS ORDERED: ONDANSETRON 4 MG/2 ML (SDV) Z0FRAN ONE (09:20)
[2021-10-09] MEDS ORDERED: ROCURONIUM 10 MG/ML 5 ML SYRINGE IV ONE (09:20)
[2021-10-09] MEDS ORDERED: GLYCOPYRROLATE 0.2 MG/ML (ROBINUL) 2 ML VIAL ONE (09:20)
[2021-10-09] MEDS ORDERED: LIDOCAINE PF 2% 5 ML (XYLOCAINE) VIAL ONE (09:20)
[2021-10-09] MEDS ORDERED: NEOSTIGMINE 3 MG/3 ML VIAL ONE (09:20)
[2021-10-09] MEDS ORDERED: proPOfol 200 MG/20 ML (DIPRIVAN) VIAL IV ONE (09:20)
[2021-10-09] MEDS ORDERED: SUCCINYLCHOLINE INJ 100 MG/5 ML SYR/VIAL ONE (10:20)
[2021-10-09] MEDS ORDERED: ATROPINE INJ 0.4 MG/ML SDV ONE (10:24)
[2021-10-09] MEDS ORDERED: DOCU-143 PO (10:52)
[2021-10-09] MEDS ORDERED: ACHD5005 PO (10:52)
--- NOTE | 2021-10-09 10:52 | Progress Note-Post Operative ---
Post-Operative Progess Note Surgeon (s)/Associate Broker (s) Surgeon RICHARD HUTCHINSON DO Associate Broker: Dr. Cohn Pre-Operative Diagnosis umbilical hernia, biliary dyskinesia Post-Operative Diagnosis same Procedure & Operative Findings Date of Procedure 10/09/21 Procedure Performed/Findings lap fartun c ioc, primary umbilical hernia repair. Anesthesia Type gen Estimated Blood Loss Estimated blood loss (mL): minimal Specimens/Packing Specimens Removed gallbladder RICHARD HUTCHINSON DO Oct 09, 2021 10:52
--- NOTE | 2021-10-09 10:57 | Discharge Inst-Simple/Standard ---
Discharge Inst-Standard Discharge Medications New, Converted or Re-Newed RX: Transmitted to Pharmacy Patient Instructions/Follow Up Plan of Care/Instructions/FU: 2-3 weeks Margarito Activity as Tolerated: No Discharge Diet: Regular Diet Other Inst to Patient Follow up Appt: Make appointment for 2-3 weeks. Instructions: No lifting greater than 10 pounds. No strenuous activity. May shower in 24 hours, no tub bath or soaking. Use incentive spirometer at home as directed. No Smoking Skin/Wound Care: You have special glue over incision, it will fall off on it's own. You have bandage over umbilicus, remove it in 48 hours and remove the small ball in the belly button. Symptoms to Report: Appetite Changes, Extremity Discoloration, Numbness/Tingling, Swelling Increased, Bleeding Excessive, Eyesight Changes, Pain Increased, Urine Color Change, Constipation(Persistent), Fever over 101 degree F, Pain/Pressure in chest, Urinating Difficulty, Cough Up/Vomit Blood, Heart Beat Irreg/Pounding, Pain/Pressure in jaw, Vaginal Bleeding Increase, Cramps in feet or legs, Lightheadedness, Pain/Pressure in shoulder, Diarrhea(Persistent), Memory Changes Suddenly, Questions/Concerns, Weight gain consecutive days, Dizziness/Fainting, Nausea/Vomiting, Shortness of Breath, Weight gain over 2 pounds. If eyes or skin turn yellow notify physician. If questions or concerns contact your physician Or seek help at emergency department. RICHARD HUTCHINSON DO Oct 09, 2021 10:57
--- NOTE | 2021-10-09 11:13 | Diagnostic Imaging Report ---
Fluoroscopy. Indication: Right upper quadrant pain Fluoroscopic assistance was provided for Dr. Pimentel during his laparoscopic cholecystectomy procedure. 24 seconds of fluoroscopy time was utilized. There are 2 spot films of the right upper quadrant were obtained. There are laparoscopic devices in place. The common bile duct has been opacified via cystic duct catheter. There is no sign of a defect within the common bile to indicate a retained calculus. Contrast is seen extending to the small bowel. Impression: Fluoroscopic assistance was provided for Dr. Pimentel. Dictated by: Dictated on workstation # [id number]
[2021-10-09] MEDS ORDERED: ONDANSETRON 4 MG/2 ML (SDV) Z0FRAN IVP PRN (11:15)
[2021-10-09] MEDS ORDERED: PROMETHAZINE INJ 25 MG/ML (PHENERGAN) AMP IVP ONE (11:15)
[2021-10-09] MEDS ORDERED: fentaNYL INJ 100 MCG/2 ML AMP IVP ONE (11:15)
[2021-10-09] MEDS ORDERED: SEVOFLURANE (ULTANE) 15 ML INHAL SOLN ONE (11:25)
--- NOTE | 2021-10-09 11:25 | Anesthesia-General Post-Op ---
General Patient Condition Mental Status/LOC: Same as Preop Cardiovascular: Satisfactory Nausea/Vomiting: Absent Respiratory: Satisfactory Pain: Controlled Complications: Absent Post Op Complications Complications None Follow Up Care/Instructions Patient Instructions None needed. Anesthesia/Patient Condition Patient Condition Patient is doing well, no complaints, stable vital signs, no apparent adverse anesthesia problems. No complications reported per nursing. JOSE ANGEL PATEL CRNA Oct 09, 2021 11:25
[2021-10-09] MEDS ORDERED: HYDROcodone/APAP 5 MG/325 MG (LORTAB) TAB PO ONE (12:15)
--- NOTE | 2021-10-09 23:51 | OPERATIVE REPORT ---
DATE OF SERVICE: 10/09/2021 PREOPERATIVE DIAGNOSIS: Umbilical hernia and biliary dyskinesia. POSTOPERATIVE DIAGNOSIS: Umbilical hernia and biliary dyskinesia. PROCEDURE: Primary umbilical hernia repair. Laparoscopic cholecystectomy with intraoperative cholangiogram. SURGEON: Richard Pimentel DO YOUTH NUTRITIONAL MONITOR: Dr. Cohn, assisted in retraction, dissection and closure. ANESTHESIA: General. ESTIMATED BLOOD LOSS: Minimal. COMPLICATIONS: None. INDICATIONS: The patient is a 41-year-old male with umbilical hernia and with biliary dyskinesia. He understands risks and benefits of procedures and wishes to proceed. Consent was signed in the chart. DESCRIPTION OF PROCEDURE: The patient was taken to the operating suite, was prepped and draped in sterile fashion. Surgical pause was performed. Incision was made just above the umbilicus and cautery used to dissect down through the subcutaneous tissues. The umbilical stalk was dissected around and the umbilical stalk was released from the fascia visualizing the hernia defect. A balloon trocar was inserted into the abdomen and pneumoperitoneum was achieved. Under direct visualization of laparoscope, a 5 mm trocar was placed in the subxiphoid region and two 5 mm trocars were placed in the right upper quadrant. Gallbladder was grasped and adhesions were taken off of it. The cystic duct and cystic artery were then dissected out. Clips were placed on the proximal and distal portion of the cystic artery and the distal portion of the cystic duct. The duct was then partially transected. The cholangiogram catheter was inserted into the cystic duct and cholangiogram was performed. There were no filling defects. Contrast made its way into the duodenum. The catheter was then removed. Clips were placed on the proximal portion of the cystic duct and the duct and the artery were then completely transected. Hook cautery was then used to dissect the gallbladder from the gallbladder fossa achieving hemostasis. The gallbladder was placed in an Endobag and removed through 12 mm trocar site. At this time, the umbilical hernia defect was then closed using 0 Vicryl in a [id number] fashion. The umbilical stalk was then secured back to the fascia and the skin was then closed using 4-0 Monocryl in a running subcuticular fashion. The other trocars were removed, and the skin was then closed using 4-0 Monocryl in a subcuticular fashion. The areas were then washed and dried and Skin Affix was placed over the incisions. The patient tolerated procedure well without any complications. He was taken to recovery room in stable condition. CC: Blaise Fragoso - requested, unable to deliver Job ID: [id number] DocumentID: [id number] Dictated Date: 10/09/2021 21:52:25 Concession Supervisor Date: 10/09/2021 23:51:09 Dictated By: RICHARD PIMENTEL DO
== END 2021-10-09 13:30 ==
LOC: SDC 08:07
PROVIDERS: ATTEND Surgery
DX: K42.9 Umbilical hernia without obstruction or gangrene (principal); K81.1 Chronic cholecystitis; K82.8 Other specified diseases of gallbladder; F17.210 Nicotine dependence, cigarettes, uncomplicated; Z79.899 Other long term (current) drug therapy; Z79.82 Long term (current) use of aspirin; Z83.3 Family history of diabetes mellitus; Z82.49 Family history of ischemic heart disease and other diseases of the circulatory system; Z80.9 Family history of malignant neoplasm, unspecified
CPT/HCPCS: 76000; 87081

== ENCOUNTER 2021-10-11 22:59 | Emergency (ER) | payer MEDICARE, MEDICAID ==
[~2021-10-11] VITALS: Ht 183 cm; Wt 104.0 kg
[~2021-10-11 22:59] MED LIST changes: +DOCU-143 PO
[2021-10-11 23:53] LABS: BILIRUBIN,URINE NEGATIVE (NEGATIVE); CLARITY,URINE CLEAR; COLOR,URINE YELLOW; GLUCOSE, URINE (UA) NEGATIVE (NEGATIVE); KETONES,URINE NEGATIVE (NEGATIVE); LEUKOCYTE ESTERASE ,URINE NEGATIVE (NEGATIVE); NITRITE,URINE NEGATIVE (NEGATIVE); PROTEIN,URINE NEGATIVE (NEGATIVE)
[2021-10-11 23:55] LABS: HEMATOCRIT 48 % (40-54); HEMOGLOBIN 16.2 g/dL (13.3-17.7); MEAN CORPUSCULAR HEMOGLOBIN 33 pg (25-34); MEAN CORPUSCULAR HGB CONC 34 g/dL (32-36); MEAN CORPUSCULAR VOLUME 98 fL (80-99); MEAN PLATELET VOLUME 8.6 fL (9.0-12.2); PLATELET COUNT 270 10^3/uL (130-400); WHITE BLOOD COUNT 12.7 10^3/uL (4.3-11.0)
[2021-10-12] MEDS ORDERED: morphine INJ 10 MG/ML 1ML (SYR OR VIAL) IVP STA (00:04)
[2021-10-12 00:07] LABS: ALBUMIN 3.8 GM/DL (3.2-4.5); POTASSIUM 3.3 MMOL/L (3.6-5.0)
[2021-10-12 00:08] LABS: CALCIUM 8.5 MG/DL (8.5-10.1)
[2021-10-12 00:09] LABS: AMORPHOUS SEDIMENT,UR FEW AMOR URATES /LPF; BACTERIA,URINE NEGATIVE /HPF
[2021-10-12 00:10] LABS: TOTAL PROTEIN 6.5 GM/DL (6.4-8.2)
[2021-10-12 00:11] LABS: BILIRUBIN,TOTAL 0.3 MG/DL (0.1-1.0)
[2021-10-12 00:13] LABS: CREATININE SERUM 0.86 MG/DL (0.60-1.30)
[2021-10-12] MEDS ORDERED: ONDANSETRON 4 MG/2 ML (SDV) Z0FRAN IVP ONE (00:15)
[2021-10-12] MEDS ORDERED: IOHEXOL 350 MG/ML 150 ML (OMNIPAQUE 350) VIAL IV ONE (01:15)
[2021-10-12] MEDS ORDERED: NS 100 ML (IVPB) BAG IV ONE (01:15)
[2021-10-12] MEDS ORDERED: CATHETER FLUSH 10 ML SYR IV PRN (01:15)
[2021-10-12] MEDS ORDERED: HOLD METFORMIN - RECEIVED CONTRAST 20 ML VIAL IV SCH (01:15)
[2021-10-12] MEDS ORDERED: cefTRIAXone 1 GM PRE-MIX 50 ML IV STA (02:04)
[2021-10-12] MEDS ORDERED: KETOROLAC 30 MG/ML VIAL IVP ONE (02:15)
[2021-10-12] MEDS ORDERED: CLINDAMYCIN 150 MG (CLEOCIN) CAP PO ONE (02:15)
[2021-10-12] MEDS ORDERED: CEFD300C3 PO (02:36)
[2021-10-12] MEDS ORDERED: CLIN-144 PO (02:36)
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
[2021-10-12 02:51] VITALS: BP 126/88
--- NOTE | 2021-10-12 05:09 | Diagnostic Imaging Report ---
INDICATION: Abdominal pain, recent umbilical hernia repair. TECHNIQUE: Multiple contiguous axial images were obtained through the abdomen and pelvis after administration of intravenous contrast. Auto Exposure Controls were utilized during the CT exam to meet ALARA standards for radiation dose reduction. All CT scans use one or more of the following dose optimizing techniques: automated exposure control, MA and/or KvP adjustment based on patient size and exam type or iterative reconstruction. CT abdomen and pelvis is compared to the prior study of 07/16/2021. Visualized portions of the lung bases are clear. There is no pleural fluid collection. There is no overt bony abnormality. The liver shows no focal lesion. Patient has had previous cholecystectomy. The spleen, adrenals, and pancreas are normal. The kidneys bilaterally appear normal. There is no retroperitoneal mass or adenopathy. There is no ascites. Visualized bowel loops show no sign of obstruction. There is postoperative change in the anterior abdominal wall at the site of previous periumbilical hernia. There is some ill-defined soft tissue gas and edema and without well-defined pocket of fluid. There appears to be a minimal trace of free air which can be explained by recent surgery. IMPRESSION: There are postoperative changes in the anterior abdominal wall at the site of previous umbilical hernia repair. There is some edema and ill-defined soft tissue gas but no well-defined pocket of fluid. Minimal trace of intra-abdominal air is likely postoperative in nature. There is no intra-abdominal abscess or hematoma. Dictated by: Dictated on workstation # [id number]
== END 2021-10-12 02:54 | disposition home or self-care (01) ==
LOC: EDUNIT# 22:59 → ER 23:03
DX: L03.311 Cellulitis of abdominal wall (principal); G89.18 Other acute postprocedural pain; F17.210 Nicotine dependence, cigarettes, uncomplicated; Z86.73 Personal history of transient ischemic attack (TIA), and cerebral infarction without residual deficits
CPT/HCPCS: 36415; 74177; 80053; 81000; 85027; 86141

== ENCOUNTER 2021-10-21 14:04 | Emergency (ER) | payer MEDICARE, MEDICAID ==
[~2021-10-21] VITALS: Ht 182.8 cm; Wt 104.7 kg
[~2021-10-21 14:04] MED LIST changes: +CEFD300C3 PO; +CLIN-144 PO
[2021-10-21] MEDS ORDERED: ACHD5005 PO ×2 (14:42→15:39)
--- NOTE | 2021-10-21 14:42 | ED Integumentary General ---
General Chief Complaint: Skin/Wound Problems Stated Complaint: ABD PAIN Nursing Triage Note: HERE TODAY BECAUSE PAIN IS INCREASING AND HAS HAD PUSS LIKE DRAINAGE FROM ABDOMINAL INCISION FROM PREVIOUS HERNIA REPAIR. STATES HAS NEEDED TO CHANGE DRESSING MULTIPLE TIMES PER DAY LAST 2 DAYS. THIS RN IS UNABLE TO OBTAIN A SPECIMINE FOR CULTURE D/T NO DRAINAGE AT THIS TIME. PERVIOUS MARKING ON SKIN WHERE REDNESS WAS PRESNT ARE STILL VISIABLE ADN NO REDNESS IS NOTED AT THIS TIME. PATIENT STATES HE IS TO SEE DR HUTCHINSON TOMORROW AND IS NOW OUT OF PAIN MEDICATION. Source: patient Exam Limitations: no limitations History of Present Illness Date Seen by Provider: Oct 21, 2021 Time Seen by Provider: 14:39 Initial Comments To ER with reports of abdominal pain that began last night. He had a laparoscopic umbilical hernia repair and cholecystectomy on 10/09/2021. He reports a little drainage from the supraumbilical incision. No redness no fever no chills. His pain also started coincidentally when he ran out of his hydrocodone last night. Timing/Duration: constant Severity: moderate Possible Cause: no cause identified Associated Symptoms: denies symptoms Allergies and Home Medications Allergies Coded Allergies: Sulfa (Sulfonamide Antibiotics) (Verified Allergy, Severe, HIVES, 10/09/21) levofloxacin (Verified Allergy, Unknown, 10/09/21) doxycycline (Verified Adverse Reaction, Mild, Vomiting, 10/09/21) Patient Home Medication List Home Medication List Reviewed: Yes Cefdinir (Cefdinir) 300 Mg Capsule, 300 MG PO BID Prescribed by: SYLWIA TORRES on 10/12/21 0236 Clindamycin HCl (Clindamycin HCl) 300 Mg Capsule, 300 MG PO QID Prescribed by: SYLWIA TORRES on 10/12/21 0236 Docusate Sodium (Colace) 100 Mg Capsule, 100 MG PO BID Prescribed by: RICHARD HUTCHINSON on 10/09/21 1052 Hydrocodone/Acetaminophen (Hydrocodone-Acetamin 5-325 mg) 1 Each Tablet, 1 EACH PO Q4H PRN for PAIN-MODERATE (5-7) Prescribed by: RICHARD HUTCHINSON on 10/09/21 1054 Hydrocodone/Acetaminophen (Hydrocodone-Acetamin 5-325 mg) 1 Each Tablet, 1 TAB PO Q4H PRN for PAIN-MODERATE (5-7) Prescribed by: YULIET ORELLANA on 10/21/21 1539 Review of Systems Review of Systems Constitutional: see HPI EENTM: see HPI Respiratory: no symptoms reported Cardiovascular: no symptoms reported Genitourinary: no symptoms reported Musculoskeletal: no symptoms reported Skin: no symptoms reported Psychiatric/Neurological: No Symptoms Reported Endocrine: No Symptoms Reported Hematologic/Lymphatic: No Symptoms Reported Past Osqoogf-[id number]-[id number] Hx Immunizations Up To Date First/Initial COVID19 Vaccinat: 12/29 Second COVID19 Vaccination Cloe: 01/29 Seasonal Allergies Seasonal Allergies: No Past Medical History Surgery/Hospitalization HX: CHOLECYSTECTOMY, UMBILICAL HERNIA REPAIR, RENAL STONES, APPY,VASECTOMY, T/A, CVA 2019, ANXIETY, PTSD Surgeries: Yes (KIDNEY STONES--BASKET REMOVAL, ) Abdominal, Adenoidectomy, Appendectomy, Gallbladder, Tonsillectomy, Vasectomy Respiratory: No Currently Using CPAP: No Currently Using BIPAP: No Cardiac: No Neurological: Yes (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 No angiographically significant coronary artery disease. 2. Normal left ventricular end-diastolic pressure. 3. Normal left ventricular systolic function with ejection fraction of 55% to 60%. DISCUSSION AND RECOMMENDATIONS: Based on results of the study, chest discomfort does not appear to be of coronary origin. Risk factor modification is advised. Have advised to refrain from tobacco use. Other risk factor modification has also been discussed. Outpatient followup is advised. Physical Exam Vital Signs Vital Signs - First Documented 10/21/21 14:26 Temp 36.1 Pulse 67 Resp 18 B/P (MAP) 152/103 (119) Pulse Ox 98 Capillary Refill : Less Than 3 Seconds General Appearance: WD/WN, no apparent distress HEENT: PERRL/EOMI, normal ENT inspection Neck: non-tender, full range of motion Respiratory: no respiratory distress, no accessory muscle use Gastrointestinal: normal bowel sounds, soft Neurologic/Psychiatric: alert, normal mood/affect, oriented x 3 Skin: normal color, warm/dry Skin Problem Location: generalized Skin Problem Character: other (Incision is clean dry and intact without drainage or cellulitis) Progress/Results/Core Measures Results/Orders Lab Results Laboratory Tests Test 10/21/21 15:11 Range/Units White Blood Count 7.5 4.3-11.0 10^3/uL Red Blood Count 4.65 4.30-5.52 10^6/uL Hemoglobin 15.5 13.3-17.7 g/dL Hematocrit 46 40-54 % Mean Corpuscular Volume 99 80-99 fL Mean Corpuscular Hemoglobin 33 25-34 pg Mean Corpuscular Hemoglobin Concent 34 32-36 g/dL Red Cell Distribution Width 12.9 10.0-14.5 % Platelet Count 310 130-400 10^3/uL Mean Platelet Volume 8.4 L 9.0-12.2 fL Immature Granulocyte % (Auto) 0 % Neutrophils (%) (Auto) 63 42-75 % Lymphocytes (%) (Auto) 23 12-44 % Monocytes (%) (Auto) 8 0-12 % Eosinophils (%) (Auto) 5 0-10 % Basophils (%) (Auto) 1 0-10 % Neutrophils # (Auto) 4.7 1.8-7.8 10^3/uL Lymphocytes # (Auto) 1.7 1.0-4.0 10^3/uL Monocytes # (Auto) 0.6 0.0-1.0 10^3/uL Eosinophils # (Auto) 0.3 0.0-0.3 10^3/uL Basophils # (Auto) 0.1 0.0-0.1 10^3/uL Immature Granulocyte # (Auto) 0.0 0.0-0.1 10^3/uL Sodium Level 143 135-145 MMOL/L Potassium Level 3.6 3.6-5.0 MMOL/L Chloride Level 109 H 98-107 MMOL/L Carbon Dioxide Level 24 21-32 MMOL/L Anion Gap 10 5-14 MMOL/L Blood Urea Nitrogen 7 7-18 MG/DL Creatinine 0.86 0.60-1.30 MG/DL Estimat Glomerular Filtration Rate 97 BUN/Creatinine Ratio 8 Glucose Level 97 70-105 MG/DL Calcium Level 8.6 8.5-10.1 MG/DL Corrected Calcium 8.6 8.5-10.1 MG/DL Total Bilirubin 0.3 0.1-1.0 MG/DL Aspartate Amino Transf (AST/SGOT) 26 5-34 U/L Alanine Aminotransferase (ALT/SGPT) 33 0-55 U/L Alkaline Phosphatase 80 40-136 U/L Total Protein 7.0 6.4-8.2 GM/DL Albumin 4.0 3.2-4.5 GM/DL My Orders Orders - YULIET ORELLANA APRN Cbc With Automated Diff (10/21/21 14:38) Comprehensive Metabolic Panel (10/21/21 14:38) Ct Abdomen/Pelvis Wo (10/21/21 14:38) Hydrocodone/Apap 5/325 Tablet (Lortab 5 (10/21/21 14:45) Ketorolac Injection (Toradol Injection) (10/21/21 16:00) Medications Given in ED Current Medications Medications Dose Ordered Sig/Alba Route Start Time Stop Time Status Last Admin Dose Admin Acetaminophen/ Hydrocodone Bitart 1 ea ONCE ONCE PO 10/21/21 14:45 10/21/21 14:46 DC 10/21/21 15:09 1 EA Ketorolac Tromethamine 60 mg ONCE ONCE IM 10/21/21 16:00 10/21/21 16:01 10/21/21 15:55 60 MG Vital Signs/I&O 10/21/21 14:26 Temp 36.1 Pulse 67 Resp 18 B/P (MAP) 152/103 (119) Pulse Ox 98 Blood Pressure Mean: 119 Departure Communication (Admissions) Family Conversation In regards to the CT findings, he is absent any fevers or chills, any leukocytosis or any erythema overlying the incision therefore this is not the appropriate setting to worry about abscess. NAME: TOMMYALBERTO W MED REC#: [id number] PT STATUS: REG ER : 1980 PHYSICIAN: YULIET ORELLANA APRN ADMIT DATE: 10/21/21/ER Signed Date of Exam:10/21/21 CT ABDOMEN/PELVIS WO EXAMINATION: CT abdomen and pelvis without contrast. TECHNIQUE: Multiple contiguous axial images were obtained through the abdomen and pelvis without the use of intravenous contrast. All CT scans use one or more of the following dose optimizing techniques: automated exposure control, MA and/or KvP adjustment based on patient size and exam type or iterative reconstruction. HISTORY: Abdominal pain. COMPARISON: 10/12/2021. FINDINGS: Lung bases: Bibasilar dependent atelectasis. Solid organs: There is decreased attenuation of the liver which can be seen with hepatic steatosis. The gallbladder is surgically absent. There is no biliary ductal dilation. Pancreas is normal. Spleen is normal. Adrenal glands are normal. The kidneys are normal without visualized calculus or hydronephrosis. Bowel: The stomach and small bowel are normal without obstruction. The colon and appendix are normal. Peritoneum: There is no intraperitoneal free fluid or free air. No suspicious lymphadenopathy. Vasculature: Calcification of the aorta without aneurysm. Musculoskeletal: Degenerative changes of the spine without suspicious osseous lesion or compression fracture. There is fluid and stranding seen within the periumbilical soft tissues, likely related to recent umbilical hernia repair. Pelvis: The prostate gland is normal. The urinary bladder is normal. IMPRESSION: 1. Fluid and stranding around the periumbilical soft tissues which is likely related to recent umbilical hernia repair. Sterility of this fluid cannot be determined although an infectious process would be within the differential in the appropriate clinical setting. 2. Hepatic steatosis. Dictated by: Dictated on workstation # [id number] Dict: 10/21/21 1508 Trans: 10/21/21 1540 [id number] Interpreted by: CRESENCIO BROWN DO Electronically signed by: CRESENCIO BROWN DO 10/21/21 1540 Impression Primary Impression: Postoperative abdominal pain Disposition: HOME, SELF-CARE Condition: Stable Departure-Patient Inst. Decision time for Depature: 14:41 Referrals: [facility] (PCP) Primary Care Physician LILLIAN DUVALL (Family) Primary Care Physician Patient Instructions: Postoperative Pain (DC) Add. Discharge Instructions: . Call your surgeon to make an appointment to be seen for follow-up later this week. Return to ER for any fevers. All discharge instructions reviewed with patient and/or family. Voiced understanding. Scripts Hydrocodone/Acetaminophen (Hydrocodone-Acetamin 5-325 mg) 1 Each Tablet 1 TAB PO Q4H PRN for PAIN-MODERATE (5-7), #10 TAB . Prov: YULIET ORELLANA APRN 10/21/21 YULIET ORELLANA APRN Oct 21, 2021 14:42
[2021-10-21] MEDS ORDERED: HYDROcodone/APAP 5 MG/325 MG (LORTAB) TAB PO ONE (14:45)
--- NOTE | 2021-10-21 15:13 | Diagnostic Imaging Report ---
EXAMINATION: CT abdomen and pelvis without contrast. TECHNIQUE: Multiple contiguous axial images were obtained through the abdomen and pelvis without the use of intravenous contrast. All CT scans use one or more of the following dose optimizing techniques: automated exposure control, MA and/or KvP adjustment based on patient size and exam type or iterative reconstruction. HISTORY: Abdominal pain. COMPARISON: 10/12/2021. FINDINGS: Lung bases: Bibasilar dependent atelectasis. Solid organs: There is decreased attenuation of the liver which can be seen with hepatic steatosis. The gallbladder is surgically absent. There is no biliary ductal dilation. Pancreas is normal. Spleen is normal. Adrenal glands are normal. The kidneys are normal without visualized calculus or hydronephrosis. Bowel: The stomach and small bowel are normal without obstruction. The colon and appendix are normal. Peritoneum: There is no intraperitoneal free fluid or free air. No suspicious lymphadenopathy. Vasculature: Calcification of the aorta without aneurysm. Musculoskeletal: Degenerative changes of the spine without suspicious osseous lesion or compression fracture. There is fluid and stranding seen within the periumbilical soft tissues, likely related to recent umbilical hernia repair. Pelvis: The prostate gland is normal. The urinary bladder is normal. IMPRESSION: 1. Fluid and stranding around the periumbilical soft tissues which is likely related to recent umbilical hernia repair. Sterility of this fluid cannot be determined although an infectious process would be within the differential in the appropriate clinical setting. 2. Hepatic steatosis. Dictated by: Dictated on workstation # [id number]
[2021-10-21 15:17] LABS: BASOPHILS # (AUTO) 0.1 10^3/uL (0.0-0.1); BASOPHILS % (AUTO) 1 % (0-10); EOSINOPHILS # (AUTO) 0.3 10^3/uL (0.0-0.3); EOSINOPHILS % (AUTO) 5 % (0-10); HEMATOCRIT 46 % (40-54); HEMOGLOBIN 15.5 g/dL (13.3-17.7); LYMPHOCYTES # (AUTO) 1.7 10^3/uL (1.0-4.0); LYMPHOCYTES % (AUTO) 23 % (12-44); MEAN CORPUSCULAR HEMOGLOBIN 33 pg (25-34); MEAN CORPUSCULAR HGB CONC 34 g/dL (32-36); MEAN CORPUSCULAR VOLUME 99 fL (80-99); MEAN PLATELET VOLUME 8.4 fL (9.0-12.2); MONOCYTES # (AUTO) 0.6 10^3/uL (0.0-1.0); MONOCYTES % (AUTO) 8 % (0-12); NEUTROPHILS # (AUTO) 4.7 10^3/uL (1.8-7.8); NEUTROPHILS % (AUTO) 63 % (42-75); PLATELET COUNT 310 10^3/uL (130-400); WHITE BLOOD COUNT 7.5 10^3/uL (4.3-11.0)
[2021-10-21 15:28] LABS: POTASSIUM 3.6 MMOL/L (3.6-5.0)
[2021-10-21 15:29] LABS: CALCIUM 8.6 MG/DL (8.5-10.1)
[2021-10-21 15:32] LABS: BILIRUBIN,TOTAL 0.3 MG/DL (0.1-1.0)
[2021-10-21 15:34] LABS: CREATININE SERUM 0.86 MG/DL (0.60-1.30)
[2021-10-21 16:00] VITALS: BP 136/100
[2021-10-21] MEDS ORDERED: KETOROLAC 60 MG/2 ML VIAL IM ONE (16:00)
== END 2021-10-21 16:05 | disposition home or self-care (01) ==
LOC: EDUNIT# 14:04 → ER 14:06
DX: G89.18 Other acute postprocedural pain (principal); R10.9 Unspecified abdominal pain; G89.29 Other chronic pain; M54.9 Dorsalgia, unspecified; Z86.73 Personal history of transient ischemic attack (TIA), and cerebral infarction without residual deficits; Z79.891 Long term (current) use of opiate analgesic
CPT/HCPCS: 36415; 74176; 80053; 85025; 96372

== ENCOUNTER 2021-11-01 21:07 | Emergency (ER) | payer MEDICARE, MEDICAID ==
[~2021-11-01] VITALS: Ht 183 cm; Wt 105.0 kg
[2021-11-01 21:40] LABS: BASOPHILS # (AUTO) 0.1 10^3/uL (0.0-0.1); BASOPHILS % (AUTO) 1 % (0-10); EOSINOPHILS # (AUTO) 0.4 10^3/uL (0.0-0.3); EOSINOPHILS % (AUTO) 6 % (0-10); HEMATOCRIT 45 % (40-54); HEMOGLOBIN 15.3 g/dL (13.3-17.7); LYMPHOCYTES # (AUTO) 1.9 10^3/uL (1.0-4.0); LYMPHOCYTES % (AUTO) 25 % (12-44); MEAN CORPUSCULAR HEMOGLOBIN 33 pg (25-34); MEAN CORPUSCULAR HGB CONC 34 g/dL (32-36); MEAN CORPUSCULAR VOLUME 96 fL (80-99); MEAN PLATELET VOLUME 8.7 fL (9.0-12.2); MONOCYTES # (AUTO) 0.6 10^3/uL (0.0-1.0); MONOCYTES % (AUTO) 8 % (0-12); NEUTROPHILS # (AUTO) 4.7 10^3/uL (1.8-7.8); NEUTROPHILS % (AUTO) 61 % (42-75); PLATELET COUNT 287 10^3/uL (130-400); WHITE BLOOD COUNT 7.8 10^3/uL (4.3-11.0)
[2021-11-01 21:44] LABS: ALBUMIN 4.4 GM/DL (3.2-4.5); CHLORIDE 103 MMOL/L (98-107); POTASSIUM 3.3 MMOL/L (3.6-5.0); SODIUM 138 MMOL/L (135-145)
[2021-11-01 21:46] LABS: GLUCOSE 105 MG/DL (70-105); TOTAL PROTEIN 7.5 GM/DL (6.4-8.2)
[2021-11-01 21:47] LABS: CARBON DIOXIDE 22 MMOL/L (21-32)
[2021-11-01 21:48] LABS: BILIRUBIN,TOTAL 0.6 MG/DL (0.1-1.0)
[2021-11-01 21:50] LABS: ALKALINE PHOSPHATASE 97 U/L (40-136); CREATININE SERUM 0.99 MG/DL (0.60-1.30); FIBRIN DEGRADATION PRODUCTS 0.66 UG/ML (0.00-0.49); GFR ESTIMATED 97; PROTHROMBIN TIME PATIENT 13.5 SEC (12.2-14.7)
[2021-11-01 21:51] LABS: BUN/CREATININE RATIO 5
[2021-11-01 21:53] LABS: ALANINE AMINOTRANSFERASE 34 U/L (0-55)
--- NOTE | 2021-11-01 21:54 | Diagnostic Imaging Report ---
PROCEDURE: CT head w/o r/o stroke. TECHNIQUE: Multiple contiguous axial images were obtained through the brain without the use of intravenous contrast. Auto Exposure Controls were utilized during the CT exam to meet ALARA standards for radiation dose reduction. INDICATION: Left-sided numbness and weakness. COMPARISON: 07/30/2021. FINDINGS: There is no intracranial hemorrhage. Prominence of the extra-axial bifrontal CSF spaces, chronic. No acute or suspicious extra-axial fluid collection. There is no loss of the de la garza-white matter differentiations. No focal or generalized cerebral edema. No suspicious intraluminal arterial hyperdensities. The basilar cisterns patent. No sulcal effacement. No evidence for elevated pressures. Orbits, sinuses and calvarium nonacute. There has been no change. IMPRESSION: Stable head CT. No hemorrhage, edema or acute appearing abnormality. Results phoned to the Emergency Room. Dictated by: Dictated on workstation # [id number]
--- NOTE | 2021-11-01 21:55 | Diagnostic Imaging Report ---
INDICATION: Strokelike symptoms. FINDINGS: The lungs are clear. No failure, effusion or pneumothorax. IMPRESSION: Normal frontal chest. Dictated by: Dictated on workstation # [id number]
[2021-11-01] MEDS ORDERED: ACETAMINOPHEN 500 MG TAB (TYLENOL) PO ONE (22:45)
[2021-11-01 22:49] LABS: BILIRUBIN,URINE NEGATIVE (NEGATIVE); CLARITY,URINE CLEAR; COLOR,URINE YELLOW; GLUCOSE, URINE (UA) NEGATIVE (NEGATIVE); KETONES,URINE NEGATIVE (NEGATIVE); LEUKOCYTE ESTERASE ,URINE NEGATIVE (NEGATIVE); NITRITE,URINE NEGATIVE (NEGATIVE); PROTEIN,URINE NEGATIVE (NEGATIVE)
[2021-11-01 22:56] LABS: BACTERIA,URINE TRACE /HPF; RBC,URINE RARE /HPF; WBC,URINE RARE /HPF
[2021-11-01 23:01] LABS: AMPHETAMINE SCREEN, URINE NEGATIVE (NEGATIVE); BARBITURATE SCREEN URINE NEGATIVE (NEGATIVE); BENZODIAZEPINES SCREEN URINE NEGATIVE (NEGATIVE); CANNABINOID SCREEN, URINE NEGATIVE (NEGATIVE); COCAINE SCREEN URINE NEGATIVE (NEGATIVE); METHADONE STAT NEGATIVE (NEGATIVE); METHAMPHETAMINE SCREEN URINE S NEGATIVE (NEGATIVE); OPIATE SCREEN URINE POSITIVE (NEGATIVE); OXYCODONE STAT NEGATIVE (NEGATIVE); PROPOXYPHENE STAT NEGATIVE (NEGATIVE); TRICYCLIC ANTIDEPRESSANTS SCRE NEGATIVE (NEGATIVE)
--- NOTE | 2021-11-02 00:27 | ED Neurological Problem ---
General Chief Complaint: Neuro-Stroke Like Symptoms Stated Complaint: L SIDE NUMBNESS,DIZZY,TROUBLE SPEAKING Nursing Triage Note: TO E.Susy FROM WORK, PT REPORTS LEFT ARM TINGLING, DIFFICULTY SPEAKING X2 HRS. Source: patient, old records History of Present Illness Date Seen by Provider: Nov 01, 2021 Time Seen by Provider: 21:30 Initial Comments PT ARRIVES VIA POV FROM WORK STATES ABOUT 2 HOURS AGO, HE BEGAN HAVING LEFT ARM/HAND TINGLING AND DIFFICULTY TALKING FOR THE LAST 2 HOURS ALSO C/O HEADACHE IN LEFT CHEONDOISM AND SOME TINGLING IN LEFT SIDE OF FACE. HAS NOT TAKEN ANYTHING FOR HEADACHE NO VISION CHANGES DENIES DIZZINESS NO MOTOR DEFICITS NO PROBLEMS WALKING NO NAUSEA/VOMITING NO NECK PAIN OR STIFFNESS NO FEVER OR RECENT ILLNESS PT HAD [place] AND HERNIA REPAIR 10/09/[address] HUTCHINSON PT WAS HERE 10/12/21 AND AGAIN 10/22/21 FOR POST OP PAIN. PT JUST RELEASED TO GO BACK TO WORK THIS WEEK. NO ABDOMINAL OR GI COMPLAINTS. PT HAD A STROKE IN 2018 WITH LEFT SIDE WEAKNESS, WHICH HAD PREVIOUSLY RESOLVED. PT IS NOT ON ANY ASPIRIN OR BLOOD THINNERS OR ANY CARDIAC OR NEURO MEDICATIONS PT DOES NOT SEE A NEUROLOGIST. PT WITH A MULTITUDE OF VISITS FOR VARIOUS COMPLAINTS. MANY FOR GI COMPLAINTS AND/OR CHEST PAIN COMPLAINTS, ALL CARDIAC WORK UP'S HAVE BEEN NON-DIAGNOSTIC, INCLUDING A NORMAL CARDIAC CATH 09/24/20 PT DOES NOT SEE A NATUROPATHIC PHYSICIAN. PCP;[facility], SUPPORT SPECIALIST JADIEL Allergies and Home Medications Allergies Coded Allergies: Sulfa (Sulfonamide Antibiotics) (Verified Allergy, Severe, HIVES, 10/09/21) levofloxacin (Verified Allergy, Unknown, 10/09/21) doxycycline (Verified Adverse Reaction, Mild, Vomiting, 10/09/21) Patient Home Medication List Home Medication List Reviewed: Yes Cefdinir (Cefdinir) 300 Mg Capsule, 300 MG PO BID Prescribed by: SYLWIA TORRES on 10/12/21 0236 Clindamycin HCl (Clindamycin HCl) 300 Mg Capsule, 300 MG PO QID Prescribed by: SYLWIA TORRES on 10/12/21 0236 Docusate Sodium (Colace) 100 Mg Capsule, 100 MG PO BID Prescribed by: RICHARD HUTCHINSON on 10/09/21 1052 Hydrocodone/Acetaminophen (Hydrocodone-Acetamin 5-325 mg) 1 Each Tablet, 1 EACH PO Q4H PRN for PAIN-MODERATE (5-7) Prescribed by: RICHARD HUTCHINSON on 10/09/21 1054 Hydrocodone/Acetaminophen (Hydrocodone-Acetamin 5-325 mg) 1 Each Tablet, 1 TAB PO Q4H PRN for PAIN-MODERATE (5-7) Prescribed by: YULIET ORELLANA on 10/21/21 1539 Review of Systems Review of Systems Constitutional: no symptoms reported Eyes: No Symptoms Reported Ears, Nose, Mouth, Throat: no symptoms reported Respiratory: no symptoms reported; No cough, No short of breath Cardiovascular: no symptoms reported; No chest pain, No edema, No palpitations, No syncope Gastrointestinal: no symptoms reported Genitourinary: no symptoms reported Musculoskeletal: no symptoms reported Skin: no symptoms reported Psychiatric/Neurological: See HPI; Denies Cognitive Dysfunction; Headache, Tingling; Denies Weakness Endocrine: No Symptoms Reported Hematologic/Lymphatic: No Symptoms Reported Past Uoiyuhj-Mpcvkt-Bicrkj Hx Patient Social History Tobacco Use?: Yes Tobacco type used: Cigarettes Smoking Status: Current Everyday Smoker Substance use?: Yes Alcohol Use?: Yes Pt feels they are or have been: No Immunizations Up To Date First/Initial COVID19 Vaccinat: 12/29 Second COVID19 Vaccination Cole: 01/29 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: [employer] Seasonal Allergies Seasonal Allergies: No Past Medical History Surgery/Hospitalization HX: CHOLECYSTECTOMY, UMBILICAL HERNIA REPAIR, RENAL STONES, APPY,VASECTOMY, T/A, CVA 2019, ANXIETY, PTSD Surgeries: Yes (KIDNEY STONES--BASKET REMOVAL, ) Abdominal, Adenoidectomy, Appendectomy, Gallbladder, Tonsillectomy, Vasectomy Respiratory: No Currently Using CPAP: No Currently Using BIPAP: No Cardiac: No Neurological: Yes (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 No angiographically significant coronary artery disease. 2. Normal left ventricular end-diastolic pressure. 3. Normal left ventricular systolic function with ejection fraction of 55% to 60%. DISCUSSION AND RECOMMENDATIONS: Based on results of the study, chest discomfort does not appear to be of coronary origin. Risk factor modification is advised. Have advised to refrain from tobacco use. Other risk factor modification has also been discussed. Outpatient followup is advised. -LAPAROSCOPIC CHOLECYSTECTOMY AND UMBILICAL HERNIA REPAIR 10/09/[address] HUTCHINSON. Physical Exam Vital Signs Vital Signs - First Documented 11/01/21 21:20 Temp 36.9 Pulse 86 Resp 14 B/P (MAP) 125/98 (107) Pulse Ox 96 O2 Delivery Room Air Capillary Refill : Less Than 3 Seconds Height, Weight, BMI Height: 6'" Weight: 242lbs. oz. [id number]; 31.00 BMI Method:Stated General Appearance: WD/WN, no apparent distress, other (DOES NOT APPEAR ILL OR TO BE IN ANY DISCOMFORT OR DISTRESS. SPEECH IS CLEAR AND GAIT IS STEADY ON ARRIVAL. ) HEENT: PERRL/EOMI, other (NO FACIAL DROOP) Neck: non-tender, full range of motion, supple, normal inspection; No carotid bruit Respiratory: normal breath sounds, no respiratory distress, no accessory muscle use Cardiovascular: normal peripheral pulses, regular rate, rhythm, no edema, no JVD, no murmur Gastrointestinal: soft, tenderness (MILD PERIUMBILICAL TENDERNESS. SURGICAL SITES WELL HEALED WITHOUT SIGNS OF INFECTION. 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 NORMAL SPEECH. ) Crainal Nerves: normal hearing, normal speech Coordination/Gait: normal finger to nose, normal gait, negative Romberg's sign Motor/Sensory: no motor deficit, no sensory deficit, no pronator drift Skin: normal color, warm/dry, tattoos/piercings (TATTOOS) Stroke Onset of Symptoms Onset of Symptoms: Yes NIH Stroke Scale Assessment Select: Initial Level of Consciousness: 0=Alert (0), Level of Consciousness- Questions: 0=Answers both month/age (0), LOC Commands: 0=Performs both tasks (0), Visual Mandel: 0=No visual loss (0), Facial Movement (Facial Paresis): 0=Normal symmetrical mnt (0), Motor Function-Arms Right: 0=No drift (0), Motor Function-Arms Left: 0=No drift (0), Motor Function-Legs Right: 0=No drift (0), Motor Function-Legs Left: 0=No drift (0), Sensory: 0=Normal:no loss (0), Best Language: 0=No aphasia (0), Dysarthria: 0=Normal (0), Extinction & Inattention: 0=No abnormality (0), Total: 0 Stroke Thrombolytic Exclusion Age 18 or Over: Yes Acute intenal hemorrhage: No History of CVA: Yes Uncontrolled Coagulation Defec: No Intracranial Hemorrhage: No Severe Hypertension: No GI or Bleed: No Subarachnoid Hemorrhage: No Intracranial Neoplasm/Aneurysm: No Oral Anticoagulants: No Surgery or Trauma: Yes Puncture of Non-Compressible V: No Recent CPR: No Diabetic Hemorrhagic Retinopat: No Organ Biopsy: No Glucose: No Significant Hepatic Dysfunctio: No NIH Stoke Scale >22: No Bacterial Endocarditis: No Pericarditis: No Improving Symptoms: Yes Platelets: No TPA Contraindication: Yes (RECENT SURGERY) IV - TPa Received IV - TPa Procedure Performed?: No (PT HAS NO FOCAL DEFICITS, WITH CLEAR SPEECH AND STEADY GAIT. ALSO HAD RECENT SURGERY ) Progress/Results/Core Measures Results/Orders Lab Results Laboratory Tests Test 11/01/21 21:25 11/01/21 22:40 Range/Units White Blood Count 7.8 4.3-11.0 10^3/uL Red Blood Count 4.69 4.30-5.52 10^6/uL Hemoglobin 15.3 13.3-17.7 g/dL Hematocrit 45 40-54 % Mean Corpuscular Volume 96 80-99 fL Mean Corpuscular Hemoglobin 33 25-34 pg Mean Corpuscular Hemoglobin Concent 34 32-36 g/dL Red Cell Distribution Width 12.0 10.0-14.5 % Platelet Count 287 130-400 10^3/uL Mean Platelet Volume 8.7 L 9.0-12.2 fL Immature Granulocyte % (Auto) 0 % Neutrophils (%) (Auto) 61 42-75 % Lymphocytes (%) (Auto) 25 12-44 % Monocytes (%) (Auto) 8 0-12 % Eosinophils (%) (Auto) 6 0-10 % Basophils (%) (Auto) 1 0-10 % Neutrophils # (Auto) 4.7 1.8-7.8 10^3/uL Lymphocytes # (Auto) 1.9 1.0-4.0 10^3/uL Monocytes # (Auto) 0.6 0.0-1.0 10^3/uL Eosinophils # (Auto) 0.4 H 0.0-0.3 10^3/uL Basophils # (Auto) 0.1 0.0-0.1 10^3/uL Immature Granulocyte # (Auto) 0.0 0.0-0.1 10^3/uL Prothrombin Time 13.5 12.2-14.7 SEC INR Comment 1.0 0.8-1.4 Activated Partial Thromboplast Time 31 24-35 SEC D-Dimer 0.66 H 0.00-0.49 UG/ML Sodium Level 138 135-145 MMOL/L Potassium Level 3.3 L 3.6-5.0 MMOL/L Chloride Level 103 98-107 MMOL/L Carbon Dioxide Level 22 21-32 MMOL/L Anion Gap 13 5-14 MMOL/L Blood Urea Nitrogen 5 L 7-18 MG/DL Creatinine 0.99 0.60-1.30 MG/DL Estimat Glomerular Filtration Rate 97 BUN/Creatinine Ratio 5 Glucose Level 105 70-105 MG/DL Calcium Level 9.0 8.5-10.1 MG/DL Corrected Calcium 8.7 8.5-10.1 MG/DL Total Bilirubin 0.6 0.1-1.0 MG/DL Aspartate Amino Transf (AST/SGOT) 24 5-34 U/L Alanine Aminotransferase (ALT/SGPT) 34 0-55 U/L Alkaline Phosphatase 97 40-136 U/L Troponin I < 0.028 <0.028 NG/ML Total Protein 7.5 6.4-8.2 GM/DL Albumin 4.4 3.2-4.5 GM/DL Serum Alcohol < 10 <10 MG/DL Urine Color YELLOW Urine Clarity CLEAR Urine pH 6.0 5-9 Urine Specific [place] 1.010 L 1.016-1.022 Urine Protein NEGATIVE NEGATIVE Urine Glucose (UA) NEGATIVE NEGATIVE Urine Ketones NEGATIVE NEGATIVE Urine Nitrite NEGATIVE NEGATIVE Urine Bilirubin NEGATIVE NEGATIVE Urine Urobilinogen 0.2 < = 1.0 MG/DL Urine Leukocyte Esterase NEGATIVE NEGATIVE Urine RBC (Auto) NEGATIVE NEGATIVE Urine RBC RARE /HPF Urine WBC RARE /HPF Urine Squamous Epithelial Cells NONE /HPF Urine Crystals NONE /LPF Urine Bacteria TRACE /HPF Urine Casts NONE /LPF Urine Mucus NEGATIVE /LPF Urine Culture Indicated NO Urine Opiates Screen POSITIVE H NEGATIVE Urine Oxycodone Screen NEGATIVE NEGATIVE Urine Methadone Screen NEGATIVE NEGATIVE Urine Propoxyphene Screen NEGATIVE NEGATIVE Urine Barbiturates Screen NEGATIVE NEGATIVE Ur Tricyclic Antidepressants Screen NEGATIVE NEGATIVE Urine Phencyclidine Screen NEGATIVE NEGATIVE Urine Amphetamines Screen NEGATIVE NEGATIVE Urine Methamphetamines Screen NEGATIVE NEGATIVE Urine Benzodiazepines Screen NEGATIVE NEGATIVE Urine Cocaine Screen NEGATIVE NEGATIVE Urine Cannabinoids Screen NEGATIVE NEGATIVE My Orders Orders - BENIGNO MYRICK DO Cbc With Automated Diff (11/01/21 21:31) Protime With Inr (11/01/21 21:31) Partial Thromboplastin Time (11/01/21 21:31) Comprehensive Metabolic Panel (11/01/21 21:31) Fibrin Degradation Products (11/01/21 21:31) Troponin I [place] (11/01/21 21:31) Ua Culture If Indicated (11/01/21 21:31) Chest 1 View, Ap/Pa Only (11/01/21 21:31) Ekg Tracing (11/01/21 21:31) Accucheck Stat ONCE (11/01/21 21:31) Ed Iv/Invasive Line Start (11/01/21 21:31) Ed Iv/Invasive Line Start (11/01/21 21:31) Vital Signs Stroke Patient Q15M (11/01/21 21:31) Ct Head Wo-R/O Stroke (11/01/21 21:31) O2 (11/01/21 21:31) Intake & Output 06,14,22 (11/01/21 21:31) Monitor-Rhythm Ecg Trace Only (11/01/21 21:31) Dysphagia Screening Tool (11/01/21 21:31) Alcohol (11/01/21 21:31) Drug Screen Stat (Urine) (11/01/21 21:31) Ct Angio Head/Neck (11/01/21 22:10) Acetaminophen Tablet (Tylenol Tablet) (11/01/21 22:45) Medications Given in ED Current Medications Medications Dose Ordered Sig/Alba Route Start Time Stop Time Status Last Admin Dose Admin Acetaminophen 1,000 mg ONCE ONCE PO 11/01/21 22:45 11/01/21 22:46 DC 11/01/21 22:43 1,000 MG Vital Signs/I&O 11/01/21 11/02/21 21:20 00:30 Temp 36.9 36.7 Pulse 86 58 Resp 14 16 B/P (MAP) 125/98 (107) 114/77 Pulse Ox 96 93 O2 Delivery Room Air Room Air Blood Pressure Mean: 107 Progress Progress Note : Progress Note UNEVENTFUL ER STAY NO NEUROLOGICAL DEFICITS DURING ER STAY ONLY WANTS WORK NOTE AND PAIN MEDICATION FOR HEADACHE. GIVEN TYLENOL FOR HEADACHE Initial ECG Impression Date: Nov 01, 2021 Initial ECG Impression Time: 21:25 Initial ECG Rate: 80 Initial ECG Rhythm: Normal Sinus Diagnostic Imaging Comments CXR--NO ACUTE PROCESS, PENDING RADIOLOGIST REVIEW CT HEAD--PER RADIOLOGIST REPORT AT 9404 FINDINGS: There is no intracranial hemorrhage. Prominence of the extra-axial bifrontal CSF spaces, chronic. No acute or suspicious extra-axial fluid collection. There is no loss of the de la garza-white matter differentiations. No focal or generalized cerebral edema. No suspicious intraluminal arterial hyperdensities. The basilar cisterns patent. No sulcal effacement. No evidence for elevated pressures. Orbits, sinuses and calvarium nonacute. There has been no change. IMPRESSION: Stable head CT. No hemorrhage, edema or acute appearing abnormality. CT ANGIOGRAM HEAD/NECK--PER [facility] VIA FAX AT 1971 NO ACUTE PROCESS, NO LARGE VESSEL OCCLUSION Reviewed: Reviewed by Me Departure Impression Primary Impression: Headache Additional Impression: SUBJECTIVE PARESTHESIAS Disposition: 01 HOME, SELF-CARE Condition: Improved Departure-Patient Inst. Decision time for Depature: 00:26 Referrals: [facility] (PCP) Primary Care Physician LILLIAN DUVALL (Family) Primary Care Physician Patient Instructions: Paresthesia (DC), Headache, Adult (DC) Add. Discharge Instructions: HOME, REST LOTS OF CLEAR LIQUIDS TYLENOL 1 GRAM AND MOTRIN 800 MG 4 TIMES A DAY FOR PAIN FOLLOW UP WITH [facility] ON WEDNESDAY FOR FURTHER CARE, RETURN TO ER IF WORSE All discharge instructions reviewed with patient and/or family. Voiced understanding. Work/School Note: Work Release Form Date Seen in the Emergency Department: Nov 02, 2021 Return to Work: Nov 04, 2021 BENIGNO MYRICK DO Nov 02, 2021 00:27
[2021-11-02 00:30] VITALS: BP 114/77
--- NOTE | 2021-11-02 07:17 | Diagnostic Imaging Report ---
PROCEDURE: CT angiography of the head and CT angiography of the neck with and without contrast. TECHNIQUE: Contiguous noncontrast images were obtained from the skull base through the vertex. After intravenous contrast administration, helical CT angiography of the neck was performed. Source data was reformatted into 3D MIP projections. Delayed post contrast acquisition was also obtained. Auto Exposure Controls were utilized during the CT exam to meet ALARA standards for radiation dose reduction. INDICATION: Stroke. COMPARISON: CT head without contrast 11/01/2021. FINDINGS: Postcontrast imaging of the head continues to demonstrate no evidence of a large territorial infarction or hemorrhage. No extra-axial fluid collections are seen. No hydrocephalus. No abnormal intracranial enhancement. CTA demonstrates a left common carotid originating from the innominate. The basilar, bilateral vertebral, common carotid, internal carotid, anterior cerebral, middle cerebral and posterior cerebral arteries are widely patent without evidence of aneurysm or dissection. Dural venous sinuses are normally opacified. No fractures. Paranasal sinuses and mastoids are clear. Paravertebral soft tissues are unremarkable. Lung apices are clear. IMPRESSION: No large vessel occlusion. No high-grade narrowing, aneurysm or dissection involving the major arteries in the head and neck. Agree with preliminary interpretation. Dictated by: Dictated on workstation # [id number]
== END 2021-11-02 00:34 | disposition home or self-care (01) ==
LOC: EDUNIT# 21:07 → ER 21:10
DX: R51.9 Headache, unspecified (principal); R20.2 Paresthesia of skin; G89.29 Other chronic pain; M54.9 Dorsalgia, unspecified; Z86.73 Personal history of transient ischemic attack (TIA), and cerebral infarction without residual deficits; F17.210 Nicotine dependence, cigarettes, uncomplicated; Z79.891 Long term (current) use of opiate analgesic
CPT/HCPCS: 70450; 70496; 70498; 71045; 80053; 80306; 81000; 84484; 85025; 85379; 85610; 85730; 93005; 93041; 99284; G0480; 36415; 80320

== ENCOUNTER 2021-11-06 08:35 | Emergency (ER) | payer MEDICARE, MEDICAID ==
[~2021-11-06] VITALS: Ht 182.8 cm; Wt 104.8 kg
[2021-11-06] MEDS ORDERED: ORPHENADRINE 60 MG/2 ML (NORFLEX) AMP (ED ONLY) IV STA (09:34)
[2021-11-06] MEDS ORDERED: KETOROLAC 30 MG/ML VIAL IVP STA (09:34)
[2021-11-06 09:45] LABS: BASOPHILS # (AUTO) 0.1 10^3/uL (0.0-0.1); BASOPHILS % (AUTO) 1 % (0-10); EOSINOPHILS # (AUTO) 0.4 10^3/uL (0.0-0.3); EOSINOPHILS % (AUTO) 4 % (0-10); HEMATOCRIT 46 % (40-54); HEMOGLOBIN 15.3 g/dL (13.3-17.7); LYMPHOCYTES # (AUTO) 1.3 10^3/uL (1.0-4.0); LYMPHOCYTES % (AUTO) 13 % (12-44); MEAN CORPUSCULAR HEMOGLOBIN 33 pg (25-34); MEAN CORPUSCULAR HGB CONC 34 g/dL (32-36); MEAN CORPUSCULAR VOLUME 98 fL (80-99); MEAN PLATELET VOLUME 8.6 fL (9.0-12.2); MONOCYTES # (AUTO) 0.7 10^3/uL (0.0-1.0); MONOCYTES % (AUTO) 7 % (0-12); NEUTROPHILS # (AUTO) 7.7 10^3/uL (1.8-7.8); NEUTROPHILS % (AUTO) 76 % (42-75); PLATELET COUNT 255 10^3/uL (130-400); WHITE BLOOD COUNT 10.1 10^3/uL (4.3-11.0)
[2021-11-06 09:50] LABS: ALBUMIN 4.1 GM/DL (3.2-4.5)
--- NOTE | 2021-11-06 09:50 | ED General ---
General Chief Complaint: General Problems/Pain Stated Complaint: MAYO, FACIAL/NECK NUMBNESS L SIDE Nursing Triage Note: pt reports knot on head, mayo, left sided arm numbness, neck pain, lower lip swelling. pt was seen 2 nights ago for same thing and all tests came back negative. Pt has mri ordered but has not received a phone call to have it done yet. Source of Information: Patient Exam Limitations: No Limitations History of Present Illness Date Seen by Provider: Nov 06, 2021 Time Seen by Provider: 09:20 Initial Comments Here with a variety of complaints including left-sided neck pain and radiation to the left arm and the left side of the face that seems to be coming from over the scalp. Denies nausea, vomiting, chest pain, breathing problems but does have some weakness. Apparently had stroke that involve the left side a few years ago that resolved. Was seen on 11/01/2021 for same complaint and had CT and CT angiogram done which did not show any acute findings or large vessel occlusions. For the pain he has been trying Tylenol only and that has not helped. Follows with [facility] and has been seen with referral for MRI and neurology. Those are still pending. Denies other complaints. He is vaccinated for COVID-19 and did have Covid last month and recovered. Timing/Duration: 5-6 Days, Changing Over Time Severity: Moderate Modifying Factors: worse with Immobilization; improves with Rest Associated Systoms: No Cough, No Fever/Chills, No Nausea/Vomiting, No Shortness of Air Allergies and Home Medications Allergies Coded Allergies: Sulfa (Sulfonamide Antibiotics) (Verified Allergy, Severe, HIVES, 10/09/21) levofloxacin (Verified Allergy, Unknown, 10/09/21) doxycycline (Verified Adverse Reaction, Mild, Vomiting, 10/09/21) Patient Home Medication List Home Medication List Reviewed: Yes Cefdinir (Cefdinir) 300 Mg Capsule, 300 MG PO BID Prescribed by: SYLWIA TORRES on 10/12/21 0236 Clindamycin HCl (Clindamycin HCl) 300 Mg Capsule, 300 MG PO QID Prescribed by: SYLWIA TORRES on 10/12/21 0236 Docusate Sodium (Colace) 100 Mg Capsule, 100 MG PO BID Prescribed by: RICHARD HUTCHINSON on 10/09/21 1052 Hydrocodone/Acetaminophen (Hydrocodone-Acetamin 5-325 mg) 1 Each Tablet, 1 EACH PO Q4H PRN for PAIN-MODERATE (5-7) Prescribed by: RICHARD HUTCHINSON on 10/09/21 1054 Hydrocodone/Acetaminophen (Hydrocodone-Acetamin 5-325 mg) 1 Each Tablet, 1 TAB PO Q4H PRN for PAIN-MODERATE (5-7) Prescribed by: YULIET ORELLANA on 10/21/21 1539 Review of Systems Review of Systems Constitutional: see HPI; No chills, No fever, No weakness EENTM: No nose congestion, No throat pain Respiratory: No cough, No short of breath Cardiovascular: No chest pain, No edema Gastrointestinal: No nausea, No vomiting Genitourinary: no symptoms reported Musculoskeletal: joint pain, neck pain Skin: No change in color, No lesions Psychiatric/Neurological: Numbness Hematologic/Lymphatic: No Symptoms Reported All Other Systems Reviewed Negative Unless Noted: Yes Past Rvawuha-Ihlpjk-Oatzry Hx Patient Social History Tobacco Use?: Yes Tobacco type used: Cigarettes Smoking Status: Current Everyday Smoker Substance use?: No Alcohol Use?: Yes Alcohol Frequency: Several times a month Pt feels they are or have been: No Immunizations Up To Date First/Initial COVID19 Vaccinat: 12/29 Second COVID19 Vaccination Cole: 01/29 COVID19 Vaccine 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: 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 Seasonal Allergies Seasonal Allergies: No Past Medical History Surgery/Hospitalization HX: CHOLECYSTECTOMY, UMBILICAL HERNIA REPAIR, RENAL STONES, APPY,VASECTOMY, T/A, CVA 2019, ANXIETY, PTSD Surgeries: Yes (KIDNEY STONES--BASKET REMOVAL, ) Abdominal, Adenoidectomy, Appendectomy, Gallbladder, Tonsillectomy, Vasectomy Respiratory: No Currently Using CPAP: No Currently Using BIPAP: No Cardiac: No Neurological: Yes (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, MOSTLY RESOLVED) Stroke Reproductive Disorders: No Genitourinary: Yes Kidney Stones Gastrointestinal: Yes (CHRONIC GI COMPLAINTS) Abdominal Hernia, Gall Bladder Disease Musculoskeletal: Yes Chronic Back Pain Endocrine: Yes (hypoglycemia) HEENT: No Tonsilitis Cancer: No Psychosocial: Yes Anxiety, PTSD Integumentary: No Blood Disorders: No Family Medical History Reviewed Nursing Family Hx No Pertinent Family Hx SOCIAL HISTORY: -ETOH--OCCASIONAL USE -DRUGS--DENIES USE, BUT UDS HAS BEEN + FOR THC -SMOKES 1 PPD PAST SURGICAL HISTORY: -KIDNEY STONES-BASKET REMOVAL -TONSILLECTOMY/ADENOIDECTOMY -VASECTOMY -CARDIAC CATH 09/24/20 BY : CONCLUSIONS: 1. No angiographically significant coronary artery disease. 2. Normal left ventricular end-diastolic pressure. 3. Normal left ventricular systolic function with ejection fraction of 55% to 60%. DISCUSSION AND RECOMMENDATIONS: Based on results of the study, chest discomfort does not appear to be of coronary origin. Risk factor modification is advised. Have advised to refrain from tobacco use. Other risk factor modification has also been discussed. Outpatient followup is advised. -LAPAROSCOPIC CHOLECYSTECTOMY AND UMBILICAL HERNIA REPAIR 10/09/[address] HUTCHINSON. Physical Exam Vital Signs Vital Signs - First Documented 11/06/21 08:40 Temp 36.1 Pulse 77 Resp 16 B/P (MAP) 142/103 (116) Pulse Ox 98 O2 Delivery Room Air Capillary Refill : Less Than 3 Seconds Height, Weight, BMI Height: 6'" Weight: 242lbs. oz. 109.228495fr; 31.00 BMI Method:Stated General Appearance: No Apparent Distress, Anxious HEENT: PERRL/EOMI, TMs Normal, Pharynx Normal Neck: Full Range of Motion; No Carotid Bruit, No JVD, No Lymphadenopathy (L), No Lymphadenopathy (R); Tender Lateral (Left-sided along the posterior musculature) Respiratory: Lungs Clear, Normal Breath Sounds Cardiovascular: Regular Rate, Rhythm, No Murmur Gastrointestinal: Normal Bowel Sounds, Non Tender, Soft Back: Normal Inspection, No CVA Tenderness, No Vertebral Tenderness Extremity: Normal Inspection, Normal Range of Motion, Non Tender, No Calf Tenderness, No Pedal Edema Neurologic/Psychiatric: Alert, Oriented x3, No Motor/Sensory Deficits, Normal Mood/Affect, camera assembler II-XII Norm as Tested, Other (Stroke scale 0. Pnbwha-[id number]-sxyi appropriate. No drift. No facial droop.) Skin: Normal Color, Warm/Dry Progress/Results/Core Measures Suspected Sepsis SIRS Temperature: Pulse: 77 Respiratory Rate: 16 Laboratory Tests 11/06/21 09:41: White Blood Count 10.1 Blood Pressure 142 /103 Mean: 116 Laboratory Tests 11/06/21 09:41: Creatinine 0.87, Platelet Count 255, Total Bilirubin 0.3 Results/Orders Lab Results Laboratory Tests Test 11/06/21 09:41 Range/Units White Blood Count 10.1 4.3-11.0 10^3/uL Red Blood Count 4.67 4.30-5.52 10^6/uL Hemoglobin 15.3 13.3-17.7 g/dL Hematocrit 46 40-54 % Mean Corpuscular Volume 98 80-99 fL Mean Corpuscular Hemoglobin 33 25-34 pg Mean Corpuscular Hemoglobin Concent 34 32-36 g/dL Red Cell Distribution Width 12.2 10.0-14.5 % Platelet Count 255 130-400 10^3/uL Mean Platelet Volume 8.6 L 9.0-12.2 fL Immature Granulocyte % (Auto) 0 % Neutrophils (%) (Auto) 76 H 42-75 % Lymphocytes (%) (Auto) 13 12-44 % Monocytes (%) (Auto) 7 0-12 % Eosinophils (%) (Auto) 4 0-10 % Basophils (%) (Auto) 1 0-10 % Neutrophils # (Auto) 7.7 1.8-7.8 10^3/uL Lymphocytes # (Auto) 1.3 1.0-4.0 10^3/uL Monocytes # (Auto) 0.7 0.0-1.0 10^3/uL Eosinophils # (Auto) 0.4 H 0.0-0.3 10^3/uL Basophils # (Auto) 0.1 0.0-0.1 10^3/uL Immature Granulocyte # (Auto) 0.0 0.0-0.1 10^3/uL D-Dimer < 0.27 0.00-0.49 UG/ML Sodium Level 138 135-145 MMOL/L Potassium Level 3.6 3.6-5.0 MMOL/L Chloride Level 106 98-107 MMOL/L Carbon Dioxide Level 23 21-32 MMOL/L Anion Gap 9 5-14 MMOL/L Blood Urea Nitrogen 6 L 7-18 MG/DL Creatinine 0.87 0.60-1.30 MG/DL Estimat Glomerular Filtration Rate 110 BUN/Creatinine Ratio 7 Glucose Level 87 70-105 MG/DL Calcium Level 8.9 8.5-10.1 MG/DL Corrected Calcium 8.8 8.5-10.1 MG/DL Total Bilirubin 0.3 0.1-1.0 MG/DL Aspartate Amino Transf (AST/SGOT) 17 5-34 U/L Alanine Aminotransferase (ALT/SGPT) 22 0-55 U/L Alkaline Phosphatase 77 40-136 U/L C-Reactive Protein High Sensitivity 0.27 0.00-0.50 MG/DL Total Protein 6.6 6.4-8.2 GM/DL Albumin 4.1 3.2-4.5 GM/DL My Orders Orders - TOBY ELLIS MD Cbc With Automated Diff (11/06/21 09:34) Comprehensive Metabolic Panel (11/06/21 09:34) Hs C Reactive Protein (11/06/21 09:34) Fibrin Degradation Products (11/06/21 09:34) Ed Iv/Invasive Line Start (11/06/21 09:34) Ketorolac Injection (Toradol Injection) (11/06/21 09:34) Orphenadrine Inj (Ed Only) (Norflex Inje (11/06/21 09:34) Vital Signs/I&O 11/06/21 08:40 Temp 36.1 Pulse 77 Resp 16 B/P (MAP) 142/103 (116) Pulse Ox 98 O2 Delivery Room Air Capillary Refill : Less Than 3 Seconds Blood Pressure Mean: 116 Progress Note : Progress Note Seen and evaluated. IV, labs, Toradol 30 mg IV and Norflex 60 mg IV due to left lateral neck pain. Does have some scalp tenderness as well. Blood pressure noted to be slightly elevated. We will recheck labs. I have reviewed labs from previous visit on 11/01/[address] reports as well. No large vessel occlusion or other acute findings to suggest stroke at that time. We have had persistence of symptoms since. We will compare labs to previous and consider CT if indicated after reevaluation from pain medication. Monitor patient. 1049: Patient feeling a little better. D-dimer negative. Labs reviewed and showed no significant findings otherwise. Do not have concerns for stroke at this time. I do believe this is likely muscle tension and inflammation. We will initiate outpatient muscle relaxer and steroid and he will continue with NSAIDs. He will also continue with his doctor for follow-up for MRI neurology as needed. Discharged home with return precautions. Patient verbalized understanding instructions and agreement with plan. Departure Impression Primary Impression: Neck muscle strain Qualified Codes: S16.1XXA - Strain of muscle, fascia and tendon at neck level, initial encounter Additional Impression: Cervical radiculopathy Disposition: 01 HOME, SELF-CARE Condition: Stable Departure-Patient Inst. Decision time for Depature: 10:51 Referrals: [facility] (PCP) Primary Care Physician LILLIAN DUVALL (Family) Primary Care Physician Patient Instructions: Cervical Muscle Strain (DC), Neck Pain ED Add. Discharge Instructions: All discharge instructions reviewed with patient and/or family. Voiced understanding. Take medications as directed. Follow-up with your doctor for recheck and further evaluation and continue evaluation for MRI and neurology if needed. You may use topical agents such as icy hot with lidocaine or similar to area of concern to reduce pain. Return for worse pain, weakness, vision or balance problems, difficulty with speech or walking or other concerns as needed. Scripts Prednisone (Prednisone) 20 Mg Tab 40 MG PO DAILY, #10 TAB 0 Refills Prov: TOBY ELLIS MD 11/06/21 Naproxen (Naprosyn) 500 Mg Tablet 500 MG PO BID, #30 TAB 0 Refills Prov: TOBY ELLIS MD 11/06/21 Cyclobenzaprine HCl (Cyclobenzaprine HCl) 10 Mg Tablet 10 MG PO Q8H PRN for SPASMS, #15 TAB 0 Refills Prov: TOBY ELLIS MD 11/06/21 TOBY ELLIS MD Nov 06, 2021 09:50
[2021-11-06 09:51] LABS: POTASSIUM 3.6 MMOL/L (3.6-5.0)
[2021-11-06 09:52] LABS: CALCIUM 8.9 MG/DL (8.5-10.1)
[2021-11-06 09:53] LABS: TOTAL PROTEIN 6.6 GM/DL (6.4-8.2)
[2021-11-06 09:55] LABS: BILIRUBIN,TOTAL 0.3 MG/DL (0.1-1.0)
[2021-11-06 09:57] LABS: CREATININE SERUM 0.87 MG/DL (0.60-1.30)
[2021-11-06] MEDS ORDERED: PRD20T PO (10:53)
[2021-11-06] MEDS ORDERED: CYCL10TA25 PO (10:53)
[2021-11-06] MEDS ORDERED: NAPR-1071 PO (10:53)
[2021-11-06 11:01] VITALS: BP 119/81
== END 2021-11-06 11:01 | disposition home or self-care (01) ==
LOC: EDUNIT# 08:35 → ER 08:37
DX: S16.1XXA Strain of muscle, fascia and tendon at neck level, initial encounter (principal); M54.12 Radiculopathy, cervical region; G89.29 Other chronic pain; M54.9 Dorsalgia, unspecified; F17.210 Nicotine dependence, cigarettes, uncomplicated; Z86.16 Personal history of COVID-19; Z86.73 Personal history of transient ischemic attack (TIA), and cerebral infarction without residual deficits; Z79.891 Long term (current) use of opiate analgesic; X58.XXXA Exposure to other specified factors, initial encounter
CPT/HCPCS: 36415; 80053; 85025; 85379; 86141

== ENCOUNTER 2022-03-04 20:30 | Emergency (ER) | payer MEDICARE, MEDICAID ==
[~2022-03-04] VITALS: Ht 182 cm; Wt 110.0 kg
[~2022-03-04 20:30] MED LIST changes: +NAPR-1071 PO
[2022-03-04 21:58] VITALS: BP 134/87
[2022-03-04] MEDS ORDERED: KETOROLAC 30 MG/ML VIAL IVP ONE (22:00)
--- NOTE | 2022-03-04 22:01 | ED Abdominal Pain ---
General Chief Complaint: Abdominal/GI Problems Stated Complaint: STOMACH PAIN, BODY ACHES Source of Information: Patient Exam Limitations: No Limitations History of Present Illness Date Seen by Provider: March 04, 2022 Time Seen by Provider: 21:49 Allergies and Home Medications Allergies Coded Allergies: Sulfa (Sulfonamide Antibiotics) (Verified Allergy, Severe, HIVES, 10/09/21) levofloxacin (Verified Allergy, Unknown, 10/09/21) doxycycline (Verified Adverse Reaction, Mild, Vomiting, 10/09/21) Patient Home Medication List Cefdinir (Cefdinir) 300 Mg Capsule, 300 MG PO BID Prescribed by: SYLWIA TORRES on 10/12/21 0236 Clindamycin HCl (Clindamycin HCl) 300 Mg Capsule, 300 MG PO QID Prescribed by: SYLWIA TORRES on 10/12/21 0236 Cyclobenzaprine HCl (Cyclobenzaprine HCl) 10 Mg Tablet, 10 MG PO Q8H PRN for SPASMS Prescribed by: TOBY ELLIS on 11/06/21 1053 Docusate Sodium (Colace) 100 Mg Capsule, 100 MG PO BID Prescribed by: RICHARD HUTCHINSON on 10/09/21 1052 Hydrocodone/Acetaminophen (Hydrocodone-Acetamin 5-325 mg) 1 Each Tablet, 1 EACH PO Q4H PRN for PAIN-MODERATE (5-7) Prescribed by: RICHARD HUTCHINSON on 10/09/21 1054 Hydrocodone/Acetaminophen (Hydrocodone-Acetamin 5-325 mg) 1 Each Tablet, 1 TAB PO Q4H PRN for PAIN-MODERATE (5-7) Prescribed by: YULIET ORELLANA on 10/21/21 1539 Naproxen (Naprosyn) 500 Mg Tablet, 500 MG PO BID Prescribed by: TOBY ELLIS on 11/06/21 1053 Prednisone (Prednisone) 20 Mg Tab, 40 MG PO DAILY Prescribed by: TOBY ELLIS on 11/06/21 1053 Past Xzjhzcz-Atceer-Mhagdu Hx Patient Social History Tobacco Use?: Yes Tobacco type used: Cigarettes Smoking Status: Current Everyday Smoker Substance use?: No Alcohol Use?: No Immunizations Up To Date Influenza Vaccine Up-to-Date: No; Not Current First/Initial COVID19 Vaccinat: 12/29 Second COVID19 Vaccination Cole: 01/29 Seasonal Allergies Seasonal Allergies: No Past Medical History Surgery/Hospitalization HX: CHOLECYSTECTOMY, UMBILICAL HERNIA REPAIR, RENAL STONES, APPY,VASECTOMY, T/A, CVA 2019, ANXIETY, PTSD Surgeries: Yes (KIDNEY STONES--BASKET REMOVAL, ) Abdominal, Adenoidectomy, Appendectomy, Gallbladder, Tonsillectomy, Vasectomy Respiratory: No Currently Using CPAP: No Currently Using BIPAP: No Cardiac: No Neurological: Yes (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, MOSTLY RESOLVED) Stroke Reproductive Disorders: No Genitourinary: Yes Kidney Stones Gastrointestinal: Yes (CHRONIC GI COMPLAINTS) Abdominal Hernia, Gall Bladder Disease Musculoskeletal: Yes Chronic Back Pain Endocrine: Yes (hypoglycemia) HEENT: No Tonsilitis Cancer: No Psychosocial: Yes Anxiety, PTSD Integumentary: No Blood Disorders: No Family Medical History No Pertinent Family Hx SOCIAL HISTORY: -ETOH--OCCASIONAL USE -DRUGS--DENIES USE, BUT UDS HAS BEEN + FOR THC -SMOKES 1 PPD PAST SURGICAL HISTORY: -KIDNEY STONES-BASKET REMOVAL -TONSILLECTOMY/ADENOIDECTOMY -VASECTOMY -CARDIAC CATH 09/24/20 BY : CONCLUSIONS: 1. No angiographically significant coronary artery disease. 2. Normal left ventricular end-diastolic pressure. 3. Normal left ventricular systolic function with ejection fraction of 55% to 60%. DISCUSSION AND RECOMMENDATIONS: Based on results of the study, chest discomfort does not appear to be of coronary origin. Risk factor modification is advised. Have advised to refrain from tobacco use. Other risk factor modification has also been discussed. Outpatient followup is advised. -LAPAROSCOPIC CHOLECYSTECTOMY AND UMBILICAL HERNIA REPAIR 10/09/[address] HUTCHINSON. Physical Exam Vital Signs Vital Signs - First Documented 03/04/22 21:58 Pulse 74 Resp 18 B/P (MAP) 134/87 (103) Pulse Ox 96 O2 Delivery Room Air Capillary Refill : Height/Weight/BMI Height: 6'" Weight: 242lbs. oz. 109.951749ua; 31.00 BMI Method:Stated Progress/Results/Core Measures Results/Orders Lab Results Laboratory Tests Test 03/04/22 22:24 03/04/22 22:32 03/04/22 22:58 Range/Units White Blood Count 8.1 4.3-11.0 10^3/uL Red Blood Count 5.07 4.30-5.52 10^6/uL Hemoglobin 16.8 13.3-17.7 g/dL Hematocrit 50 40-54 % Mean Corpuscular Volume 98 80-99 fL Mean Corpuscular Hemoglobin 33 25-34 pg Mean Corpuscular Hemoglobin Concent 34 32-36 g/dL Red Cell Distribution Width 12.0 10.0-14.5 % Platelet Count 249 130-400 10^3/uL Mean Platelet Volume 8.5 L 9.0-12.2 fL Immature Granulocyte % (Auto) 0 % Neutrophils (%) (Auto) 56 42-75 % Lymphocytes (%) (Auto) 27 12-44 % Monocytes (%) (Auto) 9 0-12 % Eosinophils (%) (Auto) 7 0-10 % Basophils (%) (Auto) 1 0-10 % Neutrophils # (Auto) 4.5 1.8-7.8 10^3/uL Lymphocytes # (Auto) 2.2 1.0-4.0 10^3/uL Monocytes # (Auto) 0.7 0.0-1.0 10^3/uL Eosinophils # (Auto) 0.5 H 0.0-0.3 10^3/uL Basophils # (Auto) 0.1 0.0-0.1 10^3/uL Immature Granulocyte # (Auto) 0.0 0.0-0.1 10^3/uL Sodium Level 140 135-145 MMOL/L Potassium Level 3.2 L 3.6-5.0 MMOL/L Chloride Level 104 98-107 MMOL/L Carbon Dioxide Level 23 21-32 MMOL/L Anion Gap 13 5-14 MMOL/L Blood Urea Nitrogen 4 L 7-18 MG/DL Creatinine 0.96 0.60-1.30 MG/DL Estimat Glomerular Filtration Rate 100 BUN/Creatinine Ratio 4 Glucose Level 109 H 70-105 MG/DL Calcium Level 9.1 8.5-10.1 MG/DL Corrected Calcium 8.9 8.5-10.1 MG/DL Total Bilirubin 0.3 0.1-1.0 MG/DL Aspartate Amino Transf (AST/SGOT) 17 5-34 U/L Alanine Aminotransferase (ALT/SGPT) 26 0-55 U/L Alkaline Phosphatase 89 40-136 U/L Total Protein 7.0 6.4-8.2 GM/DL Albumin 4.2 3.2-4.5 GM/DL Influenza Type A (RT-PCR) Not Detected Not Detecte Influenza Type B (RT-PCR) Not Detected Not Detecte SARS-CoV-2 RNA (RT-PCR) Not Detected Not Detecte Urine Color YELLOW Urine Clarity CLEAR Urine pH 6.5 5-9 Urine Specific [place] <=1.005 1.016-1.022 Urine Protein NEGATIVE NEGATIVE Urine Glucose (UA) NEGATIVE NEGATIVE Urine Ketones NEGATIVE NEGATIVE Urine Nitrite NEGATIVE NEGATIVE Urine Bilirubin NEGATIVE NEGATIVE Urine Urobilinogen 0.2 < = 1.0 MG/DL Urine Leukocyte Esterase NEGATIVE NEGATIVE Urine RBC (Auto) NEGATIVE NEGATIVE Urine RBC NONE /HPF Urine WBC NONE /HPF Urine Squamous Epithelial Cells NONE /HPF Urine Renal Epithelial Cells NONE /HPF Urine Crystals NONE /LPF Urine Bacteria NEGATIVE /HPF Urine Casts NONE /LPF Urine Mucus NEGATIVE /LPF Urine Culture Indicated NO My Orders Orders - DIONI YING FRONT END WEB DESIGNER Ua Culture If Indicated (03/04/22 21:54) Ct Abdomen/Pelvis Wo (03/04/22 22:00) Cbc With Automated Diff (03/04/22 22:00) Comprehensive Metabolic Panel (03/04/22 22:00) Ketorolac Injection (Toradol Injection) (03/04/22 22:00) Ns Iv 1000 Ml (Sodium Chloride 0.9%) (03/04/22 22:15) Covid 19 Inhouse Test (03/04/22 22:23) Influenza A And B By Pcr (03/04/22 22:23) Abdominal Binder (03/04/22 22:33) Medications Given in ED Current Medications Medications Dose Ordered Sig/Alba Route Start Time Stop Time Status Last Admin Dose Admin Ketorolac Tromethamine 30 mg ONCE ONCE IVP 03/04/22 22:00 03/04/22 22:01 DC 03/04/22 22:23 30 MG Sodium Chloride 1,000 ml @ 100 mls/hr Q10H ONCE IV 03/04/22 22:15 03/05/22 08:14 03/04/22 22:33 100 MLS/HR Vital Signs/I&O 03/04/22 21:58 Pulse 74 Resp 18 B/P (MAP) 134/87 (103) Pulse Ox 96 O2 Delivery Room Air Departure Impression Primary Impression: Hernia of abdominal wall Disposition: HOME, SELF-CARE Condition: Improved Departure-Patient Inst. Decision time for Depature: 23:01 Referrals: [facility] (PCP) Primary Care Physician LILLIAN DUVALL (Family) Primary Care Physician Patient Instructions: Abdominal Hernia (DC) Add. Discharge Instructions: Plan: 1. Follow up with Dr. Hutchinson next week. Call office to schedule appointment. 2. Use abdominal binder to help support abdomen when you are up and about. 3. Avoid any heavy lifting over 10 pounds until you follow up with your surgeon. 4. Return for any new, concerning, or worsening symptoms. All discharge instructions reviewed with patient and/or family. Voiced understanding. Work/School Note: Work Release Form Date Seen in the Emergency Department: March 04, 2022 Return to Work: March 06, 2022 Other Restrictions Listed Below: No lifting over 10 pounds DIONI YING FRONT END WEB DESIGNER March 04, 2022 22:01
[2022-03-04] MEDS ORDERED: NS IV 1000 ML 1,000 ML IV ONE (22:15)
[2022-03-04 22:30] LABS: BASOPHILS # (AUTO) 0.1 10^3/uL (0.0-0.1); BASOPHILS % (AUTO) 1 % (0-10); EOSINOPHILS # (AUTO) 0.5 10^3/uL (0.0-0.3); EOSINOPHILS % (AUTO) 7 % (0-10); HEMATOCRIT 50 % (40-54); HEMOGLOBIN 16.8 g/dL (13.3-17.7); LYMPHOCYTES # (AUTO) 2.2 10^3/uL (1.0-4.0); LYMPHOCYTES % (AUTO) 27 % (12-44); MEAN CORPUSCULAR HEMOGLOBIN 33 pg (25-34); MEAN CORPUSCULAR HGB CONC 34 g/dL (32-36); MEAN CORPUSCULAR VOLUME 98 fL (80-99); MEAN PLATELET VOLUME 8.5 fL (9.0-12.2); MONOCYTES # (AUTO) 0.7 10^3/uL (0.0-1.0); MONOCYTES % (AUTO) 9 % (0-12); NEUTROPHILS # (AUTO) 4.5 10^3/uL (1.8-7.8); NEUTROPHILS % (AUTO) 56 % (42-75); PLATELET COUNT 249 10^3/uL (130-400); WHITE BLOOD COUNT 8.1 10^3/uL (4.3-11.0)
--- NOTE | 2022-03-04 22:30 | Diagnostic Imaging Report ---
EXAMINATION: CT abdomen and pelvis without contrast. TECHNIQUE: Multiple contiguous axial images were obtained through the abdomen and pelvis without the use of intravenous contrast. All CT scans use one or more of the following dose optimizing techniques: automated exposure control, MA and/or KvP adjustment based on patient size and exam type or iterative reconstruction. HISTORY: ABD pain. COMPARISON: 10/21/2021. FINDINGS: Lung bases: The lung bases are clear. Solid organs: The liver is normal. The gallbladder is surgically absent. There is no biliary ductal dilation. Pancreas is normal. Spleen is normal. Adrenal glands are normal. The kidneys are normal without visualized calculus or hydronephrosis. Bowel: The stomach and small bowel are normal without obstruction. The colon and appendix are normal. Peritoneum: There is no intraperitoneal free fluid or free air. No suspicious lymphadenopathy. Vasculature: Normal without aneurysm. Musculoskeletal: Degenerative changes of the spine without suspicious osseous lesion or compression fracture. There is a fat-containing periumbilical hernia. Pelvis: The prostate gland is normal. The urinary bladder is normal. IMPRESSION: No acute abnormality in the abdomen or pelvis. Dictated by: Dictated on workstation # [id number]
[2022-03-04 23:00] LABS: ALBUMIN 4.2 GM/DL (3.2-4.5)
[2022-03-04 23:01] LABS: POTASSIUM 3.2 MMOL/L (3.6-5.0)
[2022-03-04 23:02] LABS: CALCIUM 9.1 MG/DL (8.5-10.1)
[2022-03-04 23:05] LABS: BILIRUBIN,TOTAL 0.3 MG/DL (0.1-1.0)
[2022-03-04 23:06] LABS: BILIRUBIN,URINE NEGATIVE (NEGATIVE); CLARITY,URINE CLEAR; COLOR,URINE YELLOW; GLUCOSE, URINE (UA) NEGATIVE (NEGATIVE); KETONES,URINE NEGATIVE (NEGATIVE); LEUKOCYTE ESTERASE ,URINE NEGATIVE (NEGATIVE); NITRITE,URINE NEGATIVE (NEGATIVE); PH,URINE 6.5 (5-9); PROTEIN,URINE NEGATIVE (NEGATIVE)
[2022-03-04 23:07] LABS: CREATININE SERUM 0.96 MG/DL (0.60-1.30)
[2022-03-04 23:11] LABS: BACTERIA,URINE NEGATIVE /HPF
== END 2022-03-04 23:33 | disposition home or self-care (01) ==
LOC: EDUNIT# 20:30 → ER 20:32
DX: K42.9 Umbilical hernia without obstruction or gangrene (principal); F17.210 Nicotine dependence, cigarettes, uncomplicated; Z90.49 Acquired absence of other specified parts of digestive tract
CPT/HCPCS: 36415; 74176; 80053; 81000; 85025; 87636

== ENCOUNTER 2022-03-24 16:54 | Emergency (ER) | payer MEDICARE, MEDICAID ==
[~2022-03-24] VITALS: Ht 185 cm; Wt 113.0 kg
--- NOTE | 2022-03-24 17:51 | Diagnostic Imaging Report ---
EXAM: ANKLE, LEFT, 3 VIEWS INDICATION: Left ankle pain. COMPARISON: None. FINDINGS: No fracture or malalignment. Soft tissue shadows are unremarkable. IMPRESSION: Negative left ankle radiographs. Dictated by: Dictated on workstation # [id number]
--- NOTE | 2022-03-24 17:52 | Diagnostic Imaging Report ---
EXAM: TIBIA/FIBULA, LEFT, 2 VIEWS INDICATION: Left lower extremity pain. COMPARISON: Left ankle radiographs also performed today. FINDINGS: No fracture or malalignment. Soft tissue shadows are unremarkable. IMPRESSION: Negative left tibia and fibula radiographs. Dictated by: Dictated on workstation # [id number]
--- NOTE | 2022-03-24 18:12 | ED Lower Extremity ---
General Chief Complaint: Lower Extremity Stated Complaint: L ANKLE INJ/STOMACH PAIN Source: patient Exam Limitations: no limitations History of Present Illness Date Seen by Provider: Mar 24, 2022 Allergies and Home Medications Allergies Coded Allergies: Sulfa (Sulfonamide Antibiotics) (Verified Allergy, Severe, HIVES, ) levofloxacin (Verified Allergy, Unknown, 10/09/21) doxycycline (Verified Adverse Reaction, Mild, Vomiting, 10/09/21) Patient Home Medication List Cefdinir (Cefdinir) 300 Mg Capsule, 300 MG PO BID Prescribed by: SYLWIA TORRES on 10/12/21 023 Clindamycin HCl (Clindamycin HCl) 300 Mg Capsule, 300 MG PO QID Prescribed by: SYLWIA TORRES on 10/12/21 023 Cyclobenzaprine HCl (Cyclobenzaprine HCl) 10 Mg Tablet, 10 MG PO Q8H PRN for SPASMS Prescribed by: TOBY ELLIS on 11/06/21 1053 Docusate Sodium (Colace) 100 Mg Capsule, 100 MG PO BID Prescribed by: RICHARD HUTCHINSON on 10/09/21 1052 Hydrocodone/Acetaminophen (Hydrocodone-Acetamin 5-325 mg) 1 Each Tablet, 1 EACH PO Q4H PRN for PAIN-MODERATE (5-7) Prescribed by: RICHARD HUTCHINSON on 10/09/21 1054 Hydrocodone/Acetaminophen (Hydrocodone-Acetamin 5-325 mg) 1 Each Tablet, 1 TAB PO Q4H PRN for PAIN-MODERATE (5-7) Prescribed by: YULIET ORELLANA on 10/21/21 1539 Naproxen (Naprosyn) 500 Mg Tablet, 500 MG PO BID Prescribed by: TOBY ELLIS on 11/06/21 1053 Prednisone (Prednisone) 20 Mg Tab, 40 MG PO DAILY Prescribed by: TOBY ELLIS on 11/06/21 1053 Past Kwwnkjo-Gkiyzo-Hhetaf Hx Immunizations Up To Date First/Initial COVID19 Vaccinat: 12/29 Second COVID19 Vaccination Cole: 01/29 Seasonal Allergies Seasonal Allergies: No Past Medical History Surgery/Hospitalization HX: CHOLECYSTECTOMY, UMBILICAL HERNIA REPAIR, RENAL STONES, APPY,VASECTOMY, T/A, CVA 2019, ANXIETY, PTSD Surgeries: Yes (KIDNEY STONES--BASKET REMOVAL, ) Abdominal, Adenoidectomy, Appendectomy, Gallbladder, Tonsillectomy, Vasectomy Respiratory: No Currently Using CPAP: No Currently Using BIPAP: No Cardiac: No Neurological: Yes (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, MOSTLY RESOLVED) Stroke Reproductive Disorders: No Genitourinary: Yes Kidney Stones Gastrointestinal: Yes (CHRONIC GI COMPLAINTS) Abdominal Hernia, Gall Bladder Disease Musculoskeletal: Yes Chronic Back Pain Endocrine: Yes (hypoglycemia) HEENT: No Tonsilitis Cancer: No Psychosocial: Yes Anxiety, PTSD Integumentary: No Blood Disorders: No Family Medical History No Pertinent Family Hx SOCIAL HISTORY: -ETOH--OCCASIONAL USE -DRUGS--DENIES USE, BUT UDS HAS BEEN + FOR THC -SMOKES 1 PPD PAST SURGICAL HISTORY: -KIDNEY STONES-BASKET REMOVAL -TONSILLECTOMY/ADENOIDECTOMY -VASECTOMY -CARDIAC CATH 09/24/20 BY : CONCLUSIONS: 1. No angiographically significant coronary artery disease. 2. Normal left ventricular end-diastolic pressure. 3. Normal left ventricular systolic function with ejection fraction of 55% to 60%. DISCUSSION AND RECOMMENDATIONS: Based on results of the study, chest discomfort does not appear to be of coronary origin. Risk factor modification is advised. Have advised to refrain from tobacco use. Other risk factor modification has also been discussed. Outpatient followup is advised. -LAPAROSCOPIC CHOLECYSTECTOMY AND UMBILICAL HERNIA REPAIR 10/09/[address] HUTCHINSON. Physical Exam Vital Signs Capillary Refill : Height, Weight, BMI Height: 6'" Weight: 242lbs. oz. 109.523048ih; 33.00 BMI Method:Stated Progress/Results/Core Measures Results/Orders My Orders Orders - SYLWIA HODGE MD Tibia/Fibula, Left, 2 Views (03/24/22 17:34) Crutches (03/24/22 18:04) Ketorolac Injection (Toradol Injection) (03/24/22 18:15) Ondansetron Oral Dissolve Tab (Zofran (03/24/22 18:15) Departure Impression Primary Impression: Left ankle sprain Qualified Codes: S93.402A - Sprain of unspecified ligament of left ankle, initial encounter Additional Impressions: Umbilical hernia Qualified Codes: K42.9 - Umbilical hernia without obstruction or gangrene Nausea Disposition: 01 HOME, SELF-CARE Condition: Against Medical Advice Departure-Patient Inst. Decision time for Depature: 18:13 Referrals: [facility] (PCP) Primary Care Physician LILLIAN DUVALL (Family) Primary Care Physician Patient Instructions: Umbilical Hernia, Adult Add. Discharge Instructions: You may treat pain and swelling in your ankle with rest, compressive wrapping, elevation, and 20-minute intervals of icing. Gradually increase level of activity as pain allows. Obtain a supportive Velcro or lace up brace from the store and use for the next 6 weeks whenever active. You may use Tylenol (acetaminophen) up to 1000 mg every 6 hours as needed for more minor pain. For more intense pain use hydrocodone as prescribed. This is for pain related to the ankle or your hernia. Use crutches to walk as necessary but gradually increase weightbearing as tolerated. Avoid excessive bending, heavy lifting, and eating large meals as much as possible. These things may irritate your hernia. Zofran (ondansetron) may be used as prescribed for nausea. Return to care if you have worsening symptoms despite following these instructions. All discharge instructions reviewed with patient and/or family. Voiced understanding. Scripts Hydrocodone/Acetaminophen (Hydrocodone-Acetamin 5-325 mg) 5 Mg-325 Mg Tablet 1 TAB PO Q4H PRN for PAIN-MODERATE (5-7), #10 TAB Prov: SYLWIA HODGE MD 03/24/22 Ondansetron (Ondansetron Odt) 4 Mg Tab.rapdis 4 MG SL Q4H PRN for NAUSEA/VOMITING, #10 TAB Prov: SYLWIA HODGE MD 03/24/22 Work/School Note: Work Release Form Date Seen in the Emergency Department: Mar 24, 2022 Return to Work: Mar 26, 2022 Other Restrictions Listed Below: May need to use crutches. Should use ankle brace for 6 weeks. SYLWIA HODGE MD Mar 24, 2022 18:12
[2022-03-24] MEDS ORDERED: ONDANSETRON 4 MG (ZOFRAN) ORAL DISSOLVE TAB SL ONE (18:15)
[2022-03-24] MEDS ORDERED: KETOROLAC 30 MG/ML VIAL IM ONE (18:15)
[2022-03-24] MEDS ORDERED: ONDA4TAB11 SL ×3 (18:18→18:22)
[2022-03-24] MEDS ORDERED: ACHD5005 PO ×3 (18:18→18:23)
[2022-03-24 18:30] VITALS: BP 134/80
== END 2022-03-24 18:30 | disposition home or self-care (01) ==
LOC: EDUNIT# 16:54 → ER 16:55
DX: S93.402A Sprain of unspecified ligament of left ankle, initial encounter (principal); K42.9 Umbilical hernia without obstruction or gangrene; F17.210 Nicotine dependence, cigarettes, uncomplicated; Z90.49 Acquired absence of other specified parts of digestive tract; X58.XXXA Exposure to other specified factors, initial encounter
CPT/HCPCS: 73590; 73610

== ENCOUNTER 2022-04-02 05:38 | Outpatient (CLI) | payer MEDICARE, MEDICAID ==
[~2022-04-02] VITALS: Ht 182.9 cm; Wt 112.0 kg
[~2022-04-02 05:38] MED LIST changes: +ONDA4TAB11 SL
[2022-04-03] MEDS ORDERED: ASPI81TA16 PO (08:22)
[2022-04-09] MEDS ORDERED: DOCU-143 PO (12:10)
[2022-04-09] MEDS ORDERED: ACHD5005 PO (12:10)
== END 2022-04-03 09:11 | disposition home or self-care (01) ==
LOC: PREOP 05:38
PROVIDERS: ATTEND Surgery
DX: Z01.818 Encounter for other preprocedural examination (principal)

== ENCOUNTER 2022-04-09 08:18 | Day surgery (SDC) | payer MEDICARE, MEDICAID ==
[2022-04-09] VITALS (11 sets, daily range): BP systolic 104–148; BP diastolic 69–98
[~2022-04-09] VITALS: Ht 183 cm; Wt 112.0 kg
[~2022-04-09 08:18] MED LIST changes: +ASPI81TA16 PO
[2022-04-09] MEDS ORDERED: ceFAZolin 2 GM IV Premixed 50 ML IV ONE (08:30)
[2022-04-09] MEDS: LACTATED RINGERS 1,000 ML IV SCH ×2 (08:58→11:05)
[2022-04-09] MEDS ORDERED: LIDOCAINE/EPI 1%-1:100,000 (XYLOCAINE) 20ML ONE (09:40)
--- NOTE | 2022-04-09 09:51 | Progress Note-Pre Operative ---
Pre-Operative Progress Note H&P Reviewed The H&P was reviewed, patient examined and no changes noted. Date Seen by Provider: Apr 09, 2022 Time Seen by Provider: 09:51 Date H&P Reviewed: Apr 09, 2022 Time H&P Reviewed: 09:51 Pre-Operative Diagnosis: incisional hernia RICHARD HUTCHINSON DO Apr 09, 2022 09:51
[2022-04-09] MEDS ORDERED: fentaNYL INJ 100 MCG/2 ML AMP ONE (10:09)
[2022-04-09] MEDS ORDERED: proPOfol 200 MG/20 ML (DIPRIVAN) VIAL IV ONE (10:09)
[2022-04-09] MEDS ORDERED: ROCURONIUM 50 MG/5 ML (ZEMURON) VIAL IV ONE (10:09)
[2022-04-09] MEDS ORDERED: LIDOCAINE PF 2% 5 ML (XYLOCAINE) VIAL ONE (10:09)
[2022-04-09] MEDS ORDERED: ONDANSETRON 4 MG/2 ML (SDV) Z0FRAN ONE ×2 (10:09→13:50)
[2022-04-09] MEDS ORDERED: SEVOFLURANE (ULTANE) 15 ML INHAL SOLN ONE (10:09)
[2022-04-09] MEDS ORDERED: MIDAZOLAM 2 MG/2 ML (VERSED) VIAL ONE (10:10)
[2022-04-09] MEDS ORDERED: GLYCOPYRROLATE 0.2 MG/ML (ROBINUL) 2 ML VIAL ONE ×2 (11:54→12:08)
[2022-04-09] MEDS ORDERED: NEOSTIGMINE (BLOXIVERZ ) 1 MG/1ML 10 ML VIAL ONE (11:54)
[2022-04-09] MEDS ORDERED: DOCU-143 PO (12:10)
[2022-04-09] MEDS ORDERED: ACHD5005 PO (12:10)
--- NOTE | 2022-04-09 12:13 | Discharge Inst-Simple/Standard ---
Discharge Inst-Standard Discharge Medications New, Converted or Re-Newed RX: Transmitted to Pharmacy Patient Instructions/Follow Up Plan of Care/Instructions/FU: 2 weeks Margarito Activity as Tolerated: No Discharge Diet: Regular Diet Other Inst to Patient Follow up Appt: Make appointment for 2 week. Instructions: No lifting greater than 10 pounds. No strenuous activity. May shower in 24 hours, no tub bath or soaking. Use incentive spirometer at home as directed. No Smoking Skin/Wound Care: You have special glue over your incision that will fall off on it's own. Symptoms to Report: Appetite Changes, Extremity Discoloration, Numbness/Tingling, Swelling Increased, Bleeding Excessive, Eyesight Changes, Pain Increased, Urine Color Change, Constipation(Persistent), Fever over 101 degree F, Pain/Pressure in chest, Urinating Difficulty, Cough Up/Vomit Blood, Heart Beat Irreg/Pounding, Pain/Pressure in jaw, Vaginal Bleeding Increase, Cramps in feet or legs, Lightheadedness, Pain/Pressure in shoulder, Diarrhea(Persistent), Memory Changes Suddenly, Questions/Concerns, Weight gain consecutive days, Dizziness/Fainting, Nausea/Vomiting, Shortness of Breath, Weight gain over 2 pounds If questions or concerns contact your physician Or seek help at emergency department. RICHARD HUTCHINSON DO Apr 09, 2022 12:13
--- NOTE | 2022-04-09 12:15 | Anesthesia-General Post-Op ---
General Patient Condition Mental Status/LOC: Same as Preop Cardiovascular: Satisfactory Nausea/Vomiting: Absent Respiratory: Satisfactory Pain: Controlled Complications: Absent Post Op Complications Complications None Follow Up Care/Instructions Patient Instructions None needed. Anesthesia/Patient Condition Patient Condition Patient is doing well, no complaints, stable vital signs, no apparent adverse anesthesia problems. No complications reported per nursing. RENEE AGUIAR CRNA Apr 09, 2022 12:15
[2022-04-09] MEDS ORDERED: HYDROmorphone 2 MG/ML VIAL (DILAUDID) ONE (12:27)
[2022-04-09] MEDS ORDERED: HYDROcodone/APAP 5 MG/325 MG (LORTAB) TAB PO ONE (13:15)
[2022-04-09] MEDS ORDERED: HYDROcodone/APAP 5 MG/325 MG (LORTAB) TAB ONE (13:15)
[2022-04-09] MEDS ORDERED: ONDANSETRON 4 MG/2 ML (SDV) Z0FRAN IVP ONE (14:00)
[2022-04-09 21:24] LABS: HEPATITIS C ANTIBODY C Non-Reactive (Non-Reactive)
--- NOTE | 2022-04-09 22:30 | OPERATIVE REPORT ---
DATE OF SERVICE: 04/09/2022 PREOPERATIVE DIAGNOSIS: Incisional hernia. POSTOPERATIVE DIAGNOSIS: Robotic/laparoscopic incisional hernia repair with 6-inch Echo Ventralight mesh. SURGEON: Richard Pimentel DO DEPUTY JUVENILE OFFICER: Dr. Cohn, assisted in retraction, dissection and closure. ANESTHESIA: General. ESTIMATED BLOOD LOSS: Minimal. COMPLICATIONS: None. INDICATIONS: The patient is a 42-year-old male with previous surgery, which had incisional hernias continued to increase in size and cause discomfort. He understands risks and benefits of procedure and wished to proceed. Consent was signed in the chart. DESCRIPTION OF PROCEDURE: The patient was taken to the operating suite, was prepped and draped in sterile fashion. Surgical pause was performed. Left upper quadrant incision was made after local anesthetic was infiltrated. A #11 blade scalpel was used to make a skin incision. Cautery was used to dissect down through the subcutaneous tissues. The anterior fascia was scored, the muscle was divided. The posterior fascia was divided and the will trocar was inserted. Pneumoperitoneum was achieved. Under direct visualization of the laparoscope, a 5 mm trocar was placed in the left lower quadrant and one in the lateral aspect. These were 8 mm trocars. The robot was then docked. The incisional hernia was visualized approximately 4 cm in diameter. Using a 0 V-Loc permanent suture the defect was then closed. This was then cut and the needle was removed. A stab incision was made at the hernia defect site. An Echo Ventralight 6-inch mesh was then inserted and pulled up. A 5 mm trocar was then placed in the right side of the abdomen. The robot was then undocked. The SecureStrap Tacker was then used to circumferentially tack the mesh into place. An inner crown was also created after the balloon was removed. Adequate coverage was present. The abdomen was then desufflated, the trocars were removed. The fascial defect of the left upper quadrant trocar was closed with 0 Vicryl. Skin was then closed using 4-0 Monocryl in subcuticular fashion. The areas were washed and dried and Skin Affix was placed over the incisions. The patient tolerated procedure well without any complications. He was taken to recovery room in stable condition. Job ID: [id number] DocumentID: [id number] Dictated Date: 04/09/2022 16:29:24 Dog Beautician Date: 04/09/2022 22:30:33 Dictated By: RICHARD PIMENTEL DO
== END 2022-04-09 14:48 | disposition home or self-care (01) ==
LOC: SDC 08:18
PROVIDERS: ATTEND Surgery
DX: K43.2 Incisional hernia without obstruction or gangrene (principal); F17.210 Nicotine dependence, cigarettes, uncomplicated; E66.9 Obesity, unspecified; Z68.33 Body mass index [BMI] 33.0-33.9, adult
CPT/HCPCS: 49654; 86701; 86803; 87081; 87389; C1781; 36415

== ENCOUNTER 2022-07-14 11:28 | Emergency (ER) | payer MEDICARE, MEDICAID ==
[~2022-07-14] VITALS: Ht 182.8 cm; Wt 112.0 kg
[~2022-07-14 11:28] MED LIST changes: +LEVO750T; -LEVO750T39
[2022-07-14] MEDS ORDERED: ASPIRIN 81 MG CHEW (CHILDREN'S ASA) PO ONE (11:45)
[2022-07-14 11:47] LABS: BASOPHILS # (AUTO) 0.1 10^3/uL (0.0-0.1); BASOPHILS % (AUTO) 1 % (0-10); EOSINOPHILS # (AUTO) 0.3 10^3/uL (0.0-0.3); EOSINOPHILS % (AUTO) 3 % (0-10); HEMATOCRIT 50 % (40-54); HEMOGLOBIN 16.8 g/dL (13.3-17.7); LYMPHOCYTES # (AUTO) 1.4 10^3/uL (1.0-4.0); LYMPHOCYTES % (AUTO) 13 % (12-44); MEAN CORPUSCULAR HEMOGLOBIN 33 pg (25-34); MEAN CORPUSCULAR HGB CONC 34 g/dL (32-36); MEAN CORPUSCULAR VOLUME 97 fL (80-99); MEAN PLATELET VOLUME 8.5 fL (9.0-12.2); MONOCYTES # (AUTO) 0.7 10^3/uL (0.0-1.0); MONOCYTES % (AUTO) 6 % (0-12); NEUTROPHILS # (AUTO) 8.2 10^3/uL (1.8-7.8); NEUTROPHILS % (AUTO) 77 % (42-75); PLATELET COUNT 277 10^3/uL (130-400); WHITE BLOOD COUNT 10.7 10^3/uL (4.3-11.0)
--- NOTE | 2022-07-14 12:05 | ED Cardiac General ---
History of Present Illness General Chief Complaint: Chest Pain Stated Complaint: CHEST PAIN Nursing Triage Note: CHEST PAIN BEGAN THIS AM AROUND 0800 WHEN HE WAS AT WORK IN [place], PATIENT STATES HE HAS ALSO HAD LEFT ARM NUMBNESS, DENIES SOB, NAUSEA OR VOMITING. STATES HE WAS WORKED UP FOR CHEST PAIN YESTERDAY AT [facility] IN [place] AND WAS FOUND TO BE OKAY AT THAT TIME. Source: patient Exam Limitations: no limitations (DIONI YING APRN) History of Present Illness Date Seen by Provider: Jul 14, 2022 Time Seen by Provider: 11:42 Initial Comments This is a 42 yo male with history of non cardiac chest pain who presented to the ER via POV with c/o chest pain that started yesterday and has persisted today. He was evaluated and treated at [facility] for symptoms and discharged home around 1800 in the evening. States [address] to [facility] his chest pain returned. Describes as sharp pain and "someone sitting on my chest". Pain is constant. No alleviating or aggravating factors. States pain will move into his left jaw and arm. He has follow up scheduled with [facility]rology on July 15. No syncope or near syncope, no nausea or vomiting. No fever, cough, or shor tness of breath. He smokes cigarettes intermittently and drinks alcohol occasionally. Denies illicit drug use. ASA po RELIGIOUS EDUCATOR: No (DIONI YING APRN) Allergies and Home Medications Allergies Coded Allergies: Sulfa (Sulfonamide Antibiotics) (Verified Allergy, Severe, HIVES, 10/09/21) levofloxacin (Verified Allergy, Unknown, 10/09/21) doxycycline (Verified Adverse Reaction, Mild, Vomiting, 10/09/21) Patient Home Medication List Home Medication List Reviewed: Yes (DIONI YING APRN) Aspirin (Low Dose Aspirin EC) 81 Mg Tablet., 81 MG PO UD, (Reported) Entered as Reported by: ZENAIDA PORRAS on 04/03/22 0822 Docusate Sodium (Colace) 100 Mg Capsule, 100 MG PO BID Prescribed by: RICHARD HUTCHINSON on 04/09/22 1210 Famotidine (Pepcid) 20 Mg Tablet, 20 MG PO BID Prescribed by: DIONI YING on 07/14/22 1537 Hydrocodone/Acetaminophen (Hydrocodone-Acetamin 5-325 mg) 5 Mg-325 Mg Tablet, 1 EACH PO Q4H PRN for PAIN-MODERATE (5-7) Prescribed by: RICHARD HUTCHINSON on 04/09/22 1213 Review of Systems Review of Systems Constitutional: No chills, No fever, No malaise EENTM: No Symptoms Reported Respiratory: No Symptoms Reported Cardiovascular: Chest Pain; Denies Lightheadedness, Denies Syncope Gastrointestinal: No Symptoms Reported Genitourinary: No Symptoms Reported Musculoskeletal: no symptoms reported Skin: no symptoms reported Psychiatric/Neurological: No Symptoms Reported Endocrine: No Symptoms Reported Hematologic/Lymphatic: No Symptoms Reported (DIONI YING APRN) Past Spmiclu-Vglkfa-Lxavtm Hx Patient Social History Tobacco Use?: Yes Tobacco type used: Cigarettes Use of E-Cig and/or Vaping dev: No Substance use?: No Alcohol Use?: Yes Alcohol Frequency: Once in a while (DIONI YING APRN) Immunizations Up To Date Influenza Vaccine Up-to-Date: Yes; Up-to-Date First/Initial COVID19 Vaccinat: 12/29 Second COVID19 Vaccination Cole: 01/29 Third COVID19 Vaccination Date: 12/29 (DIONI YING SOIL FERTILITY SPECIALIST) Seasonal Allergies Seasonal Allergies: No (DIONI YING APRN) Past Medical History Surgery/Hospitalization HX: CHOLECYSTECTOMY, UMBILICAL HERNIA REPAIR, RENAL STONES, APPY,VASECTOMY, T/A, CVA 2019, ANXIETY, PTSD Surgeries: Yes (KIDNEY STONES--BASKET REMOVAL, ) Abdominal, Adenoidectomy, Gallbladder, Tonsillectomy, Vasectomy Respiratory: No Currently Using CPAP: No Currently Using BIPAP: No Cardiac: No Neurological: Yes (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, MOSTLY RESOLVED) Stroke Reproductive Disorders: No Genitourinary: Yes Kidney Stones Gastrointestinal: Yes (CHRONIC GI COMPLAINTS, umbilical hernia) Abdominal Hernia, Gall Bladder Disease Musculoskeletal: Yes Chronic Back Pain Endocrine: Yes (hypoglycemia) HEENT: No Tonsilitis Cancer: No Psychosocial: Yes Anxiety, PTSD Integumentary: No Blood Disorders: No (DIONI YING APRN) Family Medical History No Pertinent Family Hx SOCIAL HISTORY: -ETOH--OCCASIONAL USE -DRUGS--DENIES USE, BUT UDS HAS BEEN + FOR THC -SMOKES 1 PPD PAST SURGICAL HISTORY: -KIDNEY STONES-BASKET REMOVAL -TONSILLECTOMY/ADENOIDECTOMY -VASECTOMY -CARDIAC CATH 09/24/20 BY : CONCLUSIONS: 1. No angiographically significant coronary artery disease. 2. Normal left ventricular end-diastolic pressure. 3. Normal left ventricular systolic function with ejection fraction of 55% to 60%. DISCUSSION AND RECOMMENDATIONS: Based on results of the study, chest discomfort does not appear to be of coronary origin. Risk factor modification is advised. Have advised to refrain from tobacco use. Other risk factor modification has also been discussed. Outpatient followup is advised. -LAPAROSCOPIC CHOLECYSTECTOMY AND UMBILICAL HERNIA REPAIR 10/09/[address] HUTCHINSON. (DIONI YING APRN) Physical Exam Vital Signs Vital Signs - First Documented 07/14/22 11:30 Temp 36.2 Pulse 62 Resp 18 B/P (MAP) 150/90 (110) Pulse Ox 99 O2 Delivery Room Air (SYLWIA HODGE MD) Vital Signs Capillary Refill : Less Than 3 Seconds (DIONI YING APRN) Height, Weight, BMI Height: 6'" Weight: 242lbs. oz. 109.346723go; 33.00 BMI Method:Stated General Appearance: No Apparent Distress, WD/WN HEENT: PERRL/EOMI, Normal ENT Inspection, Pharynx Normal, Moist Mucous Membranes Neck: Full Range of Motion, Normal Inspection, Non Tender Respiratory: Chest Non Tender, Lungs Clear, Normal Breath Sounds, No Accessory Muscle Use, No Respiratory Distress Cardiovascular: Regular Rate, Rhythm, No Edema, No Murmur, Normal Peripheral Pulses Gastrointestinal: Normal Bowel Sounds, No Organomegaly, Non Tender, Soft Extremity: Normal Capillary Refill, Normal Inspection, Normal Range of Motion Neurologic/Psychiatric: Alert, Oriented x3, No Motor/Sensory Deficits, Normal Mood/Affect, special delivery messenger II-XII Norm as Tested Skin: Normal Color, Warm/Dry (DIONI YING APRN) Progress/Results/Core Measures Results/Orders Lab Results Laboratory Tests Test 07/14/22 11:39 07/14/22 13:00 07/14/22 14:53 Range/Units White Blood Count 10.7 4.3-11.0 10^3/uL Red Blood Count 5.15 4.30-5.52 10^6/uL Hemoglobin 16.8 13.3-17.7 g/dL Hematocrit 50 40-54 % Mean Corpuscular Volume 97 80-99 fL Mean Corpuscular Hemoglobin 33 25-34 pg Mean Corpuscular Hemoglobin Concent 34 32-36 g/dL Red Cell Distribution Width 13.6 10.0-14.5 % Platelet Count 277 130-400 10^3/uL Mean Platelet Volume 8.5 L 9.0-12.2 fL Immature Granulocyte % (Auto) 0 % Neutrophils (%) (Auto) 77 H 42-75 % Lymphocytes (%) (Auto) 13 12-44 % Monocytes (%) (Auto) 6 0-12 % Eosinophils (%) (Auto) 3 0-10 % Basophils (%) (Auto) 1 0-10 % Neutrophils # (Auto) 8.2 H 1.8-7.8 10^3/uL Lymphocytes # (Auto) 1.4 1.0-4.0 10^3/uL Monocytes # (Auto) 0.7 0.0-1.0 10^3/uL Eosinophils # (Auto) 0.3 0.0-0.3 10^3/uL Basophils # (Auto) 0.1 0.0-0.1 10^3/uL Immature Granulocyte # (Auto) 0.0 0.0-0.1 10^3/uL Prothrombin Time 13.5 12.2-14.7 SEC INR Comment 1.0 0.8-1.4 Activated Partial Thromboplast Time 31 24-35 SEC D-Dimer 0.41 0.00-0.49 UG/ML Sodium Level 138 135-145 MMOL/L Potassium Level 3.2 L 3.6-5.0 MMOL/L Chloride Level 103 98-107 MMOL/L Carbon Dioxide Level 24 21-32 MMOL/L Anion Gap 11 5-14 MMOL/L Blood Urea Nitrogen 4 L 7-18 MG/DL Creatinine 0.93 0.60-1.30 MG/DL Estimat Glomerular Filtration Rate 104 BUN/Creatinine Ratio 4 Glucose Level 94 70-105 MG/DL Calcium Level 9.1 8.5-10.1 MG/DL Corrected Calcium 8.9 8.5-10.1 MG/DL Magnesium Level 2.0 1.6-2.4 MG/DL Total Bilirubin 0.4 0.1-1.0 MG/DL Aspartate Amino Transf (AST/SGOT) 20 5-34 U/L Alanine Aminotransferase (ALT/SGPT) 25 0-55 U/L Alkaline Phosphatase 106 40-136 U/L Total Creatine Kinase 167 30-200 U/L Creatine Kinase MB 1.4 <6.6 NG/ML Myoglobin 60.8 10.0-92.0 NG/ML Troponin I < 0.028 < 0.028 <0.028 NG/ML C-Reactive Protein High Sensitivity 0.49 0.00-0.50 MG/DL B-Type Natriuretic Peptide 36.1 <100.0 PG/ML Total Protein 7.4 6.4-8.2 GM/DL Albumin 4.3 3.2-4.5 GM/DL Lipase 14 8-78 U/L Influenza Type A (RT-PCR) Not Detected Not Detecte Influenza Type B (RT-PCR) Not Detected Not Detecte SARS-CoV-2 RNA (RT-PCR) Not Detected Not Detecte (SYLWIA HODGE MD) My Orders Orders - SYLWIA HODGE MD Ekg Tracing (07/14/22 11:34) (SYLWIA HODGE MD) Medications Given in ED Current Medications Medications Dose Ordered Sig/Alba Route Start Time Stop Time Status Last Admin Dose Admin Al Hydrox/Mg Hydrox/Simethicone 30 ml ONCE ONCE PO 07/14/22 15:00 07/14/22 15:01 DC 07/14/22 15:34 30 ML Aspirin 324 mg ONCE ONCE PO 07/14/22 11:45 07/14/22 11:46 DC 07/14/22 11:53 324 MG Fentanyl Citrate 50 mcg ONCE ONCE IVP 07/14/22 12:45 07/14/22 12:46 DC 07/14/22 12:51 50 MCG Lidocaine HCl 15 ml ONCE ONCE PO 07/14/22 15:00 07/14/22 15:01 DC 07/14/22 15:34 15 ML Nitroglycerin 0.4 mg UD PRN SL 07/14/22 12:45 07/14/22 16:07 DC 07/14/22 13:32 0.4 MG (SYLWIA HODGE MD) Vital Signs/I&O 07/14/22 07/14/22 07/14/22 07/14/22 11:30 13:19 13:33 16:07 Temp 36.2 Pulse 62 57 58 48 Resp 18 16 16 12 B/P (MAP) 150/90 (110) 135/81 (99) 129/78 (95) 142/86 Pulse Ox 99 97 97 97 O2 Delivery Room Air Room Air Room Air Room Air (SYLWIA HODGE MD) Blood Pressure Mean: 110 Progress Progress Note : Progress Note Patient examined and no acute distress. Has chronic chest pain of unknown etiology and multiple visits to local emergency departments for CP. His cardiac workup last night was negative. Cardiac workup today is negative, including D- dimer, COVID, BNP, and CXR. Given Fentanyl, MS, Nitro with no relief of symptom s. Discussed with Dr. Rascon, agrees this is not cardiac in origin, his last cath with same presentation was unremarkable. Attempted to page Dr. Rock, unable to make contact. Repeated troponin which was negative. Discussed with spouse to have close follow up with his PCP to continue workup to find origin of chest pain. Tried GI cocktail in ED and reported no improvement. He incidentally noted he had admission to [facility] 2 weeks ago for same issues and was hospitalized for 3 days. He was started on Topamax for Migraines and had the follow up with neurology scheduled. Discharge POC reviewed with patient and he is agreeable with plan. Will have him off work for remainder of week. Needs to stop Topamax as this is likely cause of his generalized "not feeling myself". Has follow up with Neurology tomorrow, will have him discuss with neurologist. (DIONI YING APRN) Initial ECG Impression Date: Jul 14, 2022 Initial ECG Impression Time: 11:38 Initial ECG Rate: 71 Initial ECG Rhythm: Normal Sinus Initial ECG Intervals: Normal Initial ECG Impression: Normal Initial ECG Comparisson: Unchanged (DIONI YING APRN) Diagnostic Imaging Diagonstic Imaging: Xray Plain Films/CT/US/NM/MRI: chest Comments [facility], [place] NAME: TOMMYALBERTO MED REC#: [id number] PT STATUS: REG ER : 1980 PHYSICIAN: DIONI YING APRN ADMIT DATE: 07/14/22/ER Signed Date of Exam:07/14/22 CHEST 1 VIEW, AP/PA ONLY INDICATION: Chest pain. Frontal chest obtained at 12:15 p.m. compared to 11/01/2021 FINDINGS: The heart is mildly enlarged. Mediastinal silhouette is unremarkable. The lungs are clear. There is no pneumothorax or pleural fluid. IMPRESSION: Mild cardiomegaly with no acute process in the chest. Dictated by: Dictated on workstation # [id number] Dict: 07/14/22 1226 Trans: 07/14/22 1352 [id number] Interpreted by: NEGIN SOUZA MD Electronically signed by: NEGIN SOUZA MD 07/14/22 1359 Reviewed: Reviewed by Me (DIONI YING APRN) Departure Communication (Admissions) Time/Spoke to Consulting Phy: 13:42 Dr. Rascon (DIONI YING APRN) Impression Primary Impression: Non-cardiac chest pain Disposition: HOME, SELF-CARE Condition: Stable Departure-Patient Inst. Decision time for Depature: 15:34 (DIONI YING APRN) [facility]: [facility] [place] Primary Care Physician LILLIAN DUVALL (Family) Primary Care Physician Patient Instructions: Chest Pain That Is Not Caused by the Heart (DC) Add. Discharge Instructions: Plan: 1. Have close follow up with your primary care provider to further evaluate source of pain. 2. Keep appointment with neurology as previously scheduled. 3. Take Pepcid by mouth twice a day for a month. 4. Return to ER for any new, concerning, or worsening symptoms. All discharge instructions reviewed with patient and/or family. Voiced understanding. Scripts Famotidine (Pepcid) 20 Mg Tablet 20 MG PO BID for 30 Days, #60 TAB 0 Refills Prov: DIONI YING APRN 07/14/22 Work/School Note: Work Release Form Date Seen in the Emergency Department: Jul 14, 2022 Return to Work: Jul 20, 2022 Restrictions: No Restrictions ATTENDING PHYSICIAN NOTE: I was physically present as attending physician in the emergency department during the care of this patient, but I was not directly involved in the decision making or delivery of care for this patient. (SYLWIA HODGE MD) DIONI YING APRN Jul 14, 2022 12:05 SYLWIA HODGE MD Jul 14, 2022 19:11
[2022-07-14 12:10] LABS: ALBUMIN 4.3 GM/DL (3.2-4.5); POTASSIUM 3.2 MMOL/L (3.6-5.0); PROTHROMBIN TIME PATIENT 13.5 SEC (12.2-14.7)
[2022-07-14 12:11] LABS: CALCIUM 9.1 MG/DL (8.5-10.1)
[2022-07-14 12:12] LABS: TOTAL PROTEIN 7.4 GM/DL (6.4-8.2)
[2022-07-14 12:14] LABS: BILIRUBIN,TOTAL 0.4 MG/DL (0.1-1.0)
[2022-07-14 12:16] LABS: CREATININE SERUM 0.93 MG/DL (0.60-1.30)
[2022-07-14 12:26] LABS: CREATINE KINASE MB 1.4 NG/ML (<6.6)
--- NOTE | 2022-07-14 12:28 | Diagnostic Imaging Report ---
INDICATION: Chest pain. Frontal chest obtained at 12:15 p.m. compared to 11/01/2021 FINDINGS: The heart is mildly enlarged. Mediastinal silhouette is unremarkable. The lungs are clear. There is no pneumothorax or pleural fluid. IMPRESSION: Mild cardiomegaly with no acute process in the chest. Dictated by: Dictated on workstation # [id number]
[2022-07-14] MEDS ORDERED: fentaNYL INJ 100 MCG/2 ML AMP IVP ONE (12:45)
[2022-07-14] MEDS: NITROGLYCERIN 0.4 MG SL TABS BTL 25'S SL PRN ×2 (13:18→13:32)
[2022-07-14] MEDS ORDERED: morphine INJ 10 MG/ML 1ML (SYR OR VIAL) IVP STA (14:19)
[2022-07-14] MEDS ORDERED: ANTACID SUSP 30 ML UDC (MYLANTA) PO ONE (15:00)
[2022-07-14] MEDS ORDERED: LIDOCAINE 2% VISCOUS 15 ML UDC PO ONE (15:00)
[2022-07-14] MEDS ORDERED: FAMO-119 PO (15:37)
[2022-07-14] MEDS ORDERED: RX-ONDANSETRON 4 MG ODT (ZOFRAN) PPK #4 PO STA (15:49)
[2022-07-14 16:07] VITALS: BP 142/86
== END 2022-07-14 16:07 | disposition home or self-care (01) ==
LOC: EDUNIT# 11:28 → ER 11:30
DX: R07.89 Other chest pain (principal); F17.210 Nicotine dependence, cigarettes, uncomplicated; Z20.822 Contact with and (suspected) exposure to COVID-19
CPT/HCPCS: 36415; 71045; 80053; 82550; 82553; 83690; 83735; 83874; 83880; 84484; 85025; 85379; 85610; 85730; 86141; 87636; 93005; 93041; 96374; 96375

== ENCOUNTER 2022-07-21 11:23 | Day surgery (SDC) | payer OTHER, MEDICAID ==
[2022-07-21] VITALS (9 sets, daily range): BP systolic 126–134; BP diastolic 78–87
[~2022-07-21] VITALS: Ht 182.9 cm; Wt 101.2 kg
[~2022-07-21 11:23] MED LIST changes: +FAMO-119 PO
[2022-07-21] MEDS ORDERED: NS IV 1000 ML 1,000 ML ONE (11:39)
[2022-07-21] MEDS ORDERED: HEParin (CATH LAB) 2,000 ML IV ONE (11:39)
[2022-07-21] MEDS ORDERED: LIDOCAINE 1% INJ 30 ML (XYLOCAINE) VIAL ONE (11:39)
[2022-07-21] MEDS ORDERED: NS IV 1000 ML 1,000 ML IV SCH ×2 (11:45→17:00)
[2022-07-21] MEDS ORDERED: PANT40TA2 PO (12:00)
[2022-07-21] MEDS ORDERED: NITR0.4T39 SL (12:00)
[2022-07-21] MEDS ORDERED: ASPI-999 PO (12:00)
[2022-07-21] MEDS ORDERED: METO-351 PO (12:00)
[2022-07-21 12:03] LABS: HEMATOCRIT 51 % (40-54); MEAN CORPUSCULAR HEMOGLOBIN 33 pg (25-34); MEAN CORPUSCULAR HGB CONC 33 g/dL (32-36); MEAN CORPUSCULAR VOLUME 98 fL (80-99); MEAN PLATELET VOLUME 8.9 fL (9.0-12.2); PLATELET COUNT 272 10^3/uL (130-400); WHITE BLOOD COUNT 8.5 10^3/uL (4.3-11.0)
[2022-07-21 12:33] LABS: PROTHROMBIN TIME PATIENT 13.4 SEC (12.2-14.7)
[2022-07-21 12:36] LABS: ALBUMIN 4.1 GM/DL (3.2-4.5); BILIRUBIN,TOTAL 0.5 MG/DL (0.1-1.0); CALCIUM 9.1 MG/DL (8.5-10.1); CREATININE SERUM 0.9 MG/DL (0.60-1.30); POTASSIUM 4.2 MMOL/L (3.6-5.0); TOTAL PROTEIN 7.3 GM/DL (6.4-8.2)
[2022-07-21] MEDS ORDERED: fentaNYL INJ 100 MCG/2 ML AMP ONE (15:41)
[2022-07-21] MEDS ORDERED: MIDAZOLAM 5 MG/5 ML (VERSED) VIAL ONE (15:41)
--- NOTE | 2022-07-21 16:55 | Cardiac Procedure Note-CS/ASA ---
Pre-Procedure Note Pre-Op Procedure Note Date of Available H&P: Jul 20, 2022 Date H&P Reviewed: Jul 21, 2022 Time H&P Reviewed: 15:00 History & Physical: No changes noted Conscious Sedation Pre-Proced ASA Score 3 For ASA 3 and 4: Consider anesthesia and medical clearance. Also, for patients with a history of failed moderate sedation consider anesthesia. Airway Lungs Heart ASA score ASA 1: a normal healthy patient ASA 2: a patient with a mild systemic disease (mid diabetes, controlled hypertension, obesity ASA 3: a patient with a severe systemic disease that limits activity (angina, COPD, prior Myocardial infarction) ASA 4: a patient with an incapacitating disease that is a constant threat to life (CHF, renal failure) ASA 5: a moribund patient not expected to survive 24 hrs. (ruptured aneurysm) ASA 6: a declared brain- patient whose organs are being harvested. For emergent operations, add the letter E after the classification Mallampati Classification Grade 2 Sedation Plan Analgesia, Amnesia, Plan communicated to team members The patient is an appropriate candidate to undergo the planned procedure, sedation, and anesthesia. The patient immediately re-assessed prior to indication. JOEY MCKEON MD FACP [facility] Jul 21, 2022 16:55
--- NOTE | 2022-07-21 16:57 | Discharge Inst-Cardiology ---
Discharge Inst-Cardiac Discharge Medications Continued Medications: Metoprolol Succinate (Toprol Xl) 25 Mg Tab.er.24h 25 MG PO DAILY, TAB Pantoprazole Sodium (Protonix) 40 Mg Tablet.dr 40 MG PO DAILY, TAB Discontinued Medications: Aspirin (Aspirin) 81 Mg Tab.chew 81 MG PO DAILY, TAB Nitroglycerin (Nitroglycerin) 0.4 Mg Tab.subl 0.4 MG SL UD PRN for CHEST PAIN, TAB JOEY MCKEON MD FACP [facility]S Jul 21, 2022 16:57
--- NOTE | 2022-07-21 16:58 | Discharge Inst-Post CATH ---
Discharge Inst-CATH/EP Post Cardiac Cath/EP D/C Inst Follow Up/Plan F/u with Dr Rock in 1-2 weeks ACTIVITY * Go Home directly and rest. * Limit activity of the leg (or wrist if it was used) for 7 days including aerobics, swimming, jogging, bicycling, etc. * Restrict stair-climbing for 7 days if possible, if not, climb up with your n on-cath leg, then bring together on the same step. * Avoid lifting, pushing, pulling or excessive movement of the affected ex tremity for 7 days. * Customary sexual activity may be resumed after 2 days-use caution not to use a position that strains or causes pain to the affected extremity. * No driving for 24 hours. * NO SMOKING. * Avoid straining for bowel movements for 7 days. * Gentle walking on level ground is allowed. * Returning to work will depend on the type of procedure and the results. Your doctor will discuss this with you. CALL YOUR DOCTOR FOR ANY OF THE FOLLOWING: *If bleeding from the puncture site occurs- Apply gentle pressure to site with clean cloth and call your doctor or EMS. * If a knot or lump forms under the skin, increases in size, or causes pain. * If bruising appears to be worsening or moving further down your leg instead of disappearing. * Temperature above 101 F. CARE OF YOUR GROIN INCISION; * Bruising or purple discoloration of the skin near the puncture site is common. * You may shower only, no bathtub bathing for 5 days. Be careful to avoid slipping as your leg may feel stiff. * If a closure device was used on your femoral artery, please see the attached guide regarding care of the device and your leg. * Leave dressing on FOR 24 hours. CARE OF YOUR WRIST INCISION; * Bruising or purple discoloration of the skin near the puncture site is common. * You may shower. * DO NOT submerge wrist. * Leave dressing on FOR 24 hours. JOEY ROCK MD [facility]S Jul 21, 2022 16:58
[2022-07-21] MEDS ORDERED: PATIENT MAY USE OWN MEDS, ALL PO SCH (17:00)
--- NOTE | 2022-07-21 19:42 | CARDIAC CATHETERIZATION ---
DATE OF SERVICE: 07/21/2022 CARDIAC CATHETERIZATION REPORT INDICATION FOR PROCEDURE: The patient is a 42-year-old gentleman, who has coronary artery disease risk factors and who has been presenting to the emergency room repeatedly for severe chest pain. He remains concerned that this is of cardiac origin. Accordingly, cardiac catheterization was carried out after having obtained an informed consent. DESCRIPTION OF PROCEDURE: He was brought to the cardiac catheterization laboratory in a fasting state. Right groin was prepared and draped in the usual sterile fashion. Lidocaine 1% was used for local anesthesia. Modified Seldinger technique was used to advance a 5-Qatari sheath in the right femoral artery, 5-Qatari JL4 catheter was used for left coronary angiography, 5-Qatari JR4 catheter was used for right coronary angiography, 5-Qatari pigtail catheter was used for left heart catheterization and left ventricular angiography. At the end of the procedure, angiography of the right femoral artery was carried out through the sheath and Mynx was used to achieve hemostasis. HEMODYNAMICS: Left ventricular end-diastolic pressure following coronary angiography was 15 mmHg. There was no significant pressure gradient on pullback across the aortic valve. CORONARY ANGIOGRAPHY: Left main coronary artery, left anterior descending artery, left circumflex artery, and right coronary artery do not have any angiographically significant coronary artery disease. Right coronary artery is dominant. CONCLUSIONS: 1. No angiographically significant coronary artery disease. 2. Normal global left ventricular systolic function with an ejection fraction of 50% to 55%. 3. Mild elevation of left ventricular end-diastolic pressure (15 mmHg). DISCUSSION AND RECOMMENDATIONS: Based on results of the study, chest discomfort does not appear to be of cardiac origin. Continuing risk factor modification is advised. He has been on ibuprofen 800 mg three times a day for many years. This was discontinued yesterday. We have advised followup with family physician for evaluation for peptic ulcer disease or gastroesophageal reflux disease or other causes of noncardiac chest pain. He had been placed on aspirin until the cardiac catheterization was done. Now that the cardiac catheterization does not indicate any significant coronary artery disease, we have advised him to discontinue aspirin. Beta tapan therapy is being continued because of his mild to moderate hypertension. Outpatient followup is advised. Job ID: [id number] DocumentID: [id number] Dictated Date: 07/21/2022 17:02:30 Security Coordinator Date: 07/21/2022 19:41:26 Dictated By: JOEY MCKEON MD, MA, FACP, FACC,
[2022-07-21] MEDS ORDERED: ACETAMINOPHEN 325 MG TABLET PO ONE (20:00)
[2022-07-21] MEDS ORDERED: ACETAMINOPHEN 325 MG TABLET ONE (20:05)
[2022-07-21] MEDS ORDERED: oxyCODONE/APAP 10/325MG (PERCOCET 10) TABLET PO ONE ×2 (21:21→21:30)
== END 2022-07-21 22:22 | disposition home or self-care (01) ==
LOC: CATH 11:23 → CSD 17:12 → CATH 22:22
PROVIDERS: ATTEND Internal Medicine Cardiovascular Disease
DX: I25.10 Atherosclerotic heart disease of native coronary artery without angina pectoris (principal); F17.210 Nicotine dependence, cigarettes, uncomplicated; I10 Essential (primary) hypertension; F41.9 Anxiety disorder, unspecified; F43.10 Post-traumatic stress disorder, unspecified; Z86.73 Personal history of transient ischemic attack (TIA), and cerebral infarction without residual deficits
CPT/HCPCS: 80053; 80061; 85027; 85610; 85730; 87081; 93005; 93458; C1760; C1894; 36415

== ENCOUNTER 2022-09-21 10:20 | Emergency (ER) | payer OTHER, MEDICAID ==
[~2022-09-21] VITALS: Ht 182 cm; Wt 101.2 kg
[~2022-09-21 10:20] MED LIST changes: +ASPI-999 PO; +METO-351 PO; +NITR0.4T39 SL
[2022-09-21 10:25] VITALS: BP 155/104
--- NOTE | 2022-09-21 10:53 | ED Neurological Problem ---
General Stated Complaint: LIGHTHEADED | DIZZY| LT SIDE NUMBNESS Source: patient Exam Limitations: physical impairment History of Present Illness Date Seen by Provider: Sep 21, 2022 Time Seen by Provider: 10:25 Initial Comments Patient is a 42-year-old male presents to the emergency room with approximately 45 minutes of lightheadedness, dizziness, pain to his left side and he states increased numbness to his left side. Patient reports that he has had previous "stroke" treated in [place] in 2018 or 19. He states that he is compliant with his daily medications. He was at work when the symptoms started. He denies headache but states that his left eye is a little bit blurry. He is able to walk and function. He denies any recent illnesses such as fevers, chills, cough or congestion. No problems with bowel or bladder. No incontinence specifically. He states he has had intermittent symptoms similar to this off and on since he had his "stroke". He states he does smoke. He occasionally drinks alcohol. He denies recreational drugs. On arrival he is mentating appropriately although slow deliberate speech. Vital signs are stable. All other review of systems reviewed and negative except as stated. Timing/Duration: 1 hour Severity: mild Associated Symptoms: fatigue, paresthesia, vision changes (left eye blurry) Allergies and Home Medications Allergies Coded Allergies: Sulfa (Sulfonamide Antibiotics) (Verified Allergy, Severe, HIVES, 09/21/22) levofloxacin (Verified Allergy, Unknown, 09/21/22) doxycycline (Verified Adverse Reaction, Mild, Vomiting, 09/21/22) Patient Home Medication List Home Medication List Reviewed: Yes Metoprolol Succinate (Toprol Xl) 25 Mg Tab.er.24h, 25 MG PO DAILY, (Reported) Entered as Reported by: DEYANIRA SEYMOUR on 07/21/22 1200 Pantoprazole Sodium (Protonix) 40 Mg Tablet.dr, 40 MG PO DAILY, (Reported) Entered as Reported by: DEYANIRA SEYMOUR on 07/21/22 1200 Review of Systems Review of Systems Constitutional: see HPI, dizziness, malaise, weakness Eyes: Blurred Vision (left eye) Ears, Nose, Mouth, Throat: no symptoms reported Respiratory: no symptoms reported Cardiovascular: no symptoms reported Gastrointestinal: no symptoms reported Genitourinary: no symptoms reported Musculoskeletal: no symptoms reported Psychiatric/Neurological: Weakness (left side) All Other Systems Reviewed Negative Unless Noted: Yes Past Gkswsvg-Rhwgme-Oyxgiu Hx Immunizations Up To Date First/Initial COVID19 Vaccinat: 12/29 Second COVID19 Vaccination Cole: 01/29 Third COVID19 Vaccination Date: 12/29 Seasonal Allergies Seasonal Allergies: No Past Medical History Surgery/Hospitalization HX: CHOLECYSTECTOMY, UMBILICAL HERNIA REPAIR, RENAL STONES, APPY,VASECTOMY, T/A, CVA 2019, ANXIETY, PTSD Surgeries: Yes (KIDNEY STONES--BASKET REMOVAL, ) Abdominal, Adenoidectomy, Gallbladder, Tonsillectomy, Vasectomy Respiratory: No Currently Using CPAP: No Currently Using BIPAP: No Cardiac: No Neurological: Yes (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, MOSTLY RESOLVED) Stroke Reproductive Disorders: No Genitourinary: Yes Kidney Stones Gastrointestinal: Yes (CHRONIC GI COMPLAINTS, umbilical hernia) Abdominal Hernia, Gall Bladder Disease Musculoskeletal: Yes Chronic Back Pain Endocrine: Yes (hypoglycemia) HEENT: No Tonsilitis Cancer: No Psychosocial: Yes Anxiety, PTSD Integumentary: No Blood Disorders: No Family Medical History No Pertinent Family Hx SOCIAL HISTORY: -ETOH--OCCASIONAL USE -DRUGS--DENIES USE, BUT UDS HAS BEEN + FOR THC -SMOKES 1 PPD PAST SURGICAL HISTORY: -KIDNEY STONES-BASKET REMOVAL -TONSILLECTOMY/ADENOIDECTOMY -VASECTOMY -CARDIAC CATH 09/24/20 BY : CONCLUSIONS: 1. No angiographically significant coronary artery disease. 2. Normal left ventricular end-diastolic pressure. 3. Normal left ventricular systolic function with ejection fraction of 55% to 60%. DISCUSSION AND RECOMMENDATIONS: Based on results of the study, chest discomfort does not appear to be of coronary origin. Risk factor modification is advised. Have advised to refrain from tobacco use. Other risk factor modification has also been discussed. Outpatient followup is advised. -LAPAROSCOPIC CHOLECYSTECTOMY AND UMBILICAL HERNIA REPAIR 10/09/[address] HUTCHINSON. Physical Exam Vital Signs Vital Signs - First Documented Capillary Refill : Height, Weight, BMI Height: 6'" Weight: 242lbs. oz. 109.012027yr; 30.25 BMI Method:Stated General Appearance: WD/WN, no apparent distress HEENT: PERRL/EOMI, normal ENT inspection, pharynx normal (Appears adequately hydrated) Neck: full range of motion, supple Respiratory: lungs clear, normal breath sounds, no respiratory distress, no accessory muscle use Cardiovascular: regular rate, rhythm, other (Brisk capillary refill) Peripheral Pulses: 2+ Radial Pulses (R), 2+ Radial Pulses (L) Gastrointestinal: normal bowel sounds, non tender, soft Back: normal inspection Extremities: normal range of motion, non-tender, normal inspection, no pedal edema, no calf tenderness Neurologic/Psychiatric: street commissioner II-XII nml as tested, no motor/sensory deficits, alert, normal mood/affect, oriented x 3; No abnormal cerebellar tests Crainal Nerves: normal hearing; No abnormal eye position, No abnormal gag reflex, No abnormal pupil position, No abnormal speech, No facial asymmetry, No facial droop, No facial paresthesias, No facial weakness, No gaze palsy, No tongue deviation to R, No tongue deviation to L; other (Slow deliberate speech, no dysarthria) Coordination/Gait: normal finger to nose, normal gait, negative Romberg's sign Motor/Sensory: other (Patient's motor strength testing is inconsistent. He initially does not put forth much effort but when he is encouraged to squeeze my hand and to push and pull with his upper extremities strength is perceived to be equal in the bilateral upper extremities. Also dorsiflexion of the great toe on the bilateral feet seems symmetric with encouragement; he does endorse subjective decrease sensation over the left face, left hand and left leg) Skin: normal color, warm/dry Stroke Stroke Thrombolytic Exclusion Age 18 or Over: Yes Acute intenal hemorrhage: No History of CVA: Yes Uncontrolled Coagulation Defec: No Intracranial Hemorrhage: No Severe Hypertension: No GI or Bleed: No Subarachnoid Hemorrhage: No Intracranial Neoplasm/Aneurysm: No Oral Anticoagulants: No Surgery or Trauma: Yes Puncture of Non-Compressible V: No Recent CPR: No Diabetic Hemorrhagic Retinopat: No Organ Biopsy: No Glucose: No Significant Hepatic Dysfunctio: No NIH Stoke Scale >22: No Bacterial Endocarditis: No Pericarditis: No Improving Symptoms: Yes Platelets: No Progress/Results/Core Measures Results/Orders Lab Results Laboratory Tests Test 09/21/22 10:30 09/21/22 10:33 Range/Units Glucometer 96 70-110 MG/DL White Blood Count 8.7 4.3-11.0 10^3/uL Red Blood Count 4.91 4.30-5.52 10^6/uL Hemoglobin 16.2 13.3-17.7 g/dL Hematocrit 48 40-54 % Mean Corpuscular Volume 97 80-99 fL Mean Corpuscular Hemoglobin 33 25-34 pg Mean Corpuscular Hemoglobin Concent 34 32-36 g/dL Red Cell Distribution Width 13.0 10.0-14.5 % Platelet Count 270 130-400 10^3/uL Mean Platelet Volume 8.8 L 9.0-12.2 fL Immature Granulocyte % (Auto) 0 % Neutrophils (%) (Auto) 75 42-75 % Lymphocytes (%) (Auto) 15 12-44 % Monocytes (%) (Auto) 7 0-12 % Eosinophils (%) (Auto) 3 0-10 % Basophils (%) (Auto) 1 0-10 % Neutrophils # (Auto) 6.6 1.8-7.8 10^3/uL Lymphocytes # (Auto) 1.3 1.0-4.0 10^3/uL Monocytes # (Auto) 0.6 0.0-1.0 10^3/uL Eosinophils # (Auto) 0.2 0.0-0.3 10^3/uL Basophils # (Auto) 0.1 0.0-0.1 10^3/uL Immature Granulocyte # (Auto) 0.0 0.0-0.1 10^3/uL Prothrombin Time 13.4 12.2-14.7 SEC INR Comment 1.0 0.8-1.4 Activated Partial Thromboplast Time 29 24-35 SEC D-Dimer 0.76 H 0.00-0.49 UG/ML Sodium Level 139 135-145 MMOL/L Potassium Level 3.5 L 3.6-5.0 MMOL/L Chloride Level 106 98-107 MMOL/L Carbon Dioxide Level 23 21-32 MMOL/L Anion Gap 10 5-14 MMOL/L Blood Urea Nitrogen 7 7-18 MG/DL Creatinine 0.92 0.60-1.30 MG/DL Estimat Glomerular Filtration Rate 105 BUN/Creatinine Ratio 8 Glucose Level 86 70-105 MG/DL Calcium Level 8.9 8.5-10.1 MG/DL Corrected Calcium 8.7 8.5-10.1 MG/DL Total Bilirubin 0.5 0.1-1.0 MG/DL Aspartate Amino Transf (AST/SGOT) 16 5-34 U/L Alanine Aminotransferase (ALT/SGPT) 20 0-55 U/L Alkaline Phosphatase 86 40-136 U/L Troponin I < 0.028 <0.028 NG/ML Total Protein 7.1 6.4-8.2 GM/DL Albumin 4.2 3.2-4.5 GM/DL My Orders Orders - VICKY RENNER MD Cbc With Automated Diff (09/21/22 10:53) Protime With Inr (09/21/22 10:53) Partial Thromboplastin Time (09/21/22 10:53) Comprehensive Metabolic Panel (09/21/22 10:53) Fibrin Degradation Products (09/21/22 10:53) Troponin I [place] (09/21/22 10:53) Ua Culture If Indicated (09/21/22 10:53) Chest 1 View, Ap/Pa Only (09/21/22 10:53) Ekg Tracing (09/21/22 10:53) Nothing By Mouth (09/21/22 Lunch) Accucheck Stat ONCE (09/21/22 10:53) Ed Iv/Invasive Line Start (09/21/22 10:53) Ed Iv/Invasive Line Start (09/21/22 10:53) Vital Signs Stroke Patient Q15M (09/21/22 10:53) O2 (09/21/22 10:53) Intake & Output , (09/21/22 10:53) Monitor-Rhythm Ecg Trace Only (09/21/22 10:53) Dysphagia Screening Tool [id number] (09/21/22 10:53) Post Thrombolytic Adminstratio (09/21/22 10:53) Lipid Panel (09/22/22 06:00) Ct Head Wo-R/O Stroke (09/21/22 11:10) Acetaminophen Tablet (Tylenol Tablet) (09/21/22 12:00) Medications Given in ED Current Medications Medications Dose Ordered Sig/Alba Route Start Time Stop Time Status Last Admin Dose Admin Acetaminophen 1,000 mg ONCE ONCE PO 09/21/22 12:00 09/21/22 12:01 DC 09/21/22 12:14 1,000 MG Vital Signs/I&O 09/21/22 09/21/22 10:25 10:25 Temp 36.9 Pulse 67 67 Resp 16 16 B/P (MAP) 155/104 (121) 155/104 Pulse Ox 100 100 O2 Delivery Room Air Progress Progress Note : Time: 12:33 Progress Note Patient seen and evaluated, 42-year-old male history of hypertension previous stroke. Evaluation today includes "stroke work-up". NIH "1" for "numbness". All of his labs have been reviewed, very minimal elevation in his D-dimer. CT shows no concern for acute intracranial pathology. Neurologically he is "normal" although his subjective decrease in sensation which the patient states is both chronic and intermittent. He states he has had similar presentations to this before but no recurrent stroke. He states that he is compliant with his daily medications. He has no recent illnesses. No findings concerning for sepsis. No actual physical exam findings that are concerning for acute cerebrovascular accident. He is normal sinus rhythm on the monitor. Heart rate is 64. Slightly hypertensive with a diastolic of 104. I do not think that with his presentation he warrants admission at this time. I do not believe, although consideration was made for, CT angiography of the head and neck is necessary at this time. Of note patient has had multiple visits to the emergency department for chest pain and left-sided weakness. He had an MRI with and without contrast of the brain in January 2022 that showed absolutely no acute pathology or old pathology in the brain concerning for stroke. He also at around that time had left heart cath which showed no identifiably significant coronary atherosclerotic disease. Patient strongly encouraged to contact his primary care physician today and follow-up this week. Work note given for today. BP at discharge 119/70 with HR 50's; no complaints. Initial ECG Impression Date: Sep 21, 2022 Initial ECG Impression Time: 10:27 Initial ECG Rate: 56 Initial ECG Rhythm: Normal Sinus Initial ECG Intervals: Normal Initial ECG Impression: Normal Initial ECG Comparisson: Unchanged Departure Impression Primary Impression: Paresthesia of left arm and leg Additional Impression: High blood pressure Qualified Codes: I10 - Essential (primary) hypertension Disposition: 01 HOME, SELF-CARE Condition: Stable Departure-Patient Inst. Decision time for Depature: 12:43 Referrals: [facility] (PCP/Family) Primary Care Physician Patient Instructions: High Blood Pressure ED Add. Discharge Instructions: You have had no evidence of stroke today on your evaluation in the emergency department. Your blood pressure is found to be quite high. You need to make sure that you are continuing to take your blood pressure medications. Please call your primary care doctor today for a follow-up appointment this week. Come back to the emergency department if you have any worsening symptoms of weakness of the left side of your body, vomiting, severe headache or other emergent, concerning symptoms. Work/School Note: Work Release Form Date Seen in the Emergency Department: Sep 21, 2022 Return to Work: Sep 22, 2022 Copy Copies To 1: AISSATOU FALLON KATHRYN M MD Sep 21, 2022 10:53
[2022-09-21 11:02] LABS: BASOPHILS # (AUTO) 0.1 10^3/uL (0.0-0.1); BASOPHILS % (AUTO) 1 % (0-10); EOSINOPHILS # (AUTO) 0.2 10^3/uL (0.0-0.3); EOSINOPHILS % (AUTO) 3 % (0-10); HEMATOCRIT 48 % (40-54); HEMOGLOBIN 16.2 g/dL (13.3-17.7); LYMPHOCYTES # (AUTO) 1.3 10^3/uL (1.0-4.0); LYMPHOCYTES % (AUTO) 15 % (12-44); MEAN CORPUSCULAR HEMOGLOBIN 33 pg (25-34); MEAN CORPUSCULAR HGB CONC 34 g/dL (32-36); MEAN CORPUSCULAR VOLUME 97 fL (80-99); MEAN PLATELET VOLUME 8.8 fL (9.0-12.2); MONOCYTES # (AUTO) 0.6 10^3/uL (0.0-1.0); MONOCYTES % (AUTO) 7 % (0-12); NEUTROPHILS # (AUTO) 6.6 10^3/uL (1.8-7.8); NEUTROPHILS % (AUTO) 75 % (42-75); PLATELET COUNT 270 10^3/uL (130-400); WHITE BLOOD COUNT 8.7 10^3/uL (4.3-11.0)
[2022-09-21 11:10] LABS: FIBRIN DEGRADATION PRODUCTS 0.76 UG/ML (0.00-0.49); PROTHROMBIN TIME PATIENT 13.4 SEC (12.2-14.7)
[2022-09-21 11:15] LABS: ALANINE AMINOTRANSFERASE 20 U/L (0-55); ALBUMIN 4.2 GM/DL (3.2-4.5); ALKALINE PHOSPHATASE 86 U/L (40-136); BILIRUBIN,TOTAL 0.5 MG/DL (0.1-1.0); BUN/CREATININE RATIO 8; CALCIUM 8.9 MG/DL (8.5-10.1); CARBON DIOXIDE 23 MMOL/L (21-32); CHLORIDE 106 MMOL/L (98-107); CREATININE SERUM 0.92 MG/DL (0.60-1.30); GFR ESTIMATED 105; GLUCOSE 86 MG/DL (70-105); POTASSIUM 3.5 MMOL/L (3.6-5.0); SODIUM 139 MMOL/L (135-145); TOTAL PROTEIN 7.1 GM/DL (6.4-8.2)
--- NOTE | 2022-09-21 11:40 | Diagnostic Imaging Report ---
INDICATION: Headache, dizziness and paresthesia. Single AP view of the chest is obtained with comparison made to study of 07/14/2022 FINDINGS: Heart size and pulmonary vascularity are within normal limits, and the lungs are clear, bilaterally. IMPRESSION: Unremarkable chest. Dictated by: Dictated on workstation # [id number]
--- NOTE | 2022-09-21 11:46 | Diagnostic Imaging Report ---
EXAMINATION: CT head without contrast. TECHNIQUE: Multiple contiguous axial images were obtained through the brain without the use of intravenous contrast. All CT scans use one or more of the following dose optimizing techniques: automated exposure control, MA and/or KvP adjustment based on patient size and exam type or iterative reconstruction. HISTORY: Left-sided numbness. Dizziness. COMPARISON: 11/01/2021. FINDINGS: No large acute territorial ischemia, mass, or hemorrhage. No midline shift or mass effect. The ventricles, cortical sulci, and basilar cisterns are patent and unremarkable. The orbits are normal. Paranasal sinuses are normal. Mastoid air cells are clear. No soft tissue abnormality is seen. No osseus lesions or fractures are seen. IMPRESSION: 1. No large acute territorial ischemia, mass, or hemorrhage. Dictated by: Dictated on workstation # [id number]
[2022-09-21] MEDS ORDERED: ACETAMINOPHEN 500 MG TAB (TYLENOL) PO ONE (12:00)
[2022-09-21 12:55] VITALS: BP 119/70
== END 2022-09-21 12:55 | disposition home or self-care (01) ==
LOC: EDUNIT# 10:20 → ER 10:23
DX: I10 Essential (primary) hypertension (principal); R20.0 Anesthesia of skin; R07.9 Chest pain, unspecified; F17.200 Nicotine dependence, unspecified, uncomplicated; Z86.73 Personal history of transient ischemic attack (TIA), and cerebral infarction without residual deficits
CPT/HCPCS: 36415; 70450; 71045; 80053; 82947; 84484; 85025; 85379; 85610; 85730; 93005; 93041

== ENCOUNTER 2022-09-29 08:51 | Emergency (ER) | payer OTHER, MEDICAID ==
[~2022-09-29] VITALS: Ht 182 cm; Wt 105.0 kg
[2022-09-29 08:52] VITALS: BP 141/96
--- NOTE | 2022-09-29 09:09 | ED General ---
General Chief Complaint: General Problems/Pain Stated Complaint: LT EYE AND RT SHOULDER PAIN Nursing Triage Note: ARRIVED VIA AMB TO ROOM 06 WITH COMPLAINTS OF RIGHT SHOULDER PAIN X1 WEEK. NO INJURY. ALSO STATES HE WOKE UP WITH LEFT EYE PAIN AND DRAINAGE THIS AM. Source of Information: Patient Exam Limitations: No Limitations History of Present Illness Date Seen by Provider: Sep 29, 2022 Time Seen by Provider: 09:09 Initial Comments Patient is a 42-year-old male who presents to the emergency department today with a chief complaint of right shoulder pain. 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 He denies any direct trauma. No numbness, tingling or weakness to the right upper extremity. He has used Tylenol and ibuprofen as well as [id number] Biofreeze and lidocaine patches without relief. No fevers or chills. He woke up this morning with left eye matting, green and yellow. Had to use hot water to be able to open his eye. He states the eye "stings". He endorses blurry vision with tearing. No specific eye pain. He is not a diabetic. Denies any sick contacts. Patient states when he came into work this morning one of the ladies at work told him he could not be there because of his eye. All other review of systems reviewed and negative except as stated. Timing/Duration: 1 Hour (left eye redness and drainage), 1 Week (shoulder pain) Severity: Mild Associated Systoms: Denies Symptoms Allergies and Home Medications Allergies Coded Allergies: Sulfa (Sulfonamide Antibiotics) (Verified Allergy, Severe, HIVES, 09/21/22) levofloxacin (Verified Allergy, Unknown, 09/21/22) doxycycline (Verified Adverse Reaction, Mild, Vomiting, 09/21/22) Patient Home Medication List Home Medication List Reviewed: Yes Discontinued Medications Metoprolol Succinate (Toprol Xl) 25 Mg Tab.er.24h, 25 MG PO DAILY, (Reported) Discontinued Reason: No Longer Taking Entered as Reported by: DEYANIRA SEYMOUR on 07/21/221199 Last Action: Discontinued Pantoprazole Sodium (Protonix) 40 Mg Tablet.dr, 40 MG PO DAILY, (Reported) Discontinued Reason: No Longer Taking Entered as Reported by: DEYANIRA SEYMOUR on 07/21/221199 Last Action: Discontinued Review of Systems Review of Systems Constitutional: see HPI EENTM: eye pain ("stinging" lwft eye), tearing (left eye) Respiratory: no symptoms reported Cardiovascular: no symptoms reported Gastrointestinal: no symptoms reported Genitourinary: no symptoms reported Musculoskeletal: joint pain (right shoulder) Skin: no symptoms reported Psychiatric/Neurological: No Symptoms Reported All Other Systems Reviewed Negative Unless Noted: Yes Past Ttxxmdl-Xbcbii-Pyjtqy Hx Patient Social History Tobacco Use?: Yes Smoking Status: Current Everyday Smoker Substance use?: No Alcohol Use?: No Immunizations Up To Date First/Initial COVID19 Vaccinat: 12/29 Second COVID19 Vaccination Cole: [place] Third COVID19 Vaccination Date: 12/29 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: [employer] Seasonal Allergies Seasonal Allergies: No Past Medical History Surgery/Hospitalization HX: CHOLECYSTECTOMY, UMBILICAL HERNIA REPAIR, RENAL STONES, APPY,VASECTOMY, T/A, CVA 2019, ANXIETY, PTSD Surgeries: Yes (KIDNEY STONES--BASKET REMOVAL, ) Abdominal, Adenoidectomy, Gallbladder, Tonsillectomy, Vasectomy Respiratory: No Currently Using CPAP: No Currently Using BIPAP: No Cardiac: No Neurological: Yes (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, MOSTLY RESOLVED) Stroke Reproductive Disorders: No Genitourinary: Yes Kidney Stones Gastrointestinal: Yes (CHRONIC GI COMPLAINTS, umbilical hernia) Abdominal Hernia, Gall Bladder Disease Musculoskeletal: Yes Chronic Back Pain Endocrine: Yes (hypoglycemia) HEENT: No Tonsilitis Cancer: No Psychosocial: Yes Anxiety, PTSD Integumentary: No Blood Disorders: No Family Medical History No Pertinent Family Hx SOCIAL HISTORY: -ETOH--OCCASIONAL USE -DRUGS--DENIES USE, BUT UDS HAS BEEN + FOR THC -SMOKES 1 PPD PAST SURGICAL HISTORY: -KIDNEY STONES-BASKET REMOVAL -TONSILLECTOMY/ADENOIDECTOMY -VASECTOMY -CARDIAC CATH 09/24/20 BY : CONCLUSIONS: 1. No angiographically significant coronary artery disease. 2. Normal left ventricular end-diastolic pressure. 3. Normal left ventricular systolic function with ejection fraction of 55% to 60%. DISCUSSION AND RECOMMENDATIONS: Based on results of the study, chest discomfort does not appear to be of coronary origin. Risk factor modification is advised. Have advised to refrain from tobacco use. Other risk factor modification has also been discussed. Outpatient followup is advised. -LAPAROSCOPIC CHOLECYSTECTOMY AND UMBILICAL HERNIA REPAIR 10/09/[address] HUTCHINSON. Physical Exam Vital Signs Vital Signs - First Documented 09/29/22 08:52 Temp 35.8 Pulse 72 Resp 16 B/P (MAP) 141/96 (111) Pulse Ox 99 O2 Delivery Room Air Capillary Refill : Less Than 3 Seconds Height, Weight, BMI Height: 6'" Weight: 242lbs. oz. [id number]; 31.00 BMI Method:Stated General Appearance: No Apparent Distress, WD/WN Eyes: Left Eye Other (scleral injection; tearing; PERRLA; EOMI.) HEENT: PERRL/EOMI, Pharynx Normal Neck: Full Range of Motion, Normal Inspection Respiratory: Lungs Clear, Normal Breath Sounds, No Accessory Muscle Use, No Respiratory Distress Cardiovascular: Regular Rate, Rhythm, Normal Peripheral Pulses, Diastolic Murmur Extremity: Normal Capillary Refill, Normal Inspection, Normal Range of Motion, Non Tender, No Calf Tenderness, Other (right shoulder FROM; normal strength and sensation. 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 Norm as Tested Skin: Normal Color, Warm/Dry Progress/Results/Core Measures Suspected Sepsis SIRS Temperature: Pulse: 72 Respiratory Rate: 16 Blood Pressure 141 /96 Mean: 111 Results/Orders My Orders Orders - VICKY RENNER MD Orphenadrine Inj (Ed Only) (Norflex Inje (09/29/22 09:30) Vital Signs/I&O 09/29/22 08:52 Temp 35.8 Pulse 72 Resp 16 B/P (MAP) 141/96 (111) Pulse Ox 99 O2 Delivery Room Air Capillary Refill : Less Than 3 Seconds Blood Pressure Mean: 111 Departure Impression Primary Impression: Shoulder pain, right Qualified Codes: M25.511 - Pain in right shoulder Additional Impression: Conjunctivitis Qualified Codes: H10.32 - Unspecified acute conjunctivitis, left eye Disposition: 01 HOME, SELF-CARE Condition: Stable Departure-Patient Inst. Decision time for Depature: 09:25 Referrals: [facility] (PCP/Family) Primary Care Physician Patient Instructions: Conjunctivitis ([facility]) ED, Joint Pain Add. Discharge Instructions: Continue over the counter biofreeze and Ibuprofen. Follow packaging directions. Use the muscle relaxers for the next 3 days as needed. 1-2 pills every 8 hours as needed. Erythromycin eye ointment to the left eye 4 times a day for 1 week for red, irritated eye. Return to the Emergency Department for ant new, concerning or emergent complaints. Scripts Erythromycin Base (Erythromycin Opthalmic Ointment) 5 Mg/Gram (0.5 %) Oint...g. 0 OP Q6H, #1 EA 1/2 inch ribbon to left eye Q6h for 1 week Prov: VICKY RENNER MD 09/29/22 Methocarbamol (Methocarbamol) 750 Mg Tablet 1500 MG PO Q8H for Back Pain, #18 TAB Prov: VICKY RENNER MD 09/29/22 Work/School Note: Work Release Form Date Seen in the Emergency Department: Sep 29, 2022 Return to Work: Sep 30, 2022 Copy Copies To 1: AISSATOU FALLON KATHRYN M MD Sep 29, 2022 09:09
[2022-09-29] MEDS ORDERED: ERYT1OIN6 OP (09:29)
[2022-09-29] MEDS ORDERED: METH-732 PO (09:29)
[2022-09-29] MEDS ORDERED: ORPHENADRINE 60 MG/2 ML (NORFLEX) AMP (ED ONLY) IM ONE (09:30)
== END 2022-09-29 09:40 | disposition home or self-care (01) ==
LOC: EDUNIT# 08:51 → ER 08:53
DX: M25.511 Pain in right shoulder (principal); H10.9 Unspecified conjunctivitis; F17.210 Nicotine dependence, cigarettes, uncomplicated; Z88.2 Allergy status to sulfonamides; Z28.310 Unvaccinated for COVID-19
CPT/HCPCS: 99284

== ENCOUNTER 2022-10-24 07:14 | Emergency (ER) | payer OTHER, MEDICAID ==
[~2022-10-24] VITALS: Ht 176 cm; Wt 101.0 kg
[~2022-10-24 07:14] MED LIST changes: +ERYT1OIN6 OP; +METH-732 PO
[2022-10-24 08:24] LABS: BILIRUBIN,URINE NEGATIVE (NEGATIVE); CLARITY,URINE CLEAR; COLOR,URINE YELLOW; GLUCOSE, URINE (UA) NEGATIVE (NEGATIVE); KETONES,URINE NEGATIVE (NEGATIVE); LEUKOCYTE ESTERASE ,URINE NEGATIVE (NEGATIVE); NITRITE,URINE NEGATIVE (NEGATIVE); PH,URINE 7.5 (5-9); PROTEIN,URINE NEGATIVE (NEGATIVE)
[2022-10-24 08:29] LABS: BASOPHILS # (AUTO) 0.1 10^3/uL (0.0-0.1); BASOPHILS % (AUTO) 1 % (0-10); EOSINOPHILS # (AUTO) 0.3 10^3/uL (0.0-0.3); EOSINOPHILS % (AUTO) 6 % (0-10); HEMATOCRIT 52 % (40-54); HEMOGLOBIN 17.5 g/dL (13.3-17.7); LYMPHOCYTES # (AUTO) 1.4 10^3/uL (1.0-4.0); LYMPHOCYTES % (AUTO) 27 % (12-44); MEAN CORPUSCULAR HEMOGLOBIN 33 pg (25-34); MEAN CORPUSCULAR HGB CONC 34 g/dL (32-36); MEAN CORPUSCULAR VOLUME 98 fL (80-99); MEAN PLATELET VOLUME 8.3 fL (9.0-12.2); MONOCYTES # (AUTO) 0.5 10^3/uL (0.0-1.0); MONOCYTES % (AUTO) 10 % (0-12); NEUTROPHILS # (AUTO) 2.9 10^3/uL (1.8-7.8); NEUTROPHILS % (AUTO) 55 % (42-75); PLATELET COUNT 274 10^3/uL (130-400); WHITE BLOOD COUNT 5.2 10^3/uL (4.3-11.0)
[2022-10-24 08:36] LABS: BACTERIA,URINE NEGATIVE /HPF; SQUAMOUS EPITHELIAL CELL,UR 0-2 /HPF
[2022-10-24 08:37] LABS: AMPHETAMINE SCREEN, URINE NEGATIVE (NEGATIVE); BARBITURATE SCREEN URINE NEGATIVE (NEGATIVE); BENZODIAZEPINES SCREEN URINE NEGATIVE (NEGATIVE); CANNABINOID SCREEN, URINE NEGATIVE (NEGATIVE); COCAINE SCREEN URINE NEGATIVE (NEGATIVE); METHADONE STAT NEGATIVE (NEGATIVE); OPIATE SCREEN URINE NEGATIVE (NEGATIVE); OXYCODONE STAT NEGATIVE (NEGATIVE); PROPOXYPHENE STAT NEGATIVE (NEGATIVE); TRICYCLIC ANTIDEPRESSANTS SCRE NEGATIVE (NEGATIVE)
[2022-10-24 08:39] LABS: ALBUMIN 4.4 GM/DL (3.2-4.5); CHLORIDE 106 MMOL/L (98-107); POTASSIUM 4.2 MMOL/L (3.6-5.0); SODIUM 140 MMOL/L (135-145)
[2022-10-24 08:40] LABS: CALCIUM 9.2 MG/DL (8.5-10.1)
[2022-10-24 08:41] LABS: GLUCOSE 102 MG/DL (70-105)
[2022-10-24 08:42] LABS: TOTAL PROTEIN 7.4 GM/DL (6.4-8.2)
[2022-10-24 08:43] LABS: BILIRUBIN,TOTAL 0.5 MG/DL (0.1-1.0); CARBON DIOXIDE 24 MMOL/L (21-32)
[2022-10-24 08:45] LABS: ALKALINE PHOSPHATASE 98 U/L (40-136); CREATININE SERUM 0.97 MG/DL (0.60-1.30); GFR ESTIMATED 99
[2022-10-24 08:46] LABS: ACETAMINOPHEN < 10 UG/ML (10-30)
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
[2022-10-24 08:47] LABS: BUN/CREATININE RATIO 5
[2022-10-24 08:48] LABS: SALICYLATE < 5.0 MG/DL (5.0-20.0)
[2022-10-24 08:49] LABS: ALANINE AMINOTRANSFERASE 18 U/L (0-55)
[2022-10-24 14:36] VITALS: BP 121/74
== END 2022-10-24 14:35 ==
LOC: EDUNIT# 07:14 → ER 07:16
DX: R44.1 Visual hallucinations (principal); R45.851 Suicidal ideations; F17.210 Nicotine dependence, cigarettes, uncomplicated; Z20.822 Contact with and (suspected) exposure to COVID-19
CPT/HCPCS: 80053; 80306; 81000; 85025; 87636; 93005; 99285; G0480 ×3; 36415; 80320; 80329